=== PATIENT | male | born 1945 | race Caucasian/White ===

== ENCOUNTER → 2019-11-24 | Outpatient (CLI) | payer MEDICARE | END | disposition home or self-care (01) | LOC: EDSEX → LABWHC1 10:46 | PROVIDERS: ATTEND Family Medicine | DX: J44.9 Chronic obstructive pulmonary disease, unspecified (principal) | CPT/HCPCS: 36415; 86769 ==

== ENCOUNTER → 2019-12-22 | Outpatient (CLI) | payer MEDICARE ==
--- NOTE | 2020-01-07 14:03 | MM ---
Reason for exam: screening (asymptomatic). Last mammogram was performed 2 years and 2 months ago. History: Patient is postmenopausal. Family history of breast cancer in mother at age 70. Physical Findings: A clinical breast exam by your physician is recommended on an annual basis and results should be correlated with mammographic findings. MG 3D Screening Mammo W/Cad Bilateral CC and MLO view(s) were taken. Prior study comparison: October 08, 2017, mammogram, performed at [place]. March 04, 2016, mammogram, performed at [place]. The breast tissue is heterogeneously dense. This may lower the sensitivity of mammography. Focal asymmetry upper outer quadant right breast. This finding is changed when compared with previous exams. ASSESSMENT: Incomplete: need additional imaging evaluation, BI-RAD 0 RECOMMENDATION: Special view mammogram of the right breast. If lesion persists on supplemental views, image directed ultrasound is recommended. [facility] will attempt to contact patient to return for supplemental views and ultrasound if indicated.
== END | disposition home or self-care (01) ==
LOC: RADMAMWWP 09:44 → EDSEX 10:00
PROVIDERS: ATTEND Family Medicine
DX: Z12.31 Encounter for screening mammogram for malignant neoplasm of breast (principal)
CPT/HCPCS: 77063; 77067

== ENCOUNTER → 2020-01-17 | Outpatient (CLI) | payer MEDICARE ==
--- NOTE | 2020-01-18 14:29 | MM ---
Reason for exam: additional evaluation requested from abnormal screening. Last mammogram was performed 1 month ago. History: Patient is postmenopausal. Family history of breast cancer in mother at age 70. Physical Findings: Nurse did not find any significant physical abnormalities on exam. MG 3D Work Up W/Cad RT Spot compression CC, spot compression MLO, and LM view(s) were taken of the right breast. Prior study comparison: December 22, 2019, bilateral MG 3d screening mammo w/cad. October 08, 2017, mammogram, performed at [place]. The breast tissue is heterogeneously dense. This may lower the sensitivity of mammography. Finding #1: There is a 7 mm circumscribed round mass located 4-5 cm from the nipple in the middle, central position of the right breast, persists on additional views. Finding #2: There are typically benign vascular, round calcifications in the right breast. New finding since October 08, 2017. These results were verbally communicated with the patient and result sheet given to the patient on 01/17/20. ASSESSMENT: Incomplete: need additional imaging evaluation, BI-RAD 0 RECOMMENDATION: Ultrasound of the right breast.
--- NOTE | 2020-01-18 14:33 | USB ---
Reason for exam: additional evaluation requested from abnormal screening. History: Patient is postmenopausal. Family history of breast cancer in mother at age 70. US Breast Workup RT Right complete breast ultrasound includes all four quadrants, the retroareolar region and axilla. Finding demonstrates a 7 x 5 x 7mm oval, hypoechoic lesion at 7 o'clock, deep tissue, increased through transmission, probably benign and a 11 x 6 x 11mm oval lesion at 6 o'clock, probable sebaceous cyst. These results were verbally communicated with the patient and result sheet given to the patient on 01/17/20. ASSESSMENT: Suspicious, BI-RAD 4 RECOMMENDATION: Surgical consultation of the right breast. Dermatology surgical consult, assess for surgical excision. Called office with mammographic findings and has scheduled an appointment for the patient for 01/21/20 at 1:[address] Kimble. PRELIMINARY REPORT CALLED AND FAXED TO DR. KIMBLE ON 01/17/20. Follow-up diagnostic mammogram and ultrasound of the right breast in 6 months.
== END | disposition home or self-care (01) ==
LOC: RADMAMWWP 09:18
PROVIDERS: ATTEND Family Medicine
DX: R92.8 Other abnormal and inconclusive findings on diagnostic imaging of breast (principal)
CPT/HCPCS: 77065; 76641; G0279; 77061

== ENCOUNTER → 2020-04-19 | Outpatient (CLI) | payer MEDICARE ==
[2020-04-19 18:41] LABS: Albumin 4.3 g/dL (3.80-4.90); Albumin/Globulin Ratio 2.05 (1.60-3.17); Anion Gap 5.2 mmol/L (4.00-12.00); Carbon Dioxide 28.8 mmol/L (21.6-31.8); Chol/HDL Ratio 2.81; Globulin 2.1 g/dL (1.6-3.3); LDL Cholesterol,Calculated 77.4 mg/dL (0.0-131.0); Non-African American GFR(CKD) 63.9 (60.0-200.0); Potassium 5.4 mmol/L (3.5-5.5); Total Bilirubin 0.4 mg/dL (0.2-1.2); Total Protein 6.4 g/dL (6.2-8.2); VLDL Calculation 16.6 mg/dL (5.00-40.00)
== END | disposition home or self-care (01) ==
LOC: LABWHC1 10:24
PROVIDERS: ATTEND Nurse Practitioner Adult Health
DX: E78.5 Hyperlipidemia, unspecified (principal); I10 Essential (primary) hypertension; I48.0 Paroxysmal atrial fibrillation
CPT/HCPCS: 36415; 80053; 80061; 83735; 84443; 84481

== ENCOUNTER → 2020-12-22 | Outpatient (CLI) | payer MEDICARE ==
--- NOTE | 2020-12-22 16:18 | USB ---
EXAMINATION TYPE: US breast limited RT DATE OF EXAM: 12/22/2020 COMPARISON: Mammogram same date CLINICAL HISTORY: N63 RT BREAST LUMP/MASS. Findings: The right breast was scanned with ultrasound from 4:00 to 7:00 and in the retroareolar region and axi lla. Again seen is a 1.1 x 0.6 x 1.1 cm ovoid heterogeneous lesion within the skin at 4:00 which is consis tent with patient's known sebaceous cyst, benign. There is an unchanged hypoechoic lesion in the right breast at 7:00 measuring 0.7 x 0.7 x 0.4 cm whic h likely represents a complicated cyst and follow-up ultrasound is recommended in 12 months. A simple cyst is noted in the retroareolar right breast. IMPRESSION: Follow-up ultrasound is recommended of the right breast lesion at 7:00 measuring up to 0.7 cm in 12 m onths when the patient is due for her bilateral mammogram. BI-RADS 3, probably benign.
--- NOTE | 2020-12-25 08:46 | MM ---
Reason for exam: additional evaluation requested from prior study. Last mammogram was performed 11 months ago. History: Patient is postmenopausal. Family history of breast cancer in mother at age 70. Physical Findings: Nurse did not find any significant physical abnormalities on exam. MG 3D Diag Mammo W/Cad JESSICA Bilateral CC and MLO view(s) were taken. Prior study comparison: January 17, 2020, right breast MG 3d work up w/cad RT. December 22, 2019, bilateral MG 3d screening mammo w/cad. October 08, 2017, mammogram, performed at [place]. There is scattered fibroglandular tissue bilaterally. These results were verbally communicated with the patient and result sheet given to the patient on 12/22/20. ASSESSMENT: Incomplete: need additional imaging evaluation, BI-RAD 0 RECOMMENDATION: Ultrasound of the right breast. (as per prior report) DUANE
== END | disposition home or self-care (01) ==
LOC: RADMAMWWP 14:20
PROVIDERS: ATTEND Family Medicine
DX: N64.89 Other specified disorders of breast (principal); R92.8 Other abnormal and inconclusive findings on diagnostic imaging of breast; Z78.0 Asymptomatic menopausal state; Z80.3 Family history of malignant neoplasm of breast
CPT/HCPCS: 77066; 76642; G0279; 77062

== ENCOUNTER → 2021-02-14 | Outpatient (CLI) | payer MEDICARE ==
--- NOTE | 2021-02-19 12:55 | BD ---
EXAMINATION TYPE: Axial Bone Density DATE OF EXAM: 02/14/2021 COMPARISON: NONE CLINICAL HISTORY: Height: 65.5 IN Weight: 177 LBS FRAX RISK QUESTIONS: Secondary Osteoporosis: Menopause before 45: TOTAL HYST AGE 31 Current Tobacco Use: YES RISK FACTORS HISTORY OF: Family History of Osteoporosis: YES, MOTHER Active: YES Postmenopausal woman: TOTAL HYST AGE 31 Take estrogen and/or progesterone medications: NOT NOW How long: TOOK FOR 20 YEARS MEDICATIONS: Additional Medications: VIT D, LIVER SUPPLEMENT, WARFIN, A FIB MEDS Additional History: EXAM MEASUREMENTS: Bone mineral densitometry was performed using the [employer] System. Bone mineral density as measured about the Lumbar spine is: ----- L1-L4(G/cm2): 1.022 T Score Values are as follows: ----- L2: -1.2 ----- L3: -1.5 ----- L4: -1.5 ----- L1-L4: -1.3 Bone mineral density has: BASELINE Bone mineral density about the R hip (g/cm2): 0.815 Bone mineral density about the L hip (g/cm2): 0.816 T Score values are as follows: -----R Neck: -1.6 -----L Neck: -1.6 -----R Total: -1.3 -----L Total: -1.3 Bone mineral density has: BASELINE IMPRESSION: Osteopenia NOTE: T-SCORE=SD OF THE YOUNG ADULT MEAN.
== END | disposition home or self-care (01) ==
LOC: RADBDWWP 10:33
PROVIDERS: ATTEND Family Medicine
DX: M85.89 Other specified disorders of bone density and structure, multiple sites (principal)
CPT/HCPCS: 77080

== ENCOUNTER 2021-08-07 19:10 | Emergency (ER) | payer MEDICARE ==
[2021-08-07 19:19] VITALS: RESP 18; TEMP 97.6
[2021-08-07] MEDS ORDERED: KETOROLAC 15 MG/ML 1 ML VIAL IM STA (20:05)
[2021-08-07] MEDS ORDERED: MORPHINE SULFATE 4 MG/ML SYRINGE IM STA (20:05)
[2021-08-07] MEDS ORDERED: CYCLOBENZAPRINE 5 MG TAB PO STA (20:06)
--- NOTE | 2021-08-07 20:14 | ED ---
Back Pain HPI - General Chief Complaint: Back Pain/Injury Stated Complaint: Back Pain Time Seen by Provider: 08/07/21 19:52 Source: patient, RN notes reviewed - History of Present Illness Initial Comments: This is a pleasant 76-year-old female with a history of atrial fibrillation and hypertension presents to emergency department with upper back pain. Patient states she coughed yesterday and got a pain shooting across her upper back. Patient states the pain absolutely started with a cough. She states that movement of her torso and her arms exacerbates the pain. Also has pain with any movement involving the forward flexion of the neck. Patient denies any shortness of breath at rest. No chest pain. No other injuries. There was no direct trauma. Straight cancer. No headache, no fever or chills, no changes in vision or hearing, no sore throat or difficulty with speech, no neck pain, no chest pain or shortness of breath, no abdominal pain, no nausea or vomiting, no changes in urination or bowel movements, no numbness or tingling, no extremity pain, no skin rashes or lesions. MD Complaint: back pain - Related Data Previous Rx's Medication Instructions Recorded Docusate [Colace] 100 mg PO DAILY #20 capsule 08/07/21 HYDROcodone/APAP 5-325MG [Will[place]ie 1 tab PO Q6HR PRN 3 Days #12 tab 08/07/21 5-325] Allergies Allergy/AdvReac Type Severity Reaction Status Date / Time No Known Allergies Allergy Verified 01/17/20 10:04 Review of Systems ROS Statement: Those systems with pertinent positive or pertinent negative responses have been documented in the HPI. ROS Other: All systems not noted in ROS Statement are negative. General Exam - General Exam Comments Initial Comments: Patient presents in respiratory moderate distress secondary to injury to her upper back. Vital signs reviewed. Patient found be hypertensive. General appearance: alert, in distress Head exam: Present: atraumatic, normocephalic, normal inspection Eye exam: Present: normal appearance, PERRL, EOMI. Absent: scleral icterus, conjunctival injection, periorbital swelling ENT exam: Present: normal exam, mucous membranes moist Neck exam: Present: normal inspection. Absent: tenderness, meningismus, lymphadenopathy Respiratory exam: Present: normal lung sounds bilaterally, chest wall tenderness, other (Tender to the thoracic paraspinals. No definite midline tenderness. No break in skin integrity.). Absent: respiratory distress, wheezes, rales, rhonchi, stridor, accessory muscle use Cardiovascular Exam: Present: regular rate, normal rhythm, normal heart sounds. Absent: systolic murmur, diastolic murmur, rubs, gallop, clicks GI/Abdominal exam: Present: soft, normal bowel sounds. Absent: distended, tenderness, guarding, rebound, rigid, diminished bowel sounds, hyperactive bowel sounds, hypoactive bowel sounds Extremities exam: Present: normal inspection, full ROM, normal capillary refill. Absent: tenderness, pedal edema, joint swelling, calf tenderness Back exam: Present: normal inspection Neurological exam: Present: alert, oriented X3, CN II-XII intact Psychiatric exam: Present: normal affect, normal mood Skin exam: Present: warm, dry, intact, normal color. Absent: rash Course Vital Signs 08/07/21 19:15 Temperature 97.6 F Pulse Rate 76 Respiratory 18 Rate Blood Pressure 180/85 O2 Sat by Pulse 94 L Oximetry Medical Decision Making - Medical Decision Making Heartedly female with what she is describing a severe pain in the thoracic region after coughing yesterday. Found be hypertensive here. Patient has a history of atrial fibrillation and is on warfarin. Patient states she's been taking Advil at home. I'm going to order a CT of the thoracic spine/chest even the severity of the patient's pain and age. - Radiology Data Radiology results: report reviewed, image reviewed There is a T8 compression fracture, some evidence of atelectasis in the lung thakkar. Disposition Clinical Impression: Compression fracture of T8 vertebra Disposition: HOME SELF-CARE Condition: Good Instructions (If sedation given, give patient instructions): Procedures for Compression Fractures of the Spine (DC) Additional Instructions: Call tomorrow for follow-up appointment with the back specialist as discussed. You can go to a medical supply store and see if they can fit you for a brace. Follow-up with your regular physician as directed. Return to the ER immediately if any symptoms worsen, new symptoms arise, or any other problems develop. Take the pain medication as directed. No driving vehicles or operating machinery while taking this. This can also cause constipation. He states the stool softener with the pain medication if needed. If the pain is not bad you c an replace the pain medication with regular Tylenol. Do not take the acetaminophen/hydrocodone with regular Tylenol as these both contain Tylenol. Prescriptions: Docusate [Colace] 100 mg PO DAILY #20 capsule HYDROcodone/APAP 5-325MG [Willernie 5-325] 1 tab PO Q6HR PRN 3 Days #12 tab PRN Reason: Pain Is patient prescribed a controlled substance at d/c from ED?: No Referrals: Benito Gibbons DO [Doctor of Osteopathic Medicine] - 1-2 days Time of Disposition: 21:31
--- NOTE | 2021-08-07 21:15 | CT ---
EXAMINATION TYPE: CT thoracic spine wo con DATE OF EXAM: 08/07/2021 COMPARISON: None HISTORY: chest/back pain, no injury CT DLP: combined DLP 330.8 mGycm Automated exposure control for dose reduction was used. Images obtained from the level of T1-T12 with no contrast. Thoracic vertebra have normal alignment. There is osteopenia. There is some minimal anterior wedging of several thoracic vertebra up to 15 %. There is no thoracic paraspinal mass. Posterior elements are intact. There is more noticeable loss of height of T8 vertebra. IMPRESSION: There is mild T8 compression fracture of uncertain age. Fracture could be acute. Osteopenia.
--- NOTE | 2021-08-07 21:21 | CT ---
EXAMINATION TYPE: CT chest wo con DATE OF EXAM: 08/07/2021 COMPARISON: None HISTORY: chest/back pain, no injury CT DLP: combined DLP 330.8 mGycm Automated exposure control for dose reduction was used. Images obtained from the thoracic inlet to the diaphragm without contrast. There is some mild subsegmental atelectasis at the lung bases. Heart size is normal. There is no wolf cardial effusion. There is coronary artery calcification. There is no mediastinal adenopathy. There a re no hilar masses. There is some mild linear density in the lingula left upper lobe. Bones are osteopenic. There is 15% mild compression deformity of T8 vertebra. Sternum is intact. Ther e is no evidence of a rib fracture. There is a 2 cm cyst in the left lobe of the liver. There is 1 cm cyst anterior right lobe of the selina er. There is 5 cm cyst in the inferior left lobe of the liver. Spleen is intact. Stomach is intact. IMPRESSION: There is some scarring and subsegmental atelectasis at the lung bases and also lingula left upper lob e. Multiple hepatic cysts. Moderate coronary artery calcification. Normal heart size. Mild T8 compression fracture. No suspicious pulmonary mass.
[2021-08-07 22:01] VITALS: BP 171/83; PULSE 71
== END 2021-08-07 22:04 | disposition home or self-care (01) ==
LOC: EC 19:10
DX: S22.069A Unspecified fracture of T7-T8 vertebra, initial encounter for closed fracture (principal); I10 Essential (primary) hypertension; I48.91 Unspecified atrial fibrillation; Z79.899 Other long term (current) drug therapy; Z79.01 Long term (current) use of anticoagulants; X58.XXXA Exposure to other specified factors, initial encounter
CPT/HCPCS: 99284; 96372 ×2; 72128; 71250; J2270; J1885

== ENCOUNTER → 2021-08-22 | Outpatient (CLI) | payer MEDICARE ==
--- NOTE | 2021-08-23 05:30 | MR ---
EXAMINATION TYPE: MR thoracic spine wo/w con DATE OF EXAM: 08/22/2021 COMPARISON: None HISTORY: Mid back pain for 3 weeks, T8 compression fracture CONTRAST: Standard multiplanar, multisequence MRI departmental protocol images were obtained without contrast a nd with 7.5 mL intravenous Gadavist gadolinium contrast. The thoracic vertebra have normal alignment. There is 25% wedging of T8 vertebral body. There is decr eased signal in the vertebra on the T1 and T2 images. There is a small fragment posterior extension i nto the spinal canal 15%. There is developmentally adequate canal and no spinal stenosis. Thoracic sp inal cord has normal signal pattern. No edema. There is enhancement of the vertebra with the contrast . There is no paraspinal mass. The remainder of the thoracic spine appears fairly normal. IMPRESSION: Compression fracture of T8 vertebra. No evidence of any significant mass component or focal bone dest ruction. This is most likely an osteoporotic type compression fracture with healing. There is progres tarun of the fracture compared to the CT scan of 08/07/2021. There is a very minimal posterior fragment extension into the spinal canal but no impingement on the neural elements.
== END | disposition home or self-care (01) ==
LOC: RADMRIMAIN 19:07
PROVIDERS: ATTEND Orthopaedic Surgery
DX: S22.060A Wedge compression fracture of T7-T8 vertebra, initial encounter for closed fracture (principal); X58.XXXA Exposure to other specified factors, initial encounter
CPT/HCPCS: 72157; A9585

== ENCOUNTER 2021-09-13 19:49 | Observation (INO) | payer MEDICARE ==
[2021-09-13] MEDS ORDERED: SODIUM CHLORIDE 0.9% 500 ML 500 ML IV STA (20:05)
[2021-09-13] MEDS ORDERED: ORPHENADRINE 30 MG/ML 2 ML VIAL IVP STA (20:06)
[2021-09-13] MEDS ORDERED: ACETAMINOPHEN IV (For NPO) 1,000 MG in SALINE 100 100ML.BAG IVPB STA (20:10)
--- NOTE | 2021-09-13 20:12 | ED ---
Back Pain HPI - General Chief Complaint: Back Pain/Injury Stated Complaint: back/abd pain Time Seen by Provider: 09/13/21 19:57 Source: patient, RN notes reviewed - History of Present Illness Initial Comments: This is a pleasant 76-year-old female presents to emergency department after having a T8 kyphoplasty yesterday by Dr. Mejia. Patient states that the pain is unbearable from the surgery. Note that the patient was prescribed narcotic pain medication and did not pick them up from the pharmacy because she states that the narcotics make her feel funny. Patient has been using Advil at home. Patient states this is not been providing relief. Patient very frustrated because she does not want to take the narcotic pain medication due to constipation. Patient states that she had a bowel movement prior to the surgery. Patient states she did not have anything to eat leading up to the surgery nor has she really eat anything since yesterday. Patient also complaining of pain across her upper abdomen which has been there since the surgery. She denies any chest pain or shortness of breath. No known fever or chills. No problems with urination. No headache, no fever or chills, no changes in vision or hearing, no sore throat or difficulty with speech, no neck pain, no chest pain or shortness of breath, positive for constipation, no nausea or vomiting, no changes in urination or bowel movements, no numbness or tingling, no extremity pain, no skin rashes or lesions. MD Complaint: back pain - Related Data Home Medications Medication Instructions Recorded Confirmed Atorvastatin [Lipitor] 40 mg PO W/SUPPER 08/07/21 09/13/21 Cholecalciferol [Vitamin D3 (125 125 mcg PO W/SUPPER 08/07/21 09/13/21 Mcg = 5000 Iu)] Furosemide [Lasix] 40 mg PO W/SUPPER 08/07/21 09/13/21 Vitamin A [Vitamin A (8,000 Units 2,400 mcg PO W/SUPPER 08/07/21 09/13/21 = 2,400 MCG)] Warfarin Sodium 5 mg PO W/SUPPER 08/07/21 09/13/21 Diltiazem HCl [Cardizem] 90 mg PO W/SUPPER 09/10/21 09/13/21 lisinopriL [Zestril] 5 mg PO W/SUPPER 09/10/21 09/13/21 Acetaminophen Tab [Tylenol Tab] 500 mg PO Q6HR PRN 09/13/21 09/13/21 Allergies Allergy/AdvReac Type Severity Reaction Status Date / Time No Known Allergies Allergy Verified 09/13/21 21:50 Review of Systems ROS Statement: Those systems with pertinent positive or pertinent negative responses have been documented in the HPI. ROS Other: All systems not noted in ROS Statement are negative. General Exam - General Exam Comments Initial Comments: Does not appear ill or toxic. Patient noted to be hypertensive at 153/110. General appearance: alert, in distress Head exam: Present: atraumatic, normocephalic, normal inspection Eye exam: Present: normal appearance, PERRL, EOMI. Absent: scleral icterus, conjunctival injection, periorbital swelling ENT exam: Present: normal exam, mucous membranes moist Neck exam: Present: normal inspection. Absent: tenderness, meningismus, lymphadenopathy Respiratory exam: Present: normal lung sounds bilaterally. Absent: respiratory distress, wheezes, rales, rhonchi, stridor Cardiovascular Exam: Present: regular rate, normal rhythm, normal heart sounds. Absent: systolic murmur, diastolic murmur, rubs, gallop, clicks GI/Abdominal exam: Present: soft, tenderness (Mild tenderness across the upper abdomen. No rebound or percussion tenderness. No hepatosplenomegaly.), normal bowel sounds. Absent: distended, guarding, rebound, rigid Extremities exam: Present: normal inspection, full ROM, normal capillary refill. Absent: tenderness, pedal edema, joint swelling, calf tenderness Back exam: Absent: normal inspection (Well healing surgical wound noted to the right thoracic paraspinal area. No erythema. No drainage. No dehiscence.), rash noted Neurological exam: Present: alert, oriented X3, CN II-XII intact Psychiatric exam: Present: normal affect, normal mood Skin exam: Present: warm, dry, intact, normal color. Absent: rash Course Vital Signs 09/13/21 09/13/21 19:52 21:12 Temperature 98.3 F Pulse Rate 92 70 Respiratory 20 16 Rate Blood Pressure 153/110 154/92 O2 Sat by Pulse 93 L 95 Oximetry - Reevaluation(s) Reevaluation #1: 09/13/21 22:08 Patient reevaluation Patient does have improved pain status after morphine and muscle relaxer. I did discuss the case with the patient's daughter, Hanane, she does not believe they can handle the patient at home as the patient is not tolerating activities of daily living secondary to the pain. - Consultations Consultation #1: Case discussed with Jenny West who agrees to admit the patient for observation/pain control. Patient's PCP will be consulted for medical management. Medical Decision Making - Lab Data Result diagrams: 09/13/21 20:38 09/13/21 20:38 Lab Results 09/13/21 09/13/21 09/13/21 Range/Units 20:38 20:38 20:38 WBC 6.2 (3.8-10.6) k/uL RBC 4.28 (3.80-5.40) m/uL Hgb 13.7 (11.4-16.0) gm/dL Hct 40.4 (34.0-46.0) % MCV 94.5 (80.0-100.0) fL MCH 32.0 (25.0-35.0) pg MCHC 33.9 (31.0-37.0) g/dL RDW 12.9 (11.5-15.5) % Plt Count 204 (150-450) k/uL MPV 9.2 Neutrophils % 62 % Lymphocytes % 28 % Monocytes % 6 % Eosinophils % 1 % Basophils % 0 % Neutrophils # 3.8 (1.3-7.7) k/uL Lymphocytes # 1.7 (1.0-4.8) k/uL Monocytes # 0.4 (0-1.0) k/uL Eosinophils # 0.1 (0-0.7) k/uL Basophils # 0.0 (0-0.2) k/uL Sodium 139 (137-145) mmol/L Potassium 3.7 (3.5-5.1) mmol/L Chloride 108 H (98-107) mmol/L Carbon Dioxide 29 (22-30) mmol/L Anion Gap 2 mmol/L BUN 13 (7-17) mg/dL Creatinine 0.81 (0.52-1.04) mg/dL Est GFR (CKD-EPI)AfAm 83 (>60 ml/min/1.73 sqM) Est GFR (CKD-EPI)NonAf 72 (>60 ml/min/1.73 sqM) Glucose 104 H (74-99) mg/dL Plasma Lactic Acid Placido (0.7-2.0) mmol/L Calcium 8.7 (8.4-10.2) mg/dL Total Bilirubin 0.5 (0.2-1.3) mg/dL AST 29 (14-36) U/L ALT 27 (4-34) U/L Alkaline Phosphatase 98 (38-126) U/L Troponin I <0.012 (0.000-0.034) ng/mL Total Protein 5.9 L (6.3-8.2) g/dL Albumin 3.4 L (3.5-5.0) g/dL Amylase 52 (30-110) U/L Lipase 74 (23-300) U/L 09/13/21 Range/Units 20:58 WBC (3.8-10.6) k/uL RBC (3.80-5.40) m/uL Hgb (11.4-16.0) gm/dL Hct (34.0-46.0) % MCV (80.0-100.0) fL MCH (25.0-35.0) pg MCHC (31.0-37.0) g/dL RDW (11.5-15.5) % Plt Count (150-450) k/uL MPV Neutrophils % % Lymphocytes % % Monocytes % % Eosinophils % % Basophils % % Neutrophils # (1.3-7.7) k/uL Lymphocytes # (1.0-4.8) k/uL Monocytes # (0-1.0) k/uL Eosinophils # (0-0.7) k/uL Basophils # (0-0.2) k/uL Sodium (137-145) mmol/L Potassium (3.5-5.1) mmol/L Chloride (98-107) mmol/L Carbon Dioxide (22-30) mmol/L Anion Gap mmol/L BUN (7-17) mg/dL Creatinine (0.52-1.04) mg/dL Est GFR (CKD-EPI)AfAm (>60 ml/min/1.73 sqM) Est GFR (CKD-EPI)NonAf (>60 ml/min/1.73 sqM) Glucose (74-99) mg/dL Plasma Lactic Acid Placido 0.7 (0.7-2.0) mmol/L Calcium (8.4-10.2) mg/dL Total Bilirubin (0.2-1.3) mg/dL AST (14-36) U/L ALT (4-34) U/L Alkaline Phosphatase (38-126) U/L Troponin I (0.000-0.034) ng/mL Total Protein (6.3-8.2) g/dL Albumin (3.5-5.0) g/dL Amylase (30-110) U/L Lipase (23-300) U/L - EKG Data EKG Comments: EKG done at 2145 and read by the ED attending physician reveals left axis deviation, normal intervals, no acute ST or T-wave changes, normal QRS morphology. Rate of 70 Disposition Clinical Impression: Postoperative back pain Disposition: ADMITTED IP TO THIS [facility] Condition: Fair Referrals: None,Stated [REFERRING] - 1-2 days Time of Disposition: 22:07 Decision to Admit Reason: Admit from EC Decision Time: 22:07
[2021-09-13 20:44] LABS: Basophils % (A) 0 %; Eosinophils # (A) 0.1 k/uL (0-0.7); Eosinophils % (A) 1 %; HCT 40.4 % (34.0-46.0); HGB 13.7 gm/dL (11.4-16.0); Lymphocytes # (A) 1.7 k/uL (1.0-4.8); Lymphocytes % (A) 28 %; MCHC 33.9 g/dL (31.0-37.0); MCV 94.5 fL (80.0-100.0); Mean Platelet Volume 9.2; Monocytes # (A) 0.4 k/uL (0-1.0); Monocytes % (A) 6 %; Neutrophils # (A) 3.8 k/uL (1.3-7.7); Neutrophils % (A) 62 %; Platelet Count 204 k/uL (150-450); RBC 4.28 m/uL (3.80-5.40); RDW 12.9 % (11.5-15.5); WBC 6.2 k/uL (3.8-10.6)
[2021-09-13 20:56] LABS: Albumin 3.4 g/dL (3.5-5.0); Calcium 8.7 mg/dL (8.4-10.2); Potassium 3.7 mmol/L (3.5-5.1); Total Bilirubin 0.5 mg/dL (0.2-1.3); Total Protein 5.9 g/dL (6.3-8.2)
[2021-09-13] MEDS ORDERED: ONDANSETRON 4 MG/2 ML VIAL IVP PRN (22:12)
[2021-09-13] MEDS ORDERED: ACETAMINOPHEN TAB 325 MG TAB PO PRN (22:12)
[2021-09-13] MEDS ORDERED: NALOXONE 0.4 MG/ML 1 ML VIAL IV PRN (22:12)
[2021-09-13] MEDS ORDERED: SODIUM CHLORIDE 0.9% 1,000 ML IV SCH (22:15)
[2021-09-13] MEDS ORDERED: MAGNESIUM HYDROXIDE 2,400 MG/10 ML CUP PO PRN ×2 (22:15)
--- NOTE | 2021-09-13 22:26 | XR ---
EXAMINATION TYPE: XR abdomen acute w cxr DATE OF EXAM: 09/13/2021 CLINICAL HISTORY: Abd/back pain TECHNIQUE: Single frontal view of chest is obtained. Supine and upright views of the abdomen are acq uired. COMPARISON: None. FINDINGS: Chest: No acute process. Abdomen-pelvis: Gas is noted in nondistended small bowel loops. Gas and fecal material is seen in non distended colon. No pneumoperitoneum, visceromegaly, or suspicious calcification is identified. The osseous structures are intact. IMPRESSION: No acute chest, abdomen, or pelvic radiographic process.
[2021-09-13] MEDS: DOCUSATE 100 MG CAP PO SCH (22:41)
[2021-09-14] MEDS: MORPHINE SULFATE 4 MG/ML SYRINGE IV PRN ×2 (01:14→10:02)
[2021-09-14] MEDS ORDERED: ACETAMINOPHEN TAB 500 MG TAB PO PRN (05:37)
[2021-09-14] MEDS ORDERED: DEXAMETHASONE SOD PHOSPHATE 10 MG/ML 1 ML VIAL IVP SCH (09:00)
[2021-09-14] MEDS: DOCUSATE 100 MG CAP PO SCH ×2 (09:59→10:14)
[2021-09-14 10:51] LABS: INR 0.97 (0.90-1.11)
--- NOTE | 2021-09-14 11:12 | P.CONS ---
History of Present Illness - Reason for Consult Consult date: 09/14/21 - History of Present Illness HISTORY OF PRESENT ILLNESS This is a 76-year-old female patient of Dr. Kimble with past medical history of course hypertension, hyperlipidemia, paroxysmal atrial fibrillation on Coumadin, history of bowel resection secondary to bowel obstruction, active tobacco use and dependence. Patient has history of presenting to the emergency center on 08/07/2021 due to severe upper back pain after coughing. She underwent kyphoplasty of T8 for T8 osteoporotic compression fracture on 09/[address] Mejia. Patient presented yesterday to the emergency center complaining of unbearable back pain and using Advil at home. She is reluctant to take narcotics due to side effects. She also complains of weakness in her legs. Pain is significant enough that she is unable to take care of her ADLs. She also complains of weakness in her legs. Patient is afebrile, heart rate 92, blo od pressure initially 153/110, repeat 154/92. CBC was unremarkable. Chloride 108 otherwise electrolytes and renal function were normal. Blood sugar 104. Liver function tests normal. Troponin negative. Lipase 74. Lactic acid 0.7. EKG sinus rhythm with left axis deviation. Acute abdominal series and chest x-ray showed no abnormality. Patient was placed on the observation unit, patient received 1 dose of IV Tylenol and one dose of IV morphine. REVIEW OF SYSTEMS Constitutional: No fever, no chills, no night sweats. No weight change. No weakness, fatigue or lethargy. No daytime sleepiness. EENT: No headache. No blurred vision or double vision, no loss of vision. No loss of Hearing, no ringing in the ears, no dizziness. No nasal drainage or congestion. No epistaxis. No sore throat. Lungs: No shortness of breath, cough, no sputum production. No wheezing. Cardiovascular: No chest pain, no lower extremity edema. No palpitations. No paroxysmal nocturnal dyspnea. No orthopnea. No lightheadedness or dizziness. No syncopal episodes. Abdominal: No abdominal pain. No nausea, vomiting. No diarrhea. No constipation. No bloody or tarry stools. No loss of appetite. Genitourinary: No dysuria, increased frequency, urgency. No urinary retention. Musculoskeletal: No myalgias. No muscle weakness, no gait dysfunction, no frequent falls. No back pain. No neck pain. Integumentary: No wounds, no lesions. No rash or pruritus. No unusual bruising. No change in hair or nails. Neurologic: No aphasia. No facial droop. No change in mentation. No head injury. No headache. No paralysis. No paresthesia. Psychiatric: No depression. No anxiety. No mood swings. Endocrine: No abnormal blood sugars. No weight change. No excessive sweating or thirst. No cold intolerance. SOCIAL HISTORY Patient is an active smoker since age 20 half a pack per day, no alcohol use, no marijuana or illicit drug use. She does not have oxygen, CPAP at home. She is and lives at home with her . FAMILY HISTORY Mother at age 77 from ischemic bowel. Father at age 80 from massive myocardial infarction. Patient does not have any brothers and sisters. She has one daughter with no major medical problems.. PHYSICAL EXAMINATION Gen: This is a 76-year-old female. She is resting in bed and appears to be uncomfortable secondary to pain. HEENT: Head is atraumatic, normocephalic. Pupils equal, round. Sclerae is anicteric. NECK: Supple. No JVD. No lymphadenopathy. No thyromegaly. LUNGS: Clear to auscultation. No wheezes or rhonchi. No intercostal r etractions. HEART: Regular rate and rhythm. No murmur. ABDOMEN: Soft. Bowel sounds are present. No masses. No tenderness. EXTREMITIES: No pedal edema. No calf tenderness. NEUROLOGICAL: Patient is awake, alert and oriented x3. Cranial nerves 2 through 12 are grossly intact. Strength to both lower extremities equal. ASSESSMENT AND PLAN 1. Intractable pain secondary to osteoporotic compression fracture of T8 status post kyphoplasty of T8 on 09/[address] Mejia. Continue morphine as needed for pain, patient is currently nothing by mouth, stat INR ordered for today. 2. Hypertension. Continue lisinopril 5 mg daily with supper, Cardizem 90 mg with supper. Monitor blood pressure closely. 3. Hyperlipidemia. Continue atorvastatin 40 mg with supper. 4. Paroxysmal atrial fibrillation. Coumadin on hold. Check INR, continue Cardizem. Patient is currently in a sinus rhythm. 5. Tobacco use and dependence. Nicotine patch. 6. Bowel resection secondary to bowel obstruction. No complaints of abdominal pain. 7. GI prophylaxis. Protonix. 8. DVT prophylaxis. Patient will be resumed on Coumadin once cleared by surgery. Patient will be admitted to the hospital for a minimum of 2 night stay. DISCHARGE PLAN To be determined. Impression and plan of care have been directed as dictated by the signing physician. Maryam Douglas nurse practitioner acting as scribe for signing physician. Past Medical History Past Medical History: No Reported History History of Any Multi-Drug Resistant Organisms: None Reported Additional Past Surgical History / Comment(s): Kyphoplasty Smoking Status: Current every day smoker Medications and Allergies Home Medications Medication Instructions Recorded Confirmed Type Atorvastatin [Lipitor] 40 mg PO W/SUPPER 08/07/21 09/13/21 History Cholecalciferol [Vitamin D3 (125 125 mcg PO W/SUPPER 08/07/21 09/13/21 History Mcg = 5000 Iu)] Furosemide [Lasix] 40 mg PO W/SUPPER 08/07/21 09/13/21 History Vitamin A [Vitamin A (8,000 Units 2,400 mcg PO W/SUPPER 08/07/21 09/13/21 History = 2,400 MCG)] Warfarin Sodium 5 mg PO W/SUPPER 08/07/21 09/13/21 History Diltiazem HCl [Cardizem] 90 mg PO W/SUPPER 09/10/21 09/13/21 History lisinopriL [Zestril] 5 mg PO W/SUPPER 09/10/21 09/13/21 History Acetaminophen Tab [Tylenol Tab] 500 mg PO Q6HR PRN 09/13/21 09/13/21 History Allergies Allergy/AdvReac Type Severity Reaction Status Date / Time No Known Allergies Allergy Verified 09/13/21 21:50 Physical Exam Vitals: Vital Signs Temp Pulse Pulse Resp BP BP Pulse Ox 09/14/21 07:00 98.8 F 82 18 133/68 97 09/14/21 01:11 97.3 F L 98 16 108/75 92 L 09/13/21 21:12 70 16 154/92 95 09/13/21 19:52 98.3 F 92 20 153/110 93 L Intake and Output 09/13/21 09/14/21 09/14/21 22:59 06:59 14:59 Other: # Voids 1 Weight 81.647 kg 81.647 kg Results CBC & Chem 7: 09/13/21 20:38 09/13/21 20:38 Labs: Abnormal Lab Results - Last 24 Hours (Table) 09/13/21 Range/Units 20:38 Chloride 108 H (98-107) mmol/L Glucose 104 H (74-99) mg/dL Total Protein 5.9 L (6.3-8.2) g/dL Albumin 3.4 L (3.5-5.0) g/dL
[2021-09-14] MEDS ORDERED: NICOTINE 14MG/24HR PATCH TRANSDERM SCH (11:15)
--- NOTE | 2021-09-14 13:18 | P.HPOR ---
History of Present Illness H&P Date: 09/14/21 Chief Complaint: Thoracic and lumbar muscle spasm Orthopedics H&P and discharge summary: History of present illness: Patient is a very pleasant 76-year-old female who is well known to our service who is seen and examined the bedside for further evaluation of her thoracolumbar spine. She is status post T8 kyphoplasty with biopsy performed on 09/12/2021. She was discharged home that same day. She states she was experiencing s ignificant spasm over her thoracic and lumbar spines yesterday. She states her pain was so severe she presented to the emergency department for further evaluation. She had not been taking muscle relaxing medication in the outpatient setting. She denies any lower extremity weakness or radiculopathy bilaterally. She states the pain she was experiencing at her T8 compression fracture site has significantly improved postoperatively. She states her most significant symptom is spasms she experiences along her entire thoracic and lumbar spine. She states this pain is exacerbated with increased activities and with doing activities with her arms out in front of her and reaching activities. Her pain is controlled while sitting and while laying down. She states she has been using a walker to aid in ambulation during her admission and feels this has been beneficial. A prescription for a 2 wheeled walker has been signed and provided to case management to obtain a 2 wheeled walker at the time of discharge. Patient feels since her admission her symptoms have improved and she would be ready for discharge home today. She was seen and examined by medicine this morning. Patient's other medical diagnoses include paroxysmal atrial fibrillation. We did discuss with medicine patient may resume Coumadin as previously prescribed. Patient's other medical history includes hyperlipidemia, hypertension, and tobacco use with dependence. Patient was also discussed in detail with medicine who states the patient is cleared for discharge from a medical standpoint. Patient states she does have some narcotic pain medications at home including hydrocodone and Tylenol #3 but has not been taking these medicines regularly as they do cause some constipation. She states after 10 days she was able to have a bowel movement. She is not currently experiencing any abdominal pain. Her abdomen is soft. She states she does have multiple medications at home to mold closer helper in facilitating a bowel movement. Past Medical History Past Medical History: No Reported History History of Any Multi-Drug Resistant Organisms: None Reported Additional Past Surgical History / Comment(s): Kyphoplasty Smoking Status: Current every day smoker Medications and Allergies Home Medications Medication Instructions Recorded Confirmed Type Atorvastatin [Lipitor] 40 mg PO W/SUPPER 08/07/21 09/13/21 History Cholecalciferol [Vitamin D3 (125 125 mcg PO W/SUPPER 08/07/21 09/13/21 History Mcg = 5000 Iu)] Furosemide [Lasix] 40 mg PO W/SUPPER 08/07/21 09/13/21 History Vitamin A [Vitamin A (8,000 Units 2,400 mcg PO W/SUPPER 08/07/21 09/13/21 History = 2,400 MCG)] Warfarin Sodium 5 mg PO W/SUPPER 08/07/21 09/13/21 History Diltiazem HCl [Cardizem] 90 mg PO W/SUPPER 09/10/21 09/13/21 History lisinopriL [Zestril] 5 mg PO W/SUPPER 09/10/21 09/13/21 History Acetaminophen Tab [Tylenol Tab] 500 mg PO Q6HR PRN 09/13/21 09/13/21 History Cyclobenzaprine [Flexeril] 10 mg PO TID PRN #90 tab 09/14/21 Rx Allergies Allergy/AdvReac Type Severity Reaction Status Date / Time No Known Allergies Allergy Verified 09/13/21 21:50 Physical Examination Physical exam: Patient is awake, alert, and oriented 3 Vital signs stable Good chest excursion with deep inspiration and expiration Abdomen soft nontender Examination of thoracic and lumbar spine reveals skin is intact with no abrasions, lacerations, or bruises; no erythema, purulence or signs of infection Evidence of a surgical dressing over the right middle lower thoracic spine following kyphoplasty Thoracic dressing remains clean, dry, and intact; no erythema or drainage from the surgical site No pain on palpation over the thoracic surgical site No significant pain with palpation of the entire thoracic or lumbar spine Dorsiflexion, plantarflexion, and extensor hallucis longus positive sustained bilaterally Lower extremity strength 5/5 bilaterally Patient is able to move her legs independently bilaterally without significant difficulty Straight leg test negative bilateral lower extremities Negative Lasegue's test bilaterally No signs or symptoms of DVT; no calf pain No pain with internal and external rotation of the hips bilaterally Neurovascularly intact Results - Labs Labs: Abnormal Lab Results - Last 24 Hours (Table) 09/13/21 Range/Units 20:38 Chloride 108 H (98-107) mmol/L Glucose 104 H (74-99) mg/dL Total Protein 5.9 L (6.3-8.2) g/dL Albumin 3.4 L (3.5-5.0) g/dL H & H 09/13/21 Range/Units 20:38 Hgb 13.7 (11.4-16.0) gm/dL Hct 40.4 (34.0-46.0) % Coagulation 09/14/21 Range/Units 05:55 INR 0.97 (0.90-1.11) Result Diagrams: 09/13/21 20:38 09/13/21 20:38 Assessment and Plan Assessment: Assessment: Intractable thoracic and lumbar pain, improving since admission Thoracic and lumbar muscle spasm Status post T8 kyphoplasty with biopsy performed on 09/14/2021 Paroxysmal atrial fibrillation currently on Coumadin Hyperlipidemia Hypertension Tobacco use with dependence (1) Spasm of thoracolumbar muscle Current Visit: Yes Status: Acute Code(s): M62.830 - MUSCLE SPASM OF BACK SNOMED Code(s): 639244101 (2) Thoracolumbar back pain Current Visit: Yes Status: Acute Code(s): M54.50 - LOW BACK PAIN, UNSPECIFIED; M54.6 - PAIN IN THORACIC SPINE SNOMED Code(s): 460299153 (3) Status post kyphoplasty Current Visit: Yes Status: Acute Code(s): Z98.890 - OTHER SPECIFIED POSTPROCEDURAL STATES SNOMED Code(s): 812770475 (4) Paroxysmal atrial fibrillation Current Visit: Yes Status: Acute Code(s): I48.0 - PAROXYSMAL ATRIAL FIBRILLATION SNOMED Code(s): 197688611 (5) Current use of detention anticoagulation Current Visit: Yes Status: Acute Code(s): Z79.01 - GROUP HOME (CURRENT) USE OF ANTICOAGULANTS SNOMED Code(s): 799235619 (6) Hyperlipidemia Current Visit: Yes Status: Acute Code(s): E78.5 - HYPERLIPIDEMIA, UNSPECIFIED SNOMED Code(s): 79657034 (7) Hypertension Current Visit: Yes Status: Acute Code(s): I10 - ESSENTIAL (PRIMARY) HYPERTENSION SNOMED Code(s): 72545138 (8) Tobacco use Current Visit: Yes Status: Acute Code(s): Z72.0 - TOBACCO USE SNOMED Code(s): 764073748 (9) Tobacco dependence Current Visit: Yes Status: Acute Code(s): F17.200 - NICOTINE DEPENDENCE, UNSPECIFIED, UNCOMPLICATED SNOMED Code(s): 09754973 Plan: Plan: 1. Patient is status post T8 kyphoplasty and biopsy performed on 09/14/2021. She's had significant improvement of her T8 fracture pain following her kyphoplasty. She was discharged from the hospital the same day as her surgical procedure. She began to experience increased thoracic and lumbar muscle spasm yesterday and presented to the hospital for further evaluation after she could not control her symptoms in the outpatient setting. During her admission to the hospital her symptoms have been improving with medication. She was given a muscle relaxer in the emergency department. She has also been using a walker to aid in ambulation during her admission and feels her symptoms have been better controlled since that time. She is not experiencing any lower extremity wea kness or radiculopathy bilaterally. We did discuss we'll plan to prescribe cyclobenzaprine 10 mg 1 tab 3 times a day as needed for muscle spasm, dispensed #90, at the time of discharge. This will be sent to the [facility] pharmacy located within the [facility]. Prescription is also signed and provided to case management to obtain a 2 wheeled walker which the patient may use to aid in ambulation as needed. She should continue to avoid excessive bending, twisting, lifting activities. No lifting greater than 10 pounds. Avoid overhead lifting. Patient is currently scheduled for follow-up evaluation in approximately 2 weeks following her surgical intervention. We will plan to have her keep this appointment as scheduled. We did discuss if she has exacerbation of her symptoms prior to her scheduled follow-up appointment she may call the office for an earlier appointment time. Patient may resume hydrocodone for Tylenol #3 as previously prescribed as needed for pain control. 2. Patient may resume Coumadin as previously prescribed. Patient may continue with other previously prescribed medications as prescribed for her other medical diagnoses. Time with Patient: Greater than 30 (Including obtaining history, physical examination, reviewing of imaging, and dictation.)
[2021-09-14 14:10] VITALS: BP 136/71; TEMP 97.8
[2021-09-14 14:18] VITALS: PULSE 79; RESP 20
[2021-09-14] MEDS ORDERED: WARFARIN 5 MG TAB PO SCH (17:30)
[2021-09-14] MEDS ORDERED: FUROSEMIDE 40 MG TAB PO SCH (17:30)
[2021-09-14] MEDS ORDERED: VITAMIN A 10,000 UNIT (3000 MCG) CAPSULE PO SCH (17:30)
[2021-09-14] MEDS ORDERED: lisinopriL 5 MG TAB PO SCH (17:30)
[2021-09-14] MEDS ORDERED: DILTIAZEM ORAL 30 MG TAB PO SCH (17:30)
[2021-09-14] MEDS ORDERED: ATORVASTATIN 40 MG TAB PO SCH (17:30)
[2021-09-14] MEDS ORDERED: CHOLECALCIFEROL 125 MCG (5000 IU) TABLET PO SCH (17:30)
[2021-09-15] MEDS ORDERED: PANTOPRAZOLE 40 MG TABLET PO SCH (07:30)
== END 2021-09-14 14:42 | disposition home or self-care (01) ==
LOC: EC 19:49 → 6NMEDSUR 22:02
PROVIDERS: ADMIT Orthopaedic Surgery Hand Surgery; ATTEND Orthopaedic Surgery Hand Surgery
DX: M62.830 Muscle spasm of back (principal); M80.08XA Age-related osteoporosis with current pathological fracture, vertebra(e), initial encounter for fracture; M54.50 Low back pain, unspecified; M54.6 Pain in thoracic spine; I10 Essential (primary) hypertension; I48.0 Paroxysmal atrial fibrillation; E78.5 Hyperlipidemia, unspecified; F17.210 Nicotine dependence, cigarettes, uncomplicated; Z79.01 Long term (current) use of anticoagulants; Z90.49 Acquired absence of other specified parts of digestive tract; Z79.899 Other long term (current) drug therapy; Z98.890 Other specified postprocedural states; Z91.14 Patient's other noncompliance with medication regimen; R53.1 Weakness; Z83.79 Family history of other diseases of the digestive system; Z82.49 Family history of ischemic heart disease and other diseases of the circulatory system
CPT/HCPCS: 96376; 96361 ×2; 96375 ×2; 96365; 99285; 36415; 93005; 97162; 80053; 82150; 83605; 83690; 84484; 85025; 85610; 74022; G0378 ×2; J2270; J1100; J2360; J2405; J0131

== ENCOUNTER → 2021-09-28 | Outpatient (CLI) | payer MEDICARE ==
--- NOTE | 2021-09-28 13:09 | CT ---
EXAMINATION TYPE: CT abdomen pelvis w con DATE OF EXAM: 09/28/2021 COMPARISON: HISTORY: Abdominal pain x [address] DLP: 877.2 mGycm Automated exposure control for dose reduction was used. TECHNIQUE: Helical acquisition of images from the lung bases through the pelvis have been completed. CONTRAST: Performed with Oral Contrast and with IV Contrast, patient injected with 100 mL of Isovue M300. FINDINGS: There is a hiatal hernia present. There are coronary artery calcifications LUNG BASES: Some probable basilar scarring, possible interstitial changes noted. AORTA: Atheromatous changes are present.. LIVER/GB: Multiple cystic foci are scattered within the liver, gallbladder is within normal limits. PANCREAS: No significant abnormality is seen. SPLEEN: No significant abnormality is seen. ADRENALS: No significant abnormality is seen. KIDNEYS: Nonobstructive 3 mm calcification present at the lower pole left kidney, cortical cyst is pr esent in exophytic location at the left upper pole measuring only 1 cm posteriorly. Retroaortic left renal vein is present. REPRODUCTIVE ORGANS: Not seen BOWEL: Diverticular changes are present within the sigmoid colon, appendix is not seen. FREE AIR: No Free Air visible. ASCITES: None visible. PELVIC ADENOPATHY: None visualized. RETROPERITONEAL ADENOPATHY: No Retroperitoneal Adenopathy visible. URINARY BLADDER: Not distended OSSEOUS STRUCTURES: Degenerative disc changes are present in the visualized spine, superior endplate of L3 shows some depression, there is a spinal curvature, facet arthropathy also noted. IMPRESSION: DIVERTICULOSIS, POSTOP CHANGES, nonobstructive left nephrolithiasis, probable hepatic cysts and addit ional findings above
== END | disposition home or self-care (01) ==
LOC: RADCTMAIN 10:24
PROVIDERS: ATTEND Family Medicine
DX: N20.0 Calculus of kidney (principal); K57.30 Diverticulosis of large intestine without perforation or abscess without bleeding; K44.9 Diaphragmatic hernia without obstruction or gangrene; I25.10 Atherosclerotic heart disease of native coronary artery without angina pectoris; I70.0 Atherosclerosis of aorta
CPT/HCPCS: 82565; 84520; 74177; 36415; Q9967

== ENCOUNTER 2021-10-03 06:25 | Day surgery (SDC) | payer MEDICARE ==
[~2021-10-03 06:25] MED LIST: LACTATED RINGERS 1,000 ML IV SCH; LIDOCAINE 1% (10MG/ML) FOR IV START INTRADERMA PRN
[2021-10-03 06:48] VITALS: RESP 16; TEMP 97
[2021-10-03] MEDS ORDERED: LIDOCAINE 2% INJ 20 MG/ML (2 ML VIAL) ONE (07:20)
[2021-10-03] MEDS ORDERED: PROPOFOL 10 MG/ML 20 ML VIAL IV ONE (07:20)
--- NOTE | 2021-10-03 08:33 | P.PCN ---
Date of Procedure: 10/03/21 Procedure(s) Performed: Brief history: Patient is a pleasant 76-year-old white female scheduled for an elective upper endoscopy as well as colonoscopy as a part of evaluation of epigastric/left upper quadrant abdominal pain for the last 6 months duration. She has daily symptoms associated with intermittent nausea vomiting. Recently was tested positive for:cologuard hence scheduled for colonoscopy today. Procedure performed: Esophagogastroduodenoscopy with biopsy Colonoscopy with biopsy Preoperative diagnosis: Epigastric/left upper quadrant abdominal pain associated with nausea vomiting of 6 months duration Positive cologuard Anesthesia: MAC Procedure: After informed consent was obtained from the patient was brought into the endoscopy unit and IV sedation was administered by anesthesia under continuous monitoring. Initially upper endoscopy was done. The Olympus GF 160 video endos cope was inserted inserted into the mouth and esophagus intubated without any difficulty and was gradually advanced into the stomach and duodenum and carefully examined. The bulb and second part of the duodenum appeared normal. The scope was then withdrawn into the stomach adequately insufflated with air and upon careful examination the antrum had mild gastritis and biopsies were done from this area. The body, cardia and fundus appeared normal. The scope was then withdrawn into the esophagus. The GE junction was located at 40 cm to the incisors. There was a small hiatal hernia noted. There were linear erosions in the distal esophagus and a short segment of Delaney's esophagus extending 5 mm proximal to the GE junction which was biopsied. . Rest of the esophagus appeared normal. Patient tolerated the procedure well. At this time the patient continued to remain sedation. Initial digital rectal examination was normal. Olympus CF 160 video colonoscope was then inserted into the rectum and gradually into the sigmoid: Further advancement was not possible. Scope was removed and a pediatric colonoscopy was then inserted in the rectum and advanced to the cecum with moderate to severe difficulty. Careful examination was performed as the scope was gradually being withdrawn. The prep was poor and several areas of the colon.. The cecum, ascending colon, transverse colon, descending colon, sigmoid colon and rectum appeared normal. There were moderate sigmoid diverticulosis seen. In the distal rectum there was a 3-4 mm polyp that was removed by cold biopsy. Some of the areas could not be adequately visualized because of the poor prep. Retroflexion was performed in the rectum and no lesions were noted. Patient tolerated the procedure well. Impression: 1. Upper endoscopy revealed small hiatal hernia, LA grade B reflux esophagitis, short segment Delaney's esophagus and mild antral gastritis 2. Colonoscopy revealed scattered sigmoid diverticulosis and a 3 mm rectal polyp status post cold biopsy Recommendations: Findings of this examination were discussed with the patient as well as her family. She was advised to follow with the biopsy results. She'll be started on omeprazole 20 mg twice daily and follow antireflux measures. If the biopsy results adenoma she can have a repeat colonoscopy in 5 years.
[2021-10-03 08:37] VITALS: BP 142/80; PULSE 95
== END 2021-10-03 09:13 | disposition home or self-care (01) ==
LOC: ORWHC2ENDO 06:25
PROVIDERS: ATTEND Internal Medicine Gastroenterology
DX: K22.70 Barrett's esophagus without dysplasia (principal); K21.00 Gastro-esophageal reflux disease with esophagitis, without bleeding; K29.50 Unspecified chronic gastritis without bleeding; K44.9 Diaphragmatic hernia without obstruction or gangrene; K57.30 Diverticulosis of large intestine without perforation or abscess without bleeding; K62.1 Rectal polyp
CPT/HCPCS: 45380; 43239; 88305; J2704; J2001

== ENCOUNTER 2021-10-10 14:50 | Inpatient (IN) | payer MEDICARE ==
[2021-10-10 15:36] LABS: Albumin 3.9 g/dL (3.5-5.0); Magnesium 1.6 mg/dL (1.6-2.3); Potassium 4.7 mmol/L (3.5-5.1); Total Protein 7.1 g/dL (6.3-8.2)
[2021-10-10 15:42] LABS: INR 2.4 (<1.2); Partial Thromboplastin Time 29.2 sec (22.0-30.0); Prothrombin Time 23.9 sec (9.0-12.0)
--- NOTE | 2021-10-10 15:47 | ED ---
General Adult HPI - General Chief complaint: Nausea/Vomiting/Diarrhea Stated complaint: Nausea, Vomiting Time Seen by Provider: 10/10/21 15:13 Source: patient, EMS Mode of arrival: EMS Limitations: no limitations - History of Present Illness Initial comments: Dictation was produced using [employer] dictation software. please excuse any grammatical, word or spelling errors. Chief Complaint: 76-year-old female presents emergency department for multiple complaints. History of Present Illness: Patient 76-year-old female she presents to the emergency department for multiple complaints. Her main complaints are back pain, shortness of breath, abdominal pain, constipation, generalized weakness and nausea and vomiting. She is related to several registered nurses who encouraged her to come to the emergency department to be evaluated. Patient states her primary complaint is feeling weak. She had a colonoscopy recently and since then has been having worsening onset of symptoms. Patient according to electronic medical record had colonoscopy and EGD performed October 03. Procedure note shows that patient has a reflux esophagitis, Delaney's Esophagus, antral gastritis scattered diverticulosis and rectal polyp. Patient complains o f sweats and chills but denies any fever. States that her abdominal pain is towards her left upper quadrant and periumbilical area. Denies any vomiting complains of nausea. She states that she is short of breath because it hurts when she takes a deep breath. She recently had spinal surgery for thoracic vertebral compression fractures. The ROS documented in this emergency department record has been reviewed and confirmed by me. Those systems with pertinent positive or negative responses arango ve been documented in the HPI. All other systems are other negative and/or noncontributory. PHYSICAL EXAM: General Impression: Alert and oriented x3, not in acute distress HEENT: Normocephalic atraumatic, extra-ocular movements intact, pupils equal and reactive to light bilaterally, mucous membranes moist. Cardiovascular: Heart regular rate and rhythm Chest: Able to complete full sentences, no retractions, no tachypnea, lungs clear to auscultation bilaterally Abdomen: abdomen soft, non-tender, non-distended, no organomegaly Musculoskeletal: Pulses present and equal in all extremities, no peripheral edema Motor: no focal deficits noted Neurological: CN II-XII grossly intact, no focal motor or sensory deficits noted Skin: Intact with no visualized rashes Psych: Normal affect and mood ED course: 76-year-old female presents with multiple complaints. Her main complaint today is weakness and abdominal pain. Vital signs upon arrival shows heart rate of 134, rest of vital signs within acceptable limits. Patient has a history of A. fib. She takes medications for A. fib. States that her A. fib has been difficult to manage recently. Laboratory evaluation obtained. CBC unremarkable. Coag panel is therapeutic with INR 2.4. Metabolic panel is within acceptable limits. Patient given fluids with no real improvement of her heart rate. Patient reports she's been compliant with her A. fib medications. Patient continues to be rapid ventricular rate despite IV fluids. Patient placed on Cardizem drip. Patient be admitted to stepdown with consultation to cardiology. EKG interpretation: Ventricular rate 139, A. fib, QRS 76, PT C3 80. no QTC prolongation, no ST or T-wave changes noted. EKG compared to 09/13/2021 showing no changes. Overall, this EKG is unremarkable - Related Data Home Medications Medication Instructions Recorded Confirmed Atorvastatin [Lipitor] 40 mg PO W/SUPPER 08/07/21 10/02/21 Cholecalciferol [Vitamin D3 (125 125 mcg PO W/SUPPER 08/07/21 10/02/21 Mcg = 5000 Iu)] Furosemide [Lasix] 40 mg PO W/SUPPER 08/07/21 10/02/21 Vitamin A [Vitamin A (8,000 Units 2,400 mcg PO W/SUPPER 08/07/21 10/02/21 = 2,400 MCG)] Warfarin Sodium 5 mg PO W/SUPPER 08/07/21 10/02/21 Diltiazem HCl [Cardizem] 90 mg PO W/SUPPER 09/10/21 10/02/21 lisinopriL [Zestril] 5 mg PO W/SUPPER 09/10/21 10/02/21 Acetaminophen Tab [Tylenol Tab] 500 mg PO Q6HR PRN 09/13/21 10/02/21 Previous Rx's Medication Instructions Recorded Cyclobenzaprine [Flexeril] 10 mg PO TID PRN #90 tab 09/14/21 Allergies Allergy/AdvReac Type Severity Reaction Status Date / Time No Known Allergies Allergy Verified 10/03/21 06:44 Review of Systems ROS Statement: Those systems with pertinent positive or pertinent negative responses have been documented in the HPI. ROS Other: All systems not noted in ROS Statement are negative. Past Medical History Past Medical History: No Reported History, Atrial Fibrillation, GERD/Reflux, Hypertension Additional Past Medical History / Comment(s): ulcers, kidney stones, chronic back pain History of Any Multi-Drug Resistant Organisms: None Reported Past Surgical History: Back Surgery Additional Past Surgical History / Comment(s): Kyphoplasty, surgery on cracked cervical vertebrae Past Psychological History: No Psychological Hx Reported Smoking Status: Current every day smoker Past Alcohol Use History: None Reported Past Drug Use History: None Reported General Exam Limitations: no limitations Course Vital Signs 10/10/21 10/10/21 14:53 16:21 Temperature 97.5 F L Pulse Rate 134 H 110 H Respiratory 20 20 Rate Blood Pressure 148/99 110/81 O2 Sat by Pulse 96 97 Oximetry Medical Decision Making - Lab Data Result diagrams: 10/10/21 15:15 10/10/21 15:15 Lab Results 10/10/21 10/10/21 10/10/21 Range/Units 15:15 15:15 15:15 WBC 8.4 (3.8-10.6) k/uL RBC 4.99 (3.80-5.40) m/uL Hgb 15.6 (11.4-16.0) gm/dL Hct 46.9 H (34.0-46.0) % MCV 94.0 (80.0-100.0) fL MCH 31.3 (25.0-35.0) pg MCHC 33.3 (31.0-37.0) g/dL RDW 13.4 (11.5-15.5) % Plt Count 316 (150-450) k/uL MPV 9.7 Neutrophils % 67 % Lymphocytes % 22 % Monocytes % 7 % Eosinophils % 1 % Basophils % 0 % Neutrophils # 5.7 (1.3-7.7) k/uL Lymphocytes # 1.9 (1.0-4.8) k/uL Monocytes # 0.6 (0-1.0) k/uL Eosinophils # 0.1 (0-0.7) k/uL Basophils # 0.0 (0-0.2) k/uL PT 23.9 H (9.0-12.0) sec INR 2.4 H (<1.2) APTT 29.2 (22.0-30.0) sec Sodium 134 L (137-145) mmol/L Potassium 4.7 (3.5-5.1) mmol/L Chloride 102 (98-107) mmol/L Carbon Dioxide 23 (22-30) mmol/L Anion Gap 9 mmol/L BUN 14 (7-17) mg/dL Creatinine 0.91 (0.52-1.04) mg/dL Est GFR (CKD-EPI)AfAm 72 (>60 ml/min/1.73 sqM) Est GFR (CKD-EPI)NonAf 62 (>60 ml/min/1.73 sqM) Glucose 129 H (74-99) mg/dL Calcium 9.0 (8.4-10.2) mg/dL Magnesium 1.6 (1.6-2.3) mg/dL Total Bilirubin 1.0 (0.2-1.3) mg/dL AST 51 H (14-36) U/L ALT 32 (4-34) U/L Alkaline Phosphatase 99 (38-126) U/L Total Protein 7.1 (6.3-8.2) g/dL Albumin 3.9 (3.5-5.0) g/dL Lipase 35 (23-300) U/L Disposition Clinical Impression: Atrial fibrillation with RVR, Weakness Disposition: ADMITTED IP TO THIS HOSP Condition: Fair Referrals: Lashell Kimble MD [Primary Care Provider] - 1-2 days Decision Time: 17:17
[2021-10-10 16:01] LABS: Basophils % (A) 0 %; Eosinophils # (A) 0.1 k/uL (0-0.7); Eosinophils % (A) 1 %; HCT 46.9 % (34.0-46.0); HGB 15.6 gm/dL (11.4-16.0); Lymphocytes # (A) 1.9 k/uL (1.0-4.8); Lymphocytes % (A) 22 %; MCH 31.3 pg (25.0-35.0); MCHC 33.3 g/dL (31.0-37.0); Mean Platelet Volume 9.7; Monocytes # (A) 0.6 k/uL (0-1.0); Monocytes % (A) 7 %; Neutrophils # (A) 5.7 k/uL (1.3-7.7); Neutrophils % (A) 67 %; Platelet Count 316 k/uL (150-450); RBC 4.99 m/uL (3.80-5.40); RDW 13.4 % (11.5-15.5); WBC 8.4 k/uL (3.8-10.6)
--- NOTE | 2021-10-10 16:05 | CT ---
EXAMINATION TYPE: CT abdomen pelvis w con DATE OF EXAM: 10/10/2021 COMPARISON: 09/28/2021 HISTORY: Constipation, nausea and vomiting. Recent back surgery. CT DLP: 1115.7 mGycm CONTRAST: CT scan of the abdomen and pelvis is performed without Oral Contrast and with IV Contrast, patient in jected with 80ml mL of Isovue 300. FINDINGS: LUNG BASES-: No visible nodule. No infiltrate. LIVER/GB: No calcified gallstones. Multiple hepatic cysts are redemonstrated. Biliary tree is of no rmal caliber. PANCREAS: No inflammation. No distinct mass. SPLEEN: No splenic enlargement. No lesion seen. ADRENALS: No nodule. No thickening. KIDNEYS/BLADDER: No hydronephrosis. No nephrolithiasis. No distinct renal mass. Urinary bladder g rossly unremarkable. BOWEL: Normal appendix. Normal bowel caliber. No inflammation. Sigmoid diverticulosis without diver ticulitis. GENITAL ORGANS: No gross abnormality. LYMPH NODES: No greater than 1cm abdominal or pelvic lymph nodes are appreciated. AORTA: No significant abnormality. OSSEOUS STRUCTURES: No significant abnormality is seen. OTHER: No significant additional abnormality is seen. IMPRESSION: 1. No acute intra-abdominal process seen.
[2021-10-10] MEDS ORDERED: SODIUM CHLORIDE 0.9% 500 ML 500 ML IV STA (16:12)
[2021-10-10] MEDS ORDERED: DILTIAZEM DRIP BOLUS FROM BAG 1 MG SOLN IV ONE (17:03)
[2021-10-10] MEDS ORDERED: NALOXONE 0.4 MG/ML 1 ML VIAL IV PRN (17:13)
[2021-10-10] MEDS ORDERED: DILTIAZEM 125 MG in SODIUM CHLORIDE 0.9% 100 ML IV SCH (17:15)
[2021-10-10] MEDS ORDERED: ONDANSETRON 4 MG TAB PO PRN (20:59)
[2021-10-10] MEDS ORDERED: ACETAMINOPHEN TAB 500 MG TAB PO PRN (20:59)
[2021-10-10] MEDS: HYDROcodone/APAP 7.5-325MG 1 EACH TAB PO PRN (21:44)
[2021-10-10] MEDS: METOPROLOL TARTRATE 50 MG TAB PO SCH (21:49)
--- NOTE | 2021-10-10 23:24 | P.HPIM ---
History of Present Illness H&P Date: 10/10/21 HISTORY OF PRESENT ILLNESS 76-year-old male one of Dr. Kimble's patient with multiple medical problemwas known to have history of hypertension, hyperlipidemia, A. fib has been on warfarin, history of bowel resection in the past secondary to bowel obstruction, chronic history of tobacco use, who was in the hospital in September 14 4 T8 kyphoplasty secondary to compression fracture. Patient was seen orthopedic on regular basis and has been continued to be on pain management he'll be going back to have another T10 kyphoplasty and surgery. He presented to the emergency department at [facility] complaining of being sick to stomach since yesterday not been able to eat or drink any food or fluid patient apparently had loss over 20 pound last 6 weeks. Patient was referred to have EGD and colonoscopy with Dr. Boyer recently with no major finding. Continue decline furthermore till today when he was feeling very bad" coming to the emergency department at [facility] where was seen found to be in A. fib with RVR pulse rate running around 140 beats per minutes. Patient was started on Cardizem drip and he is already on anticoagulation will be admitted to the hospital for the above problem. Laboratory value shows normal PT/INR with potassium be normal at this 0.4 0.7 with normal GFR at 62 blood sugar was mildly elevated CBC showed again with seems to be slight iron deficiency. Patient be admitted to the hospital will be seen cardiology anticoagulation continue patient will be on higher dose of metoprolol or Cardizem to keep the pulse rates under control. The meanwhile for his current abdominal pain with symptoms further testing might be done no major finding. REVIEW OF SYSTEMS Constitutional: No fever, no chills, no night sweats. No weight change. No weakness, fatigue or lethargy. No daytime sleepiness. EENT: No headache. No blurred vision or double vision, no loss of vision. No loss of Hearing, no ringing in the ears, no dizziness. No nasal drainage or congestion. No epistaxis. No sore throat. Lungs: No shortness of breath, cough, no sputum production. No wheezing. Cardiovascular: No chest pain, no lower extremity edema. No palpitations. No paroxysmal nocturnal dyspnea. No orthopnea. No lightheadedness or dizziness. No syncopal episodes. Abdominal: No abdominal pain. No nausea, vomiting. No diarrhea. No constipation. No bloody or tarry stools. No loss of appetite. Genitourinary: No dysuria, increased frequency, urgency. No urinary retention. Musculoskeletal: No myalgias. No muscle weakness, no gait dysfunction, no frequent falls. No back pain. No neck pain. Integumentary: No wounds, no lesions. No rash or pruritus. No unusual bruising. No change in hair or nails. Neurologic: No aphasia. No facial droop. No change in mentation. No head injury. No headache. No paralysis. No paresthesia. Psychiatric: No depression. No anxiety. No mood swings. Endocrine: No abnormal blood sugars. No weight change. No excessive sweating or thirst. No cold intolerance. SOCIAL HISTORY Patient is an active smoker since age 20 half a pack per day, no alcohol use, no marijuana or illicit drug use. She does not have oxygen, CPAP at home. She is and lives at home with her . FAMILY HISTORY Mother at age 77 from ischemic bowel. Father at age 80 from massive myocardial infarction. Patient does not have any brothers and sisters. She has one daughter with no major medical problems.. PHYSICAL EXAMINATION Gen: This is a 76-year-old female. She is resting in bed and appears to be uncomfortable secondary to pain. HEENT: Head is atraumatic, normocephalic. Pupils equal, round. Sclerae is anicteric. NECK: Supple. No JVD. No lymphadenopathy. No thyromegaly. LUNGS: decreased breath some relative final calling no crackles plasma expiratory wheezes. HEART: Irregular rate and rhythm. S1, S2, positive S3, positive tachycardia with systolic murmur. ABDOMEN: soft positive bowel sounds slight discomfort in the left lower quadrant. No rebound or rigidity. EXTREMITIES: No pedal edema. No calf tenderness. NEUROLOGICAL: Patient is awake, alert and oriented x3. Cranial nerves 2 through 12 are grossly intact. Strength to both lower extremities equal. ASSESSMENT AND PLAN 1. A. fib with RVR: Patient will be continue on Cardizem drip for now will be seeing cardiology ordered an echocardiogram. 2 significant abdominal discomfort with no finding on a CAT scan, also EGD and colonoscopy came back to be negative, patient was started on pain management after his kyphoplasty which probably patient is doing in bed too much of his medication will consult to start him on MiraLAX regular basis and probably 1 teaspoon of milk of magnesium every day to the problem is resolved. 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 Mejia. Continue morphine as needed for pain, patient is currently nothing by mouth, stat INR ordered for today. 4 hypertension: Continue patient on metoprolol and Zestril. 5 hyperlipidemia: Continue atorvastatin 40 mg daily. 6 chronic pain syndrome: Has been on hydrocodone since his kyphoplasty. 7 intractable abdominal discomfort with no bowel movement with significant constipation most likely from being on pain management at this point will continue laxative along with stool softener to the problem is resolved if repeat another plain x-ray or CAT scan needed will be done in a few days. 8 chronic edema: Has been on furosemide and if needed we will add spironolactone. 9 anticoagulation: Patient remain on warfarin with INR has been therapeutic. 10 GI prophylaxis: Continue pantoprazole. DVT prophylaxis: Patient will be on anticoagulation. CODE STATUS: Full code. Patient will be admitted to the hospital for a minimum of 2 night stay. Past Medical History Past Medical History: No Reported History, Atrial Fibrillation, GERD/Reflux, Hypertension Additional Past Medical History / Comment(s): ulcers, kidney stones, chronic back pain History of Any Multi-Drug Resistant Organisms: None Reported Past Surgical History: Back Surgery Additional Past Surgical History / Comment(s): Kyphoplasty, surgery on cracked cervical vertebrae Past Psychological History: No Psychological Hx Reported Smoking Status: Current every day smoker Past Alcohol Use History: None Reported Past Drug Use History: None Reported Medications and Allergies Home Medications Medication Instructions Recorded Confirmed Type Atorvastatin [Lipitor] 40 mg PO W/SUPPER 08/07/21 10/10/21 History Cholecalciferol [Vitamin D3 (125 125 mcg PO W/SUPPER 08/07/21 10/10/21 History Mcg = 5000 Iu)] Furosemide [Lasix] 40 mg PO W/SUPPER 08/07/21 10/10/21 History Vitamin A [Vitamin A (8,000 Units 2,400 mcg PO W/SUPPER 08/07/21 10/10/21 History = 2,400 MCG)] Warfarin Sodium 5 mg PO W/SUPPER 08/07/21 10/10/21 History lisinopriL [Zestril] 5 mg PO W/SUPPER 09/10/21 10/10/21 History Acetaminophen Tab [Tylenol Tab] 500 mg PO Q6HR PRN 09/13/21 10/10/21 History Docusate [Colace] 100 mg PO DAILY 10/10/21 10/10/21 History HYDROcodone/APAP 7.5-325MG [[place] 1 tab PO Q6H PRN 10/10/21 10/10/21 History 7.5-325] Metoprolol Tartrate [Lopressor] 50 mg PO BID 10/10/21 10/10/21 History Omeprazole 20 mg PO AC-BID 10/10/21 10/10/21 History Ondansetron [Zofran] 4 mg PO QID PRN 10/10/21 10/10/21 History Allergies Allergy/AdvReac Type Severity Reaction Status Date / Time No Known Allergies Allergy Verified 10/10/21 18:08 Physical Exam Vitals: Vital Signs Temp Pulse Resp BP Pulse Ox 10/10/21 21:52 96 16 136/62 98 10/10/21 19:57 98 10/10/21 18:27 105 H 10/10/21 17:23 130 H 16 120/79 97 10/10/21 16:21 110 H 20 110/81 97 10/10/21 14:53 97.5 F L 134 H 20 148/99 96 Intake and Output 10/10/21 10/10/21 10/11/21 14:59 22:59 06:59 Other: Weight 81.647 kg Results CBC & Chem 7: 10/10/21 15:15 10/10/21 15:15 Labs: Abnormal Lab Results - Last 24 Hours (Table) 10/10/21 10/10/21 10/10/21 Range/Units 15:15 15:15 15:15 Hct 46.9 H (34.0-46.0) % PT 23.9 H (9.0-12.0) sec INR 2.4 H (<1.2) Sodium 134 L (137-145) mmol/L Glucose 129 H (74-99) mg/dL AST 51 H (14-36) U/L
[2021-10-11] MEDS: WARFARIN 5 MG TAB PO SCH ×2 (01:13→16:19)
[2021-10-11] MEDS: SODIUM CHLORIDE 0.9% 1,000 ML IV SCH ×2 (01:14→19:08)
[2021-10-11] MEDS: PANTOPRAZOLE 40 MG TABLET PO SCH ×2 (06:35→16:19)
[2021-10-11] MEDS: HYDROcodone/APAP 7.5-325MG 1 EACH TAB PO PRN ×2 (06:37→16:16)
[2021-10-11] MEDS: DOCUSATE 100 MG CAP PO SCH (08:19)
[2021-10-11] MEDS: METOPROLOL TARTRATE 50 MG TAB PO SCH ×2 (08:19→20:23)
[2021-10-11] MEDS ORDERED: MAGNESIUM HYDROXIDE 2,400 MG/10 ML CUP PO PRN (08:47)
[2021-10-11] MEDS ORDERED: polyethylene glycoL 3350 17 GM POWD.PACK PO SCH (09:00)
[2021-10-11 09:36] LABS: HCT 47.4 % (34.0-46.0); HGB 14.8 gm/dL (11.4-16.0); Hypochromasia Slight; MCH 30.9 pg (25.0-35.0); MCHC 31.3 g/dL (31.0-37.0); MCV 98.6 fL (80.0-100.0); Mean Platelet Volume 9.2; Platelet Count 264 k/uL (150-450); RBC 4.81 m/uL (3.80-5.40); RDW 13.2 % (11.5-15.5); WBC 7.3 k/uL (3.8-10.6)
--- NOTE | 2021-10-11 09:44 | P.PN ---
Subjective Progress Note Date: 10/11/21 HISTORY OF PRESENT ILLNESS 76-year-old female one of Dr. Kimble's patient with multiple medical problem was known to have history of hypertension, hyperlipidemia, A. fib has been on warfarin, history of bowel resection in the past secondary to bowel obstruction, chronic history of tobacco use, who was in the hospital in September 14 4 T8 kyphoplasty secondary to compression fracture. Patient was seen orthopedic on regular basis and has been continued to be on pain management he'll be going back to have another T10 kyphoplasty and surgery. He presented to the emergency department at [facility] complaining of being sick to stomach since yesterday not been able to eat or drink any food or fluid patient apparently had loss over 20 pound last 6 weeks. Patient was referred to have EGD and colonoscopy with Dr. Boyer recently with no major finding. Continue decline furthermore till today when he was feeling very bad" coming to the emergency department at [facility] where was seen found to be in A. fib with RVR pulse rate running around 140 beats per minutes. Patient was started on Cardizem drip and he is already on anticoagulation will be admitted to the hospital for the above problem. Laboratory value shows normal PT/INR with potassium be normal at this 0.4 0.7 with normal GFR at 62 blood sugar was mildly elevated CBC showed again with seems to be slight iron deficiency. Patient be admitted to the hospital will be seen cardiology anticoagulation continue patient will be on higher dose of metoprolol or Cardizem to keep the pulse rates under control. The meanwhile for his current abdominal pain with symptoms further testing might be done no major finding. 10/11: Patient's heart rate has been running in the 70s, traffic monitor specialist sinus rhythm with sinus arrhythmia. Blood pressure 121/74, pulse ox 93% on room air, afebrile. Patient continues to have abdominal pain and discuss need for bowel regime. We have added in MiraLAX on top of Dulcolax, added milk of magnesia. Recommended Tylenol 3 versus Haigler but she states that Tylenol 3 does not help her pain. She does have the scheduled procedure with Dr. Mejia on October 24. Repeat CBC is unremarkable. Other blood work report is pending. Patient is currently on Cardizem drip and will be seen today by cardiology. Echocardiogram has been obtained and report is pending. REVIEW OF SYSTEMS Constitutional: No fever, no chills, no night sweats. No weight change. No weakness, fatigue or lethargy. No daytime sleepiness. EENT: No headache. No blurred vision or double vision, no loss of vision. No loss of Hearing, no ringing in the ears, no dizziness. No nasal drainage or congestion. No epistaxis. No sore throat. Lungs: No shortness of breath, cough, no sputum production. No wheezing. Cardiovascular: No chest pain, no lower extremity edema. No palpitations. No paroxysmal nocturnal dyspnea. No orthopnea. No lightheadedness or dizziness. No syncopal episodes. Abdominal: Reports chronic abdominal pain. No nausea, vomiting. No diarrhea. No constipation. No bloody or tarry stools. No loss of appetite. Genitourinary: No dysuria, increased frequency, urgency. No urinary retention. Musculoskeletal: No myalgias. No muscle weakness, no gait dysfunction, no frequent falls. Reports chronic back pain. No neck pain. Integumentary: No wounds, no lesions. No rash or pruritus. No unusual bruising. No change in hair or nails. Neurologic: No aphasia. No facial droop. No change in mentation. No head injury. No headache. No paralysis. No paresthesia. Psychiatric: No depression. No anxiety. No mood swings. Endocrine: No abnormal blood sugars. No weight change. No excessive sweating or thirst. No cold intolerance. PHYSICAL EXAMINATION Gen: This is a 76-year-old female. She is resting in bed and appears to be comfortable. HEENT: Head is atraumatic, normocephalic. Pupils equal, round. Sclerae is anicteric. NECK: Supple. No JVD. No lymphadenopathy. No thyromegaly. LUNGS: decreased breath some relative final calling no crackles plasma expiratory wheezes. HEART: Irregular rate and rhythm. S1, S2, positive S3, positive tachycardia with systolic murmur. ABDOMEN: soft positive bowel sounds slight discomfort in the left lower quadrant. No rebound or rigidity. EXTREMITIES: No pedal edema. No calf tenderness. NEUROLOGICAL: Patient is awake, alert and oriented x3. Cranial nerves 2 through 12 are grossly intact. Strength to both lower extremities equal. ASSESSMENT AND PLAN 1. A. fib with RVR: Patient patient continued on Lopressor 50 mg twice daily. on Cardizem drip for now will be seeing cardiology ordered an echocardiogram. 2 significant abdominal discomfort with no finding on a CAT scan, also EGD and colonoscopy came back to be negative, patient was started on pain management after his kyphoplasty which probably patient is doing in bed too much of his medication. Patient started on MiraLAX daily, milk of magnesia as needed, Colace 100 mg daily scheduled. 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 Mejia. Continue Haigler as needed for pain. Patient is scheduled for a second surgery on October [address] Mejia. 4 hypertension: Continue patient on metoprolol and Zestril. 5 hyperlipidemia: Continue atorvastatin 40 mg daily. 6 chronic pain syndrome: Has been on hydrocodone since his kyphoplasty. 7 intractable abdominal discomfort with no bowel movement with significant constipation most likely from being on pain management at this point will continue laxative along with stool softener to the problem is resolved if repeat another plain x-ray or CAT scan needed will be done in a few days. 8 chronic edema: Has been on furosemide and if needed we will add spir onolactone. 9 anticoagulation: Patient remain on warfarin with INR has been therapeutic. 10 GI prophylaxis: Continue pantoprazole. DVT prophylaxis: Patient will be on anticoagulation. CODE STATUS: Full code. DISCHARGE PLAN Home Impression and plan of care have been directed as dictated by the signing physician. Maryam Douglas nurse practitioner acting as scribe for signing physician. Objective - Vital Signs Vital signs: Vital Signs Temp 97.8 F 10/11/21 04:50 Pulse 73 10/11/21 04:50 Resp 18 10/11/21 04:50 BP 105/68 10/11/21 04:50 Pulse Ox 95 10/11/21 04:50 Intake & Output 10/10/21 10/11/21 10/11/21 18:59 06:59 18:59 Weight 81.647 kg 81.647 kg Other: Voiding Method Toilet # Voids 1 - Labs CBC & Chem 7: 10/11/21 08:23 10/10/21 15:15 Labs: Abnormal Lab Results - Last 24 Hours (Table) 10/10/21 10/10/21 10/10/21 Range/Units 15:15 15:15 15:15 Hct 46.9 H (34.0-46.0) % PT 23.9 H (9.0-12.0) sec INR 2.4 H (<1.2) Sodium 134 L (137-145) mmol/L Glucose 129 H (74-99) mg/dL AST 51 H (14-36) U/L
[2021-10-11 10:10] LABS: INR 2.4 (<1.2); Prothrombin Time 23.7 sec (9.0-12.0)
[2021-10-11 10:20] LABS: ALT 29 U/L (4-34); AST 35 U/L (14-36); African American GFR (CKD) >90 (>60 ml/min/1.73 sqM); Albumin 3.6 g/dL (3.5-5.0); Alkaline Phosphatase 94 U/L (38-126); Anion Gap 6 mmol/L; Blood Urea Nitrogen 10 mg/dL (7-17); Calcium 9.1 mg/dL (8.4-10.2); Carbon Dioxide 27 mmol/L (22-30); Chloride 106 mmol/L (98-107); Glucose 98 mg/dL (74-99); Non-African American GFR(CKD) 89 (>60 ml/min/1.73 sqM); Sodium 139 mmol/L (137-145); Total Bilirubin 0.7 mg/dL (0.2-1.3); Total Protein 6.4 g/dL (6.3-8.2)
--- NOTE | 2021-10-11 10:27 | P.CRDCN ---
History of Present Illness History of present illness: HISTORY OF PRESENTING ILLNESS This is a pleasant 76-year-old female past medical history significant for Paroxysmal atrial fibrillation on Coumadin, hypertension, carotid disease, history of bowel resection in the past secondary to bowel obstruction, chronic history of tobacco use, T8 kyphoplasty 09/14/2021 secondary to compression fracture, Plan for future T10 kyphoplasty and surgery with Orthopedics, 10/03/21 Colonoscopy and EGD revealed small hiatal hernia, esophagitis, short segment Delaney's esophagus and mild antral gastritis, scattered sigmoid diverticulosis, and rectal polyp s/p biopsy. She follows in the office with Dr. Sim. We have been asked to see in consultation for Atrial fibrillation with RVR. Patient presents to the emergency department with complaints of abdominal pain, decreased appetite, decreased by mouth intake, nausea, vomiting, feeling "warm/hot flashes" since Friday. Patient was found to be in atrial fibrillation with rapid ventricular response patient was started on IV Cardizem, now with controlled ventricular rates. She denies any chest pain, palpitations, dizziness, syncope or near syncope. She does endorse some lightheadedness, and shortness of breath. Over the past 23 days patient states she's only been able to intake water. She does endorse she has been taking her medications. DIAGNOSTICS EKG reveals atrial fibrillation with ventricular response, heart rate 139 Telemetry tracings indicate atrial fibrillation with controlled rates HR 60s- 80s CT abdomen and pelvis revealed no acute intra-abdominal process. Laboratory reviewed, WBC 0.4, hemoglobin 13.6, platelets 316, INR 2.4, troponin negative, sodium 134, potassium 4.7, BUN 14, serum creatinine 0.9, magnesium 1.6 Current home cardiac medications include Coumadin, metoprolol tartrate 50 mg twice a day, atorvastatin 40 mg nightly, Lasix 40 mg daily, lisinopril 5 mg daily Echocardiogram in 2019 in the office EF 55%, mild MR, mild TR Lexiscan stress test in 2019 in the office- negative for reversible ischemia REVIEW OF SYSTEMS At the time of my exam: CONSTITUTIONAL: Denies fever or chills. CARDIOVASCULAR: Denies chest pain, shortness of breath, orthopnea, PND or palpitations. RESPIRATORY: Denies cough. GASTROINTESTINAL: +abdominal pain, diarrhea,Denies constipation, +nausea +vomiting. MUSCULOSKELETAL: Denies myalgias. NEUROLOGIC: Denies numbness, tingling, headacbe or weakness. ENDOCRINE: Denies fatigue, weight change, polydipsia or polyurina. GENITOURINARY: Denies burning, hematuria or urgency with micturation. HEMATOLOGIC: Denies history of anemia or bleeding. PHYSICAL EXAMINATION Blood pressure 105/60, heart rate 73, afebrile clock saturations 95% 2 L nasal cannula CONSTITUTIONAL: No apparent distress. HEENT: Head is normocephalic. Pupils are equal, round. Sclerae anicteric. Mucous membranes of the mouth are moist. No JVD. No carotid bruit. CHEST EXAMINATION: Lungs are clear to auscultation. No chest wall tenderness is noted on palpation or with deep breathing. HEART EXAMINATION: Irregular rate and rhythm. S1, S2 heard. No murmurs, gallops or rub. ABDOMEN: Soft, nontender. Positive bowel sounds. EXTREMITIES: 2+ peripheral pulses, no lower extremity edema and no calf tenderness. NEUROLOGIC EXAMINATION: Patient is awake, alert and oriented x3. ASSESSMENT Symptoms of abdominal pain, nausea, vomiting, decreased PO intake Paroxysmal atrial fibrillation with RVR on Coumadin History of hypertension Carotid artery disease PLAN Continue IV Cardizem, if patient converts to sinus mechanism, ok to discontinue Continue home metoprolol tartrate 50mg BID Continue Coumadin for anticoagulation Daily INR Continue lisinopril and statin. Ok to hold Lasix if dehydration/decreased PO intake Obtain 2D echocardiogram and doppler study to assess cardiac structure and function. Monitor on telemetry Rest of management per primary Further recommendations based on clinical course Nurse practitioner note has been reviewed by physician. Signing provider agrees with the documented findings, assessment, and plan of care. Past Medical History Past Medical History: No Reported History, Atrial Fibrillation, GERD/Reflux, Hypertension Additional Past Medical History / Comment(s): ulcers, kidney stones, chronic back pain History of Any Multi-Drug Resistant Organisms: None Reported Past Surgical History: Back Surgery Additional Past Surgical History / Comment(s): Kyphoplasty, surgery on cracked cervical vertebrae Past Psychological History: No Psychological Hx Reported Smoking Status: Current every day smoker Past Alcohol Use History: None Reported Additional Past Alcohol Use History / Comment(s): pt states she smokes 5 cigarettes per day Past Drug Use History: None Reported Medications and Allergies Home Medications Medication Instructions Recorded Confirmed Type Atorvastatin [Lipitor] 40 mg PO W/SUPPER 08/07/21 10/10/21 History Cholecalciferol [Vitamin D3 (125 125 mcg PO W/SUPPER 08/07/21 10/10/21 History Mcg = 5000 Iu)] Furosemide [Lasix] 40 mg PO W/SUPPER 08/07/21 10/10/21 History Vitamin A [Vitamin A (8,000 Units 2,400 mcg PO W/SUPPER 08/07/21 10/10/21 History = 2,400 MCG)] Warfarin Sodium 5 mg PO W/SUPPER 08/07/21 10/10/21 History lisinopriL [Zestril] 5 mg PO W/SUPPER 09/10/21 10/10/21 History Acetaminophen Tab [Tylenol Tab] 500 mg PO Q6HR PRN 09/13/21 10/10/21 History Docusate [Colace] 100 mg PO DAILY 10/10/21 10/10/21 History HYDROcodone/APAP 7.5-325MG [[place] 1 tab PO Q6H PRN 10/10/21 10/10/21 History 7.5-325] Metoprolol Tartrate [Lopressor] 50 mg PO BID 10/10/21 10/10/21 History Omeprazole 20 mg PO AC-BID 10/10/21 10/10/21 History Ondansetron [Zofran] 4 mg PO QID PRN 10/10/21 10/10/21 History Allergies Allergy/AdvReac Type Severity Reaction Status Date / Time No Known Allergies Allergy Verified 10/10/21 18:08 Physical Exam Vitals: Vital Signs Temp Pulse Pulse Resp BP BP Pulse Ox 10/11/21 04:50 97.8 F 73 18 105/68 95 10/11/21 00:50 97.7 F 84 20 103/62 93 L 10/10/21 21:52 96 16 136/62 98 10/10/21 19:57 98 10/10/21 18:27 105 H 10/10/21 17:23 130 H 16 120/79 97 10/10/21 16:21 110 H 20 110/81 97 10/10/21 14:53 97.5 F L 134 H 20 148/99 96 Intake and Output 10/10/21 10/11/21 10/11/21 22:59 06:59 14:59 Other: Voiding Method Toilet # Voids 1 Weight 81.647 kg Results 10/11/21 08:23 10/11/21 08:23 Cardiac Enzymes 10/10/21 10/10/21 Range/Units 15:15 15:15 AST 51 H (14-36) U/L Troponin I 0.013 (0.000-0.034) ng/mL Coagulation 10/10/21 Range/Units 15:15 PT 23.9 H (9.0-12.0) sec APTT 29.2 (22.0-30.0) sec CBC 10/10/21 Range/Units 15:15 WBC 8.4 (3.8-10.6) k/uL RBC 4.99 (3.80-5.40) m/uL Hgb 15.6 (11.4-16.0) gm/dL Hct 46.9 H (34.0-46.0) % Plt Count 316 (150-450) k/uL Comprehensive Metabolic Panel 10/10/21 Range/Units 15:15 Sodium 134 L (137-145) mmol/L Potassium 4.7 (3.5-5.1) mmol/L Chloride 102 (98-107) mmol/L Carbon Dioxide 23 (22-30) mmol/L BUN 14 (7-17) mg/dL Creatinine 0.91 (0.52-1.04) mg/dL Glucose 129 H (74-99) mg/dL Calcium 9.0 (8.4-10.2) mg/dL AST 51 H (14-36) U/L ALT 32 (4-34) U/L Alkaline Phosphatase 99 (38-126) U/L Total Protein 7.1 (6.3-8.2) g/dL Albumin 3.9 (3.5-5.0) g/dL Current Medications Generic Name Dose Route Start Last Admin Trade Name Freq PRN Reason Stop Dose Admin Acetaminophen 500 mg 10/10/21 20:59 Acetaminophen Tab 500 Mg Tab PO Q6HR PRN Pain Hydrocodone Bitart/Acetaminophen 1 each 10/10/21 20:59 10/11/21 06:37 Hydrocodone/Apap 7.5-325mg 1 Each Tab PO 1 each Q6H PRN Administration Pain Atorvastatin Calcium 40 mg 10/11/21 17:30 Atorvastatin 40 Mg Tab PO W/SUPPER MAURICIO Cholecalciferol 125 mcg 10/11/21 17:30 Cholecalciferol 125 Mcg (5000 Iu) Tablet PO W/SUPPER [facility] Docusate Sodium 100 mg 10/11/21 09:00 Docusate 100 Mg Cap PO DAILY MAURICIO Furosemide 40 mg 10/11/21 17:30 Furosemide 40 Mg Tab PO W/SUPPER [facility] Diltiazem HCl 125 mg/ Sodium 125 mls @ 5 mls/hr 10/10/21 17:15 10/10/21 17:22 Chloride IV 5 mg/hr .Q24H MAURICIO 5 mls/hr Administration 5 MG/HR Sodium Chloride 1,000 mls @ 20 mls/hr 10/10/21 17:15 10/11/21 01:14 Saline 0.9% IV Not Given .Q24H [facility]ICIO Lisinopril 5 mg 10/11/21 17:30 Lisinopril 5 Mg Tab PO W/SUPPER [facility] Metoprolol Tartrate 50 mg 10/10/21 21:00 10/10/21 21:49 Metoprolol Tartrate 50 Mg Tab PO 50 mg BID [facility] Administration Miscellaneous Information 0 each 10/10/21 21:19 Warfarin Per Pharmacy MISCELLANE DIRECTED PRN INR Naloxone HCl 0.2 mg 10/10/21 17:13 Naloxone 0.4 Mg/Ml 1 Ml Vial IV Q2M PRN Opioid Reversal Ondansetron HCl 4 mg 10/10/21 20:59 Ondansetron 4 Mg Tab PO QID PRN Nausea Pantoprazole Sodium 40 mg 10/11/21 07:30 10/11/21 06:35 Pantoprazole 40 Mg Tablet PO 40 mg AC-BID [facility] Administration Vitamin A 10,000 unit 10/11/21 17:30 Vitamin A 10,000 Unit (3000 Mcg) Capsule PO W/SUPPER [facility] Warfarin Sodium 5 mg 10/10/21 22:00 10/11/21 01:13 Warfarin 5 Mg Tab PO 5 mg W/SUPPER [facility] Administration Protocol Intake and Output 10/10/21 10/11/21 10/11/21 22:59 06:59 14:59 Other: Voiding Method Toilet # Voids 1 Weight 81.647 kg 10/10/21 15:15 10/10/21 15:15
[2021-10-11 11:15] VITALS: BMI 29.0
--- NOTE | 2021-10-11 14:39 | CA ---
Transthoracic Echo Report Name: Job Pathak Age: 76 Gender: F : 1945 Exam Date: 10/11/2021 08:07 Exam Location: [facility] Ht (in): 66 Wt (lb): 180 Ordering Physician: Umesh Hudson MD Attending/Referring Phys: [employer] Drier Emily Ramos RDCS Procedure CPT: Indications: lvfunction Cardiac Hx: Technical Quality: Good Contrast 1: Total Dose (mL): Contrast 2: Total Dose (mL): MEASUREMENTS (Male / Female) Normal Values 2D ECHO LV Diastolic Diameter PLAX 4.5 cm 4.2 - 5.9 / 3.9 - 5.3 cm LV Systolic Diameter PLAX 2.4 cm IVS Diastolic Thickness 0.8 cm 0.6 - 1.0 / 0.6 - 0.9 cm LVPW Diastolic Thickness 1.0 cm 0.6 - 1.0 / 0.6 - 0.9 cm LV Relative Wall Thickness 0.4 RV Internal Dim ED PLAX 2.7 cm LA Volume 39.5 cm??? 18 - 58 / 22 - 52 cm??? M-MODE Aortic Root Diameter MM 3.3 cm LA Systolic Diameter MM 2.2 cm LA Ao Ratio MM 0.7 MV E Point Septal Separation 1.0 cm AV Cusp Separation MM 1.9 cm DOPPLER AV Peak Velocity 135.3 cm/s AV Peak Gradient 7.3 mmHg MV Area PHT 2.9 cm??? MR Peak Velocity 123.2 cm/s MR Peak Gradient 6.1 mmHg Mitral E Point Velocity 90.2 cm/s Mitral A Point Velocity 72.4 cm/s Mitral E to A Ratio 1.2 MV Deceleration Time 264.9 ms MV E' Velocity 8.2 cm/s Mitral E to MV E' Ratio 11.0 TR Peak Velocity 87.8 cm/s TR Peak Gradient 3.1 mmHg Right Ventricular Systolic Press 8.1 mmHg FINDINGS Left Ventricle Mildly increased posterior wall thickness. Left ventricular ejection fraction is estimated at 55-60 %. Right Ventricle The right ventricle is normal in size and function. Right Atrium The right atrium is normal in size. Left Atrium The left atrium is normal in size. Mitral Valve Structurally normal mitral valve without significant stenosis or prolapse. There is mild mitral regurgitation. Aortic Valve Structurally normal aortic valve without significant sclerosis or stenosis. There is no aortic regurgitation. Tricuspid Valve Structurally normal tricuspid valve without significant stenosis. Pulmonary artery systolic pressure is normal. Mild tricuspid regurgitation. Pulmonic Valve Structurally normal pulmonic valve without significant stenosis. There is no pulmonic regurgitation. Pericardium Normal pericardium without effusion. Aorta Normal aortic root dimension. CONCLUSIONS Preserved LV systolic function Previewed by: Dr. Mor Reynolds MD (Electronically Signed) Final Date: 11 Oct 2021 14:38
[2021-10-11] MEDS ORDERED: CHOLECALCIFEROL 125 MCG (5000 IU) TABLET PO SCH (17:30)
[2021-10-11] MEDS ORDERED: lisinopriL 5 MG TAB PO SCH (17:30)
[2021-10-11] MEDS ORDERED: FUROSEMIDE 40 MG TAB PO SCH (17:30)
[2021-10-11] MEDS ORDERED: VITAMIN A 10,000 UNIT (3000 MCG) CAPSULE PO SCH (17:30)
[2021-10-11] MEDS ORDERED: ATORVASTATIN 40 MG TAB PO SCH (17:30)
[2021-10-12 04:54] VITALS: TEMP 97.6
[2021-10-12] MEDS: PANTOPRAZOLE 40 MG TABLET PO SCH (06:25)
[2021-10-12 08:24] LABS: INR 3.6 (<1.2); Prothrombin Time 36.3 sec (9.0-12.0)
[2021-10-12] MEDS: HYDROcodone/APAP 7.5-325MG 1 EACH TAB PO PRN (08:38)
[2021-10-12] MEDS: DOCUSATE 100 MG CAP PO SCH (08:38)
[2021-10-12] MEDS: METOPROLOL TARTRATE 50 MG TAB PO SCH (08:39)
[2021-10-12 08:41] VITALS: BP 129/71; PULSE 78; RESP 16
--- NOTE | 2021-10-12 09:00 | P.DS ---
Providers Date of admission: 10/10/21 17:13 Expected date of discharge: 10/12/21 Attending physician: Umesh Hudson Consults: 10/10/21 17:15 Consult Physician Routine Consulting Provider: Milton Sim Consult Reason/Comments: afib rvr Do you want consulting provider notified?: Yes Primary care physician: Lashell Kimble [facility] Course: HISTORY OF PRESENT ILLNESS 76-year-old female one of Dr. Kimble's patient with multiple medical problem was known to have history of hypertension, hyperlipidemia, A. fib has been on warfarin, history of bowel resection in the past secondary to bowel obstruction, chronic history of tobacco use, who was in the hospital in September 14 4 T8 kyphoplasty secondary to compression fracture. Patient was seen orthopedic on regular basis and has been continued to be on pain management he'll be going back to have another T10 kyphoplasty and surgery. He presented to the emergency department at [facility] complaining of being sick to stomach since yesterday not been able to eat or drink any food or fluid patient apparently had loss over 20 pound last 6 weeks. Patient was referred to have EGD and colonoscopy with Dr. Boyer recently with no major finding. Continue decline furthermore till today when he was feeling very bad" coming to the emergency department at [facility] where was seen found to be in A. fib with RVR pulse rate running around 140 beats per minutes. Patient was started on Cardizem drip and he is already on anticoagulation will be admitted to the hospital for the above problem. Laboratory value shows normal PT/INR with potassium be normal at this 0.4 0.7 with normal GFR at 62 blood sugar was mildly elevated CBC showed again with seems to be slight iron deficiency. Patient be admitted to the hospital will be seen cardiology anticoagulation continue patient will be on higher dose of metoprolol or Cardizem to keep the pulse rates under control. The meanwhile for his current abdominal pain with symptoms further testing might be done no major finding. 10/11: Patient's heart rate has been running in the 70s, hospital monitor sinus rhythm with sinus arrhythmia. Blood pressure 121/74, pulse ox 93% on room air, afebrile. Patient continues to have abdominal pain and discuss need for bowel regime. We have added in MiraLAX on top of Dulcolax, added milk of magnesia. Recommended Tylenol 3 versus [place] but she states that Tylenol 3 does not help her pain. She does have the scheduled procedure with Dr. Mejia on October 24. Repeat CBC is unremarkable. Other blood work report is pending. Patient is currently on Cardizem drip and will be seen today by cardiology. Echocardiogram has been obtained and report is pending. 10/12: Patient has been seen by cardiology this morning clear for discharge. No medication changes for home. Patient denies having any nausea or vomiting and abdominal pain is resolved. INR is 3.6. Patient will be discharged home today in stable condition. DISCHARGE DIAGNOSES 1. A. 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 Mejia. 4 hypertension 5 hyperlipidemia 6 chronic pain syndrome 7 intractable abdominal discomfort with no bowel movement with significant constipation 8 chronic edema 9 anticoagulation DISCHARGE PLAN Home Greater than 35 minutes was utilized and coordinating patient's discharge. Impression and plan of care have been directed as dictated by the signing physician. Maryam Douglas nurse practitioner acting as scribe for signing physician. Patient Condition at Discharge: Good Plan - Discharge Summary Discharge Rx Participant: No New Discharge Prescriptions: New polyethylene glycoL 3350 [Miralax] 17 gm PO DAILY packet Metoprolol Tartrate [Lopressor] 50 mg PO TID 30 Days #90 tab Continue Vitamin A [Vitamin A (8,000 Units = 2,400 MCG)] 2,400 mcg PO W/SUPPER Warfarin Sodium 5 mg PO W/SUPPER Furosemide [Lasix] 40 mg PO W/SUPPER lisinopriL [Zestril] 5 mg PO W/SUPPER Omeprazole 20 mg PO AC-BID Docusate [Colace] 100 mg PO DAILY Cholecalciferol [Vitamin D3 (125 Mcg = 5000 Iu)] 125 mcg PO W/SUPPER Atorvastatin [Lipitor] 40 mg PO W/SUPPER Acetaminophen Tab [Tylenol] 500 mg PO Q6HR PRN PRN Reason: Pain HYDROcodone/APAP 7.5-325MG [[place] 7.5-325] 1 tab PO Q6H PRN PRN Reason: Pain Ondansetron [Zofran] 4 mg PO QID PRN PRN Reason: Nausea Discontinued Metoprolol Tartrate [Lopressor] 50 mg PO BID Discharge Medication List Atorvastatin [Lipitor] 40 mg PO W/SUPPER 08/07/21 [History] Cholecalciferol [Vitamin D3 (125 Mcg = 5000 Iu)] 125 mcg PO W/SUPPER 08/07/21 [History] Furosemide [Lasix] 40 mg PO W/SUPPER 08/07/21 [History] Vitamin A [Vitamin A (8,000 Units = 2,400 MCG)] 2,400 mcg PO W/SUPPER 08/07/21 [History] Warfarin Sodium 5 mg PO W/SUPPER 08/07/21 [History] lisinopriL [Zestril] 5 mg PO W/SUPPER 09/10/21 [History] Acetaminophen Tab [Tylenol] 500 mg PO Q6HR PRN 09/13/21 [History] Docusate [Colace] 100 mg PO DAILY 10/10/21 [History] HYDROcodone/APAP 7.5-325MG [[place] 7.5-325] 1 tab PO Q6H PRN 10/10/21 [History] Omeprazole 20 mg PO AC-BID 10/10/21 [History] Ondansetron [Zofran] 4 mg PO QID PRN 10/10/21 [History] Metoprolol Tartrate [Lopressor] 50 mg PO TID 30 Days #90 tab 10/12/21 [Rx] polyethylene glycoL 3350 [Miralax] 17 gm PO DAILY packet 10/12/21 [Rx] Follow up Appointment(s)/Referral(s): Lashell Kimble MD [Primary Care Provider] - 1 Week Milton Sim MD [STAFF PHYSICIAN] - 1 Week Discharge Disposition: HOME SELF-CARE
--- NOTE | 2021-10-12 14:11 | P.PN ---
Subjective This is a pleasant 76-year-old female past medical history significant for Paroxysmal atrial fibrillation on Coumadin, hypertension, carotid disease, history of bowel resection in the past secondary to bowel obstruction, chronic history of tobacco use, T8 kyphoplasty 09/14/2021 secondary to compression fracture, Plan for future T10 kyphoplasty and surgery with Orthopedics, 10/03/21 Colonoscopy and EGD revealed small hiatal hernia, esophagitis, short segment Delaney's esophagus and mild antral gastritis, scattered sigmoid diverticulosis, and rectal polyp s/p biopsy. She follows in the office with Dr. Sim. We have been asked to see in consultation for Atrial fibrillation with RVR. Patient presents to the emergency department with complaints of abdominal pain, decreased appetite, decreased by mouth intake, nausea, vomiting, feeling "warm/hot flashes" since Friday. Patient was found to be in atrial fibrillation with rapid ventricular response patient was started on IV Cardizem, now with controlled ventricular rates. She denies any chest pain, palpitations, dizziness, syncope or near syncope. She does endorse some lightheadedness, and shortness of breath. Over the past 23 days patient states she's only been able to intake water. She does endorse she has been taking her medications. DIAGNOSTICS EKG reveals atrial fibrillation with ventricular response, heart rate 139 Telemetry tracings indicate atrial fibrillation with controlled rates HR 60s- 80s CT abdomen and pelvis revealed no acute intra-abdominal process. Laboratory reviewed, WBC 0.4, hemoglobin 13.6, platelets 316, INR 2.4, troponin negative, sodium 134, potassium 4.7, BUN 14, serum creatinine 0.9, magnesium 1.6 Current home cardiac medications include Coumadin, metoprolol tartrate 50 mg twice a day, atorvastatin 40 mg nightly, Lasix 40 mg daily, lisinopril 5 mg daily Echocardiogram in 2019 in the office EF 55%, mild MR, mild TR Lexiscan stress test in 2019 in the office- negative for reversible ischemia 10/12/2021 Patient seen at bedside, no acute distress. Denies any lightheadedness, dizziness, palpitations, chest pain or shortness of breath. She converted to sinus mechanism yesterday, IV Cardizem stopped. She continues to maintain sinus mechanism. Echocardiogram revealed EF 5560%, mild mitral regurgitation, mild tricuspid regurgitation PHYSICAL EXAMINATION Vitals reviewed CONSTITUTIONAL: No apparent distress. HEENT: No JVD. CHEST EXAMINATION: Lungs are clear to auscultation. No chest wall tenderness is noted on palpation or with deep breathing. HEART EXAMINATION:Regular rate and rhythm. S1, S2 heard. No murmurs, gallops or rub. ABDOMEN: Soft, nontender. Positive bowel sounds. EXTREMITIES: 2+ peripheral pulses, no lower extremity edema and no calf tenderness. NEUROLOGIC EXAMINATION: Patient is awake, alert and oriented x3. ASSESSMENT Symptoms of abdominal pain, nausea, vomiting, decreased PO intake Paroxysmal atrial fibrillation with RVR on Coumadin History of hypertension Carotid artery disease PLAN Increase home metoprolol tartrate 50mg TID Continue Coumadin for anticoagulation Continue lisinopril and statin. From cardiology perspective, patient stable to be discharged home. Follow up outpatient with Dr. Sim Nurse practitioner note has been reviewed by physician. Signing provider agrees with the documented findings, assessment, and plan of care. Objective - Vital Signs Vital signs: Vital Signs Temp 97.6 F 10/12/21 04:10 Pulse 78 10/12/21 08:00 Resp 16 10/12/21 08:00 BP 129/71 10/12/21 08:00 Pulse Ox 92 L 10/12/21 08:00 Intake & Output 10/11/21 10/12/21 10/12/21 18:59 06:59 18:59 Intake Total 240 540 Balance 240 540 Weight 81.647 kg Intake: Oral 240 540 Other: Voiding Method Toilet Toilet # Voids 3 1 1 - Labs CBC & Chem 7: 10/11/21 08:23 10/11/21 08:23 Labs: Abnormal Lab Results - Last 24 Hours (Table) 10/12/21 Range/Units 07:45 PT 36.3 H (9.0-12.0) sec INR 3.6 H (<1.2)
[2021-10-12] MEDS ORDERED: METOPROLOL TARTRATE 50 MG TAB PO SCH (16:00)
[2021-10-12] MEDS ORDERED: WARFARIN 0.5 MG TAB PO ONE (18:00)
== END 2021-10-12 11:45 | disposition home or self-care (01) | DRG 309 ==
LOC: EC 14:50 → 3SCARD 17:13
PROVIDERS: ADMIT Internal Medicine Geriatric Medicine; ATTEND Internal Medicine Geriatric Medicine
DX: I48.0 Paroxysmal atrial fibrillation (principal); M80.08XA Age-related osteoporosis with current pathological fracture, vertebra(e), initial encounter for fracture; I10 Essential (primary) hypertension; E78.5 Hyperlipidemia, unspecified; Z79.899 Other long term (current) drug therapy; G89.4 Chronic pain syndrome; K21.00 Gastro-esophageal reflux disease with esophagitis, without bleeding; K59.00 Constipation, unspecified; F17.210 Nicotine dependence, cigarettes, uncomplicated; K29.70 Gastritis, unspecified, without bleeding; I08.1 Rheumatic disorders of both mitral and tricuspid valves; K57.90 Diverticulosis of intestine, part unspecified, without perforation or abscess without bleeding; K22.70 Barrett's esophagus without dysplasia; N95.1 Menopausal and female climacteric states; K62.1 Rectal polyp; Z79.01 Long term (current) use of anticoagulants; Z82.49 Family history of ischemic heart disease and other diseases of the circulatory system; Z87.442 Personal history of urinary calculi; Z90.49 Acquired absence of other specified parts of digestive tract; Z87.11 Personal history of peptic ulcer disease
CPT/HCPCS: 36415; 74177; 80053; 83690; 83735; 84484; 85025; 85027; 85610; 85730; 93005; 93306; 96361; 96365; 96366; 96375; 99285

== ENCOUNTER → 2021-10-23 | Outpatient (CLI) | payer MEDICARE ==
--- NOTE | 2021-10-23 12:14 | XR ---
EXAMINATION TYPE: XR chest 2V DATE OF EXAM: 10/23/2021 COMPARISON: MRI thoracic spine 08/22/2021 INDICATION: Compression fracture presurgical clearance TECHNIQUE: Frontal and lateral views of the chest are obtained. FINDINGS: The heart size is normal. The pulmonary vasculature is normal. The lungs are clear. There appears to be prior vertebroplasty within the mid thoracic level. Just below the vertebroplasty is a compression which appears to be an interval finding from August 2021 IMPRESSION: 1. Interval mid thoracic compression deformity. 2. Appears to be prior vertebroplasty. 3. No acute pulmonary process.
[2021-10-23 13:00] LABS: INR 1.1 (<1.2); Partial Thromboplastin Time 24.2 sec (22.0-30.0); Prothrombin Time 11.8 sec (9.0-12.0)
[2021-10-23 18:36] LABS: African American GFR (CKD) 82.9 (60.0-200.0); Albumin 4.6 g/dL (3.8-4.9); Albumin/Globulin Ratio 1.98 (1.60-3.17); Anion Gap 12.5 mmol/L (10.00-18.00); BUN/Creat Ratio 19.63 Ratio (12.00-20.00); Blood Urea Nitrogen 15.9 mg/dL (9.0-27.0); Calcium 10.5 mg/dL (8.7-10.3); Carbon Dioxide 27.6 mmol/L (20.0-27.5); Globulin 2.3 g/dL (1.6-3.3); Non-African American GFR(CKD) 71.5 (60.0-200.0); Potassium 4.7 mmol/L (3.5-5.5); Total Bilirubin 0.5 mg/dL (0.30-1.20); Total Protein 6.9 g/dL (6.2-8.2)
[2021-10-23 18:48] LABS: HCT 50.5 % (37.2-46.3); HGB 16.4 g/dL (12.0-15.0); MCH 30.6 pg (27.0-32.0); MCHC 32.5 g/dL (32.0-37.0); MCV 94.2 fL (80.0-97.0); NRBC Per 100 WBC 0 /100 WBCS (0.0-0.0); Platelet Count 256 X 10*3/uL (140-440); RBC 5.36 X 10*6/uL (4.10-5.20); RDW 13.2 % (11.5-14.5); WBC 11.72 X 10*3/uL (4.50-10.00)
[2021-10-23 20:15] LABS: Appearance,Urine Cloudy (Clear); Bilirubin,Urine Negative (Negative); Blood,Urine Negative (Negative); Color,Urine Dark Yellow (Yellow); Ketones,Urine Trace mg/dL (Negative); Nitrite,Urine Negative (Negative); PH, Urine 5.5 (5.0-8.0)
[2021-10-23 20:42] LABS: Bacteria,Urine None Seen /HPF (None Seen); Calcium Oxalate Crystals,Urine Present /LPF (None Seen)
== END | disposition home or self-care (01) ==
LOC: RADXRMAIN 11:10
PROVIDERS: ATTEND Orthopaedic Surgery Orthopaedic Surgery of the Spine
DX: Z01.812 Encounter for preprocedural laboratory examination (principal); S22.000A Wedge compression fracture of unspecified thoracic vertebra, initial encounter for closed fracture; Y99.9 Unspecified external cause status
CPT/HCPCS: 71046; 80053; 81001; 85027; 85610; 85730

== ENCOUNTER 2021-10-24 11:12 | Day surgery (SDC) | payer MEDICARE ==
[2021-10-22 13:42] VITALS: BMI 28.2
[~2021-10-24 11:12] MED LIST changes: -LIDOCAINE 1% (10MG/ML) FOR IV START INTRADERMA PRN
[2021-10-24] MEDS ORDERED: LIDOCAINE 1% (10MG/ML) FOR IV START SQ ONE (12:15)
[2021-10-24] MEDS ORDERED: ONDANSETRON 4 MG/2 ML VIAL ONE (12:29)
[2021-10-24] MEDS ORDERED: ONDANSETRON 4 MG/2 ML VIAL IVP ONE ×2 (12:35→16:25)
[2021-10-24] MEDS ORDERED: PROPOFOL 10 MG/ML 20 ML VIAL IV ONE (13:25)
[2021-10-24] MEDS ORDERED: fentaNYL (PF) 50 MCG/ML 2 ML AMP ONE (13:25)
[2021-10-24] MEDS ORDERED: LIDOCAINE 2% INJ 20 MG/ML (2 ML VIAL) ONE (13:25)
[2021-10-24] MEDS ORDERED: SUCCINYLCHOLINE CHLORIDE 100 MG/5 ML SYR IV ONE (13:25)
[2021-10-24] MEDS ORDERED: PHENYLEPHRINE-0.9% NACL SYG 1,000 MCG/10 ML SYRINGE ONE (13:25)
[2021-10-24] MEDS ORDERED: MIDAZOLAM 2 MG/2 ML VIAL ONE (13:25)
[2021-10-24] MEDS ORDERED: IOPAMIDOL M200 10 ML VIAL MISCELLANE ONE (13:57)
[2021-10-24] MEDS ORDERED: LIDOCAINE 1%-EPI 1:100,000 20 ML VIAL SQ ONE (13:59)
[2021-10-24] MEDS ORDERED: HYDROmorphone 0.5 MG/0.5 ML SYRINGE IVP PRN (14:13)
[2021-10-24] MEDS ORDERED: BENZOCAINE/MENTHOL LOZENG 1 EACH LOZENGE MUCOUS MEM PRN (14:13)
[2021-10-24] MEDS ORDERED: HYDROcodone/APAP 5-325MG 1 EACH TAB PO PRN (14:13)
[2021-10-24] MEDS ORDERED: CYCLOBENZAPRINE 5 MG TAB PO PRN (14:13)
[2021-10-24] MEDS ORDERED: ONDANSETRON 4 MG/2 ML VIAL IVP PRN (14:13)
[2021-10-24] MEDS ORDERED: HYDROcodone/APAP 7.5-325MG 1 EACH TAB PO PRN (14:15)
[2021-10-24] MEDS ORDERED: IBUPROFEN 400 MG TAB PO PRN (14:15)
--- NOTE | 2021-10-24 14:21 | P.OP ---
Date of Procedure: 10/24/21 Preoperative Diagnosis: Osteoporotic compression fracture T9, thoracic back pain, failed conservative treatment Postoperative Diagnosis: Same Anesthesia: GETA Pathology: other (T9 vertebral body biopsy sent to pathology) Condition: stable Disposition: PACU Description of Procedure: BRIEF OPERATIVE NOTE Preoperative Diagnosis: Osteoporotic compression fracture T9, thoracic back pain, failed conservative treatment Postoperative Diagnosis: Same Procedure: Kyphoplasty of T9 Vertebral body biopsy of T9 Use of biplanar fluoroscopic guidance Surgeon: Dr. Mejia Surgical Orderly: Sridhar Bailey is present throughout the entire the case persistence during positioning, dissection, exposure, visualization, and all c rucial elements of the case as well as closure. Anesthesia: General anesthesia Estimated blood loss: Less than 10 mL Specimen: Vertebral body biopsy of T9 sent to pathology in formalin Complications: None apparent Components implanted: Bone cement approximately 5 and half cc Disposition: To recovery room in good stable condition. OPERATIVE INDICATIONS The patient has been having issues in their back over the past 4 weeks. She actually underwent a kyphoplasty of T8 which she did very well with for a day but then started having acute new pain. On follow-up in our office the kyphoplasty at T8 was found be stable however she showed evidence of new compression deformity at T9 disc below her prior surgical site. The pain correlated well with the new injury. This was compared directly with the surgical films and the preoperative films from the T8 kyphoplasty and was new compression deformity at T9. She denied any specific traumatic injury but did have some cardiac issues which required treatment.. The patient has been through conservative treatment. They attempted conservative care with bracing however they're not having any benefit despite brace use. They continue to have significant pain and debility due to their fracture. We discussed various treatment options including surgery, and the patient wishes to proceed with surgery We discussed the risk, patient's alternatives and benefits of surgery including but not limited to, risk of bleeding risk of infection, risk of need for further surgery, risk of decreased, loss of motion, loss of function, cement extravasation, nerve damage, paralysis, heart attack, blindness and . OPERATIVE SUMMARY After discussing all the risks, patient alternatives and benefits at length, the patient elected to proceed with surgical intervention, signed informed consent, and presented for their procedure. The patient was seen and examined in the preoperative holding area and the surgical site was marked. The patient was given antibiotics and brought to the operating room on her stretcher. The patient was sedated and intubated by anesthesia in standard fashion while still on her stretcher. We're able to logroll the patient on to the hospital bed with the appropriate padding intact. The patient was positioned on to the operating room table in a prone position on the appropriate well-padded and well molded bilateral chest rolls. We were careful to pad any bony prominences and pressure points. We were careful to maintain the patient's cervical spine and good neutral alignment and position throughout. We used 2 C-arm machines to establish biplanar fluoroscopic guidance in AP and lateral positions with the prior kyphoplasty at T8 noted in the new fracture T9 noted.. We were able to localize the fractures appropriately. The patient was prepped and draped in a normal standard fashion. An appropriate timeout and keystone protocol performed. We were able to proceed with the surgery. The local wound area was infiltrated with local anesthetic. An incision was made over the lateral aspect of the pedicle on the left side over the appropriate levels with a small 2 mm stab incision. Intraoperative fluoroscopy was taken which showed a marker at the appropriate level at T9. The cement at T8 appeared stable With the appropriate level positively confirmed, I was able to position a sharp trocar over the lateral aspect of the pedicle. As able to advance the trocar into the pedicle and into the posterior aspect of vertebral body being careful to avoid penetration cephalad caudad or medially. The trocar was placed appropriately into the posterior aspect of vertebral body at the appropriate levels. This was confirmed with C-arm guidance. With the trocar intact I was then able to take a bone biopsy with a biopsy punch or a bony drill. The biopsy specimen was passed off to be sent to pathology in formalin. I was then able to place the kyphoplasty balloon within the vertebral body. The position was checked on C-arm. I was able to inflate the balloon under low pressure and visualization with C-arm. The balloon was well enclosed within the vertebral body. The cement was prepared. With the cement at appropriate working condition the balloons were deflated and removed. I was able to place bony cement with trocar with the cement delivery device under low pressure. It had good fill within the vertebral body. It had good spread across the midline without any posterior significant spreading. There is no evidence of any extravasation of the cement posteriorly toward the canal. The cement was well contained at the appropriate levels of T9 with approximately 5 and half cc of cement. The cement was allowed to cure appropriately. The trochars removed and final images were taken on C-arm. This showed the cement at the appropriate levels. We were able to proceed with closure. The wound was cleaned and dried and dressed with the appropriate dressing. The drapes were broken down. The patient was gently rolled back onto their hospital bed being careful to maintain their cervical spine and good neutral alignment and position. They were woken up by anesthesia, extubated, and brought to the recovery room in good stable condition. The patient will be admitted to the hospital for observation and for appropriate postoperative care, medical management and monitoring. We will continue to follow them closely about the postoperative course.
[2021-10-24] MEDS: HYDROmorphone 0.5 MG/0.5 ML SYRINGE IVP PRN ×3 (14:37→15:01)
--- NOTE | 2021-10-24 14:41 | XR ---
EXAMINATION TYPE: XR thoracic spine 2V, FL guidance operating room DATE OF EXAM: 10/24/2021 CLINICAL HISTORY: Mid back pain. TECHNIQUE: Fluoroscopy. Intraoperative 2 views thoracic spine. COMPARISON: CT thoracic spine August 07, 2021. FINDINGS: Fluoroscopic guidance was provided during procedure thoracic spine kyphoplasty performed daniel Mejia. A total of 65 seconds of fluoroscopic time was utilized during the procedure and 4 spot images was acquired. Images acquired show prior vertebral plasty mild to moderate compression type fracture mid to lower t horacic vertebra with new vertebroplasty performed at mild compression type fracture just below this from posterior approach. IMPRESSION: As Above.
[2021-10-24] MEDS ORDERED: METOPROLOL TARTRATE 50 MG TAB PO STA (15:53)
[2021-10-24] MEDS ORDERED: VITAMIN A 10,000 UNIT (3000 MCG) CAPSULE PO SCH (17:30)
[2021-10-24] MEDS ORDERED: CYANOCOBALAMIN 500 MCG TAB PO SCH (17:30)
[2021-10-24] MEDS ORDERED: lisinopriL 5 MG TAB PO SCH (17:30)
[2021-10-24] MEDS ORDERED: FUROSEMIDE 40 MG TAB PO SCH (17:30)
[2021-10-24] MEDS ORDERED: ATORVASTATIN 40 MG TAB PO SCH (17:30)
[2021-10-24] MEDS ORDERED: CHOLECALCIFEROL 125 MCG (5000 IU) TABLET PO SCH (17:30)
[2021-10-24] MEDS: SODIUM CHLORIDE 0.9% 1,000 ML IV SCH (17:53)
[2021-10-24] MEDS: ACETAMINOPHEN TAB 325 MG TAB PO SCH ×2 (18:15→23:23)
[2021-10-24] MEDS ORDERED: WARFARIN 0.5 MG TAB PO ONE (18:45)
[2021-10-24] MEDS ORDERED: METOCLOPRAMIDE 5 MG/ML 2 ML VIAL IVP PRN (19:36)
[2021-10-24] MEDS ORDERED: METOPROLOL TARTRATE 50 MG TAB PO SCH (21:00)
--- NOTE | 2021-10-25 00:42 | P.CONS ---
History of Present Illness - Reason for Consult Consult date: 10/24/21 medical management Requesting physician: Eleonora Mejia - Chief Complaint compression fracture of the T9 post kyphoplasty and biopsy from T9. - History of Present Illness HISTORY OF PRESENT ILLNESS 76-year-old male one of Dr. Kimble's patient with past medical history of hypertension, hyperlipidemia, A. fib on warfarin, history of bowel obstruction in the past post bowel resection, history of chronic tobacco use, patient had previous history of T8 kyphoplasty secondary to compression fracture and has been seen by orthopedic regular basis. He was found to have another compression in the T9 area planning to have kyphoplasty earlier he was hospitalized over 2 weeks ago at [facility] through the emergency department because of feeling sick to stomach not been able to eat or drink any food or fluid he lost over 20 pounds in 6 weeks patient apparently had some workup as an outpatient did an EGD and colonoscopy with gastroenterology finding was negative for any malignancy. Patient was hospitalized 2 weeks ago in with A. fib with RVR pulse rate running 140 bpm was on Cardizem drip his organ anticoagulation ended up seen cardiology had an echocardiogram showed an fraction of 55-60%, patient did not require to go for any further cardiac testing cardiology were satisfied with his result he was converted from Cardizem to metoprolol tartrate 50 mg twice a day and to continue anticoagulation patient seemed to tolerate medication very well. He she was already clear for this expected kyphoplasty of the T9 from his lost hospitalization and from outpatient as well. Patient ended up coming to the hospital for elective kyphoplasty of the T9 which was done today with Dr. Rojas patient was admitted to the hospital afterward he is hemodynamically stable not having any A. fib no chest pain, his medication or start back anticoagulation will be held until tomorrow. apparently since his last admission his abdominal pain and change in bowel habit has improved slightly. His weight stabilizes as well. REVIEW OF SYSTEMS Constitutional: No fever, no chills, no night sweats. No weight change. No weakness, fatigue or lethargy. No daytime sleepiness. EENT: No headache. No blurred vision or double vision, no loss of vision. No loss of Hearing, no ringing in the ears, no dizziness. No nasal drainage or congestion. No epistaxis. No sore throat. Lungs: No shortness of breath, cough, no sputum production. No wheezing. Cardiovascular: No chest pain, no lower extremity edema. No palpitations. No paroxysmal nocturnal dyspnea. No orthopnea. No lightheadedness or dizziness. No syncopal episodes. Abdominal: No abdominal pain. No nausea, vomiting. No diarrhea. No constipation. No bloody or tarry stools. No loss of appetite. Genitourinary: No dysuria, increased frequency, urgency. No urinary retention. Musculoskeletal: No myalgias. No muscle weakness, no gait dysfunction, no frequent falls. significant back pain post kyphoplasty with no neck pain at this point.. Integumentary: No wounds, no lesions. No rash or pruritus. No unusual bruising. No change in hair or nails. Neurologic: No aphasia. No facial droop. No change in mentation. No head injury. No headache. No paralysis. No paresthesia. Psychiatric: No depression. No anxiety. No mood swings. Endocrine: No abnormal blood sugars. No weight change. No excessive sweating or thirst. No cold intolerance. SOCIAL HISTORY Patient is an active smoker since age 20 half a pack per day, no alcohol use, no marijuana or illicit drug use. She does not have oxygen, CPAP at home. She is and lives at home with her . FAMILY HISTORY Mother at age 77 from ischemic bowel. Father at age 80 from massive myocardial infarction. Patient does not have any brothers and sisters. She has one daughter with no major medical problems.. PHYSICAL EXAMINATION Gen: This is a 76-year-old female. She is resting in bed and appears to be uncomfortable secondary to pain. HEENT: Head is atraumatic, normocephalic. Pupils equal, round. Sclerae is anicteric. NECK: Supple. No JVD. No lymphadenopathy. No thyromegaly. LUNGS: decreased breath some relative final calling no crackles plasma expiratory wheezes. HEART: Irregular rate and rhythm. S1, S2, positive S3, positive tachycardia with systolic murmur. ABDOMEN: soft positive bowel sounds no rebound or rigidity his abdominal looks very benign at this point. EXTREMITIES: No pedal edema. No calf tenderness. NEUROLOGICAL: Patient is awake, alert and oriented x3. Cranial nerves 2 through 12 are grossly intact. Strength to both lower extremities equal. back: Incision looks fine no sign of induration bleeding or infection. ASSESSMENT AND PLAN 1 post kyphoplasty of the T9: Also had a biopsy done as well, patient is doing well after surgery continue to watch patient hemodynamic status will hold off on his warfarin until cleared by Dr. Mejia in the next 24 hours.otherwise watch for any recurrent A. fib. 2. A. fib With a recent hospitalization with A. fib with RVR, patient has been doing much better on metoprolol tartrate his pulse rates running in the 60s and 70s was on anticoagulation was held for his surgery. 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 Mejia. Continue morphine as needed for pain, patient is currently nothing by mouth, stat INR ordered for today. 4 hypertension: Continue patient on metoprolol and Zestril. 5 hyperlipidemia: Continue atorvastatin 40 mg daily. 6 significant abdominal discomfort with no finding on a CAT scan, also EGD and colonoscopy came back to be negative, His symptoms were probably combination of his lumbar spinal compression osteoporosis with reaction to medication and fluid causing constipation and IBS C, symptom are slightly better this point. 7 BPH: Watch for any urinary retention at this point. 8 chronic edema: Has been on furosemide and if needed we will add spironolactone. 9 anticoagulation: Patient remain on warfarin physical hold at this point for surgery. 10 GI prophylaxis: Continue pantoprazole. DVT prophylaxis: Patient will be on anticoagulation, Will be starting 24 hours. CODE STATUS: Full code. Dr. Mejia thank you much for the consult if I can be any further help to please let me know. Past Medical History Past Medical History: No Reported History, Atrial Fibrillation, GERD/Reflux, Hypertension Additional Past Medical History / Comment(s): ulcers, kidney stones, chronic back pain History of Any Multi-Drug Resistant Organisms: None Reported Past Surgical History: Appendectomy, Back Surgery, Hysterectomy Additional Past Surgical History / Comment(s): Kyphoplasty, surgery on cracked cervical vertebrae Past Anesthesia/Blood Transfusion Reactions: No Reported Reaction, Motion Sickness Past Psychological History: No Psychological Hx Reported Smoking Status: Current every day smoker Past Alcohol Use History: None Reported Additional Past Alcohol Use History / Comment(s): pt states she smokes 5 cigarettes per day Past Drug Use History: None Reported - Past Family History Father Family Medical History: Pulmonary Embolus Medications and Allergies Home Medications Medication Instructions Recorded Confirmed Type Atorvastatin [Lipitor] 40 mg PO W/SUPPER 08/07/21 10/24/21 History Cholecalciferol [Vitamin D3 (125 125 mcg PO W/SUPPER 08/07/21 10/22/21 History Mcg = 5000 Iu)] Furosemide [Lasix] 40 mg PO W/SUPPER 08/07/21 10/24/21 History Vitamin A [Vitamin A (8,000 Units 3,000 mcg PO W/SUPPER 08/07/21 10/22/21 History = 2,400 MCG)] Warfarin Sodium 5 mg PO W/SUPPER 08/07/21 10/24/21 History lisinopriL [Zestril] 5 mg PO W/SUPPER 09/10/21 10/24/21 History HYDROcodone/APAP 7.5-325MG [[place] 1 tab PO Q6H PRN 10/10/21 10/24/21 History 7.5-325] Omeprazole 20 mg PO AC-BID 10/10/21 10/24/21 History Cyanocobalamin (Vitamin B-12) 1,000 mcg PO W/SUPPER 10/22/21 10/22/21 History [Vitamin B-12] Ibuprofen [Advil] 400 mg PO DIRECTED PRN 10/22/21 10/22/21 History Magnesium 250 mg PO DIRECTED 10/22/21 10/24/21 History Metoprolol Tartrate [Lopressor] 50 mg PO BID 10/22/21 10/24/21 History HYDROcodone/APAP 7.5-325MG [[place] 1 tab PO Q6HR PRN #28 tab 10/24/21 Rx 7.5-325] Allergies Allergy/AdvReac Type Severity Reaction Status Date / Time No Known Allergies Allergy Verified 10/24/21 11:49 Physical Exam Vitals: Vital Signs Temp Pulse Resp BP Pulse Ox 10/24/21 19:23 97.4 F L 82 17 131/83 91 L 10/24/21 16:45 98.0 F 94 17 115/57 90 L 10/24/21 16:30 107 H 16 118/74 97 10/24/21 16:15 103 H 16 111/70 97 10/24/21 16:00 106 H 16 135/71 97 10/24/21 15:45 105 H 16 126/67 96 10/24/21 15:30 112 H 16 139/70 96 10/24/21 15:15 101 H 16 124/59 97 10/24/21 15:00 94 16 133/63 94 L 10/24/21 14:45 73 16 130/62 100 10/24/21 14:30 77 16 136/63 98 10/24/21 14:17 96.9 F L 80 18 137/62 97 10/24/21 12:03 98.0 F 87 16 127/73 96 Intake and Output 10/24/21 10/24/21 10/24/21 06:59 14:59 22:59 Intake Total 200 Balance 200 Intake: IV 200 Other: Voiding Method Toilet # Voids 1 Weight 75.8 kg 75.8 kg
[2021-10-25] MEDS ORDERED: METOPROLOL TARTRATE 25 MG TAB PO STA (02:40)
[2021-10-25] MEDS: SODIUM CHLORIDE 0.9% 1,000 ML IV SCH (04:04)
[2021-10-25 05:07] LABS: INR 1.1 (<1.2); Prothrombin Time 11.3 sec (9.0-12.0)
[2021-10-25] MEDS: ACETAMINOPHEN TAB 325 MG TAB PO SCH (05:39)
[2021-10-25] MEDS ORDERED: PANTOPRAZOLE 40 MG TABLET PO SCH (07:30)
[2021-10-25 08:10] VITALS: BP 129/75; PULSE 71; RESP 18; TEMP 97.9
[2021-10-25] MEDS ORDERED: MAGNESIUM OXIDE 400 MG TAB PO SCH (09:00)
[2021-10-25] MEDS ORDERED: METOPROLOL SUCCINATE (ER) 50 MG TAB.ER.24H PO SCH (09:00)
[2021-10-25] MEDS ORDERED: METOPROLOL TARTRATE 25 MG TAB PO SCH (09:00)
--- NOTE | 2021-10-25 09:23 | P.DS ---
Providers Date of admission: 10/25/21 Attending physician: Eleonora Mejia Consults: 10/24/21 14:13 Consult Physician Routine Consulting Provider: Lashell Kimble Consult Reason/Comments: Medical management Do you want consulting provider notified?: Yes 10/24/21 15:33 Consult Physician Urgent Consulting Provider: Abdon Capone Consult Reason/Comments: CONTINUED A FIB TRANSIENT ELEVATED RATE Do you want consulting provider notified?: Already Contacted Primary care physician: Lashell Kimble Hospital Course: The patient presented on the day of admission as per their operative note. She underwent biopsy and kyphoplasty at T9 as per her operative note. Today she feels great. She says that she is doing very well. She is not having any cardiac issues or palpitations as she did on her prior surgery. She says she has been up and around. She denies any chest pain shortness of breath. Physical Exam The incision site is clean dry and intact. There is no erythema no drainage. There is no purulence no evidence of infection. Abdomen soft and nontender. Chest has good excursion with deep inspiration and expiration. The patient has active and passive range of motion intact at the upper and lower extremities. There is no acute change in neurologic status. Hospital Course Postoperative day #1 status post T9 tubal body biopsy and kyphoplasty. Biopsy still pending. Patient is doing very well with her pain and is stable for discharge home today. The patient has been making good progress postoperatively. They have completed the prophylactic antibiotics without any signs or symptoms of infection. The patient has been able to advance their diet, and is tolerating diet adequately. The pain was initially controlled with IV medications and is now controlled appropriately with oral medications. The patient has been able to increase their mobilization. At her last surgical expanse patient developed some cardiac issues and was found have new atrophic ablation. She is on Coumadin and will be restarting the Coumadin today. She has been stable through the night without any evidence of cardiac issues and I think she is okay for discharge home today. Medicine has seen her well. The patient has progressed appropriately. I think they are in good stable condition for discharge today. They will be sent home with appropriate prescriptions. I answered their questions to the best of my ability in a language that they can understand and they are agreeable with the plan. They will follow up as directed. Patient Condition at Discharge: Good Plan - Discharge Summary Discharge Rx Participant: No New Discharge Prescriptions: New HYDROcodone/APAP 7.5-325MG [[place] 7.5-325] 1 tab PO Q6HR PRN #28 tab PRN Reason: Pain Metoprolol Succinate (ER) [Toprol Xl] 50 mg PO DAILY #30 tab Continue Vitamin A [Vitamin A (8,000 Units = 2,400 MCG)] 3,000 mcg PO W/SUPPER Warfarin Sodium 5 mg PO W/SUPPER Furosemide [Lasix] 40 mg PO W/SUPPER lisinopriL [Zestril] 5 mg PO W/SUPPER Omeprazole 20 mg PO AC-BID Ibuprofen [Advil] 400 mg PO DIRECTED PRN PRN Reason: Pain Magnesium 250 mg PO DIRECTED Cholecalciferol [Vitamin D3 (125 Mcg = 5000 Iu)] 125 mcg PO W/SUPPER Atorvastatin [Lipitor] 40 mg PO W/SUPPER HYDROcodone/APAP 7.5-325MG [[place] 7.5-325] 1 tab PO Q6H PRN PRN Reason: Pain Metoprolol Tartrate [Lopressor] 50 mg PO BID Cyanocobalamin (Vitamin B-12) [Vitamin B-12] 1,000 mcg PO W/SUPPER Discharge Medication List Atorvastatin [Lipitor] 40 mg PO W/SUPPER 08/07/21 [History] Cholecalciferol [Vitamin D3 (125 Mcg = 5000 Iu)] 125 mcg PO W/SUPPER 08/07/21 [History] Furosemide [Lasix] 40 mg PO W/SUPPER 08/07/21 [History] Vitamin A [Vitamin A (8,000 Units = 2,400 MCG)] 3,000 mcg PO W/SUPPER 08/07/21 [History] Warfarin Sodium 5 mg PO W/SUPPER 08/07/21 [History] lisinopriL [Zestril] 5 mg PO W/SUPPER 09/10/21 [History] HYDROcodone/APAP 7.5-325MG [[place] 7.5-325] 1 tab PO Q6H PRN 10/10/21 [History] Omeprazole 20 mg PO AC-BID 10/10/21 [History] Cyanocobalamin (Vitamin B-12) [Vitamin B-12] 1,000 mcg PO W/SUPPER 10/22/21 [History] Ibuprofen [Advil] 400 mg PO DIRECTED PRN 10/22/21 [History] Magnesium 250 mg PO DIRECTED 10/22/21 [History] Metoprolol Tartrate [Lopressor] 50 mg PO BID 10/22/21 [History] HYDROcodone/APAP 7.5-325MG [[place] 7.5-325] 1 tab PO Q6HR PRN #28 tab 10/24/21 [Rx] Metoprolol Succinate (ER) [Toprol Xl] 50 mg PO DAILY #30 tab 10/25/21 [Rx] Follow up Appointment(s)/Referral(s): Lashell Kimble MD [Primary Care Provider] - 1 Week Eleonora Mejia DO [Doctor of Osteopathic Medicine] - 2 Weeks Milton Sim MD [STAFF PHYSICIAN] - 2 Weeks Activity/Diet/Wound Care/Special Instructions: Keep site clean. May shower with waterproof Tegaderm intact. Do not soak in a tub. After 72 hours postoperatively, patient May remove dressing and then may shower with area uncovered. Leave glue intact and allow it to fray off on its own. May ambulate as tolerated. Avoid heavy or rigorous activity. No repetitive bending twisting or lifting. No overhead work. Discharge Disposition: HOME SELF-CARE
--- NOTE | 2021-10-25 09:39 | P.CRDCN ---
History of Present Illness History of present illness: This is a pleasant 76-year-old female past medical history significant for Paroxysmal atrial fibrillation on Coumadin, hypertension, carotid disease, history of bowel resection in the past secondary to bowel obstruction, chronic history of tobacco use, T8 kyphoplasty 09/14/2021 secondary to compression fracture, He was found to have another compression in the T9 area planning to have kyphoplasty, 10/03/21 Colonoscopy and EGD revealed small hiatal hernia, esophagitis, short segment Delaney's esophagus and mild antral gastritis, scattered sigmoid diverticulosis, and rectal polyp s/p biopsy. She follows in the office with Dr. Sim. We have been asked to see in consultation for Atrial fibrillation. Patient presents to the hospital for planned kyphoplasty of T9 with Dr. Rojas on 10/24/2021. This morning around 2 AM patient went into atrial fibrillation with RVR. EKG obtained which revealed atrial fibrillation with rapid ventricular response, heart rate 115. Patient was given one time dose of metoprolol tartrate 25 mg and converted to sinus mechanism. Telemetry reviewed this morning patient maintaining sinus mechanism with heart rate 70s.Patient endorses increased palpitations outpatient intermittently. She denies chest pain, shortness of breath, lightheadedness, dizziness, syncope or near syncope. She denies any symptoms of orthopnea or PND. DIAGNOSTICS Laboratory reviewed, INR 1.1 Current home cardiac medications include Coumadin, metoprolol tartrate 50 mg twice a day, atorvastatin 40 mg nightly, Lasix 40 mg daily, lisinopril 5 mg daily Echocardiogram 10/11/2021 revealed EF 5560%, normal mitral valve without significant stenosis or prolapse, mild mitral regurgitation, mild tricuspid regurgitation Lexiscan stress test in 2019 in the office- negative for reversible ischemia REVIEW OF SYSTEMS At the time of my exam: CONSTITUTIONAL: Denies fever or chills. CARDIOVASCULAR: Denies chest pain, shortness of breath, orthopnea, PND or palpitations. RESPIRATORY: Denies cough. GASTROINTESTINAL: Denies abdominal pain, diarrhea, constipation, nausea orvomiting. MUSCULOSKELETAL: Denies myalgias. NEUROLOGIC: Denies numbness, tingling, headache or weakness. ENDOCRINE: Denies fatigue, weight change, polydipsia or polyurina. GENITOURINARY: Denies burning, hematuria or urgency with micturation. HEMATOLOGIC: Denies history of anemia or bleeding. PHYSICAL EXAMINATION Blood pressure 129/75, heart rate 71, afebrile, saturations 94% on 2 L nasal cannula CONSTITUTIONAL: No apparent distress. HEENT: Head is normocephalic. Pupils are equal, round. Sclerae anicteric. Mucous membranes of the mouth are moist. No JVD. No carotid bruit. CHEST EXAMINATION: Lungs are clear to auscultation. No chest wall tenderness is noted on palpation or with deep breathing. HEART EXAMINATION: Regular rate and rhythm. S1, S2 heard. No murmurs, gallops or rub. ABDOMEN: Soft, nontender. Positive bowel sounds. EXTREMITIES: 2+ peripheral pulses, no lower extremity edema and no calf tenderness. NEUROLOGIC EXAMINATION: Patient is awake, alert and oriented x3. ASSESSMENT Kyphoplasty of T9 with Dr. Rojas on 10/24/2021 Paroxysmal atrial fibrillation with RVR on Coumadin, maintaining sinus mechanism History of hypertension Carotid artery disease T8 status post kyphoplasty of T8 on 09/[address] Mejia Hypertension Dyslipidemia PLAN We will discontinue metoprolol tartrate Start metoprolol succinate 25mg daily From a cardiology perspective, patient is stable. Please reach out with further questions Recommend follow up with Dr. Sim outpatient Nurse practitioner note has been reviewed by physician. Signing provider agrees with the documented findings, assessment, and plan of care. Past Medical History Past Medical History: No Reported History, Atrial Fibrillation, GERD/Reflux, Hypertension Additional Past Medical History / Comment(s): ulcers, kidney stones, chronic back pain History of Any Multi-Drug Resistant Organisms: None Reported Past Surgical History: Appendectomy, Back Surgery, Hysterectomy Additional Past Surgical History / Comment(s): Kyphoplasty, surgery on cracked cervical vertebrae Past Anesthesia/Blood Transfusion Reactions: No Reported Reaction, Motion Sickness Past Psychological History: No Psychological Hx Reported Smoking Status: Current every day smoker Past Alcohol Use History: None Reported Additional Past Alcohol Use History / Comment(s): pt states she smokes 5 cigarettes per day Past Drug Use History: None Reported - Past Family History Father Family Medical History: Pulmonary Embolus Medications and Allergies Home Medications Medication Instructions Recorded Confirmed Type Atorvastatin [Lipitor] 40 mg PO W/SUPPER 08/07/21 10/24/21 History Cholecalciferol [Vitamin D3 (125 125 mcg PO W/SUPPER 08/07/21 10/22/21 History Mcg = 5000 Iu)] Furosemide [Lasix] 40 mg PO W/SUPPER 08/07/21 10/24/21 History Vitamin A [Vitamin A (8,000 Units 3,000 mcg PO W/SUPPER 08/07/21 10/22/21 History = 2,400 MCG)] Warfarin Sodium 5 mg PO W/SUPPER 08/07/21 10/24/21 History lisinopriL [Zestril] 5 mg PO W/SUPPER 09/10/21 10/24/21 History HYDROcodone/APAP 7.5-325MG [Waldo 1 tab PO Q6H PRN 10/10/21 10/24/21 History 7.5-325] Omeprazole 20 mg PO AC-BID 10/10/21 10/24/21 History Cyanocobalamin (Vitamin B-12) 1,000 mcg PO W/SUPPER 10/22/21 10/22/21 History [Vitamin B-12] Ibuprofen [Advil] 400 mg PO DIRECTED PRN 10/22/21 10/22/21 History Magnesium 250 mg PO DIRECTED 10/22/21 10/24/21 History HYDROcodone/APAP 7.5-325MG [Waldo 1 tab PO Q6HR PRN #28 tab 10/24/21 Rx 7.5-325] Metoprolol Succinate (ER) [Toprol 50 mg PO DAILY #30 tab 10/25/21 Rx Xl] Allergies Allergy/AdvReac Type Severity Reaction Status Date / Time No Known Allergies Allergy Verified 10/24/21 11:49 Physical Exam Vitals: Vital Signs Temp Pulse Resp BP Pulse Ox 10/25/21 05:43 67 94 L 10/25/21 02:02 121 H 10/25/21 02:01 94 10/25/21 02:00 98.1 F 109 H 17 115/69 93 L 10/24/21 19:23 97.4 F L 82 17 131/83 91 L 10/24/21 16:45 98.0 F 94 17 115/57 90 L 10/24/21 16:30 107 H 16 118/74 97 10/24/21 16:15 103 H 16 111/70 97 10/24/21 16:00 106 H 16 135/71 97 10/24/21 15:45 105 H 16 126/67 96 10/24/21 15:30 112 H 16 139/70 96 10/24/21 15:15 101 H 16 124/59 97 10/24/21 15:00 94 16 133/63 94 L 10/24/21 14:45 73 16 130/62 100 10/24/21 14:30 77 16 136/63 98 10/24/21 14:17 96.9 F L 80 18 137/62 97 10/24/21 12:03 98.0 F 87 16 127/73 96 Intake and Output 10/24/21 10/25/21 10/25/21 22:59 06:59 14:59 Other: Voiding Method Toilet # Voids 1 1 Weight 75.8 kg Results Coagulation 10/25/21 Range/Units 04:30 PT 11.3 (9.0-12.0) sec Current Medications Generic Name Dose Route Start Last Admin Trade Name Freq PRN Reason Stop Dose Admin Acetaminophen 650 mg 10/24/21 18:00 10/25/21 05:39 Acetaminophen Tab 325 Mg Tab PO 11/23/21 18:01 650 mg Q6HR MAURICIO Administration Hydrocodone Bitart/Acetaminophen 1 each 10/24/21 14:13 Hydrocodone/Apap 5-325mg 1 Each Tab PO 11/23/21 14:14 Q6HR PRN Pain Hydrocodone Bitart/Acetaminophen 1 each 10/24/21 14:15 Hydrocodone/Apap 7.5-325mg 1 Each Tab PO 11/23/21 14:16 Q6H PRN Pain Atorvastatin Calcium 40 mg 10/24/21 17:30 10/24/21 18:14 Atorvastatin 40 Mg Tab PO 11/23/21 17:31 Not Given W/SUPPER MAURICIO Benzocaine/Menthol 1 each 10/24/21 14:13 Benzocaine/Menthol Lozeng 1 Each Lozenge MUCOUS MEM 11/23/21 14:14 Q4HR PRN Sore Throat Cholecalciferol 125 mcg 10/24/21 17:30 10/24/21 17:18 Cholecalciferol 125 Mcg (5000 Iu) Tablet PO 11/23/21 17:31 Not Given W/SUPPER MAURICIO Cyanocobalamin 1,000 mcg 10/24/21 17:30 10/24/21 17:19 Cyanocobalamin 500 Mcg Tab PO 11/23/21 17:31 Not Given W/SUPPER MAURICIO Cyclobenzaprine HCl 5 mg 10/24/21 14:13 Cyclobenzaprine 5 Mg Tab PO 11/23/21 14:14 TID PRN Muscle Spasm Furosemide 40 mg 10/24/21 17:30 10/24/21 18:15 Furosemide 40 Mg Tab PO 11/23/21 17:31 Not Given W/SUPPER MAURICIO Hydromorphone HCl 0.5 mg 10/24/21 07:19 10/24/21 15:01 Hydromorphone 0.5 Mg/0.5 Ml Syringe IVP 10/25/21 07:20 0.5 mg Q5M PRN Administration Phase 1 or 2 - Pain Control Hydromorphone HCl 0.5 mg 10/24/21 14:13 Hydromorphone 0.5 Mg/0.5 Ml Syringe IVP 11/23/21 14:14 Q4HR PRN Pain Lactated Ringer's 1,000 mls @ 20 mls/hr 10/24/21 07:19 10/24/21 12:25 Lactated Ringers IV 11/23/21 07:20 200 mls .Q24H MAURICIO Administration Sodium Chloride 1,000 mls @ 75 mls/hr 10/24/21 14:15 10/25/21 04:04 Saline 0.9% IV 11/23/21 14:16 Not Given .[id number] MAURICIO Ibuprofen 400 mg 10/24/21 14:15 10/24/21 22:03 Ibuprofen 400 Mg Tab PO 400 mg Q6H PRN Administration Mild Pain Lisinopril 5 mg 10/24/21 17:30 10/24/21 18:15 Lisinopril 5 Mg Tab PO 11/23/21 17:31 Not Given W/SUPPER MAURICIO Magnesium Oxide 400 mg 10/25/21 09:00 Magnesium Oxide 400 Mg Tab PO DAILY MAURICIO Metoclopramide HCl 10 mg 10/24/21 19:36 10/24/21 19:43 Metoclopramide 5 Mg/Ml 2 Ml Vial IVP 10 mg Q6HR PRN Administration Vomiting Metoprolol Tartrate 50 mg 10/24/21 21:00 10/24/21 16:03 Metoprolol Tartrate 50 Mg Tab PO 11/23/21 21:01 50 mg BID MAURICIO Administration Miscellaneous Information 0 each 10/24/21 17:16 Warfarin Per Pharmacy MISCELLANE DIRECTED PRN PER PROTOCOL Ondansetron HCl 4 mg 10/24/21 14:13 Ondansetron 4 Mg/2 Ml Vial IVP 11/23/21 14:14 Q8HR PRN Nausea And Vomiting Pantoprazole Sodium 40 mg 10/25/21 07:30 Pantoprazole 40 Mg Tablet PO AC-BRKFST [facility] Vitamin A 10,000 unit 10/24/21 17:30 10/24/21 17:19 Vitamin A 10,000 Unit (3000 Mcg) Capsule PO 11/23/21 17:31 Not Given W/SUPPER [facility] Warfarin Sodium 5 mg 10/25/21 17:30 Warfarin 5 Mg Tab PO 11/24/21 17:31 W/SUPPER [facility] Protocol Intake and Output 10/24/21 10/25/21 10/25/21 22:59 06:59 14:59 Other: Voiding Method Toilet # Voids 1 1 Weight 75.8 kg
--- NOTE | 2021-10-25 11:38 | P.PN ---
Subjective Progress Note Date: 10/25/21 HISTORY OF PRESENT ILLNESS 76-year-old male one of Dr. Kimble's patient with past medical history of hypertension, hyperlipidemia, A. fib on warfarin, history of bowel obstruction in the past post bowel resection, history of chronic tobacco use, patient had previous history of T8 kyphoplasty secondary to compression fracture and has been seen by orthopedic regular basis. He was found to have another compression in the T9 area planning to have kyphoplasty earlier he was hospitalized over 2 weeks ago at [facility] through the emergency department because of feeling sick to stomach not been able to eat or drink any food or fluid he lost over 20 pounds in 6 weeks patient apparently had some workup as an outpatient did an EGD and colonoscopy with gastroenterology finding was negative for any malignancy. Patient was hospitalized 2 weeks ago in with A. fib with RVR pulse rate running 140 bpm was on Cardizem drip his organ anticoagulation ended up seen cardiology had an echocardiogram showed an fraction of 55-60%, patient did not require to go for any further cardiac testing cardiology were satisfied with his result he was converted from Cardizem to metoprolol tartrate 50 mg twice a day and to continue anticoagulation patient seemed to tolerate medication very well. He she was already clear for this expected kyphoplasty of the T9 from his lost hospitalization and from outpatient as well. Patient ended up coming to the hospital for elective kyphoplasty of the T9 which was done today with Dr. Rojas patient was admitted to the hospital afterward he is hemodynamically stable not having any A. fib no chest pain, his medication or start back anticoagulation will be held until tomorrow. apparently since his last admission his abdominal pain and change in bowel habit has improved slightly. His weight stabilizes as well. 10/25: Patient is sitting up in bed today. She is denying any new concerns. Her pain is fairly well controlled. She has been cleared to resume Coumadin by Dr. Mejia. INR today is 1.1. Patient has been afebrile, heart rate 71 but up to 121 during the night, blood pressure 129/75, pulse ox 91% on room air. Cardiology has changed her Lopressor to metoprolol and we will take care of sending prescription through for the patient. Medication reconciliation has been reviewed. REVIEW OF SYSTEMS Constitutional: No fever, no chills, no night sweats. No weight change. No weakness, fatigue or lethargy. No daytime sleepiness. EENT: No headache. No blurred vision or double vision, no loss of vision. No loss of Hearing, no ringing in the ears, no dizziness. No nasal drainage or congestion. No epistaxis. No sore throat. Lungs: No shortness of breath, cough, no sputum production. No wheezing. Cardiovascular: No chest pain, no lower extremity edema. No palpitations. No paroxysmal nocturnal dyspnea. No orthopnea. No lightheadedness or dizziness. No syncopal episodes. Abdominal: No abdominal pain. No nausea, vomiting. No diarrhea. No constipation. No bloody or tarry stools. No loss of appetite. Genitourinary: No dysuria, increased frequency, urgency. No urinary retention. Musculoskeletal: No myalgias. No muscle weakness, no gait dysfunction, no frequent falls. significant back pain post kyphoplasty with no neck pain at this point.. Integumentary: No wounds, no lesions. No rash or pruritus. No unusual bruising. No change in hair or nails. Neurologic: No aphasia. No facial droop. No change in mentation. No head injury. No headache. No paralysis. No paresthesia. Psychiatric: No depression. No anxiety. No mood swings. Endocrine: No abnormal blood sugars. No weight change. No excessive sweating or thirst. No cold intolerance. PHYSICAL EXAMINATION Gen: This is a 76-year-old female. She is resting in bed and appears to be uncomfortable secondary to pain. HEENT: Head is atraumatic, normocephalic. Pupils equal, round. Sclerae is anicteric. NECK: Supple. No JVD. No lymphadenopathy. No thyromegaly. LUNGS: decreased breath some relative final calling no crackles plasma expiratory wheezes. HEART: Irregular rate and rhythm. S1, S2, positive S3, positive tachycardia with systolic murmur. ABDOMEN: soft positive bowel sounds no rebound or rigidity his abdominal looks very benign at this point. EXTREMITIES: No pedal edema. No calf tenderness. NEUROLOGICAL: Patient is awake, alert and oriented x3. Cranial nerves 2 through 12 are grossly intact. Strength to both lower extremities equal. back: Incision looks fine no sign of induration bleeding or infection. ASSESSMENT AND PLAN 1 post kyphoplasty of the T9: Also had a biopsy done as well, patient is doing well after surgery continue to watch patient hemodynamic stable, resume warfarin cleared by Dr. Mejia. 2. Paroxysmal A. fib With a recent hospitalization with A. fib with RVR, patient has been doing much better on metoprolol tartrate his pulse rates running in the 60s and 70s was on anticoagulation will be resumed. 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 Mejia. Continue morphine as needed for pain. 4 hypertension: Continue patient on metoprolol and Zestril. 5 hyperlipidemia: Continue atorvastatin 40 mg daily. 6 significant abdominal discomfort with no finding on a CAT scan, also EGD and colonoscopy came back to be negative, His symptoms were probably combination of his lumbar spinal compression osteoporosis with reaction to medication and fluid causing constipation and IBS C, symptom are slightly better this point. 7 BPH: Watch for any urinary retention at this point. 8 chronic edema: Has been on furosemide and if needed we will add spironolactone. 9 anticoagulation: Patient remain on warfarin physical hold at this point for surgery. 10 GI prophylaxis: Continue pantoprazole. DVT prophylaxis: Patient will be on anticoagulation. CODE STATUS: Full code. Dr. Mejia thank you much for the consult if I can be any further help to please let me know. Impression and plan of care have been directed as dictated by the signing physician. Maryam Douglas nurse practitioner acting as scribe for signing physician. Objective - Vital Signs Vital signs: Vital Signs Temp 98.1 F 10/25/21 02:00 Pulse 67 10/25/21 05:43 Resp 17 10/25/21 02:00 BP 115/69 10/25/21 02:00 Pulse Ox 94 L 10/25/21 05:43 Intake & Output 10/24/21 10/25/21 10/25/21 18:59 06:59 18:59 Intake Total 200 Balance 200 Weight 75.8 kg Intake: IV 200 Other: Voiding Method Toilet # Voids 1 1
[2021-10-25] MEDS ORDERED: WARFARIN 5 MG TAB PO SCH (17:30)
== END 2021-10-25 11:08 | disposition home or self-care (01) ==
LOC: OR 11:12 → 4SSUR 14:17 → OR 10-25 11:08
PROVIDERS: ATTEND Orthopaedic Surgery Orthopaedic Surgery of the Spine
DX: M80.88XA Other osteoporosis with current pathological fracture, vertebra(e), initial encounter for fracture (principal); M47.814 Spondylosis without myelopathy or radiculopathy, thoracic region; I48.0 Paroxysmal atrial fibrillation; J98.4 Other disorders of lung; R63.5 Abnormal weight gain; K44.9 Diaphragmatic hernia without obstruction or gangrene; Z86.010 Personal history of colon polyps; I51.9 Heart disease, unspecified; H91.90 Unspecified hearing loss, unspecified ear; I10 Essential (primary) hypertension; E78.5 Hyperlipidemia, unspecified; J44.9 Chronic obstructive pulmonary disease, unspecified; M19.90 Unspecified osteoarthritis, unspecified site; F17.210 Nicotine dependence, cigarettes, uncomplicated; Z97.3 Presence of spectacles and contact lenses; Z98.49 Cataract extraction status, unspecified eye; Z90.710 Acquired absence of both cervix and uterus; Z98.890 Other specified postprocedural states; Z79.01 Long term (current) use of anticoagulants; Z79.1 Long term (current) use of non-steroidal anti-inflammatories (NSAID); Z79.891 Long term (current) use of opiate analgesic; Z79.899 Other long term (current) drug therapy
CPT/HCPCS: 93005; 97161; 85610; 88307; 88311; 72070; 22513; C1713; J2250; J2765; J0690; J2405; J3010; J2370; J0330; J2704; J1170; Q9966; J2001

== ENCOUNTER 2021-10-29 14:52 | Emergency (ER) | payer MEDICARE ==
[2021-10-29 14:58] VITALS: TEMP 98.2
[2021-10-29] MEDS ORDERED: HYDROmorphone 0.5 MG/0.5 ML SYRINGE IVP STA (15:36)
[2021-10-29] MEDS ORDERED: SODIUM CHLORIDE 0.9% 1,000 ML IV STA (15:36)
--- NOTE | 2021-10-29 15:57 | XR ---
EXAMINATION TYPE: XR KUB DATE OF EXAM: 10/29/2021 3:48 PM CLINICAL HISTORY: Pain and constipation. TECHNIQUE: Two Upright KUB images of the abdomen are obtained. COMPARISON: CT abdomen and pelvis October 10, 2021. FINDINGS: Gas is seen in nondistended stomach. Scattered gas is seen in non-distended small bowel loo ps. Gas and fecal material is seen in non-distended colon. Vertebroplasty in the mid to lower thoraci c vertebra redemonstrated. Underlying levoconvex scoliosis in the lumbar spine. No free air. Lung bas es show lateral left basilar linear scarring and/or atelectasis. IMPRESSION: Overall nonobstructive bowel gas pattern.
[2021-10-29 16:15] LABS: Basophils # (A) 0.1 k/uL (0-0.2); Basophils % (A) 1 %; Eosinophils # (A) 0.2 k/uL (0-0.7); Eosinophils % (A) 2 %; HCT 45.2 % (34.0-46.0); HGB 14.6 gm/dL (11.4-16.0); Lymphocytes # (A) 1.7 k/uL (1.0-4.8); Lymphocytes % (A) 11 %; MCH 30.4 pg (25.0-35.0); MCHC 32.3 g/dL (31.0-37.0); MCV 94.1 fL (80.0-100.0); Mean Platelet Volume 9.7; Monocytes # (A) 0.7 k/uL (0-1.0); Monocytes % (A) 5 %; Neutrophils # (A) 11.8 k/uL (1.3-7.7); Neutrophils % (A) 81 %; Platelet Count 222 k/uL (150-450); RBC 4.81 m/uL (3.80-5.40); RDW 12.9 % (11.5-15.5); WBC 14.6 k/uL (3.8-10.6)
[2021-10-29 16:25] LABS: Calcium 9.2 mg/dL (8.4-10.2); Potassium 3.8 mmol/L (3.5-5.1); Total Bilirubin 0.4 mg/dL (0.2-1.3); Total Protein 6.5 g/dL (6.3-8.2)
[2021-10-29 17:01] LABS: Appearance,Urine Clear (Clear); Bilirubin,Urine Negative (Negative); Blood,Urine Negative (Negative); Color,Urine Light Yellow; Glucose,Urine (UA) Negative (Negative); Ketones,Urine Negative (Negative); Leukocyte Esterase,Urine Negative (Negative); Nitrite,Urine Negative (Negative); PH, Urine 5.5 (5.0-8.0); Protein,Urine Negative (Negative); Specific Gravity,Urine 1.009 (1.001-1.035); Urobilinogen,Urine <2.0 mg/dL (<2.0)
[2021-10-29 17:50] VITALS: BP 133/81; PULSE 81; RESP 16
--- NOTE | 2021-10-29 18:37 | CT ---
EXAMINATION TYPE: CT abdomen pelvis w con DATE OF EXAM: 10/29/2021 COMPARISON: 10/10/2021 HISTORY: right side abd pain, recent back sx CT DLP: 1026.8 mGycm Automated exposure control for dose reduction was used. CONTRAST: Performed with IV Contrast, patient injected with 100 mL of Isovue 300. Images obtained from the diaphragm to the floor the pelvis with IV contrast. Lung bases show mild subsegmental atelectasis. Heart size is fairly normal. No pericardial effusion. No pleural effusion. There are multiple cysts in the liver that measure up to 3.5 cm. The bile ducts are not dilated. Gall bladder appears normal. Spleen appears normal. The stomach is intact. There is no pancreatic mass. There is no adrenal mass. Kidneys show satisfactory contrast opacification. There is no hydronephrosi s. Delayed images show normal renal excretion. There is no retroperitoneal adenopathy. Bladder distends smoothly. There is no inguinal hernia. There is no free fluid in the pelvis. No pelv ic mass. Appendix not clearly seen. No sign of thickened appendix. Abdominal aorta is atherosclerotic and tortuous. There is atherosclerotic vascular disease in the abd omen and pelvis. There are numerous diverticula in the sigmoid colon. There is minimal fat stranding around the mid si gmoid colon. The lumbar vertebrae have fairly normal alignment. There is narrowing at L4-5 disc space. No compress ion fracture. The bony pelvis is intact. The hip joints are intact. No hip fracture. IMPRESSION: There is colonic diverticulosis with evidence of some mild diverticulitis in the mid sigmoid colon wh ich appears new compared to the old exam. Appendix not seen. Mild subsegmental atelectasis at the lung bases. Numerous hepatic cysts.
[2021-10-29] MEDS ORDERED: AMOXIC-POT CLAV 875-125MG 1 EACH TAB PO STA (19:06)
[2021-10-29] MEDS ORDERED: KETOROLAC 15 MG/ML 1 ML VIAL IVP STA (19:07)
--- NOTE | 2021-10-29 19:11 | ED ---
Abdominal Pain HPI - General Chief Complaint: Abdominal Pain Stated Complaint: Abd pain Time Seen by Provider: 10/29/21 15:15 Source: patient, EMS Mode of arrival: EMS Limitations: no limitations - History of Present Illness Initial Comments: Patient is 76-year-old female presents to the emergency department with a chief complaint of upper abdominal pain and constipation. Patient had T9 kyphoplasty on 10/24. Patient was put on Hudson for pain. Patient states she had a bowel movement the day after surgery on 10/25 however has not had one since. She a ttempted [id number] stool softener and MiraLAX with no relief. On 10/26 she started to experience upper abdominal pain. Pain is localized in the upper right quadrant and upper right flank. Patient denies fever, chills, new back pain, nausea, and vomiting. Denies burning with urination and blood in the urine. Denies history of kidney infection and stone. - Related Data Home Medications Medication Instructions Recorded Confirmed Atorvastatin [Lipitor] 40 mg PO W/SUPPER 08/07/21 10/29/21 Cholecalciferol [Vitamin D3 (125 125 mcg PO W/SUPPER 08/07/21 10/29/21 Mcg = 5000 Iu)] Furosemide [Lasix] 40 mg PO W/SUPPER 08/07/21 10/29/21 Vitamin A [Vitamin A (8,000 Units 2,400 mcg PO W/SUPPER 08/07/21 10/29/21 = 2,400 MCG)] Warfarin Sodium 5 mg PO W/SUPPER 08/07/21 10/29/21 lisinopriL [Zestril] 5 mg PO W/SUPPER 09/10/21 10/29/21 HYDROcodone/APAP 7.5-325MG [[place] 1 tab PO Q6H PRN 10/10/21 10/29/21 7.5-325] Omeprazole 20 mg PO AC-BID 10/10/21 10/29/21 Cyanocobalamin (Vitamin B-12) 1,000 mcg PO W/SUPPER 10/22/21 10/29/21 [Vitamin B-12] Ibuprofen [Advil] 400 mg PO Q8H PRN 10/22/21 10/29/21 Magnesium 250 mg PO W/SUPPER 10/22/21 10/29/21 Docusate [Colace] 100 mg PO W/SUPPER 10/29/21 10/29/21 Metoprolol Succinate (ER) [Toprol 50 mg PO W/SUPPER 10/29/21 10/29/21 Xl] Previous Rx's Medication Instructions Recorded Amoxic-Pot Clav 875-125Mg 1 tab PO Q8HR 5 Days #15 tab 10/29/21 [Augmentin 875-125] Docusate [Colace] 100 mg PO DAILY 7 Days #7 capsule 10/29/21 Allergies Allergy/AdvReac Type Severity Reaction Status Date / Time No Known Allergies Allergy Verified 10/29/21 16:32 Review of Systems ROS Statement: Those systems with pertinent positive or pertinent negative responses have been documented in the HPI. ROS Other: All systems not noted in ROS Statement are negative. Past Medical History Past Medical History: No Reported History, Atrial Fibrillation, GERD/Reflux, Hypertension Additional Past Medical History / Comment(s): ulcers, kidney stones, chronic back pain History of Any Multi-Drug Resistant Organisms: None Reported Past Surgical History: Appendectomy, Back Surgery, Hysterectomy Additional Past Surgical History / Comment(s): Kyphoplasty, surgery on cracked cervical vertebrae Past Psychological History: No Psychological Hx Reported Smoking Status: Current every day smoker Past Alcohol Use History: None Reported Past Drug Use History: None Reported General Exam Limitations: no limitations General appearance: alert, in no apparent distress Head exam: Present: atraumatic, normocephalic, normal inspection Eye exam: Present: normal appearance, PERRL, EOMI. Absent: scleral icterus, con junctival injection, periorbital swelling Respiratory exam: Present: normal lung sounds bilaterally. Absent: respiratory distress, wheezes, rales, rhonchi, stridor Cardiovascular Exam: Present: regular rate, normal rhythm, normal heart sounds. Absent: systolic murmur, diastolic murmur, rubs, gallop, clicks GI/Abdominal exam: Present: soft, tenderness (Right upper quadrant and right upper flank), normal bowel sounds. Absent: distended, guarding, rebound, rigid Back exam: Present: CVA tenderness (R) Neurological exam: Present: alert, oriented X3, CN II-XII intact Psychiatric exam: Present: normal affect, normal mood Skin exam: Present: warm, dry, intact, normal color. Absent: rash Course Vital Signs 10/29/21 10/29/21 14:55 17:58 Temperature 98.2 F Pulse Rate 88 81 Respiratory 20 16 Rate Blood Pressure 137/85 133/81 O2 Sat by Pulse 96 95 Oximetry Medical Decision Making - Medical Decision Making This is a 76-year-old female who presents with upper abdominal pain and constipation. Thorough history and examination were performed. Patient is afebrile. She is well-appearing in no apparent distress. There is mild tenderness of the right upper quadrant and significant tenderness of the right upper flank. Laboratory studies and KUB x-ray were obtained. Patient has elevated white count of 14.6. LFT and bilirubin are within normal limits. Urinalysis is not indicative of blood or infection. KUB x-ray does show some constipation. Results discussed with patient. There is concern for infectious etiology. I recommended that we attempt a soapsuds enema and if patient has significant relief she can go home with strict return parameters. After the enema patient did have a very large bowel movement and had relief however was still very tender with palpation of the right upper flank. With patient's elevated white count and continued pain further imaging is necessary. CT of the abdomen and pelvis with contrast was obtained which showed a normal gallbladder and mild diverticulitis in the mid sigmoid colon. On reevaluation patient's pain is controlled. Patient will be treated with Augmentin for diverticulitis. First dose was given in the emergency department. She is okay to manage this at home and follow-up with her primary care provider. I will send her home with Colace to prevent further constipation while she takes Hudson for her back pain. She is encouraged to increase fluids. Return parameters discussed. Patient verbalizes understanding and is agreeable to this plan. Dr. Roque is my attending. - Lab Data Result diagrams: 10/29/21 16:02 10/29/21 16:02 Lab Results 10/29/21 10/29/21 10/29/21 Range/Units 16:02 16:02 16:02 WBC 14.6 H (3.8-10.6) k/uL RBC 4.81 (3.80-5.40) m/uL Hgb 14.6 (11.4-16.0) gm/dL Hct 45.2 (34.0-46.0) % MCV 94.1 (80.0-100.0) fL MCH 30.4 (25.0-35.0) pg MCHC 32.3 (31.0-37.0) g/dL RDW 12.9 (11.5-15.5) % Plt Count 222 (150-450) k/uL MPV 9.7 Neutrophils % 81 % Lymphocytes % 11 % Monocytes % 5 % Eosinophils % 2 % Basophils % 1 % Neutrophils # 11.8 H (1.3-7.7) k/uL Lymphocytes # 1.7 (1.0-4.8) k/uL Monocytes # 0.7 (0-1.0) k/uL Eosinophils # 0.2 (0-0.7) k/uL Basophils # 0.1 (0-0.2) k/uL Sodium 134 L (137-145) mmol/L Potassium 3.8 (3.5-5.1) mmol/L Chloride 100 (98-107) mmol/L Carbon Dioxide 25 (22-30) mmol/L Anion Gap 9 mmol/L BUN 18 H (7-17) mg/dL Creatinine 0.78 (0.52-1.04) mg/dL Est GFR (CKD-EPI)AfAm 87 (>60 ml/min/1.73 sqM) Est GFR (CKD-EPI)NonAf 75 (>60 ml/min/1.73 sqM) Glucose 106 H (74-99) mg/dL Calcium 9.2 (8.4-10.2) mg/dL Total Bilirubin 0.4 (0.2-1.3) mg/dL AST 25 (14-36) U/L ALT 19 (4-34) U/L Alkaline Phosphatase 111 (38-126) U/L Total Protein 6.5 (6.3-8.2) g/dL Albumin 4.0 (3.5-5.0) g/dL Lipase 42 (23-300) U/L Urine Color Light Yellow Urine Appearance Clear (Clear) Urine pH 5.5 (5.0-8.0) Ur Specific [place] 1.009 (1.001-1.035) Urine Protein Negative (Negative) Urine Glucose (UA) Negative (Negative) Urine Ketones Negative (Negative) Urine Blood Negative (Negative) Urine Nitrite Negative (Negative) Urine Bilirubin Negative (Negative) Urine Urobilinogen <2.0 (<2.0) mg/dL Ur Leukocyte Esterase Negative (Negative) Disposition Clinical Impression: Diverticulitis, Constipation, Abdominal pain Disposition: HOME SELF-CARE Condition: Good Instructions (If sedation given, give patient instructions): Constipation in Children (ED), Diverticulitis (ED) Additional Instructions: Please take medication as directed. Increase fluids as much as possible to prevent constipation. Follow-up with primary care provider in one to 2 days. Return to the emergency department if you experience new, concerning, or worsening symptoms. Prescriptions: Amoxic-Pot Clav 875-125Mg [Augmentin 875-125] 1 tab PO Q8HR 5 Days #15 tab Docusate [Colace] 100 mg PO DAILY 7 Days #7 capsule Is patient prescribed a controlled substance at d/c from ED?: No Referrals: Lashell Kimble MD [Primary Care Provider] - 1-2 days Time of Disposition: 19:11
== END 2021-10-29 19:32 | disposition home or self-care (01) ==
LOC: EC 14:52
DX: K57.32 Diverticulitis of large intestine without perforation or abscess without bleeding (principal); K59.00 Constipation, unspecified; I10 Essential (primary) hypertension; I48.91 Unspecified atrial fibrillation; K21.9 Gastro-esophageal reflux disease without esophagitis; F17.200 Nicotine dependence, unspecified, uncomplicated; Z79.01 Long term (current) use of anticoagulants; Z79.899 Other long term (current) drug therapy
CPT/HCPCS: 36415; 93005; 80053; 83690; 85025; 81003; 74018; 74177; 99285; 96374; 96375; 96361; J1885; J1170; Q9967

== ENCOUNTER 2021-12-17 07:31 | Inpatient (IN) | payer MEDICARE ==
[2021-12-17] MEDS ORDERED: DILTIAZEM DRIP BOLUS FROM BAG 1 MG SOLN IV ONE (07:54)
--- NOTE | 2021-12-17 07:57 | ED ---
General Adult HPI - General Chief complaint: Chest Pain Stated complaint: [place] Time Seen by Provider: 12/17/21 07:34 Source: patient, EMS, RN notes reviewed, old records reviewed Mode of arrival: EMS Limitations: no limitations - History of Present Illness Initial comments: 76-year-old female history of atrial fibrillation presents for evaluation of a central chest pain. This is associated with dyspnea. She describes it as a discomfort or pressure in the middle of her chest. She states that her breathing is worsened over the past 24 hours but the pain is been present for the past 5 days. She has history of atrial fibrillation and is found to be in A. fib with RVR upon arrival. She denies cough or fever. She denies lower extremity pain or swelling. Denies abdominal pain. She is currently on Coumadin. - Related Data Home Medications Medication Instructions Recorded Confirmed Atorvastatin [Lipitor] 40 mg PO W/SUPPER 08/07/21 10/29/21 Cholecalciferol [Vitamin D3 (125 125 mcg PO W/SUPPER 08/07/21 10/29/21 Mcg = 5000 Iu)] Furosemide [Lasix] 40 mg PO W/SUPPER 08/07/21 10/29/21 Vitamin A [Vitamin A (8,000 Units 2,400 mcg PO W/SUPPER 08/07/21 10/29/21 = 2,400 MCG)] Warfarin Sodium 5 mg PO W/SUPPER 08/07/21 10/29/21 lisinopriL [Zestril] 5 mg PO W/SUPPER 09/10/21 10/29/21 HYDROcodone/APAP 7.5-325MG [[place] 1 tab PO Q6H PRN 10/10/21 10/29/21 7.5-325] Omeprazole 20 mg PO AC-BID 10/10/21 10/29/21 Cyanocobalamin (Vitamin B-12) 1,000 mcg PO W/SUPPER 10/22/21 10/29/21 [Vitamin B-12] Ibuprofen [Advil] 400 mg PO Q8H PRN 10/22/21 10/29/21 Magnesium 250 mg PO W/SUPPER 10/22/21 10/29/21 Docusate [Colace] 100 mg PO W/SUPPER 10/29/21 10/29/21 Metoprolol Succinate (ER) [Toprol 50 mg PO W/SUPPER 10/29/21 10/29/21 Xl] Previous Rx's Medication Instructions Recorded Amoxic-Pot Clav 875-125Mg 1 tab PO Q8HR 5 Days #15 tab 10/29/21 [Augmentin 875-125] Docusate [Colace] 100 mg PO DAILY 7 Days #7 capsule 10/29/21 Allergies Allergy/AdvReac Type Severity Reaction Status Date / Time No Known Allergies Allergy Verified 12/17/21 07:42 Review of Systems ROS Statement: Those systems with pertinent positive or pertinent negative responses have been documented in the HPI. ROS Other: All systems not noted in ROS Statement are negative. Past Medical History Past Medical History: No Reported History, Atrial Fibrillation, GERD/Reflux, Hypertension Additional Past Medical History / Comment(s): ulcers, kidney stones, chronic back pain History of Any Multi-Drug Resistant Organisms: None Reported Past Surgical History: Appendectomy, Back Surgery, Hysterectomy Additional Past Surgical History / Comment(s): Kyphoplasty, surgery on cracked cervical vertebrae Past Psychological History: No Psychological Hx Reported Smoking Status: Current every day smoker Past Alcohol Use History: None Reported Past Drug Use History: None Reported General Exam Limitations: no limitations General appearance: alert, anxious Head exam: Present: atraumatic, normocephalic Eye exam: Present: normal appearance, PERRL ENT exam: Present: normal exam Neck exam: Present: normal inspection. Absent: tenderness, meningismus Respiratory exam: Present: normal lung sounds bilaterally. Absent: respiratory distress, wheezes, rales Cardiovascular Exam: Present: tachycardia, irregular rhythm GI/Abdominal exam: Present: soft. Absent: distended, tenderness, guarding Extremities exam: Present: normal inspection, normal capillary refill. Absent: pedal edema, calf tenderness Neurological exam: Present: alert, oriented X3, CN II-XII intact. Absent: motor sensory deficit Psychiatric exam: Present: anxious Skin exam: Present: warm, dry, intact. Absent: cyanosis, diaphoretic Course Vital Signs 12/17/21 12/17/21 07:36 08:42 Temperature 98.7 F Pulse Rate 121 H 113 H Respiratory 20 18 Rate Blood Pressure 119/86 116/57 O2 Sat by Pulse 99 98 Oximetry EKG Findings - EKG Comments: EKG Findings:: EKG: Atrial fibrillation versus initial flutter with rapid ventricular spots, no ST segment elevation, rate of 147, RI interval 145 QRS duration 159, QTC 376. Medical Decision Making - Medical Decision Making 76-year-old female presenting with central chest discomfort and difficulty nathen athing. Patient is found to be in atrial fibrillation with RVR, rate around 150, she started on a Cardizem drip in the emergency department. She has a mild leukocytosis, she has hypokalemia which is replaced. She has a negative troponin, elevated BNP at 5000. Chest x-ray negative for acute findings. Patient will be admitted for rate control, serial cardiac enzymes, cardiology consultation. Admitting physician has been contacted. - Lab Data Result diagrams: 12/17/21 07:54 12/17/21 07:54 Lab Results 12/17/21 12/17/21 12/17/21 Range/Units 07:54 07:54 07:54 WBC 13.3 H (3.8-10.6) k/uL RBC 4.27 (3.80-5.40) m/uL Hgb 13.3 (11.4-16.0) gm/dL Hct 39.4 (34.0-46.0) % MCV 92.2 (80.0-100.0) fL MCH 31.2 (25.0-35.0) pg MCHC 33.8 (31.0-37.0) g/dL RDW 12.7 (11.5-15.5) % Plt Count 280 (150-450) k/uL MPV 9.3 Neutrophils % 83 % Lymphocytes % 8 % Monocytes % 7 % Eosinophils % 1 % Basophils % 1 % Neutrophils # 11.0 H (1.3-7.7) k/uL Lymphocytes # 1.1 (1.0-4.8) k/uL Monocytes # 0.9 (0-1.0) k/uL Eosinophils # 0.1 (0-0.7) k/uL Basophils # 0.1 (0-0.2) k/uL PT 19.3 H (9.0-12.0) sec INR 1.9 H (<1.2) APTT 33.5 H (22.0-30.0) sec Sodium 135 L (137-145) mmol/L Potassium 3.3 L (3.5-5.1) mmol/L Chloride 96 L (98-107) mmol/L Carbon Dioxide 29 (22-30) mmol/L Anion Gap 10 mmol/L BUN 19 H (7-17) mg/dL Creatinine 0.86 (0.52-1.04) mg/dL Est GFR (CKD-EPI)AfAm 78 (>60 ml/min/1.73 sqM) Est GFR (CKD-EPI)NonAf 67 (>60 ml/min/1.73 sqM) Glucose 104 H (74-99) mg/dL Calcium 8.5 (8.4-10.2) mg/dL Magnesium 2.1 (1.6-2.3) mg/dL Total Bilirubin 0.6 (0.2-1.3) mg/dL AST 18 (14-36) U/L ALT 12 (4-34) U/L Alkaline Phosphatase 108 (38-126) U/L Troponin I (0.000-0.034) ng/mL NT-Pro-B Natriuret Pep pg/mL Total Protein 6.1 L (6.3-8.2) g/dL Albumin 3.5 (3.5-5.0) g/dL 12/17/21 12/17/21 Range/Units 07:54 07:54 WBC (3.8-10.6) k/uL RBC (3.80-5.40) m/uL Hgb (11.4-16.0) gm/dL Hct (34.0-46.0) % MCV (80.0-100.0) fL MCH (25.0-35.0) pg MCHC (31.0-37.0) g/dL RDW (11.5-15.5) % Plt Count (150-450) k/uL MPV Neutrophils % % Lymphocytes % % Monocytes % % Eosinophils % % Basophils % % Neutrophils # (1.3-7.7) k/uL Lymphocytes # (1.0-4.8) k/uL Monocytes # (0-1.0) k/uL Eosinophils # (0-0.7) k/uL Basophils # (0-0.2) k/uL PT (9.0-12.0) sec INR (<1.2) APTT (22.0-30.0) sec Sodium (137-145) mmol/L Potassium (3.5-5.1) mmol/L Chloride (98-107) mmol/L Carbon Dioxide (22-30) mmol/L Anion Gap mmol/L BUN (7-17) mg/dL Creatinine (0.52-1.04) mg/dL Est GFR (CKD-EPI)AfAm (>60 ml/min/1.73 sqM) Est GFR (CKD-EPI)NonAf (>60 ml/min/1.73 sqM) Glucose (74-99) mg/dL Calcium (8.4-10.2) mg/dL Magnesium (1.6-2.3) mg/dL Total Bilirubin (0.2-1.3) mg/dL AST (14-36) U/L ALT (4-34) U/L Alkaline Phosphatase (38-126) U/L Troponin I <0.012 (0.000-0.034) ng/mL NT-Pro-B Natriuret Pep 5270 pg/mL Total Protein (6.3-8.2) g/dL Albumin (3.5-5.0) g/dL Critical Care Time Critical Care Time: Yes Total Critical Care Time: 35 Disposition Clinical Impression: Atrial fibrillation with RVR, Chest pain Disposition: ADMITTED IP TO THIS [facility] Condition: Stable Is patient prescribed a controlled substance at d/c from ED?: No Referrals: Lashell Kimble MD [Primary Care Provider] - 1-2 days Time of Disposition: 09:46
[2021-12-17 08:12] LABS: Basophils # (A) 0.1 k/uL (0-0.2); Basophils % (A) 1 %; Eosinophils # (A) 0.1 k/uL (0-0.7); Eosinophils % (A) 1 %; HCT 39.4 % (34.0-46.0); HGB 13.3 gm/dL (11.4-16.0); Lymphocytes # (A) 1.1 k/uL (1.0-4.8); Lymphocytes % (A) 8 %; MCH 31.2 pg (25.0-35.0); MCHC 33.8 g/dL (31.0-37.0); MCV 92.2 fL (80.0-100.0); Mean Platelet Volume 9.3; Monocytes # (A) 0.9 k/uL (0-1.0); Monocytes % (A) 7 %; Neutrophils % (A) 83 %; Platelet Count 280 k/uL (150-450); RBC 4.27 m/uL (3.80-5.40); RDW 12.7 % (11.5-15.5); WBC 13.3 k/uL (3.8-10.6)
[2021-12-17] MEDS ORDERED: DILTIAZEM 125 MG in SODIUM CHLORIDE 0.9% 100 ML IV SCH (08:15)
[2021-12-17 08:25] LABS: Albumin 3.5 g/dL (3.5-5.0); Calcium 8.5 mg/dL (8.4-10.2); Magnesium 2.1 mg/dL (1.6-2.3); Potassium 3.3 mmol/L (3.5-5.1); Total Bilirubin 0.6 mg/dL (0.2-1.3); Total Protein 6.1 g/dL (6.3-8.2)
[2021-12-17 08:26] LABS: INR 1.9 (<1.2); Partial Thromboplastin Time 33.5 sec (22.0-30.0); Prothrombin Time 19.3 sec (9.0-12.0)
--- NOTE | 2021-12-17 08:41 | XR ---
EXAMINATION TYPE: XR chest 2V DATE OF EXAM: 12/17/2021 COMPARISON: Chest x-ray October 23, 2021 HISTORY: Chest pain and shortness of breath TECHNIQUE: Frontal and lateral views of the chest are obtained. FINDINGS: There is some chronic right pleural changes bilaterally without suspicious new focal air s pace opacity, pleural effusion, or pneumothorax seen. The cardiac silhouette size is stable and mild ly enlarged with atherosclerotic changes aortic knob. Vertebroplasty at 2 adjacent levels mid to lowe r thoracic spine now present.. IMPRESSION: Mild cardiomegaly and chronic changes without acute pulmonary process.
[2021-12-17] MEDS ORDERED: FUROSEMIDE 10 MG/ML 4 ML VIAL IV STA (09:04)
[2021-12-17] MEDS ORDERED: ACETAMINOPHEN TAB 325 MG TAB PO PRN (09:43)
[2021-12-17] MEDS ORDERED: NALOXONE 0.4 MG/ML 1 ML VIAL IV PRN (09:43)
[2021-12-17] MEDS ORDERED: ASPIRIN 325 MG TAB PO STA (09:44)
[2021-12-17] MEDS: POTASSIUM CHLORIDE 10 MEQ in WATER FOR INJECTION 1 100ML.BAG IVPB SCH ×4 (09:57→15:24)
[2021-12-17] MEDS ORDERED: ONDANSETRON 4 MG/2 ML VIAL IVP STA (09:57)
[2021-12-17] MEDS: HYDROcodone/APAP 5-325MG 1 EACH TAB PO SCH ×3 (11:47→22:19)
[2021-12-17] MEDS ORDERED: POTASSIUM CHLORIDE ER 20 MEQ TAB.ER PO STA (15:51)
[2021-12-17] MEDS: PANTOPRAZOLE 40 MG TABLET PO SCH (17:11)
[2021-12-17] MEDS ORDERED: FUROSEMIDE 40 MG TAB PO SCH (17:30)
[2021-12-17] MEDS ORDERED: ATORVASTATIN 40 MG TAB PO SCH (17:30)
[2021-12-17] MEDS ORDERED: lisinopriL 5 MG TAB PO SCH (17:30)
[2021-12-17] MEDS ORDERED: METOPROLOL SUCCINATE (ER) 25 MG TAB.ER.24H PO SCH (17:30)
[2021-12-17] MEDS ORDERED: WARFARIN 5 MG TAB PO SCH (17:30)
[2021-12-17] MEDS ORDERED: ONDANSETRON 4 MG TAB PO PRN (17:54)
[2021-12-17] MEDS: NICOTINE 14MG/24HR PATCH TRANSDERM SCH (18:29)
--- NOTE | 2021-12-17 23:39 | P.HPIM ---
History of Present Illness H&P Date: 12/17/21 HISTORY OF PRESENT ILLNESS 76-year-old male one of Dr. Kimble's patient with multiple medical problem who's known to have history of hypertension, hyperlipidemia, A. marcia has been on warfarin, history of bowel resection in the past secondary to bowel obstruction, chronic history of tobacco use,she was hospitalized recently in October for 2021 with A. fib and RVR, was treated medication were adjusted patient has done very well. Has been doing very well until the last 2 weeks when she developed to have recurrent A. fib with RVR feeling slight bit dyspneic and shortness of breath with worsening symptoms and her A. fib is active. Apparently had seen a agriscience instructor and was given the option for admission possible require cardioversion which patient was against of the time. Also patient had eye different medication in the past including higher dose of beta jp which had a created more side effect and complication she has been in continue to be on warfarin with INR has been therapeutic. With much worsening symptoms she presented to demurs department for evaluation of chest discomfort and tightness along with dyspnea and worsening A. fib with RVR patient was running pulse rate of 160 beats per minutes denies any fever chills nor lower extremity pain or abdominal pain. Her white blood cell was mildly elevated INR was 1.9 chemistry showed low-grade hypokalemia at 3.3 with a normal GFR troponin was negative at less than 0.012. Patient was started on Cardizem drip which brought her pulse rate down significantly and admitted to the hospital with above problem. REVIEW OF SYSTEMS Constitutional: No fever, no chills, no night sweats. No weight change. No weakness, fatigue or lethargy. No daytime sleepiness. EENT: No headache. No blurred vision or double vision, no loss of vision. No loss of Hearing, no ringing in the ears, no dizziness. No nasal drainage or congestion. No epistaxis. No sore throat. Lungs: No shortness of breath, cough, no sputum production. No wheezing. Cardiovascular: No chest pain, no lower extremity edema. No palpitations. No paroxysmal nocturnal dyspnea. No orthopnea. No lightheadedness or dizziness. No syncopal episodes. Abdominal: No abdominal pain. No nausea, vomiting. No diarrhea. No constipation. No bloody or tarry stools. No loss of appetite. Genitourinary: No dysuria, increased frequency, urgency. No urinary retention. Musculoskeletal: No myalgias. No muscle weakness, no gait dysfunction, no frequent falls. No back pain. No neck pain. Integumentary: No wounds, no lesions. No rash or pruritus. No unusual bruising. No change in hair or nails. Neurologic: No aphasia. No facial droop. No change in mentation. No head injury. No headache. No paralysis. No paresthesia. Psychiatric: No depression. No anxiety. No mood swings. Endocrine: No abnormal blood sugars. No weight change. No excessive sweating or thirst. No cold intolerance. SOCIAL HISTORY Patient is an active smoker since age 20 half a pack per day, no alcohol use, no marijuana or illicit drug use. She does not have oxygen, CPAP at home. She is and lives at home with her . FAMILY HISTORY Mother at age 77 from ischemic bowel. Father at age 80 from massive myocardial infarction. Patient does not have any brothers and sisters. She has one daughter with no major medical problems.. PHYSICAL EXAMINATION Gen: This is a 76-year-old female. She is resting in bed and appears to be uncomfortable secondary to pain. HEENT: Head is atraumatic, normocephalic. Pupils equal, round. Sclerae is anicteric. NECK: Supple. No JVD. No lymphadenopathy. No thyromegaly. LUNGS: decreased breath some relative final calling no crackles plasma expiratory wheezes. HEART: Irregular rate and rhythm. S1, S2, positive S3, positive tachycardia with systolic murmur. ABDOMEN: soft positive bowel sounds slight discomfort in the left lower quadrant . No rebound or rigidity. EXTREMITIES: No pedal edema. No calf tenderness. NEUROLOGICAL: Patient is awake, alert and oriented x3. Cranial nerves 2 through 12 are grossly intact. Strength to both lower extremities equal. ASSESSMENT AND PLAN - A. fib with RVR: Patient will be continue on Cardizem drip for now will be seeing cardiology continue metoprolol and warfarin if failure to treatment patient might be going for transesophageal echocardiogram and cardioversion. In the meanwhile if recurrent episode patient might benefit from antiarrhythmic including smaller dose of amiodarone. - Atypical chest pain and pressure: Aggravated with the A. fib with RVR, CK wit h troponin 2 be done, cardiology consultation and review testing to trend one was last stress test and angiogram done based on it with decide on further management. - hypertension: Continue patient on metoprolol and Zestril. - hyperlipidemia: Continue atorvastatin 40 mg daily. - Intractable pain secondary to osteoporotic compression fracture of T8 status post kyphoplasty of T8 on 09/[address] Mejia. continue hydrocodone along with muscle relaxer. - recurrent episode of abdominal pain nausea and vomiting along with diarrhea, symptoms are much better so far since back surgery is done patient has improved significantly. - chronic pain syndrome: Has been on hydrocodone since his kyphoplasty. - chronic edema: Has been on furosemide and if needed we will add spironolactone. - anticoagulation: Patient remain on warfarin with INR has been therapeutic. - GI prophylaxis: Continue pantoprazole. - DVT prophylaxis: Patient will be on anticoagulation. - CODE STATUS: Full code. Patient will be admitted to the hospital for a minimum of 2 night stay. Past Medical History Past Medical History: Atrial Fibrillation, COPD, GERD/Reflux, Hyperlipidemia, Hypertension, Pneumonia Additional Past Medical History / Comment(s): Chronic back pain/vertebral fractures, osteoporosis, bronchitis, gastric ulcers, lower leg edema, constipation. History of Any Multi-Drug Resistant Organisms: None Reported Past Surgical History: Appendectomy, Back Surgery, Hysterectomy Additional Past Surgical History / Comment(s): Kyphoplasties. Past Anesthesia/Blood Transfusion Reactions: No Reported Reaction Smoking Status: Light tobacco smoker - Past Family History Mother Additional Family Medical History / Comment(s): osteoporosis Father Family Medical History: COPD, Myocardial Infarction (ID) Additional Family Medical History / Comment(s): Father of a massive ID at the age of 77yrs. Medications and Allergies Home Medications Medication Instructions Recorded Confirmed Type Atorvastatin [Lipitor] 40 mg PO W/SUPPER 08/07/21 12/17/21 History Cholecalciferol [Vitamin D3 (125 125 mcg PO W/SUPPER 08/07/21 12/17/21 History Mcg = 5000 Iu)] Furosemide [Lasix] 40 mg PO W/SUPPER 08/07/21 12/17/21 History Vitamin A [Vitamin A (8,000 Units 2,400 mcg PO W/SUPPER 08/07/21 12/17/21 History = 2,400 MCG)] Warfarin Sodium 5 mg PO W/SUPPER 08/07/21 12/17/21 History lisinopriL [Zestril] 5 mg PO W/SUPPER 09/10/21 12/17/21 History Omeprazole 20 mg PO AC-BID 10/10/21 12/17/21 History Cyanocobalamin (Vitamin B-12) 1,000 mcg PO W/SUPPER 10/22/21 12/17/21 History [Vitamin B-12] Ibuprofen [Advil] 400 mg PO Q8H PRN 10/22/21 12/17/21 History Magnesium 250 mg PO W/SUPPER 10/22/21 12/17/21 History Docusate [Colace] 100 mg PO W/SUPPER 10/29/21 12/17/21 History Calcitonin Nasal [Fortical 1 spr NASAL DAILY 12/17/21 12/17/21 History (Miacalcin)] HYDROcodone/APAP 5-325MG [[place] 1 tab PO TID 12/17/21 12/17/21 History 5-325] Metoprolol Succinate (ER) [Toprol 25 mg PO W/SUPPER 12/17/21 12/17/21 History Xl] Ondansetron [Zofran] 4 mg PO TID PRN 12/17/21 12/17/21 History Allergies Allergy/AdvReac Type Severity Reaction Status Date / Time No Known Allergies Allergy Verified 12/17/21 10:09 Physical Exam Vitals: Vital Signs Temp Pulse Pulse Resp BP BP Pulse Ox 12/17/21 15:06 98.3 F 80 18 119/55 93 L 12/17/21 14:45 98.7 F 80 16 105/76 96 12/17/21 13:47 78 18 105/56 96 12/17/21 11:49 93 18 120/78 98 12/17/21 10:18 89 16 110/58 98 12/17/21 08:42 113 H 18 116/57 98 12/17/21 07:36 98.7 F 121 H 20 119/86 99 Intake and Output 12/17/21 12/17/21 12/17/21 06:59 14:59 22:59 Other: # Voids 1 Weight 72.575 kg Results CBC & Chem 7: 12/17/21 07:54 12/17/21 07:54 Labs: Abnormal Lab Results - Last 24 Hours (Table) 0712/17/21 12/17/21 Range/Units 07:54 07:54 07:54 WBC 13.3 H (3.8-10.6) k/uL Neutrophils # 11.0 H (1.3-7.7) k/uL PT 19.3 H (9.0-12.0) sec INR 1.9 H (<1.2) APTT 33.5 H (22.0-30.0) sec Sodium 135 L (137-145) mmol/L Potassium 3.3 L (3.5-5.1) mmol/L Chloride 96 L (98-107) mmol/L BUN 19 H (7-17) mg/dL Glucose 104 H (74-99) mg/dL Total Protein 6.1 L (6.3-8.2) g/dL Thrombosis Risk Factor Assmnt - Choose All That Apply Any of the Below Risk Factors Present?: Yes Each Factor Represents 1 point: Abnormal pulmonary function (COPD) Other Risk Factors: Yes Each Risk Factor Represents 2 Points: Age 61-74 years Other congenital or acquired thrombophilia - If yes, enter type in comment: No Thrombosis Risk Factor Assessment Total Risk Factor Score: 3 Thrombosis Risk Factor Assessment Level: Moderate Risk
[2021-12-18 00:32] VITALS: TEMP 98
[2021-12-18] MEDS: HYDROcodone/APAP 5-325MG 1 EACH TAB PO PRN ×2 (05:19→10:19)
[2021-12-18] MEDS: PANTOPRAZOLE 40 MG TABLET PO SCH (07:03)
[2021-12-18 08:03] LABS: HCT 38.1 % (34.0-46.0); HGB 12.8 gm/dL (11.4-16.0); MCH 31.2 pg (25.0-35.0); MCHC 33.6 g/dL (31.0-37.0); MCV 92.9 fL (80.0-100.0); Platelet Count 301 k/uL (150-450); RDW 12.8 % (11.5-15.5); WBC 12.9 k/uL (3.8-10.6)
[2021-12-18 08:16] LABS: INR 2.1 (<1.2); Prothrombin Time 20.9 sec (9.0-12.0)
[2021-12-18 08:18] LABS: ALT 16 U/L (4-34); AST 21 U/L (14-36); African American GFR (CKD) >90 (>60 ml/min/1.73 sqM); Albumin 3.4 g/dL (3.5-5.0); Alkaline Phosphatase 112 U/L (38-126); Anion Gap 9 mmol/L; Blood Urea Nitrogen 12 mg/dL (7-17); Calcium 8.6 mg/dL (8.4-10.2); Carbon Dioxide 30 mmol/L (22-30); Chloride 94 mmol/L (98-107); Glucose 113 mg/dL (74-99); Non-African American GFR(CKD) 89 (>60 ml/min/1.73 sqM); Potassium 3.7 mmol/L (3.5-5.1); Sodium 133 mmol/L (137-145); Total Bilirubin 0.5 mg/dL (0.2-1.3)
[2021-12-18 08:29] VITALS: BP 124/80; PULSE 83; RESP 18
[2021-12-18] MEDS: NICOTINE 14MG/24HR PATCH TRANSDERM SCH (08:30)
[2021-12-18] MEDS: HYDROcodone/APAP 5-325MG 1 EACH TAB PO SCH (08:36)
[2021-12-18] MEDS ORDERED: CALCITONIN 200 USP/1 NASAL SPRAY 3.7ML BTL NASAL SCH (09:00)
[2021-12-18] MEDS ORDERED: FLECAINIDE 50 MG TAB PO SCH (10:15)
--- NOTE | 2021-12-18 10:55 | P.DS ---
Providers Date of admission: 12/17/21 09:43 Expected date of discharge: 12/18/21 Attending physician: Umesh Hudson Consults: 12/17/21 09:43 Consult Physician Routine Consulting Provider: Alexander Witt Consult Reason/Comments: A. fib with RVR, chest pain Do you want consulting provider notified?: Yes Primary care physician: Lashell Kimble [facility] Course: HISTORY OF PRESENT ILLNESS 76-year-old male one of Dr. Kimble's patient with multiple medical problem who's known to have history of hypertension, hyperlipidemia, A. fib has been on warfarin, history of bowel resection in the past secondary to bowel obstruction, chronic history of tobacco use,she was hospitalized recently in October for 2021 with A. fib and RVR, was treated medication were adjusted patient has done very well. Has been doing very well until the last 2 weeks when she developed to have recurrent A. fib with RVR feeling slight bit dyspneic and shortness of br eath with worsening symptoms and her A. fib is active. Apparently had seen a consular officer and was given the option for admission possible require cardioversion which patient was against of the time. Also patient had eye different medication in the past including higher dose of beta jp which had a created more side effect and complication she has been in continue to be on warfarin with INR has been therapeutic. With much worsening symptoms she presented to demurs department for evaluation of chest discomfort and tightness along with dyspnea and worsening A. fib with RVR patient was running pulse rate of 160 beats per minutes denies any fever chills nor lower extremity pain or abdominal pain. Her white blood cell was mildly elevated INR was 1.9 chemistry showed low-grade hypokalemia at 3.3 with a normal GFR troponin was negative at less than 0.012. Patient was started on Cardizem drip which brought her pulse rate down significantly and admitted to the hospital with above problem. 12/18: Patient is seen today on the cardiac stepdown unit. She has been in a sinus rhythm during the night and now A. fib controlled rate. She is off Cardizem drip. She is upset stating that no consular officer no physician has seen her since she came to the hospital which is not true. Patient was seen by ER practitioner and Dr. Hudson last evening. Case discussed with Dr. CAMILO Chahal. He has advised to start the patient on flecainide and cleared for discharge. Patient normally follows with Dr. Sim in the office. Patient is complaining of burning and slimy urine. Urinalysis was obtained which revealed moderate blood, large leukoesterase, 11 RBC, greater than 182 WBC. INR 2.1 Patient will be discharged home today in stable condition. DISCHARGE DIAGNOSES - A. fib with RVR, paroxysmal atrial fibrillation - Atypical chest pain and pressure - hypertension - hyperlipidemia - Intractable pain secondary to osteoporotic compression fracture of T8 status post kyphoplasty of T8 on 09/[address] Mejia. - recurrent episode of abdominal pain nausea and vomiting along with diarrhea - chronic pain syndrome - chronic edema - anticoagulation - UTI DISCHARGE PLAN Home Greater than 35 minutes was utilized and coordinating patient's discharge. Impression and plan of care have been directed as dictated by the signing physician. Maryam Douglas nurse practitioner acting as scribe for signing physician. Patient Condition at Discharge: Stable Plan - Discharge Summary Discharge Rx Participant: No New Discharge Prescriptions: New Nicotine 14Mg/24Hr Patch [Habitrol] 1 patch TRANSDERM DAILY #30 patch Flecainide [Tambocor] 50 mg PO Q12HR #60 tab cefUROXime axetiL [Ceftin] 500 mg PO BID 7 Days #14 tab Continue Vitamin A [Vitamin A (8,000 Units = 2,400 MCG)] 2,400 mcg PO W/SUPPER Warfarin Sodium 5 mg PO W/SUPPER Furosemide [Lasix] 40 mg PO W/SUPPER lisinopriL [Zestril] 5 mg PO W/SUPPER Omeprazole 20 mg PO AC-BID Ibuprofen [Advil] 400 mg PO Q8H PRN PRN Reason: Pain Magnesium 250 mg PO W/SUPPER Ondansetron [Zofran] 4 mg PO TID PRN PRN Reason: Nausea Calcitonin Nasal [Fortical (Miacalcin)] 1 spr NASAL DAILY Metoprolol Succinate (ER) [Toprol XL] 25 mg PO W/SUPPER Cholecalciferol [Vitamin D3 (125 Mcg = 5000 Iu)] 125 mcg PO W/SUPPER Atorvastatin [Lipitor] 40 mg PO W/SUPPER Cyanocobalamin (Vitamin B-12) [Vitamin B-12] 1,000 mcg PO W/SUPPER Docusate [Colace] 100 mg PO W/SUPPER HYDROcodone/APAP 5-325MG [[place] 5-325] 1 tab PO TID Discharge Medication List Atorvastatin [Lipitor] 40 mg PO W/SUPPER 08/07/21 [History] Cholecalciferol [Vitamin D3 (125 Mcg = 5000 Iu)] 125 mcg PO W/SUPPER 08/07/21 [History] Furosemide [Lasix] 40 mg PO W/SUPPER 08/07/21 [History] Vitamin A [Vitamin A (8,000 Units = 2,400 MCG)] 2,400 mcg PO W/SUPPER 08/07/21 [History] Warfarin Sodium 5 mg PO W/SUPPER 08/07/21 [History] lisinopriL [Zestril] 5 mg PO W/SUPPER 09/10/21 [History] Omeprazole 20 mg PO AC-BID 10/10/21 [History] Cyanocobalamin (Vitamin B-12) [Vitamin B-12] 1,000 mcg PO W/SUPPER 10/22/21 [History] Ibuprofen [Advil] 400 mg PO Q8H PRN 10/22/21 [History] Magnesium 250 mg PO W/SUPPER 10/22/21 [History] Docusate [Colace] 100 mg PO W/SUPPER 10/29/21 [History] Calcitonin Nasal [Fortical (Miacalcin)] 1 spr NASAL DAILY 12/17/21 [History] HYDROcodone/APAP 5-325MG [[place] 5-325] 1 tab PO TID 12/17/21 [History] Metoprolol Succinate (ER) [Toprol XL] 25 mg PO W/SUPPER 12/17/21 [History] Ondansetron [Zofran] 4 mg PO TID PRN 12/17/21 [History] Flecainide [Tambocor] 50 mg PO Q12HR #60 tab 12/18/21 [Rx] Nicotine 14Mg/24Hr Patch [Habitrol] 1 patch TRANSDERM DAILY #30 patch 12/18/21 [Rx] cefUROXime axetiL [Ceftin] 500 mg PO BID 7 Days #14 tab 12/18/21 [Rx] Follow up Appointment(s)/Referral(s): Lashell Kimble MD [Primary Care Provider] - 12/25/21 10:30 am (Follow up with Khushboo) Milton Sim MD [STAFF PHYSICIAN] - 12/21/21 10:15 am Patient Instructions/Handouts: A-fib (Atrial Fibrillation) (IP) Discharge Disposition: HOME SELF-CARE
[2021-12-18 11:08] LABS: Appearance,Urine Cloudy (Clear); Bacteria,Urine Rare /hpf; Bilirubin,Urine Negative (Negative); Blood,Urine Moderate (Negative); Color,Urine Yellow; Glucose,Urine (UA) Negative (Negative); Ketones,Urine Negative (Negative); Leukocyte Esterase,Urine Large (Negative); Mucus,Urine Rare /hpf; Nitrite,Urine Negative (Negative); Protein,Urine Trace (Negative); RBC,Urine 11 /hpf (0-5); Specific Gravity,Urine 1.015 (1.001-1.035); Squamous Epithelial Cell,Urine <1 /hpf (0-4); WBC,Urine >182 /hpf (0-5)
[2021-12-18 13:19] VITALS: BMI 25.8
--- NOTE | 2021-12-18 13:26 | CONS ---
CONSULTATION Job Pathak is a 76-year-old lady who sees Dr. Sim in the outpatient setting. She is known to have paroxysmal atrial fibrillation, carotid disease with previous carotid intervention and also hypertension. She came into the hospital with palpitations and shortness of breath, was found to be in atrial fibrillation with a fairly rapid ventricular rate and she has then converted to sinus rhythm and she is maintaining sinus rhythm. She is resting comfortably without symptoms. She also complained of mild nondescript chest tightness when she had atrial fib, but she is comfortable resting without symptoms. In 2019, she had a stress test which did not reveal any ischemia. She is asymptomatic resting comfortably. Unfortunately she continues to smoke. PAST MEDICAL HISTORY: 1. Smoking and COPD. 2. Recent diagnosis of paroxysmal atrial fibrillation, anticoagulated. 3. Hypertension. 4. Hypercholesterolemia. 5. She is status post back surgery and hysterectomy and kyphoplasty. MEDICATIONS: Medications at home include: Metoprolol succinate 50 mg daily, Colace, magnesium supplements and also takes Lipitor 40 mg daily, omeprazole, Coumadin 5 mg daily and INR is therapeutic. PHYSICAL EXAMINATION: On examination, blood pressure is 128/70, pulse rate 72 per minute. HEENT unremarkable. Fundus was not examined by me. Neck is supple. No JVD. I do not hear a carotid bruit. Heart exam reveals S1, S2 heard normally. There is a short systolic murmur left sternal border. Lungs revealed decent air entry. ABDOMEN is soft, nontender. Lower extremities reveal palpable pulses. No edema. Central nervous system is normal. EKG on arrival revealed atrial fibrillation with moderate ventricular rate, nonspecific ST changes. EKG now revealed a sinus mechanism without acute changes. IMPRESSION: 1. Paroxysmal atrial fibrillation. 2. Negative stress test in 2019. 3. Hypertension. 4. History of carotid disease in the past. RECOMMENDATIONS: I am recommending that we add flecainide 50 mg b.i.d., continue beta jp. Can be discharged and see Dr. Sim in 1 week. She will continue anticoagulation with Coumadin. INR is 2.1. Thank you very much for the consult. MMODL / IJN: [id number] /
[2021-12-18] MEDS ORDERED: MAGNESIUM OXIDE 400 MG TAB PO SCH (17:30)
[2021-12-18] MEDS ORDERED: CHOLECALCIFEROL 125 MCG (5000 IU) TABLET PO SCH (17:30)
[2021-12-18] MEDS ORDERED: VITAMIN A 10,000 UNIT (3000 MCG) CAPSULE PO SCH (17:30)
[2021-12-18] MEDS ORDERED: DOCUSATE 100 MG CAP PO SCH (17:30)
[2021-12-18] MEDS ORDERED: CYANOCOBALAMIN 500 MCG TAB PO SCH (17:30)
== END 2021-12-18 13:13 | disposition home or self-care (01) | DRG 309 ==
LOC: EC 07:31 → 3SCARD 09:43
PROVIDERS: ADMIT Internal Medicine Geriatric Medicine; ATTEND Internal Medicine Geriatric Medicine
DX: I48.0 Paroxysmal atrial fibrillation (principal); M80.08XA Age-related osteoporosis with current pathological fracture, vertebra(e), initial encounter for fracture; N39.0 Urinary tract infection, site not specified; E78.00 Pure hypercholesterolemia, unspecified; E87.6 Hypokalemia; F17.210 Nicotine dependence, cigarettes, uncomplicated; G89.4 Chronic pain syndrome; I10 Essential (primary) hypertension; J40 Bronchitis, not specified as acute or chronic; K21.9 Gastro-esophageal reflux disease without esophagitis; J44.9 Chronic obstructive pulmonary disease, unspecified; Z79.01 Long term (current) use of anticoagulants; Z79.899 Other long term (current) drug therapy; Z82.49 Family history of ischemic heart disease and other diseases of the circulatory system; Z82.5 Family history of asthma and other chronic lower respiratory diseases; Z82.62 Family history of osteoporosis; Z87.11 Personal history of peptic ulcer disease; Z87.01 Personal history of pneumonia (recurrent); Z87.442 Personal history of urinary calculi; Z90.49 Acquired absence of other specified parts of digestive tract; Z90.710 Acquired absence of both cervix and uterus; Z87.19 Personal history of other diseases of the digestive system; R07.89 Other chest pain
CPT/HCPCS: 36415; 71046; 80053; 81001; 83735; 83880; 84484; 85025; 85027; 85610; 85730; 87077; 87086; 87186; 93005; 96365; 96366; 96367; 96375; 99291

== ENCOUNTER 2022-01-09 10:58 | Inpatient (IN) | payer MEDICARE ==
[2022-01-09 13:50] LABS: Appearance,Urine Clear (Clear); Bilirubin,Urine Negative (Negative); Blood,Urine Negative (Negative); Color,Urine Yellow; Glucose,Urine (UA) Negative (Negative); Ketones,Urine Negative (Negative); Leukocyte Esterase,Urine Large (Negative); Mucus,Urine Rare /hpf; Nitrite,Urine Negative (Negative); PH, Urine 5.5 (5.0-8.0); Protein,Urine Trace (Negative); Specific Gravity,Urine 1.025 (1.001-1.035); Squamous Epithelial Cell,Urine 1 /hpf (0-4); Urobilinogen,Urine <2.0 mg/dL (<2.0); WBC,Urine 13 /hpf (0-5)
[2022-01-09] MEDS ORDERED: SODIUM CHLORIDE 0.9% 500 ML 500 ML IV STA (14:40)
--- NOTE | 2022-01-09 14:50 | ED ---
General Adult HPI - General Chief complaint: Abdominal Pain Stated complaint: Kidney Infection,PCP sent Time Seen by Provider: 01/09/22 14:10 Source: patient, RN notes reviewed, old records reviewed Mode of arrival: ambulatory Limitations: no limitations - History of Present Illness Initial comments: This is a 76-year-old female who presents to the emergency department stating that for a month she has been fighting a urinary tract infection and she states continuing to feel bad feels weak and every day she wakes up nauseated has taken nausea medicines and she also is complaining of a headache as of late. Patient states her latest antibiotic that he she is taking his Cipro. Patient also complains of the little suprapubic abdominal discomfort as well as some right CVA tenderness. Patient denies actually any vomiting or diarrhea. Patient marlon es any chest pain difficulty breathing shortness of breath per patient denies any fever chills or cough - Related Data Home Medications Medication Instructions Recorded Confirmed Atorvastatin [Lipitor] 40 mg PO W/SUPPER 08/07/21 01/08/22 Cholecalciferol [Vitamin D3 (125 125 mcg PO W/SUPPER 08/07/21 01/08/22 Mcg = 5000 Iu)] Furosemide [Lasix] 40 mg PO W/SUPPER 08/07/21 01/08/22 Vitamin A [Vitamin A (8,000 Units 2,400 mcg PO W/SUPPER 08/07/21 01/08/22 = 2,400 MCG)] Warfarin Sodium 5 mg PO W/SUPPER 08/07/21 01/08/22 Omeprazole 20 mg PO AC-BID 10/10/21 01/08/22 Cyanocobalamin (Vitamin B-12) 1,000 mcg PO W/SUPPER 10/22/21 01/08/22 [Vitamin B-12] Ibuprofen [Advil] 400 mg PO Q8H PRN 10/22/21 01/08/22 Magnesium 250 mg PO W/SUPPER 10/22/21 01/08/22 Docusate [Colace] 100 mg PO W/SUPPER 10/29/21 01/08/22 HYDROcodone/APAP 5-325MG [[place] 1 tab PO TID 12/17/21 01/08/22 5-325] Metoprolol Succinate (ER) [Toprol 25 mg PO W/SUPPER 12/17/21 01/08/22 XL] Ondansetron [Zofran] 4 mg PO QID PRN 12/17/21 01/08/22 Ciprofloxacin HCl [Cipro] 500 mg PO Q12HR 01/08/22 HYDROcodone/APAP 7.5-325MG [[place] 1 tab PO Q6HR PRN 01/08/22 7.5-325] Previous Rx's Medication Instructions Recorded Flecainide [Tambocor] 50 mg PO Q12HR #60 tab 12/18/21 Allergies Allergy/AdvReac Type Severity Reaction Status Date / Time calcitonin [From Miacalcin] AdvReac Nausea & Verified 01/09/22 12:54 Vomiting Review of Systems ROS Statement: Those systems with pertinent positive or pertinent negative responses have been documented in the HPI. ROS Other: All systems not noted in ROS Statement are negative. Past Medical History Past Medical History: Atrial Fibrillation, COPD, GERD/Reflux, Hyperlipidemia, Hypertension, Pneumonia Additional Past Medical History / Comment(s): Chronic back pain/vertebral fractures, osteoporosis, bronchitis, gastric ulcers, lower leg edema, constipation. History of Any Multi-Drug Resistant Organisms: None Reported Past Surgical History: Appendectomy, Back Surgery, Hysterectomy Additional Past Surgical History / Comment(s): Kyphoplasties. Past Anesthesia/Blood Transfusion Reactions: No Reported Reaction Past Psychological History: No Psychological Hx Reported Smoking Status: Current every day smoker Past Alcohol Use History: None Reported Past Drug Use History: None Reported - Past Family History Mother Additional Family Medical History / Comment(s): osteoporosis Father Family Medical History: COPD, Myocardial Infarction ([place]) Additional Family Medical History / Comment(s): Father of a massive [place] at the age of 77yrs. General Exam - General Exam Comments Initial Comments: GENERAL: Patient is well-developed and well-nourished. Patient is nontoxic and well- hydrated and is in mild distress. ENT: Neck is soft and supple. No significant lymphadenopathy is noted. Oropharynx is clear. Moist mucous membranes. Neck has full range of motion without eliciting any pain. EYES: The sclera were anicteric and conjunctiva were pink and moist. Extraocular movements were intact and pupils were equal round and reactive to light. Eyelids were unremarkable. PULMONARY: Unlabored respirations. Good breath sounds bilaterally. No audible rales rhonchi or wheezing was noted. CARDIOVASCULAR: There is a regular rate and rhythm without any murmurs gallops or rubs. ABDOMEN: Mild suprapubic tenderness SKIN: Skin is clear with no lesions or rashes and otherwise unremarkable. NEUROLOGIC: Patient is alert and oriented x3. Cranial nerves II through XII are grossly intact. Motor and sensory are also intact. Normal speech, volume and content. Symmetrical smile. MUSCULOSKELETAL: Normal extremities with adequate strength and full range of motion. LYMPHATICS: No significant lymphadenopathy is noted PSYCHIATRIC: Normal psychiatric evaluation. Limitations: no limitations Course Vital Signs 01/09/22 12:50 Temperature 98.2 F Pulse Rate 104 H Respiratory 18 Rate Blood Pressure 105/66 O2 Sat by Pulse 93 L Oximetry Medical Decision Making - Lab Data Result diagrams: 01/09/22 14:47 01/09/22 14:47 Lab Results 01/09/22 01/09/22 01/09/22 Range/Units 12:57 14:47 14:47 WBC 8.1 (3.8-10.6) k/uL RBC 4.46 (3.80-5.40) m/uL Hgb 13.9 (11.4-16.0) gm/dL Hct 41.4 (34.0-46.0) % MCV 92.9 (80.0-100.0) fL MCH 31.2 (25.0-35.0) pg MCHC 33.6 (31.0-37.0) g/dL RDW 13.8 (11.5-15.5) % Plt Count 325 (150-450) k/uL MPV 8.8 Neutrophils % 66 % Lymphocytes % 24 % Monocytes % 5 % Eosinophils % 3 % Basophils % 0 % Neutrophils # 5.4 (1.3-7.7) k/uL Lymphocytes # 1.9 (1.0-4.8) k/uL Monocytes # 0.4 (0-1.0) k/uL Eosinophils # 0.2 (0-0.7) k/uL Basophils # 0.0 (0-0.2) k/uL Sodium 136 L (137-145) mmol/L Potassium 3.7 (3.5-5.1) mmol/L Chloride 100 (98-107) mmol/L Carbon Dioxide 30 (22-30) mmol/L Anion Gap 6 mmol/L BUN 17 (7-17) mg/dL Creatinine 0.83 (0.52-1.04) mg/dL Est GFR (CKD-EPI)AfAm 81 (>60 ml/min/1.73 sqM) Est GFR (CKD-EPI)NonAf 70 (>60 ml/min/1.73 sqM) Glucose 110 H (74-99) mg/dL Plasma Lactic Acid Placido (0.7-2.0) mmol/L Calcium 9.4 (8.4-10.2) mg/dL Total Bilirubin 0.4 (0.2-1.3) mg/dL AST 21 (14-36) U/L ALT 15 (4-34) U/L Alkaline Phosphatase 116 (38-126) U/L Troponin I (0.000-0.034) ng/mL Total Protein 6.7 (6.3-8.2) g/dL Albumin 3.8 (3.5-5.0) g/dL Amylase 45 (30-110) U/L Lipase 30 (23-300) U/L Urine Color Yellow Urine Appearance Clear (Clear) Urine pH 5.5 (5.0-8.0) Ur Specific Emma 1.025 (1.001-1.035) Urine Protein Trace H (Negative) Urine Glucose (UA) Negative (Negative) Urine Ketones Negative (Negative) Urine Blood Negative (Negative) Urine Nitrite Negative (Negative) Urine Bilirubin Negative (Negative) Urine Urobilinogen <2.0 (<2.0) mg/dL Ur Leukocyte Esterase Large H (Negative) Urine WBC 13 H (0-5) /hpf Ur Squamous Epith Cells 1 (0-4) /hpf Urine Mucus Rare H (None) /hpf 01/09/22 01/09/22 Range/Units 14:47 14:47 WBC (3.8-10.6) k/uL RBC (3.80-5.40) m/uL Hgb (11.4-16.0) gm/dL Hct (34.0-46.0) % MCV (80.0-100.0) fL MCH (25.0-35.0) pg MCHC (31.0-37.0) g/dL RDW (11.5-15.5) % Plt Count (150-450) k/uL MPV Neutrophils % % Lymphocytes % % Monocytes % % Eosinophils % % Basophils % % Neutrophils # (1.3-7.7) k/uL Lymphocytes # (1.0-4.8) k/uL Monocytes # (0-1.0) k/uL Eosinophils # (0-0.7) k/uL Basophils # (0-0.2) k/uL Sodium (137-145) mmol/L Potassium (3.5-5.1) mmol/L Chloride (98-107) mmol/L Carbon Dioxide (22-30) mmol/L Anion Gap mmol/L BUN (7-17) mg/dL Creatinine (0.52-1.04) mg/dL Est GFR (CKD-EPI)AfAm (>60 ml/min/1.73 sqM) Est GFR (CKD-EPI)NonAf (>60 ml/min/1.73 sqM) Glucose (74-99) mg/dL Plasma Lactic Acid Placido 1.1 (0.7-2.0) mmol/L Calcium (8.4-10.2) mg/dL Total Bilirubin (0.2-1.3) mg/dL AST (14-36) U/L ALT (4-34) U/L Alkaline Phosphatase (38-126) U/L Troponin I <0.012 (0.000-0.034) ng/mL Total Protein (6.3-8.2) g/dL Albumin (3.5-5.0) g/dL Amylase (30-110) U/L Lipase (23-300) U/L Urine Color Urine Appearance (Clear) Urine pH (5.0-8.0) Ur Specific Emma (1.001-1.035) Urine Protein (Negative) Urine Glucose (UA) (Negative) Urine Ketones (Negative) Urine Blood (Negative) Urine Nitrite (Negative) Urine Bilirubin (Negative) Urine Urobilinogen (<2.0) mg/dL Ur Leukocyte Esterase (Negative) Urine WBC (0-5) /hpf Ur Squamous Epith Cells (0-4) /hpf Urine Mucus (None) /hpf Disposition Clinical Impression: Diverticulitis, Colitis Disposition: ADMITTED IP TO THIS HOSP Referrals: Lashell Kimble MD [Primary Care Provider] - 1-2 days Time of Disposition: 16:52
[2022-01-09 14:58] LABS: Basophils % (A) 0 %; Eosinophils # (A) 0.2 k/uL (0-0.7); Eosinophils % (A) 3 %; HCT 41.4 % (34.0-46.0); HGB 13.9 gm/dL (11.4-16.0); Lymphocytes # (A) 1.9 k/uL (1.0-4.8); Lymphocytes % (A) 24 %; MCH 31.2 pg (25.0-35.0); MCHC 33.6 g/dL (31.0-37.0); MCV 92.9 fL (80.0-100.0); Mean Platelet Volume 8.8; Monocytes # (A) 0.4 k/uL (0-1.0); Monocytes % (A) 5 %; Neutrophils # (A) 5.4 k/uL (1.3-7.7); Neutrophils % (A) 66 %; Platelet Count 325 k/uL (150-450); RBC 4.46 m/uL (3.80-5.40); RDW 13.8 % (11.5-15.5); WBC 8.1 k/uL (3.8-10.6)
[2022-01-09] MEDS ORDERED: HYDROmorphone 0.5 MG/0.5 ML SYRINGE IVP STA (15:07)
[2022-01-09 15:15] LABS: Albumin 3.8 g/dL (3.5-5.0); Calcium 9.4 mg/dL (8.4-10.2); Potassium 3.7 mmol/L (3.5-5.1); Total Bilirubin 0.4 mg/dL (0.2-1.3); Total Protein 6.7 g/dL (6.3-8.2)
--- NOTE | 2022-01-09 16:50 | CT ---
EXAMINATION TYPE: CT abdomen pelvis w con DATE OF EXAM: 01/09/2022 COMPARISON: 10/29/2021 INDICATION: Flank pain DLP: 943.1 mGycm, Automated exposure control for dose reduction was used. CONTRAST: 100 mL of Isovue 300. Study performed without Oral Contrast TECHNIQUE: Axial images were obtained from above the diaphragm to the pubic rami in the axial plane a t 5 mm thick sections. Reconstructed images are reviewed on the computer in the coronal plane. FINDINGS: Limited CT sections are obtained the lung bases. Some scattered dependent infiltrates are present. C orrelate for atelectasis.. CT ABDOMEN: Liver: Mild fatty infiltration of liver. Scattered hepatic cysts are present. Spleen: Normal Pancreas: Normal Adrenal glands: The adrenal glands are normal. Gallbladder: Normal Kidneys: No masses are evident. No hydronephrosis is present. No cysts are present. Delayed images were obtained through the kidneys, which remain unremarkable. Punctate calcification without obstruc tion at the inferior pole left kidney is not excluded. Aorta: Vascular calcification is within the aorta. Inferior vena cava: Normal. CT PELVIS: Within the mid colon there is some diffuse thickening. Some minimal inflammatory change may be presen t. Correlate for neoplasm. Multiple diverticuli are evident. Diverticulitis is within the differentia l. No obstruction is identified. Small bowel loops are decompressed. Fecal debris is scattered throug h the colon. Studies without oral contrast limiting evaluation. Appendix: Normal as visualized. Limited portions appear to be visualized on this exam. Urinary bladder: Normal. Genitourinary structures: Uterus and ovaries are not identified. Osseous structures: No suspicious lytic or sclerotic lesions. IMPRESSIONS: 1. Appears to be some thickening of a focal mid sigmoid colon region with adjacent inflammatory centeno ges. Correlate for underlying neoplasm. 2. There are multiple diverticuli through the sigmoid colon. Differential diagnosis should consider a cute diverticulitis.
[2022-01-09] MEDS ORDERED: AMPICILLIN-SULBACTAM 3 GM in SODIUM CHLORIDE 0.9% 100 ML IVPB STA (16:53)
[2022-01-09] MEDS ORDERED: SODIUM CHLORIDE 0.9% 1,000 ML IV ONE (17:19)
[2022-01-09] MEDS ORDERED: HYDROmorphone 0.5 MG/0.5 ML SYRINGE IVP PRN (17:21)
[2022-01-09] MEDS: FLECAINIDE 50 MG TAB PO SCH (20:51)
[2022-01-09] MEDS: NICOTINE 14MG/24HR PATCH TRANSDERM SCH (20:51)
[2022-01-09] MEDS: HYDROcodone/APAP 7.5-325MG 1 EACH TAB PO PRN (20:51)
[2022-01-09] MEDS: PANTOPRAZOLE 40 MG TABLET PO SCH (20:52)
[2022-01-09 21:17] LABS: INR 4.2 (<1.2); Prothrombin Time 42.4 sec (9.0-12.0)
[2022-01-09] MEDS ORDERED: HYDROcodone/APAP 5-325MG 1 EACH TAB PO SCH (22:00)
[2022-01-09] MEDS: AMPICILLIN-SULBACTAM 3 GM in SODIUM CHLORIDE 0.9% 100 ML IVPB SCH (23:30)
[2022-01-10 01:58] VITALS: RESP 18
[2022-01-10] MEDS: HYDROcodone/APAP 7.5-325MG 1 EACH TAB PO PRN ×2 (02:51→08:29)
[2022-01-10] MEDS: AMPICILLIN-SULBACTAM 3 GM in SODIUM CHLORIDE 0.9% 100 ML IVPB SCH ×2 (05:32→12:36)
[2022-01-10] MEDS: FLECAINIDE 50 MG TAB PO SCH (08:23)
[2022-01-10] MEDS: PANTOPRAZOLE 40 MG TABLET PO SCH (08:23)
[2022-01-10] MEDS: NICOTINE 14MG/24HR PATCH TRANSDERM SCH (08:24)
[2022-01-10] MEDS ORDERED: CHOLECALCIFEROL 125 MCG (5000 IU) TABLET PO SCH (09:00)
[2022-01-10] MEDS ORDERED: ATORVASTATIN 40 MG TAB PO SCH (09:00)
[2022-01-10] MEDS ORDERED: METOPROLOL SUCCINATE (ER) 25 MG TAB.ER.24H PO SCH (09:00)
[2022-01-10] MEDS ORDERED: polyethylene glycoL 3350 17 GM POWD.PACK PO SCH (09:00)
[2022-01-10 09:39] LABS: INR 3.7 (<1.2); Prothrombin Time 36.8 sec (9.0-12.0)
--- NOTE | 2022-01-10 10:51 | P.CONS ---
History of Present Illness - Reason for Consult Consult date: 01/10/22 Latus, diverticulitis Requesting physician: Jaime Delgado - Chief Complaint Abdominal pain, UTI - History of Present Illness This is a pleasant 76-year-old female with a past medical history of recent UTIs, diverticulosis, atrial fibrillation on Coumadin, COPD, GERD, hy perlipidemia, hypertension and vertebral fractures who was sent in by her PCP with complaints of abdominal pain, suprapubic discomfort. Patient states she's been fighting a UTI over the last 4 weeks duration. She's been on outpatient antibiotics. She continues to have lower abdominal discomfort, right flank pain. She denies any fevers or chills. No nausea or vomiting. She has had a decreased appetite but she states that she has decreased appetite and just eat small portions ever since her fractures to her spine. She states that she is in significant amount of pain in her back, due to the hospital bed. She is on Bel[place] at home for chronic back pain. She denies any diarrhea, blood in her stool, and states that she is is frequently constipated due to her pain medications. She states that she uses a Fleet enema usually twice a week and uses Dulcolax. Patient had a CT of the abdomen and pelvis with findings of some thickening of a focal mid sigmoid colon region with adjacent inflammatory changes. Correlate for underlying neoplasm. There are multiple diverticuli through the sigmoid colon. Differential diagnosis should consider acute diverticulitis. Gastroenterology was consulted for the above. Patient with recent EGD colonoscopy 10/03/2021. EGD showing small hiatal hernia, LA grade B esophagitis, and short segment of Delaney's esophagus. Colonoscopy showed scattered sigmoid diverticulosis and polyp. Patient is currently denying any nausea or vomiting. Continues with no diarrhea. States she had a solid bowel movement this morning. She continues to be afebrile. Denies fevers or chills. States most of her pain is in her right flank region. WBC 8.1 hemoglobin 13.9 hematocrit 41 platelet count 325,000 and INR 3.7 sodium 136 potassium 3.7 BUN 17 creatinine 0.83 glucose 110 total bilirubin 0.4 AST 21 ALT 15 alkaline phosphatase 116 amylase 45 lipase 30 Review of Systems REVIEW OF SYSTEMS: CARDIOPULMONARY: No chest pain or shortness of breath. Gastrointestinal: Lower abdominal pain, right flank pain. No nausea or vomiting. No hematemesis, coffee-ground emesis. No rectal bleeding, or melena. Complains of constipation, chronic. GENITOURINARY: No dysuria or hematuria. MUSCULOSKELETAL: Reports normal range of motion. Back pain, stress fractures. SKIN: No rashes. No jaundice. ENDOCRINE: No chills, fevers. No excessive weight gain or loss. No polydipsia or polyuria. PSYCHIATRIC: Unremarkable. NEUROLOGY: No change in mental status. Denies dizziness, headache. ENT: Vision unremarkable. CONSTITUTIONAL: No recent weight loss. No fever, chills, night sweats. Past Medical History Past Medical History: Atrial Fibrillation, COPD, GERD/Reflux, Hyperlipidemia, Hypertension, Pneumonia Additional Past Medical History / Comment(s): Chronic back pain/vertebral fractures, osteoporosis, bronchitis, gastric ulcers, lower leg edema, constipation. History of Any Multi-Drug Resistant Organisms: None Reported Past Surgical History: Appendectomy, Back Surgery, Hysterectomy Additional Past Surgical History / Comment(s): Kyphoplasties. Past Anesthesia/Blood Transfusion Reactions: No Reported Reaction Past Psychological History: No Psychological Hx Reported Additional Psychological History / Comment(s): Pt resides with her spouse. She no longer drives d/t back problems. She uses a walker to ambulate. Smoking Status: Current every day smoker Past Alcohol Use History: None Reported Additional Past Alcohol Use History / Comment(s): Pt started smoking in 1967 and was a ppd smoker but is down to 5 cigarettes a day Past Drug Use History: None Reported - Past Family History Mother Additional Family Medical History / Comment(s): osteoporosis Father Family Medical History: COPD, Myocardial Infarction ([place]) Additional Family Medical History / Comment(s): Father of a massive [place] at the age of 77yrs. Medications and Allergies Home Medications Medication Instructions Recorded Confirmed Type Atorvastatin [Lipitor] 40 mg PO DAILY 08/07/21 01/09/22 History Cholecalciferol [Vitamin D3 (125 125 mcg PO DAILY 08/07/21 01/09/22 History Mcg = 5000 Iu)] Furosemide [Lasix] 40 mg PO DAILY 08/07/21 01/09/22 History Vitamin A [Vitamin A (8,000 Units 2,400 mcg PO DAILY 08/07/21 01/09/22 History = 2,400 MCG)] Warfarin Sodium 5 mg PO DAILY 08/07/21 01/09/22 History Omeprazole 20 mg PO BID 10/10/21 01/09/22 History Cyanocobalamin (Vitamin B-12) 1,000 mcg PO DAILY 10/22/21 01/09/22 History [Vitamin B-12] Magnesium 250 mg PO DAILY 10/22/21 01/09/22 History Docusate [Colace] 100 mg PO DAILY 10/29/21 01/09/22 History HYDROcodone/APAP 5-325MG [[place] 1 tab PO TID 12/17/21 01/09/22 History 5-325] Metoprolol Succinate (ER) [Toprol 25 mg PO DAILY 12/17/21 01/09/22 History XL] Ondansetron [Zofran] 4 mg PO QID PRN 12/17/21 01/09/22 History Flecainide [Tambocor] 50 mg PO BID@0700,1900 01/09/22 01/09/22 History cefUROXime axetiL [Ceftin] 500 mg PO BID 10 Days #20 tab 01/10/22 Rx metroNIDAZOLE [Flagyl] 500 mg PO TID 10 Days #30 tab 01/10/22 Rx Allergies Allergy/AdvReac Type Severity Reaction Status Date / Time calcitonin [From Miacalcin] AdvReac Nausea & Verified 01/09/22 18:28 Vomiting Physical Exam Vitals: Vital Signs Temp Pulse Pulse Resp BP BP Pulse Ox 01/10/22 07:43 97.8 F 80 18 160/77 92 L 01/10/22 01:38 98.3 F 77 18 145/73 99 01/09/22 20:00 79 01/09/22 19:42 97.6 F 81 16 119/71 92 L 01/09/22 19:00 67 18 118/84 96 01/09/22 12:50 98.2 F 104 H 18 105/66 93 L Intake and Output 01/09/22 01/10/22 01/10/22 22:59 06:59 14:59 Intake Total 100 Balance 100 Intake: Intake, IV Titration 100 Amount Ampicillin-Sulbactam 3 gm 100 In Sodium Chloride 0.9% 100 ml @ 200 mls/hr IVPB Q6HR [facility] Rx#:[id number] Other: Voiding Method Toilet Weight 72.575 kg General appearance: The patient is alert, oriented, appears in no acute distr ess. HET: Head is normocephalic and atraumatic. Conjunctiva pink. Sclera anicteric. Neck: Supple without lymphadenopathy. Trachea midline. Heart: S1 S2. Regular rate and rhythm. Lungs: Clear to auscultation. Abdomen: Soft, tenderness in the suprapubic region, right mid abdomen, nontender in the left lower quadrant. Nondistended with bowel sounds. No guarding or rigidity. Skin: No rashes. No jaundice. Extremities: Normal skin color and turgor. No pedal edema. Neurological: No focal deficits. Alert and oriented x3. Results CBC & Chem 7: 01/09/22 14:47 01/09/22 14:47 Labs: Abnormal Lab Results - Last 24 Hours (Table) 01/09/22 01/09/22 01/09/22 Range/Units 12:57 14:47 20:54 PT 42.4 H (9.0-12.0) sec INR 4.2 H (<1.2) Sodium 136 L (137-145) mmol/L Glucose 110 H (74-99) mg/dL Urine Protein Trace H (Negative) Ur Leukocyte Esterase Large H (Negative) Urine WBC 13 H (0-5) /hpf Urine Mucus Rare H (None) /hpf Microbiology - Last 24 Hours (Table) 01/09/22 12:57 Urine Culture - Preliminary Urine,Voided CT scan - abdomen: report reviewed (As stated in HPI) Assessment and Plan (1) Abdominal pain Narrative/Plan: 76-year-old female with multiple comorbidities including chronic back pain related to stress fractures was sent in from her PCP for further evaluation. She's had chronic UTI for last 4 weeks duration with outpatient antibiotics. She was concerned for possible kidney infection or kidney stones. She had a CT of abdomen and pelvis for which there was thickening of focal mid sigmoid colon with inflammatory changes, correlate for neoplasm multiple diverticula and possible diverticulitis. Patient has regular constipation related to chronic pain medication use. She uses fleets enema. She had a recent EGD and colono scopy done 10/03/2021. EGD showed a small hiatal hernia, LA grade B esophagitis and short segment of Delaney's esophagitis. Colonoscopy showed scattered sigmoid diverticulosis, colon polyp status post polypectomy. And possibly dealing with a mild case of diverticulitis. Continue with Unasyn. No plans for endoscopic evaluation as patient had recent colonoscopy less than 6 months ago with no concern for neoplasm. Current Visit: Yes Status: Acute Code(s): R10.9 - UNSPECIFIED ABDOMINAL PAIN SNOMED Code(s): 99033947 Plan: 1. Continue symptomatic and supportive care 2. Continue antibiotics 3. Patient may have clear liquid diet advance as tolerated 4. No plans on endoscopic evaluation. Patient had recent EGD colonoscopy 10/03/2021 with no evidence of neoplasm 5. Patient may be discharged with outpatient antibiotics. Recommend Cipro and Flagyl for 7 days. Thank you for this consultation. Dr. Kayla Camara I agree with the dictator's note, documented as a scribe by Selam Fajardo.
[2022-01-10] MEDS ORDERED: HYDROcodone/APAP 7.5-325MG 1 EACH TAB PO PRN (12:39)
[2022-01-10] MEDS ORDERED: ALPRAZolam 0.25 MG TAB PO STA (12:41)
--- NOTE | 2022-01-10 13:57 | P.HPIM ---
History of Present Illness H&P Date: 01/10/22 This is a 76 year old female medical history of atrial fibrillation, COPD, hypertension, anemia, daily smoker. She reports to the emergency room with complaints of urinary tract infection with failed outpatient therapy reports that this is an ongoing for the last month. Patient reports generalized weakness as well as nausea and headache. She also has right CVA tenderness and suprapubic abdominal discomfort. She has been on Cipro. Urinalysis showing trace protein, large leukocyte esterase, white count is rare. No blood cell count is 8.1. Sodium 136, glucose 110, troponin negative, amylase lipase are within normal limits and she has normal liver enzymes. Patient is not febrile, blood pressure 160/77, 92% on 2L nasal cannula, heart rate 80s. She had abdominal pelvis CT completed showing thickening of focal mid sigmoid colon region with adjacent infiltrate changes correlate for ongoing neoplasm. There are also multiple diverticula throughout the sigmoid colon the frontal diagnosis should consider acute diverticulitis. GI services has been consulted for evaluation. Patient received fluid bolus in the EC and has been started on empiric antibiotic coverage. REVIEW OF SYSTEMS: CONSTITUTIONAL: No fever, no malaise, no fatigue. HEENT: No recent visual problems or hearing problems. Denied any sore throat. CARDIOVASCULAR: No chest pain, orthopnea, PND, no palpitations, no syncope. PULMONARY: No shortness of breath, no cough, no hemoptysis. GASTROINTESTINAL: No diarrhea, no nausea, no vomiting. Reports suprapubic abdominal pain. NEUROLOGICAL: No headaches, no weakness, no numbness. HEMATOLOGICAL: Denies any bleeding or petechiae. GENITOURINARY: Denies any burning micturition, frequency, or urgency. MUSCULOSKELETAL/RHEUMATOLOGICAL: Reports lumbar back pain, chronic ENDOCRINE: Denies any polyuria or polydipsia. The rest of the 14-point review of systems is negative. PHYSICAL EXAMINATION: GENERAL: The patient is alert and oriented x3, not in any acute distress. Well developed, well nourished. HEENT: Pupils are round and equally reacting to light. EOMI. No scleral icterus. No conjunctival pallor. Normocephalic, atraumatic. No pharyngeal erythema. No th yromegaly. CARDIOVASCULAR: S1 and S2 present. No murmurs, rubs, or gallops. PULMONARY: Chest is clear to auscultation, no wheezing or crackles. ABDOMEN: Soft, mild suprpubic discomfort, nondistended, normoactive bowel sounds. No palpable organomegaly. MUSCULOSKELETAL: No joint swelling or deformity. EXTREMITIES: No cyanosis, clubbing, or pedal edema. NEUROLOGICAL: Gross neurological examination did not reveal any focal deficits. SKIN: No rashes. Assessment and plan Assessment Generalized abdominal discomfort with nausea Diverticulitis patient is started on empiric antibiotic coverage Recently treated outpatient for UTI History atrial fibrillation, rate controlled maintained on warfarin Coagulopathy Mildy hyponatremia, hypovolemic secondary to decreased oral intake History COPD Hypertension Currently daily smoker GI Prophylaxis DVT Prophylaxis Plan Pending GI consultation Continue clear liquid diet Continue empiric antibiotic coverage Antiemetics as needed INR monitoring The impression and plan of care has been dictated by Alexandra Cotton Nurse Practitioner as directed. Dr. Melissa MD I have performed a history and physical examination and medical decision making of this patient, discussed the same with the dictator, and agree with the dictators assessment and plan as written, documented as a scribe. Based on total visit time, I have performed more than 50% of this visit. Past Medical History Past Medical History: Atrial Fibrillation, COPD, GERD/Reflux, Hyperlipidemia, Hypertension, Pneumonia Additional Past Medical History / Comment(s): Chronic back pain/vertebral fractures, osteoporosis, bronchitis, gastric ulcers, lower leg edema, constipation. History of Any Multi-Drug Resistant Organisms: None Reported Past Surgical History: Appendectomy, Back Surgery, Hysterectomy Additional Past Surgical History / Comment(s): Kyphoplasties. Past Anesthesia/Blood Transfusion Reactions: No Reported Reaction Past Psychological History: No Psychological Hx Reported Additional Psychological History / Comment(s): Pt resides with her spouse. She no longer drives d/t back problems. She uses a walker to ambulate. Smoking Status: Current every day smoker Past Alcohol Use History: None Reported Additional Past Alcohol Use History / Comment(s): Pt started smoking in 1967 and was a ppd smoker but is down to 5 cigarettes a day Past Drug Use History: None Reported - Past Family History Mother Additional Family Medical History / Comment(s): osteoporosis Father Family Medical History: COPD, Myocardial Infarction (UT) Additional Family Medical History / Comment(s): Father of a massive UT at the age of 77yrs. Medications and Allergies Home Medications Medication Instructions Recorded Confirmed Type Atorvastatin [Lipitor] 40 mg PO DAILY 08/07/21 01/09/22 History Cholecalciferol [Vitamin D3 (125 125 mcg PO DAILY 08/07/21 01/09/22 History Mcg = 5000 Iu)] Furosemide [Lasix] 40 mg PO DAILY 08/07/21 01/09/22 History Vitamin A [Vitamin A (8,000 Units 2,400 mcg PO DAILY 08/07/21 01/09/22 History = 2,400 MCG)] Warfarin Sodium 5 mg PO DAILY 08/07/21 01/09/22 History Omeprazole 20 mg PO BID 10/10/21 01/09/22 History Cyanocobalamin (Vitamin B-12) 1,000 mcg PO DAILY 10/22/21 01/09/22 History [Vitamin B-12] Magnesium 250 mg PO DAILY 10/22/21 01/09/22 History Docusate [Colace] 100 mg PO DAILY 10/29/21 01/09/22 History HYDROcodone/APAP 5-325MG [[place] 1 tab PO TID 12/17/21 01/09/22 History 5-325] Metoprolol Succinate (ER) [Toprol 25 mg PO DAILY 12/17/21 01/09/22 History XL] Ondansetron [Zofran] 4 mg PO QID PRN 12/17/21 01/09/22 History Flecainide [Tambocor] 50 mg PO BID@0700,1900 01/09/22 01/09/22 History Amoxic-Pot Clav 875-125Mg 1 tab PO Q12HR 7 Days #14 tab 01/10/22 Rx [Augmentin 875-125] Allergies Allergy/AdvReac Type Severity Reaction Status Date / Time calcitonin [From Miacalcin] AdvReac Nausea & Verified 01/09/22 18:28 Vomiting Physical Exam Vitals: Vital Signs Temp Pulse Pulse Resp BP BP Pulse Ox 01/10/22 08:23 18 01/10/22 07:43 97.8 F 80 18 160/77 92 L 01/10/22 01:38 98.3 F 77 18 145/73 99 01/09/22 20:00 79 01/09/22 19:42 97.6 F 81 16 119/71 92 L 01/09/22 19:00 67 18 118/84 96 01/09/22 12:50 98.2 F 104 H 18 105/66 93 L Intake and Output 01/09/22 01/10/22 01/10/22 22:59 06:59 14:59 Intake Total 100 Balance 100 Intake: Intake, IV Titration 100 Amount Ampicillin-Sulbactam 3 gm 100 In Sodium Chloride 0.9% 100 ml @ 200 mls/hr IVPB Q6HR [facility] Rx#:[id number] Other: Voiding Method Toilet Toilet Weight 72.575 kg Results CBC & Chem 7: 01/09/22 14:47 01/09/22 14:47 Labs: Abnormal Lab Results - Last 24 Hours (Table) 01/09/22 01/09/22 01/09/22 Range/Units 12:57 14:47 20:54 PT 42.4 H (9.0-12.0) sec INR 4.2 H (<1.2) Sodium 136 L (137-145) mmol/L Glucose 110 H (74-99) mg/dL Urine Protein Trace H (Negative) Ur Leukocyte Esterase Large H (Negative) Urine WBC 13 H (0-5) /hpf Urine Mucus Rare H (None) /hpf Microbiology - Last 24 Hours (Table) 01/09/22 12:57 Urine Culture - Preliminary Urine,Voided Thrombosis Risk Factor Assmnt - Choose All That Apply Any of the Below Risk Factors Present?: No Other Risk Factors: Yes Each Risk Factor Represents 2 Points: Age 61-74 years Thrombosis Risk Factor Assessment Total Risk Factor Score: 2 Thrombosis Risk Factor Assessment Level: Low Risk Assessment and Plan Time with Patient: Less than 30
[2022-01-10 14:16] VITALS: BP 154/74; PULSE 78; TEMP 97.8
--- NOTE | 2022-01-10 23:35 | P.DS ---
Providers Date of admission: 01/09/22 17:24 Attending physician: Luis Farrar Consults: 01/09/22 17:19 Consult Physician Urgent Consulting Provider: Ananya Camara Consult Reason/Comments: Colitis, diverticulitis, possible neoplasm Do you want consulting provider notified?: Yes Primary care physician: Lashell Kimble Hospital Course: Diagnosis Generalized abdominal discomfort with nausea Diverticulitis patient is started on empiric antibiotic coverage Recently treated outpatient for UTI History atrial fibrillation, rate controlled maintained on warfarin Coagulopathy Mildy hyponatremia, hypovolemic secondary to decreased oral intake History COPD Hypertension Currently daily smoker Discharge Disposition Patient is stable for discharge on oral antibiotics. She was evaluated by GI and cleared for discharge. Recommend to follow up with primary care in 1 to 2 days. Hospital Course This is a pleasant 76 year old female who was recommend to come to the by primary care for ongoing abdominal discomfort with nausea and headache. Patient states she has been having ongoing issues with UTI outpatient and is currently on cipro. She did have repeat UA which has leukocyte esterase, culture is negat ursula. Abdomninal pelvis CT is suspicious for diverticulitis for which she was placed on clear liquid diet, and started on empiric antibiotic therapy with IV Unasyn. Symptoms improved overnight. She was evaluated by GI services and recently had endoscopy performed in September of this year. Recommending to continue with antibiotic treatment for 10 days post discharge. She will discharge on oral ceftin and oral metronidazole. She does take flecainaide and is on warfarin therapy for history of atrial fibrillation. INR today is 3.7. She is given script for repeat INR in 2 days. Patient will be discharge home. Please see medical H & P for additional information. Thank you for allowing us to participate in the care of this patient. Please see medication reconciliation for a list of current medication. The impression and plan of care has been dictated by Alexandra Cotton Nurse Practitioner as directed. Dr. Melissa MD I have performed a history and physical examination and medical decision making of this patient, discussed the same with the dictator, and agree with the dictators assessment and plan as written, documented as a scribe. Based on total visit time, I have performed more than 50% of this visit. Patient Condition at Discharge: Stable Plan - Discharge Summary New Discharge Prescriptions: New metroNIDAZOLE [Flagyl] 500 mg PO TID 10 Days #30 tab cefUROXime axetiL [Ceftin] 500 mg PO BID 10 Days #20 tab Continue Vitamin A [Vitamin A (8,000 Units = 2,400 MCG)] 2,400 mcg PO DAILY Warfarin Sodium 5 mg PO DAILY Furosemide [Lasix] 40 mg PO DAILY Omeprazole 20 mg PO BID Magnesium 250 mg PO DAILY Ondansetron [Zofran] 4 mg PO QID PRN PRN Reason: Nausea Metoprolol Succinate (ER) [Toprol XL] 25 mg PO DAILY Flecainide [Tambocor] 50 mg PO BID@0700,1900 Cholecalciferol [Vitamin D3 (125 Mcg = 5000 Iu)] 125 mcg PO DAILY Atorvastatin [Lipitor] 40 mg PO DAILY Cyanocobalamin (Vitamin B-12) [Vitamin B-12] 1,000 mcg PO DAILY Docusate [Colace] 100 mg PO DAILY HYDROcodone/APAP 5-325MG [[place] 5-325] 1 tab PO TID Discontinued Ciprofloxacin HCl [Cipro] 500 mg PO BID Discharge Medication List Atorvastatin [Lipitor] 40 mg PO DAILY 08/07/21 [History] Cholecalciferol [Vitamin D3 (125 Mcg = 5000 Iu)] 125 mcg PO DAILY 08/07/21 [History] Furosemide [Lasix] 40 mg PO DAILY 08/07/21 [History] Vitamin A [Vitamin A (8,000 Units = 2,400 MCG)] 2,400 mcg PO DAILY 08/07/21 [History] Warfarin Sodium 5 mg PO DAILY 08/07/21 [History] Omeprazole 20 mg PO BID 10/10/21 [History] Cyanocobalamin (Vitamin B-12) [Vitamin B-12] 1,000 mcg PO DAILY 10/22/21 [History] Magnesium 250 mg PO DAILY 10/22/21 [History] Docusate [Colace] 100 mg PO DAILY 10/29/21 [History] HYDROcodone/APAP 5-325MG [[place] 5-325] 1 tab PO TID 12/17/21 [History] Metoprolol Succinate (ER) [Toprol XL] 25 mg PO DAILY 12/17/21 [History] Ondansetron [Zofran] 4 mg PO QID PRN 12/17/21 [History] Flecainide [Tambocor] 50 mg PO BID@0700,1900 01/09/22 [History] cefUROXime axetiL [Ceftin] 500 mg PO BID 10 Days #20 tab 01/10/22 [Rx] metroNIDAZOLE [Flagyl] 500 mg PO TID 10 Days #30 tab 01/10/22 [Rx] Follow up Appointment(s)/Referral(s): Lashell Kimble MD [Primary Care Provider] - 1-2 days Ananya Camara MD [STAFF PHYSICIAN] - 2 Weeks Ambulatory/Diagnostic Orders: Prothrombin Time INR [LAB.AMB] Time Frame: 2 Days, Location: None Selected Patient Instructions/Handouts: Diverticulitis (DC) Activity/Diet/Wound Care/Special Instructions: Stop Cipro Ceftin twice a day for 10 days Start flagyl tree times a day for 10 days Check INR in 2 days Follow up with Dr Kimble in 1-2 days Follow up with Dr Camara Continue clear liquid diet advance as tolerated Discharge Disposition: HOME SELF-CARE
== END 2022-01-10 15:06 | disposition home or self-care (01) | DRG 392 ==
LOC: EC 10:58 → 5NMEDONC 17:24 → 6NMEDSUR 18:30
PROVIDERS: ADMIT Hospitalist; ATTEND Hospitalist
DX: K57.32 Diverticulitis of large intestine without perforation or abscess without bleeding (principal); E87.1 Hypo-osmolality and hyponatremia; N39.0 Urinary tract infection, site not specified; D68.9 Coagulation defect, unspecified; K57.30 Diverticulosis of large intestine without perforation or abscess without bleeding; I48.91 Unspecified atrial fibrillation; K59.03 Drug induced constipation; T39.1X5A Adverse effect of 4-Aminophenol derivatives, initial encounter; E86.1 Hypovolemia; D37.4 Neoplasm of uncertain behavior of colon; K44.9 Diaphragmatic hernia without obstruction or gangrene; K22.70 Barrett's esophagus without dysplasia; K21.00 Gastro-esophageal reflux disease with esophagitis, without bleeding; J44.9 Chronic obstructive pulmonary disease, unspecified; G89.29 Other chronic pain; I10 Essential (primary) hypertension; F17.210 Nicotine dependence, cigarettes, uncomplicated; M81.0 Age-related osteoporosis without current pathological fracture; E78.5 Hyperlipidemia, unspecified; M54.9 Dorsalgia, unspecified; Z87.81 Personal history of (healed) traumatic fracture; Z87.01 Personal history of pneumonia (recurrent); Z98.1 Arthrodesis status; Z88.8 Allergy status to other drugs, medicaments and biological substances; Z87.440 Personal history of urinary (tract) infections; Z87.11 Personal history of peptic ulcer disease; Z79.899 Other long term (current) drug therapy; Z79.01 Long term (current) use of anticoagulants; Z79.891 Long term (current) use of opiate analgesic; Z86.010 Personal history of colon polyps; Z82.49 Family history of ischemic heart disease and other diseases of the circulatory system; Z82.41 Family history of sudden cardiac death
CPT/HCPCS: 36415; 74177; 80053; 81001; 82150; 83605; 83690; 84484; 85025; 85610; 87040; 87086; 96361; 96365; 96375; 99285

== ENCOUNTER 2022-02-03 19:56 | Inpatient (IN) | payer MEDICARE ==
[2022-02-03] MEDS ORDERED: HYDROmorphone 1 MG/ML 1 ML SYRINGE IVP STA (20:17)
[2022-02-03] MEDS ORDERED: ONDANSETRON 4 MG/2 ML VIAL IVP STA (20:17)
--- NOTE | 2022-02-03 20:25 | ED ---
General Adult HPI - General Chief complaint: Shortness of Breath Stated complaint: Shortness of Breath Time Seen by Provider: 02/03/22 20:06 Source: EMS, RN notes reviewed Mode of arrival: EMS Limitations: no limitations - History of Present Illness Initial comments: This is an anxious 76-year-old female who presents to the emergency department via EMS from home with complaints of shortness of breath that has been progressively worsening throughout the day. The patient she feels as if there is a tight band squeezing around her entire chest and she cannot take a full breath. No aggravating or alleviating factors. No history of COPD or lung problems. Was given Solu-Medrol and two neb treatments with no improvement. Denies fever, chills, dizziness, nasal drainage, cough, or congestion. She is tearfully explaining that she has four vertebral fractures that are causing her significant discomfort as well. States she is due for pain medication but did not take it prior to arrival. Denies any recent trauma, injury, or fall. - Related Data Home Medications Medication Instructions Recorded Confirmed Atorvastatin [Lipitor] 40 mg PO DAILY@69908/07/21 02/03/22 Cholecalciferol [Vitamin D3 (125 125 mcg PO DAILY@69908/07/21 02/03/22 Mcg = 5000 Iu)] Furosemide [Lasix] 40 mg PO DAILY@69908/07/21 02/03/22 Vitamin A [Vitamin A (8,000 Units 2,400 mcg PO DAILY@69908/07/21 02/03/22 = 2,400 MCG)] Warfarin Sodium 5 mg PO DAILY@0708/07/21 02/03/22 Omeprazole 20 mg PO BID@0700,1900 10/10/21 02/03/22 Cyanocobalamin (Vitamin B-12) 1,000 mcg PO DAILY@69910/22/21 02/03/22 [Vitamin B-12] Magnesium 250 mg PO DAILY@69910/22/21 02/03/22 Docusate [Colace] 100 mg PO DAILY@69910/29/21 02/03/22 HYDROcodone/APAP 5-325MG [[place] 1 tab PO TID 12/17/21 02/03/22 5-325] Ondansetron [Zofran] 4 mg PO QID PRN 12/17/21 02/03/22 Flecainide [Tambocor] 50 mg PO BID@0700,1900 01/09/22 02/03/22 Lactobacillus Rhamnosus GG 1 cap PO BID@0700,1900 02/03/22 02/03/22 [Culturelle] Metoprolol Succinate [Toprol XL] 50 mg PO BID@0700,1900 02/03/22 02/03/22 Sennosides [Senokot] 8.6 mg PO HS@1900 02/03/22 02/03/22 Allergies Allergy/AdvReac Type Severity Reaction Status Date / Time calcitonin [From Miacalcin] AdvReac Nausea & Verified 02/03/22 20:03 Vomiting Review of Systems ROS Statement: Those systems with pertinent positive or pertinent negative responses have been documented in the HPI. ROS Other: All systems not noted in ROS Statement are negative. Past Medical History Past Medical History: Atrial Fibrillation, COPD, GERD/Reflux, Hyperlipidemia, Hypertension, Pneumonia Additional Past Medical History / Comment(s): Chronic back pain/vertebral fractures, osteoporosis, bronchitis, gastric ulcers, lower leg edema, constipation. History of Any Multi-Drug Resistant Organisms: None Reported Past Surgical History: Appendectomy, Back Surgery, Hysterectomy Additional Past Surgical History / Comment(s): Kyphoplasties. Past Anesthesia/Blood Transfusion Reactions: No Reported Reaction Past Psychological History: No Psychological Hx Reported Smoking Status: Current every day smoker Past Alcohol Use History: None Reported Past Drug Use History: None Reported - Past Family History Mother Additional Family Medical History / Comment(s): osteoporosis Father Family Medical History: COPD, Myocardial Infarction ([place]) Additional Family Medical History / Comment(s): Father of a massive [place] at the age of 77yrs. General Exam Limitations: no limitations General appearance: alert, anxious, in distress (This is an anxious, ill- appearing female. Initial temperature is 97.8, pulse 76, respirations 19, blood pressure 125/73, pulse ox 100% on nasal cannula) Eye exam: Present: normal appearance, PERRL, EOMI. Absent: scleral icterus, conjunctival injection, periorbital swelling ENT exam: Present: mucous membranes dry Respiratory exam: Present: other (tachypneic, hypoxic). Absent: normal lung sounds bilaterally (Diminished lung sounds throughout), respiratory distress, wheezes, rales, rhonchi, stridor, chest wall tenderness Cardiovascular Exam: Present: regular rate, normal rhythm (h/o A.Fib but regular rate and rhythm at this time.), normal heart sounds GI/Abdominal exam: Present: soft, normal bowel sounds, other (Left lower quadrant abdominal pain has been ongoing for weeks and is attributed to constipation secondary to pain medication.). Absent: distended, tenderness, guarding, rebound, rigid Back exam: Present: vertebral tenderness (Lower thoracic and upper lumbar vertebral tenderness upon palpation. Patient is unable to find position of comfort. Attempted to reposition several times during assessment.) Neurological exam: Present: alert, oriented X3 Psychiatric exam: Present: anxious Skin exam: Present: warm, dry, intact Course Vital Signs 02/03/22 02/03/22 02/03/22 19:56 20:04 23:13 Temperature 97.8 F Pulse Rate 76 147 H Respiratory 19 22 Rate Blood Pressure 125/73 O2 Sat by Pulse 100 86 L Oximetry 02/03/22 02/03/22 02/03/22 23:18 23:29 23:47 Temperature Pulse Rate 75 118 H Respiratory 18 18 Rate Blood Pressure 97/60 107/64 O2 Sat by Pulse 94 L 96 Oximetry 02/04/22 02/04/22 00:50 02:28 Temperature 98 F Pulse Rate 107 H 98 Respiratory 18 18 Rate Blood Pressure 100/54 111/64 O2 Sat by Pulse 95 Oximetry - Reevaluation(s) Reevaluation #1: 02/03/22 23:10 Notified by nurse that patient's heart rate is elevated and fluctuating between 105-130. Rhythm appears irregular and patient has a history of atrial fibrillation. EKG will be obtained and will continue to monitor. Took evening dose of Metoprolol prior to arrival. CTA pending. Patient has been taking Coumadin as prescribed. Denies chest pain. 02/04/22 00:00 CT negative for PE. Heart rate fluctuations significantly affected by pain. Current heart rate 89-120, though primarily in the 90s. Patient will be admitted for further evaluation and treatment. Medical Decision Making - Medical Decision Making This is a 76-year-old female with a past medical history of atrial fibrillation, hypertension, and multiple vertebral compression fractures who presents to the emergency Department with complaints of shortness of breath. Upon exam, patient is ill-appearing. She is tachypneic and anxious reporting orthopnea and chest tightness, in addition to back pain attributed to known fractures. 2-4 L of oxygen via nasal cannula is required to maintain oxygen saturation greater than 90%. Chest x-ray shows new onset CHF with pulmonary edema. She is given Lasix via IV with good urine output. Laboratory studies were obtained. INR is therapeutic. D-dimer 1.26. BNP is 2750. CT chest negative for PE. Initial EKG shows normal sinus rhythm with a rate in the 70s, however patient did flip into A. fib variable rate as high as 140 however remained 90-105. Dilaudid was given for pain control. Patient is taking home medications as prescribed. Admitted to the hospital for further evaluation and treatment. Cardiology is consulted for new onset CHF. This patient's care was discussed at length with my attending, Dr. Mistry. - Lab Data Result diagrams: 02/03/22 20:32 02/03/22 20:32 Lab Results 02/03/22 02/03/22 02/03/22 Range/Units 20:32 20:32 20:32 WBC 8.5 (3.8-10.6) k/uL RBC 4.14 (3.80-5.40) m/uL Hgb 12.9 (11.4-16.0) gm/dL Hct 39.3 (34.0-46.0) % MCV 94.8 (80.0-100.0) fL MCH 31.1 (25.0-35.0) pg MCHC 32.8 (31.0-37.0) g/dL RDW 14.4 (11.5-15.5) % Plt Count 274 (150-450) k/uL MPV 9.0 Neutrophils % 78 % Lymphocytes % 14 % Monocytes % 4 % Eosinophils % 2 % Basophils % 1 % Neutrophils # 6.6 (1.3-7.7) k/uL Lymphocytes # 1.2 (1.0-4.8) k/uL Monocytes # 0.4 (0-1.0) k/uL Eosinophils # 0.2 (0-0.7) k/uL Basophils # 0.1 (0-0.2) k/uL Hypochromasia Slight PT 27.1 H (9.0-12.0) sec INR 2.7 H (<1.2) APTT 33.1 H (22.0-30.0) sec D-Dimer 1.26 H (<0.60) mg/L FEU Sodium 137 (137-145) mmol/L Potassium 3.7 (3.5-5.1) mmol/L Chloride 101 (98-107) mmol/L Carbon Dioxide 23 (22-30) mmol/L Anion Gap 13 mmol/L BUN 14 (7-17) mg/dL Creatinine 0.73 (0.52-1.04) mg/dL Est GFR (CKD-EPI)AfAm >90 (>60 ml/min/1.73 sqM) Est GFR (CKD-EPI)NonAf 82 (>60 ml/min/1.73 sqM) Glucose 135 H (74-99) mg/dL Plasma Lactic Acid Placido (0.7-2.0) mmol/L Calcium 9.5 (8.4-10.2) mg/dL Magnesium 1.8 (1.6-2.3) mg/dL Total Bilirubin 0.3 (0.2-1.3) mg/dL AST 24 (14-36) U/L ALT 19 (4-34) U/L Alkaline Phosphatase 115 (38-126) U/L Troponin I (0.000-0.034) ng/mL NT-Pro-B Natriuret Pep pg/mL Total Protein 6.4 (6.3-8.2) g/dL Albumin 3.8 (3.5-5.0) g/dL Coronavirus (PCR) (Not Detectd) 02/03/22 02/03/22 02/03/22 Range/Units 20:32 20:32 20:32 WBC (3.8-10.6) k/uL RBC (3.80-5.40) m/uL Hgb (11.4-16.0) gm/dL Hct (34.0-46.0) % MCV (80.0-100.0) fL MCH (25.0-35.0) pg MCHC (31.0-37.0) g/dL RDW (11.5-15.5) % Plt Count (150-450) k/uL MPV Neutrophils % % Lymphocytes % % Monocytes % % Eosinophils % % Basophils % % Neutrophils # (1.3-7.7) k/uL Lymphocytes # (1.0-4.8) k/uL Monocytes # (0-1.0) k/uL Eosinophils # (0-0.7) k/uL Basophils # (0-0.2) k/uL Hypochromasia PT (9.0-12.0) sec INR (<1.2) APTT (22.0-30.0) sec D-Dimer (<0.60) mg/L FEU Sodium (137-145) mmol/L Potassium (3.5-5.1) mmol/L Chloride (98-107) mmol/L Carbon Dioxide (22-30) mmol/L Anion Gap mmol/L BUN (7-17) mg/dL Creatinine (0.52-1.04) mg/dL Est GFR (CKD-EPI)AfAm (>60 ml/min/1.73 sqM) Est GFR (CKD-EPI)NonAf (>60 ml/min/1.73 sqM) Glucose (74-99) mg/dL Plasma Lactic Acid Placido 1.1 (0.7-2.0) mmol/L Calcium (8.4-10.2) mg/dL Magnesium (1.6-2.3) mg/dL Total Bilirubin (0.2-1.3) mg/dL AST (14-36) U/L ALT (4-34) U/L Alkaline Phosphatase (38-126) U/L Troponin I 0.015 (0.000-0.034) ng/mL NT-Pro-B Natriuret Pep 2750 pg/mL Total Protein (6.3-8.2) g/dL Albumin (3.5-5.0) g/dL Coronavirus (PCR) (Not Detectd) 02/03/22 Range/Units 20:32 WBC (3.8-10.6) k/uL RBC (3.80-5.40) m/uL Hgb (11.4-16.0) gm/dL Hct (34.0-46.0) % MCV (80.0-100.0) fL MCH (25.0-35.0) pg MCHC (31.0-37.0) g/dL RDW (11.5-15.5) % Plt Count (150-450) k/uL MPV Neutrophils % % Lymphocytes % % Monocytes % % Eosinophils % % Basophils % % Neutrophils # (1.3-7.7) k/uL Lymphocytes # (1.0-4.8) k/uL Monocytes # (0-1.0) k/uL Eosinophils # (0-0.7) k/uL Basophils # (0-0.2) k/uL Hypochromasia PT (9.0-12.0) sec INR (<1.2) APTT (22.0-30.0) sec D-Dimer (<0.60) mg/L FEU Sodium (137-145) mmol/L Potassium (3.5-5.1) mmol/L Chloride (98-107) mmol/L Carbon Dioxide (22-30) mmol/L Anion Gap mmol/L BUN (7-17) mg/dL Creatinine (0.52-1.04) mg/dL Est GFR (CKD-EPI)AfAm (>60 ml/min/1.73 sqM) Est GFR (CKD-EPI)NonAf (>60 ml/min/1.73 sqM) Glucose (74-99) mg/dL Plasma Lactic Acid Placido (0.7-2.0) mmol/L Calcium (8.4-10.2) mg/dL Magnesium (1.6-2.3) mg/dL Total Bilirubin (0.2-1.3) mg/dL AST (14-36) U/L ALT (4-34) U/L Alkaline Phosphatase (38-126) U/L Troponin I (0.000-0.034) ng/mL NT-Pro-B Natriuret Pep pg/mL Total Protein (6.3-8.2) g/dL Albumin (3.5-5.0) g/dL Coronavirus (PCR) Not Detected (Not Detectd) - EKG Data EKG shows normal: sinus rhythm Rate: normal EKG Comments: Initial EKG obtained at 2033 shows his rhythm with left axis deviation and anteroseptal myocardial infarction of indeterminate age. Ventricular rate 70, MT interval 177, QRS duration 97, QT/QTc 404/425. Interpretation abnormal ECG. Repeat EKG obtained at 2317 shows atrial fibrillation with rapid ventricular response, left axis deviation, and anteroseptal myocardial infarction, probably old. Ventricular rate 140, MT interval indeterminate, QRS duration 80, QT/QTC 202/283. Interpretation abnormal ECG. - Radiology Data Radiology results: report reviewed, image reviewed CT angiogram of the chest was obtained. Report was reviewed in its entirety. Impression per Dr. Hurt is no evidence of pulmonary embolism. Emphysema and pulmonary fibrotic changes. No suspicious pulmonary mass. Mild bronchial adenopathy is likely inflammatory. Two-view chest x-ray was obtained. Report was reviewed in its entirety. Impression per Dr. Hurt is congestive heart failure with pulmonary edema that is new compared to old exam. Disposition Clinical Impression: Congestive heart failure, Hypoxia, Dyspnea, Atrial fibrillation Disposition: ADMITTED IP TO THIS HOSP Condition: Serious Referrals: Lashell Kimble MD [Primary Care Provider] - 1-2 days Decision Date: 02/04/22 Decision Time: 00:59
[2022-02-03 20:59] LABS: Basophils # (A) 0.1 k/uL (0-0.2); Basophils % (A) 1 %; Eosinophils # (A) 0.2 k/uL (0-0.7); Eosinophils % (A) 2 %; HCT 39.3 % (34.0-46.0); HGB 12.9 gm/dL (11.4-16.0); Hypochromasia Slight; Lymphocytes # (A) 1.2 k/uL (1.0-4.8); Lymphocytes % (A) 14 %; MCH 31.1 pg (25.0-35.0); MCHC 32.8 g/dL (31.0-37.0); MCV 94.8 fL (80.0-100.0); Monocytes # (A) 0.4 k/uL (0-1.0); Monocytes % (A) 4 %; Neutrophils # (A) 6.6 k/uL (1.3-7.7); Neutrophils % (A) 78 %; Platelet Count 274 k/uL (150-450); RBC 4.14 m/uL (3.80-5.40); RDW 14.4 % (11.5-15.5); WBC 8.5 k/uL (3.8-10.6)
--- NOTE | 2022-02-03 21:03 | XR ---
EXAMINATION TYPE: XR chest 2V DATE OF EXAM: 02/03/2022 COMPARISON: 12/17/2021 HISTORY: Difficulty breathing TECHNIQUE: FINDINGS: There is pulmonary interstitial and airspace edema. There is mild cardiomegaly. There is mi ld blunting of the costophrenic angles. There is vertebroplasty in the lower thoracic spine. IMPRESSION: Congestive heart failure with pulmonary edema that is new compared to old exam. IMPRESSION:
[2022-02-03 21:06] LABS: ALT 19 U/L (4-34); AST 24 U/L (14-36); African American GFR (CKD) >90 (>60 ml/min/1.73 sqM); Albumin 3.8 g/dL (3.5-5.0); Alkaline Phosphatase 115 U/L (38-126); Anion Gap 13 mmol/L; Blood Urea Nitrogen 14 mg/dL (7-17); Calcium 9.5 mg/dL (8.4-10.2); Carbon Dioxide 23 mmol/L (22-30); Chloride 101 mmol/L (98-107); Glucose 135 mg/dL (74-99); Magnesium 1.8 mg/dL (1.6-2.3); Non-African American GFR(CKD) 82 (>60 ml/min/1.73 sqM); Potassium 3.7 mmol/L (3.5-5.1); Sodium 137 mmol/L (137-145); Total Bilirubin 0.3 mg/dL (0.2-1.3); Total Protein 6.4 g/dL (6.3-8.2)
[2022-02-03 21:15] LABS: INR 2.7 (<1.2); Partial Thromboplastin Time 33.1 sec (22.0-30.0); Prothrombin Time 27.1 sec (9.0-12.0)
[2022-02-03] MEDS ORDERED: FUROSEMIDE 10 MG/ML 4 ML VIAL IV STA (22:15)
--- NOTE | 2022-02-03 23:16 | CT ---
EXAMINATION TYPE: CT chest angio for PE DATE OF EXAM: 02/03/2022 COMPARISON: None HISTORY: sob CT DLP: 299.4 mGycm Automated exposure control for dose reduction was used. CONTRAST: Performed with IV Contrast, patient injected with 70 mL of Isovue 370. Images obtained from the thoracic inlet to the diaphragm with the IV contrast. There are Three-D post processed images. There is some pulmonary emphysema. There are some coarse interstitial density in the lungs consistent with scarring and subsegmental atelectasis. No pleural effusion. No pericardial effusion. Heart is b orderline enlarged. There are no hilar masses. There are some bronchial lymph nodes up to 1 cm. No mediastinal adenopathy . Thoracic aorta is atheromatous. No evidence of filling defect in the pulmonary arteries. The sternum is intact. There is vertebroplasty at T8 and T9 vertebra with 25-30% compression fractur es. There is T10 compression 20%. There is L1 compression fracture 50%. IMPRESSION: No evidence of pulmonary embolism. Emphysema and pulmonary fibrotic changes. No suspicious pulmonary mass. Mild bronchial adenopathy is likely inflammatory.
[2022-02-03] MEDS ORDERED: HYDROmorphone 0.5 MG/0.5 ML SYRINGE IVP STA (23:41)
[2022-02-04] MEDS ORDERED: HYDROmorphone 1 MG/ML 1 ML SYRINGE IVP PRN (00:51)
[2022-02-04] MEDS ORDERED: ONDANSETRON 4 MG/2 ML VIAL IVP PRN (00:51)
[2022-02-04] MEDS ORDERED: ACETAMINOPHEN TAB 325 MG TAB PO PRN (00:51)
[2022-02-04] MEDS ORDERED: ALPRAZolam 0.25 MG TAB PO PRN (00:51)
[2022-02-04] MEDS ORDERED: NALOXONE 0.4 MG/ML 1 ML VIAL IV PRN (00:51)
[2022-02-04] MEDS: FUROSEMIDE 10 MG/ML 4 ML VIAL IV SCH ×2 (01:54→14:23)
[2022-02-04 05:51] LABS: INR 2.8 (<1.2); Prothrombin Time 27.6 sec (9.0-12.0)
[2022-02-04] MEDS: PANTOPRAZOLE 40 MG TABLET PO SCH (06:56)
[2022-02-04] MEDS ORDERED: WARFARIN 5 MG TAB PO SCH (07:00)
[2022-02-04] MEDS ORDERED: HYDROcodone/APAP 5-325MG 1 EACH TAB PO SCH (09:00)
[2022-02-04] MEDS ORDERED: FLECAINIDE 50 MG TAB PO SCH (09:00)
[2022-02-04] MEDS ORDERED: METOPROLOL SUCCINATE (ER) 50 MG TAB.ER.24H PO SCH (09:00)
[2022-02-04] MEDS ORDERED: HYDROmorphone 0.5 MG/0.5 ML SYRINGE IVP PRN (09:14)
[2022-02-04] MEDS ORDERED: METOPROLOL TARTRATE 50 MG TAB PO SCH (09:30)
[2022-02-04 10:27] LABS: African American GFR (CKD) >90 (>60 ml/min/1.73 sqM); Anion Gap 8 mmol/L; Blood Urea Nitrogen 12 mg/dL (7-17); Calcium 9.2 mg/dL (8.4-10.2); Carbon Dioxide 30 mmol/L (22-30); Chloride 99 mmol/L (98-107); Glucose 149 mg/dL (74-99); Non-African American GFR(CKD) >90 (>60 ml/min/1.73 sqM); Potassium 3.7 mmol/L (3.5-5.1); Sodium 137 mmol/L (137-145)
[2022-02-04] MEDS: METOPROLOL SUCCINATE (ER) 100 MG TAB.ER.24H PO SCH (10:46)
[2022-02-04] MEDS: ATORVASTATIN 40 MG TAB PO SCH (10:46)
[2022-02-04] MEDS: DOCUSATE 100 MG CAP PO SCH (10:47)
[2022-02-04] MEDS: HYDROcodone/APAP 5-325MG 1 EACH TAB PO PRN ×2 (10:47→18:35)
--- NOTE | 2022-02-04 11:14 | P.CRDCN ---
History of Present Illness History of present illness: This is a pleasant 76-year-old female past medical history significant for Paroxysmal atrial fibrillation on Coumadin, hypertension, carotid disease, history of bowel resection in the past secondary to bowel obstruction, chronic history of tobacco use, T8 kyphoplasty 09/14/2021 secondary to compression fracture, Plan for future T10 kyphoplasty and surgery with Orthopedics, 10/03/21 Colonoscopy and EGD revealed small hiatal hernia, esophagitis, short segment Delaney's esophagus and mild antral gastritis, scattered sigmoid diverticulosis, and rectal polyp s/p biopsy. She follows in the office with Dr. Sim. We have been asked to see in consultation for congestive heart failure and history of A fib. Patient presents to the emergency department with complaints of shortness of breath, chest tightness and some nausea. She states her symptoms began Friday. Prior to this she was feeling well, felt her A fib under control. Friday, she began to be more short of breath and decided to come to the ER for further evaluation. Patient was initially in sinus rhythm. She was then tachycardic, found to be in atrial fibrillation with rapid ventricular response HR 140s. In the ER she was given IV Dilaudid and IV Lasix. Started back on Flecainide and metoprolol succinate home medications. Her chest pain has resolved, sometimes feels intermittent "rubber band" around her chest. She states this is similar symptoms to when she goes into A fib. She denies any palpitations, dizziness, syncope or near syncope. She does endorse she has been taking her medications. DIAGNOSTICS * EKG reveals atrial fibrillation with ventricular response, heart rate 140 * Telemetry tracings indicate atrial fibrillation with controlled rates HR 90s- 120s * Laboratory reviewed, CBC unremarkable, initial troponin negative, repeat 0.11, INR 2.8, sodium 137, potassium 3.7, BUN 14, serum creatinine 0.7, magnesium 1.8 * CT chest revealed no evidence of pulmonary embolism, emphysema and pulmonary prior chronic changes. Heart is borderline enlarged * Current home cardiac medications include Coumadin 5 mg daily, metoprolol succinate 50 mg twice a day, atorvastatin 40 mg nightly, Lasix 40 mg daily, flecainide 50 mg twice a day * Echocardiogram 10/2021 revealed EF 5560 %, mild mitral regurgitation * Lexiscan stress test in 2019 in the office- negative for reversible ischemia REVIEW OF SYSTEMS At the time of my exam: CONSTITUTIONAL: Denies fever or chills. CARDIOVASCULAR: + chest pain,+shortness of breath, Denies orthopnea, PND or palpitations. RESPIRATORY: Denies cough. GASTROINTESTINAL: Denies abdominal pain, diarrhea, constipation, nausea or vomiting. MUSCULOSKELETAL: Denies myalgias. NEUROLOGIC: Denies numbness, tingling, headacbe or weakness. ENDOCRINE: Denies fatigue, weight change, polydipsia or polyurina. GENITOURINARY: Denies burning, hematuria or urgency with micturation. HEMATOLOGIC: Denies history of anemia or bleeding. PHYSICAL EXAMINATION Blood pressure 107/64, heart rate 100, afebrile, oxygen saturation is 95% on 4 L nasal cannula CONSTITUTIONAL: No apparent distress. HEENT: Head is normocephalic. Pupils are equal, round. Sclerae anicteric. Mucous membranes of the mouth are moist. No JVD CHEST EXAMINATION: Lungs are clear to auscultation. No chest wall tenderness is noted on palpation or with deep breathing. HEART EXAMINATION: Irregular rate and rhythm. S1, S2 heard. No murmurs, gallops or rub. ABDOMEN: Soft, nontender. Positive bowel sounds. EXTREMITIES: 2+ peripheral pulses, no lower extremity edema and no calf tenderness. NEUROLOGIC EXAMINATION: Patient is awake, alert and oriented x3. ASSESSMENT Paroxysmal atrial fibrillation with RVR on Coumadin Chest discomfort, possible related to A fib with RVR, rule out ischemia, no evidence of acute ischemic changes on EKG Elevated troponin History of hypertension Carotid artery disease History of bowel resection in the past secondary to bowel obstruction Chronic history of tobacco use History of compression fracture PLAN Obtain 3rd troponin Discontinue flecainide Increase metoprolol succinate to 100mg morning, 50mg at night Continue Coumadin for anticoagulation Daily INR Continue statin. Continue IV Lasix for 24 hours Monitor I/Os, daily weights, renal function Obtain 2D echocardiogram and doppler study to assess cardiac structure and function. Monitor on telemetry Further recommendations based on clinical course Nurse practitioner note has been reviewed by physician. Signing provider agrees with the documented findings, assessment, and plan of care. Past Medical History Past Medical History: Atrial Fibrillation, COPD, GERD/Reflux, Hyperlipidemia, Hypertension, Pneumonia Additional Past Medical History / Comment(s): Chronic back pain/vertebral fractures, osteoporosis, bronchitis, gastric ulcers, lower leg edema, co nstipation. History of Any Multi-Drug Resistant Organisms: None Reported Past Surgical History: Appendectomy, Back Surgery, Hysterectomy Additional Past Surgical History / Comment(s): Kyphoplasties. Past Anesthesia/Blood Transfusion Reactions: No Reported Reaction Past Psychological History: No Psychological Hx Reported Smoking Status: Current every day smoker Past Alcohol Use History: None Reported Past Drug Use History: None Reported - Past Family History Mother Additional Family Medical History / Comment(s): osteoporosis Father Family Medical History: COPD, Myocardial Infarction ([place]) Additional Family Medical History / Comment(s): Father of a massive [place] at the age of 77yrs. Medications and Allergies Home Medications Medication Instructions Recorded Confirmed Type Atorvastatin [Lipitor] 40 mg PO DAILY@69908/07/21 02/03/22 History Cholecalciferol [Vitamin D3 (125 125 mcg PO DAILY@69908/07/21 02/03/22 History Mcg = 5000 Iu)] Furosemide [Lasix] 40 mg PO DAILY@69908/07/21 02/03/22 History Vitamin A [Vitamin A (8,000 Units 2,400 mcg PO DAILY@69908/07/21 02/03/22 History = 2,400 MCG)] Warfarin Sodium 5 mg PO DAILY@69908/07/21 02/03/22 History Omeprazole 20 mg PO BID@07,189910/10/21 02/03/22 History Cyanocobalamin (Vitamin B-12) 1,000 mcg PO DAILY@69910/22/21 02/03/22 History [Vitamin B-12] Magnesium 250 mg PO DAILY@69910/22/21 02/03/22 History Docusate [Colace] 100 mg PO DAILY@69910/29/21 02/03/22 History HYDROcodone/APAP 5-325MG [[place] 1 tab PO TID 12/17/21 02/03/22 History 5-325] Ondansetron [Zofran] 4 mg PO QID PRN 12/17/21 02/03/22 History Flecainide [Tambocor] 50 mg PO BID@0700,189901/09/22 02/03/22 History Lactobacillus Rhamnosus GG 1 cap PO BID@07,189902/03/22 02/03/22 History [Culturelle] Metoprolol Succinate [Toprol XL] 50 mg PO BID@0700,1900 02/03/22 02/03/22 History Sennosides [Senokot] 8.6 mg PO HS@1900 02/03/22 02/03/22 History Allergies Allergy/AdvReac Type Severity Reaction Status Date / Time calcitonin [From Miacalcin] AdvReac Nausea & Verified 02/03/22 20:03 Vomiting Physical Exam Vitals: Vital Signs Temp Pulse Pulse Resp BP BP Pulse Ox 02/04/22 03:20 97.8 F 100 18 107/64 95 02/04/22 02:28 98 F 98 18 111/64 95 02/04/22 00:50 107 H 18 100/54 02/03/22 23:47 118 H 18 107/64 02/03/22 23:29 75 18 97/60 96 02/03/22 23:18 94 L 02/03/22 23:13 147 H 86 L 02/03/22 20:04 22 02/03/22 19:56 97.8 F 76 19 125/73 100 Intake and Output 02/03/22 02/04/22 02/04/22 22:59 06:59 14:59 Other: Weight 71.214 kg 71.214 kg Results 02/03/22 20:32 02/04/22 09:48 Cardiac Enzymes 02/03/22 02/03/22 02/04/22 Range/Units 20:32 20:32 05:09 AST 24 (14-36) U/L Troponin I 0.015 0.113 H* (0.000-0.034) ng/mL Coagulation 02/03/22 02/04/22 Range/Units 20:32 05:09 PT 27.1 H 27.6 H (9.0-12.0) sec APTT 33.1 H (22.0-30.0) sec CBC 02/03/22 Range/Units 20:32 WBC 8.5 (3.8-10.6) k/uL RBC 4.14 (3.80-5.40) m/uL Hgb 12.9 (11.4-16.0) gm/dL Hct 39.3 (34.0-46.0) % Plt Count 274 (150-450) k/uL Comprehensive Metabolic Panel 02/03/22 Range/Units 20:32 Sodium 137 (137-145) mmol/L Potassium 3.7 (3.5-5.1) mmol/L Chloride 101 (98-107) mmol/L Carbon Dioxide 23 (22-30) mmol/L BUN 14 (7-17) mg/dL Creatinine 0.73 (0.52-1.04) mg/dL Glucose 135 H (74-99) mg/dL Calcium 9.5 (8.4-10.2) mg/dL AST 24 (14-36) U/L ALT 19 (4-34) U/L Alkaline Phosphatase 115 (38-126) U/L Total Protein 6.4 (6.3-8.2) g/dL Albumin 3.8 (3.5-5.0) g/dL Current Medications Generic Name Dose Route Start Last Admin Trade Name Freq PRN Reason Stop Dose Admin Acetaminophen 650 mg 02/04/22 00:51 Acetaminophen Tab 325 Mg Tab PO Q6HR PRN Mild Pain or Fever > 100.5 Alprazolam 0.25 mg 02/04/22 00:51 Alprazolam 0.25 Mg Tab PO Q6HR PRN Anxiety Atorvastatin Calcium 40 mg 02/04/22 09:00 Atorvastatin 40 Mg Tab PO DAILY [facility] Docusate Sodium 100 mg 02/04/22 09:00 Docusate 100 Mg Cap PO DAILY [facility] Flecainide Acetate 50 mg 02/04/22 09:00 Flecainide 50 Mg Tab PO BID [facility] Furosemide 40 mg 02/04/22 01:00 02/04/22 01:54 Furosemide 10 Mg/Ml 4 Ml Vial IV 40 mg Q12H MAURICIO Administration Hydromorphone HCl 1 mg 02/04/22 00:51 02/04/22 06:56 Hydromorphone 1 Mg/Ml 1 Ml Syringe IVP 1 mg Q3HR PRN Administration Severe Pain Metoprolol Succinate 50 mg 02/04/22 09:00 Metoprolol Succinate (Er) 50 Mg Tab.Er.24h PO BID [facility] Miscellaneous Information 0 each 02/04/22 01:15 Warfarin Per Pharmacy MISCELLANE DIRECTED PRN PER PROTOCOL Naloxone HCl 0.2 mg 02/04/22 00:51 Naloxone 0.4 Mg/Ml 1 Ml Vial IV Q2M PRN Opioid Reversal Ondansetron HCl 4 mg 02/04/22 00:51 Ondansetron 4 Mg/2 Ml Vial IVP Q8HR PRN Nausea And Vomiting Pantoprazole Sodium 40 mg 02/04/22 07:30 02/04/22 06:56 Pantoprazole 40 Mg Tablet PO 40 mg [id number] [facility] Administration Intake and Output 02/03/22 02/04/22 02/04/22 22:59 06:59 14:59 Other: Weight 71.214 kg 71.214 kg 02/03/22 20:32 02/03/22 20:32
[2022-02-04 11:28] LABS: T4, Free (Free Thyroxine) 1.73 ng/dL (0.78-2.19)
--- NOTE | 2022-02-04 13:26 | CA ---
Transthoracic Echo Report Name: Job Pathak Age: 76 Gender: F : 1945 Exam Date: 02/04/2022 09:33 Exam Location: [facility] Ht (in): 66 Wt (lb): 157 Ordering Physician: Deedee Britton Attending/Referring Phys: Industrial Roofer Helper Emily Ramos RDCS Procedure CPT: Indications: New onset CHF Cardiac Hx: Technical Quality: Good Contrast 1: Total Dose (mL): Contrast 2: Total Dose (mL): MEASUREMENTS (Male / Female) Normal Values 2D ECHO LV Diastolic Diameter PLAX 3.7 cm 4.2 - 5.9 / 3.9 - 5.3 cm LV Systolic Diameter PLAX 3.2 cm IVS Diastolic Thickness 1.2 cm 0.6 - 1.0 / 0.6 - 0.9 cm LVPW Diastolic Thickness 1.1 cm 0.6 - 1.0 / 0.6 - 0.9 cm LV Relative Wall Thickness 0.6 DOPPLER TR Peak Velocity 268.7 cm/s TR Peak Gradient 28.9 mmHg Right Ventricular Systolic Press 33.9 mmHg FINDINGS Left Ventricle Mildly increased septal wall thickness. Mildly increased posterior wall thickness. Left ventricular ejection fraction is estimated at 35-40 %. Apical hypokinesis Right Ventricle Right Atrium Left Atrium Mitral Valve Aortic Valve Tricuspid Valve Pulmonic Valve Pericardium No pericardial effusion. Aorta CONCLUSIONS Left ventricular ejection fraction 35-40% with apical and septal hypokinesis. Mild LVH Mild mitral regurgitation No pericardial effusion Previewed by: Dr. Abdon Capone DO (Electronically Signed) Final Date: 04 February 2022 13:25
[2022-02-04] MEDS: NICOTINE 14MG/24HR PATCH TRANSDERM SCH (14:22)
--- NOTE | 2022-02-04 14:41 | P.HPIM ---
History of Present Illness H&P Date: 02/04/22 This is a 76-year-old female patient of Dr. Kimble past medical history significant for Atrial fibrillation, COPD, GERD, hypertension, hyperlipidemia, history of peripheral edema, chronic back pain. Patient is a daily smoker. Patient presents to the emergency room with complaints of shortness of breath progressively worse over the day. She states by the evening she could barely catch her breath. Denies fever or chills. She does report cough that started on Friday as well with mucoid sputum. No dizziness or lightheadedness, no chest pain. Patient does like there is a tight band squeezing her entire chest cannot take a full breath. Minimal improvement with IV Solumedrol and duo nebs given in the EC. She was also found to be hypoxic. Patient does have vertebral fractures and reports significant back pain as well, she has had 2 prior surgeries with cementing. She sees Dr Mejia and also has an appointment with neurologist at Dr Fajardo office for further management regarding back pain. In itial chest xray showing congestive heart failure with pulmonary edema that appears new. Reports abdominal fullness after small meals. D-Dimer was elevated at 1.26, INR 2.8 patient is anticoagulated with coumadin. Glucose 135. Troponin elevation at 0.015, 0.113. proBNP found to be 2750. Covid negative. Patient had CT angiography chest negative for pulmonary embolism. Showing emphysema and pulmonary fibrotic changes. There is mild bronchial adenopathy is likely inflammatory with no suspicious pulmonary mass. Echocardiogram has been ordered and patient is admitted to the hospital with consults placed to cardiology. Patient received a dose of IV Lasix in the EC to start IV Lasix 40 mg every 12. On admission patient is afebrile, heart with mild tachycardia 118, blood pressure 111/64, 95% on 3L nasal cannula. Patient was hypoxic on room air, 84- 86%. REVIEW OF SYSTEMS: CONSTITUTIONAL: No fever, no malaise, no fatigue. HEENT: No recent visual problems or hearing problems. Denied any sore throat. CARDIOVASCULAR: No chest pain, orthopnea, PND, no palpitations, no syncope. PULMONARY: Reports shortness of breath at rest, reports productive cough GASTROINTESTINAL: No diarrhea, no nausea, no vomiting, no abdominal pain. NEUROLOGICAL: No headaches, no weakness, no numbness. HEMATOLOGICAL: Denies any bleeding or petechiae. GENITOURINARY: Denies any burning micturition, frequency, or urgency. MUSCULOSKELETAL/RHEUMATOLOGICAL: Reported peripheral edema at home ENDOCRINE: Denies any polyuria or polydipsia. The rest of the 14-point review of systems is negative. PHYSICAL EXAMINATION: GENERAL: The patient is alert and oriented x3, not in any acute distress. Well developed, well nourished. HEENT: Pupils are round and equally reacting to light. EOMI. No scleral icterus. No conjunctival pallor. Normocephalic, atraumatic. No pharyngeal erythema. No thyromegaly. CARDIOVASCULAR: S1 and S2 present. No murmurs, rubs, or gallops. PULMONARY: Chest is clear to auscultation, no wheezing or crackles. Bases are diminished. ABDOMEN: Soft, nontender, nondistended, normoactive bowel sounds. No palpable organomegaly. MUSCULOSKELETAL: No joint swelling or deformity. EXTREMITIES: No cyanosis, clubbing, or pedal edema. NEUROLOGICAL: Gross neurological examination did not reveal any focal deficits. SKIN: No rashes. Assessment and plan Assessment Acute hypoxic respiratory failure requiring 3L nasal cannula multifocal component of pulmonary fibrotic changes with mild fluid overload Dyspnea History atrial fibrillation anticoagulated with coumadin History emphysema Hypertension Hyperlidipemia Chronic back pain with known vertebral fractures Gastroesophageal reflux disease Coumadin Monitoring Hyperglycemia Nicotine Dependence GI Prophylaxis DVT Prophylaxis Full Code Plan Cardiology consultation Echocardiogram pending Continue IV lasix 40 mg Q12 strict intake and output Patient will be started on pulmicort PT/INR monitoring Pain management The impression and plan of care has been dictated by Alexandra Cotton Nurse Practitioner as directed. Dr. Melissa MD I have performed a history and physical examination and medical decision making of this patient, discussed the same with the dictator, and agree with the di ctators assessment and plan as written, documented as a scribe. Based on total visit time, I have performed more than 50% of this visit. Past Medical History Past Medical History: Atrial Fibrillation, COPD, GERD/Reflux, Hyperlipidemia, Hypertension, Pneumonia Additional Past Medical History / Comment(s): Chronic back pain/vertebral fractures, osteoporosis, bronchitis, gastric ulcers, lower leg edema, constipation. History of Any Multi-Drug Resistant Organisms: None Reported Past Surgical History: Appendectomy, Back Surgery, Hysterectomy Additional Past Surgical History / Comment(s): Kyphoplasties. Past Anesthesia/Blood Transfusion Reactions: No Reported Reaction Past Psychological History: No Psychological Hx Reported Smoking Status: Current every day smoker Past Alcohol Use History: None Reported Past Drug Use History: None Reported - Past Family History Mother Additional Family Medical History / Comment(s): osteoporosis Father Family Medical History: COPD, Myocardial Infarction ([place]) Additional Family Medical History / Comment(s): Father of a massive [place] at the age of 77yrs. Medications and Allergies Home Medications Medication Instructions Recorded Confirmed Type Atorvastatin [Lipitor] 40 mg PO DAILY@69908/07/21 02/03/22 History Cholecalciferol [Vitamin D3 (125 125 mcg PO DAILY@69908/07/21 02/03/22 History Mcg = 5000 Iu)] Furosemide [Lasix] 40 mg PO DAILY@69908/07/21 02/03/22 History Vitamin A [Vitamin A (8,000 Units 2,400 mcg PO DAILY@69908/07/21 02/03/22 History = 2,400 MCG)] Warfarin Sodium 5 mg PO DAILY@69908/07/21 02/03/22 History Omeprazole 20 mg PO BID@0700,189910/10/21 02/03/22 History Cyanocobalamin (Vitamin B-12) 1,000 mcg PO DAILY@69910/22/21 02/03/22 History [Vitamin B-12] Magnesium 250 mg PO DAILY@69910/22/21 02/03/22 History Docusate [Colace] 100 mg PO DAILY@69910/29/21 02/03/22 History HYDROcodone/APAP 5-325MG [Cyrus 1 tab PO TID 12/17/21 02/03/22 History 5-325] Ondansetron [Zofran] 4 mg PO QID PRN 12/17/21 02/03/22 History Flecainide [Tambocor] 50 mg PO BID@0700,189901/09/22 02/03/22 History Lactobacillus Rhamnosus GG 1 cap PO BID@0700,189902/03/22 02/03/22 History [Culturelle] Metoprolol Succinate [Toprol XL] 50 mg PO BID@0700,189902/03/22 02/03/22 History Sennosides [Senokot] 8.6 mg PO HS@1900 02/03/22 02/03/22 History Allergies Allergy/AdvReac Type Severity Reaction Status Date / Time calcitonin [From Miacalcin] AdvReac Nausea & Verified 02/03/22 20:03 Vomiting Physical Exam Vitals: Vital Signs Temp Pulse Pulse Resp BP BP Pulse Ox 02/04/22 08:02 95 02/04/22 03:20 97.8 F 100 18 107/64 95 02/04/22 02:28 98 F 98 18 111/64 95 02/04/22 00:50 107 H 18 100/54 02/03/22 23:47 118 H 18 107/64 02/03/22 23:29 75 18 97/60 96 02/03/22 23:18 94 L 02/03/22 23:13 147 H 86 L 02/03/22 20:04 22 02/03/22 19:56 97.8 F 76 19 125/73 100 Intake and Output 02/03/22 02/04/22 02/04/22 22:59 06:59 14:59 Intake Total 118 Output Total 800 Balance -800 118 Intake: Oral 118 Output: Urine 800 Other: Weight 71.214 kg 71.214 kg Results CBC & Chem 7: 02/03/22 20:32 02/04/22 09:48 Labs: Abnormal Lab Results - Last 24 Hours (Table) 02/03/22 02/03/22 02/04/22 Range/Units 20:32 20:32 05:09 PT 27.1 H 27.6 H (9.0-12.0) sec INR 2.7 H 2.8 H (<1.2) APTT 33.1 H (22.0-30.0) sec D-Dimer 1.26 H (<0.60) mg/L FEU Glucose 135 H (74-99) mg/dL Troponin I (0.000-0.034) ng/mL 02/04/22 Range/Units 05:09 PT (9.0-12.0) sec INR (<1.2) APTT (22.0-30.0) sec D-Dimer (<0.60) mg/L FEU Glucose (74-99) mg/dL Troponin I 0.113 H* (0.000-0.034) ng/mL Thrombosis Risk Factor Assmnt - Choose All That Apply Each Factor Represents 1 point: Abnormal pulmonary function (COPD), Heart failure (<1month) Other Risk Factors: Yes Each Risk Factor Represents 2 Points: Age 61-74 years Other congenital or acquired thrombophilia - If yes, enter type in comment: No Thrombosis Risk Factor Assessment Total Risk Factor Score: 4 Thrombosis Risk Factor Assessment Level: Moderate Risk Assessment and Plan Time with Patient: Less than 30
[2022-02-04] MEDS ORDERED: WARFARIN 5 MG TAB PO ONE (18:00)
[2022-02-04] MEDS: SENNOSIDES 8.6 MG TAB PO SCH (18:30)
[2022-02-04] MEDS: LACTOBACILLUS ACIDOPH & BULGAR 1 EACH PACKET PO SCH (18:31)
[2022-02-04] MEDS: BUDESONIDE 0.5 MG/2 ML NEBU INHALATION SCH (19:33)
[2022-02-04] MEDS: METOPROLOL SUCCINATE (ER) 50 MG TAB.ER.24H PO SCH (21:19)
[2022-02-05] MEDS: HYDROcodone/APAP 5-325MG 1 EACH TAB PO PRN ×3 (00:10→15:41)
[2022-02-05] MEDS: FUROSEMIDE 10 MG/ML 4 ML VIAL IV SCH (00:11)
[2022-02-05] MEDS: PANTOPRAZOLE 40 MG TABLET PO SCH (06:08)
[2022-02-05] MEDS: MAGNESIUM OXIDE 400 MG TAB PO SCH (06:09)
[2022-02-05] MEDS: CYANOCOBALAMIN 500 MCG TAB PO SCH (06:09)
[2022-02-05] MEDS: CHOLECALCIFEROL 125 MCG (5000 IU) TABLET PO SCH (06:09)
[2022-02-05] MEDS: LACTOBACILLUS ACIDOPH & BULGAR 1 EACH PACKET PO SCH ×2 (06:09→18:32)
[2022-02-05] MEDS: BUDESONIDE 0.5 MG/2 ML NEBU INHALATION SCH ×2 (07:30→19:52)
[2022-02-05 07:52] LABS: Basophils # (A) 0.1 k/uL (0-0.2); Basophils % (A) 1 %; Eosinophils # (A) 0.1 k/uL (0-0.7); Eosinophils % (A) 0 %; HGB 13.2 gm/dL (11.4-16.0); Lymphocytes # (A) 1.5 k/uL (1.0-4.8); Lymphocytes % (A) 13 %; MCH 29.9 pg (25.0-35.0); MCHC 32.3 g/dL (31.0-37.0); MCV 92.8 fL (80.0-100.0); Mean Platelet Volume 8.6; Monocytes # (A) 0.7 k/uL (0-1.0); Monocytes % (A) 5 %; Neutrophils # (A) 9.7 k/uL (1.3-7.7); Neutrophils % (A) 80 %; Platelet Count 306 k/uL (150-450); RBC 4.42 m/uL (3.80-5.40); RDW 14.2 % (11.5-15.5); WBC 12.1 k/uL (3.8-10.6)
[2022-02-05 08:02] LABS: INR 2.9 (<1.2); Prothrombin Time 29.2 sec (9.0-12.0)
[2022-02-05 08:10] LABS: African American GFR (CKD) >90 (>60 ml/min/1.73 sqM); Anion Gap 10 mmol/L; Blood Urea Nitrogen 13 mg/dL (7-17); Calcium 9.2 mg/dL (8.4-10.2); Carbon Dioxide 33 mmol/L (22-30); Chloride 97 mmol/L (98-107); Glucose 99 mg/dL (74-99); Non-African American GFR(CKD) >90 (>60 ml/min/1.73 sqM); Potassium 3.2 mmol/L (3.5-5.1); Sodium 140 mmol/L (137-145)
[2022-02-05] MEDS ORDERED: POTASSIUM CHLORIDE ER 20 MEQ TAB.ER PO STA (08:55)
[2022-02-05] MEDS ORDERED: POTASSIUM CHLORIDE ER 20 MEQ TAB.ER PO SCH (09:00)
[2022-02-05] MEDS: ATORVASTATIN 40 MG TAB PO SCH (09:41)
[2022-02-05] MEDS: METOPROLOL SUCCINATE (ER) 100 MG TAB.ER.24H PO SCH (09:41)
[2022-02-05] MEDS: VITAMIN A 10,000 UNIT (3000 MCG) CAPSULE PO SCH (09:41)
[2022-02-05] MEDS: DOCUSATE 100 MG CAP PO SCH (09:42)
[2022-02-05] MEDS: SPIRONOLACTONE 25 MG TAB PO SCH (09:46)
[2022-02-05] MEDS: NICOTINE 14MG/24HR PATCH TRANSDERM SCH ×2 (11:09→18:37)
--- NOTE | 2022-02-05 11:27 | P.PN ---
Subjective This is a pleasant 76-year-old female past medical history significant for Paroxysmal atrial fibrillation on Coumadin, hypertension, carotid disease, history of bowel resection in the past secondary to bowel obstruction, chronic history of tobacco use, T8 kyphoplasty 09/14/2021 secondary to compression fracture, Plan for future T10 kyphoplasty and surgery with Orthopedics, 10/03/21 Colonoscopy and EGD revealed small hiatal hernia, esophagitis, short segment Delaney's esophagus and mild antral gastritis, scattered sigmoid diverticulosis, and rectal polyp s/p biopsy. She follows in the office with Dr. Sim. We have been asked to see in consultation for congestive heart failure and history of A fib. Patient presents to the emergency department with complaints of shortness of breath, chest tightness and some nausea. She states her symptoms began Friday. Prior to this she was feeling well, felt her A fib under control. Friday, she began to be more short of breath and decided to come to the ER for further evaluation. Patient was initially in sinus rhythm. She was then tachycardic, found to be in atrial fibrillation with rapid ventricular response HR 140s. In the ER she was given IV Dilaudid and IV Lasix. Started back on Flecainide and metoprolol succinate home medications. Her chest pain has resolved, sometimes feels intermittent "rubber band" around her chest. She states this is similar symptoms to when she goes into A fib. She denies any palpitations, dizziness, syncope or near syncope. She does endorse she has been taking her medications. 02/05/22 Patient seen and examined at bedside, shortness of breath has improved. She denies any chest pain or palpitations. She is currently maintaining in atrial fibrillation with better controlled rates HR 90s-low 100s. Her BP are stable. Labs- 3rd troponin 0.07. Sodium 140, potassium 3.2, BUN 13, sonogram 0.6, INR 2.9 Echocardiogram revealed EF 3540%, apical and septal hypokinesis, mild mitral regurgitation, no pericardial effusion PHYSICAL EXAMINATION Vitals reviewed CONSTITUTIONAL: No apparent distress. HEENT: Head is normocephalic. No JVD CHEST EXAMINATION: Lungs are clear to auscultation. No chest wall tenderness is noted on palpation or with deep breathing. HEART EXAMINATION: Irregular rate and rhythm. S1, S2 heard. No murmurs, gallops or rub. ABDOMEN: Soft, nontender. Positive bowel sounds. EXTREMITIES: 2+ peripheral pulses, no lower extremity edema and no calf tenderness. NEUROLOGIC EXAMINATION: Patient is awake, alert and oriented x3. 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 Transition to PO Lasix 40mg BID Add spironolactone 25 mg daily Discontinue flecainide Continue metoprolol succinate to 100mg morning, 50mg at night Continue Coumadin for anticoagulation Daily INR Continue statin. Recommend follow up with Dr. Sim in 1-2 weeks. Recommend maximize heart failure regimen. Patient likely will need repeat cardiac catheterization, this can be completed as an outpatient Can be considered for possible discharge home later today. Nurse practitioner note has been reviewed by physician. Signing provider agrees with the documented findings, assessment, and plan of care. Objective - Vital Signs Vital signs: Vital Signs Temp 98.1 F 02/04/22 09:55 Pulse 69 02/04/22 09:55 Resp 20 02/04/22 09:55 BP 125/73 02/04/22 09:55 Pulse Ox 95 02/04/22 09:55 FiO2 Intake & Output 02/03/22 02/04/22 02/04/22 18:59 06:59 18:59 Intake Total 118 Output Total 800 Balance -800 118 Weight 71.214 kg Intake: Oral 118 Output: Urine 800 Other: Voiding Method External Catheter - Labs CBC & Chem 7: 02/05/22 07:23 02/05/22 07:23 Labs: Abnormal Lab Results - Last 24 Hours (Table) 02/03/22 02/03/22 02/04/22 Range/Units 20:32 20:32 05:09 PT 27.1 H 27.6 H (9.0-12.0) sec INR 2.7 H 2.8 H (<1.2) APTT 33.1 H (22.0-30.0) sec D-Dimer 1.26 H (<0.60) mg/L FEU Glucose 135 H (74-99) mg/dL Troponin I (0.000-0.034) ng/mL TSH (0.465-4.680) mIU/L 02/04/22 02/04/22 02/04/22 Range/Units 05:09 09:48 09:48 PT (9.0-12.0) sec INR (<1.2) APTT (22.0-30.0) sec D-Dimer (<0.60) mg/L FEU Glucose 149 H (74-99) mg/dL Troponin I 0.113 H* 0.073 H* (0.000-0.034) ng/mL TSH 0.096 L (0.465-4.680) mIU/L
--- NOTE | 2022-02-05 12:54 | P.PN ---
Subjective Progress Note Date: 02/05/22 This is a 76-year-old female patient of Dr. Kimble past medical history significant for Atrial fibrillation, COPD, GERD, hypertension, hyperlipidemia, history of peripheral edema, chronic back pain. Patient is a daily smoker. Patient presents to the emergency room with complaints of shortness of breath pr ogressively worse over the day. She states by the evening she could barely catch her breath. Denies fever or chills. She does report cough that started on Friday as well with mucoid sputum. No dizziness or lightheadedness, no chest pain. Patient does like there is a tight band squeezing her entire chest cannot take a full breath. Minimal improvement with IV Solumedrol and duo nebs given in the EC. She was also found to be hypoxic. Patient does have vertebral fractures and reports significant back pain as well, she has had 2 prior surgeries with cementing. She sees Dr Mejia and also has an appointment with neurologist at Dr Fajardo office for further management regarding back pain. Initial chest xray showing congestive heart failure with pulmonary edema that appears new. Reports abdominal fullness after small meals. D-Dimer was elevated at 1.26, INR 2.8 patient is anticoagulated with coumadin. Glucose 135. Troponin elevation at 0.015, 0.113. proBNP found to be 2750. Covid negative. Patient had CT angiography chest negative for pulmonary embolism. Showing emphysema and pulmonary fibrotic changes. There is mild bronchial adenopathy is likely inflammatory with no suspicious pulmonary mass. Echocardiogram has been ordered and patient is admitted to the hospital with consults placed to cardiology. Patient received a dose of IV Lasix in the EC to start IV Lasix 40 mg every 12. On admission patient is afebrile, heart with mild tachycardia 118, blood pressure 111/64, 95% on 3L nasal cannula. Patient was hypoxic on room air, 84- 86%. 02/05/2022 Pain management has been consulted. Patient also endorses increasing depression due to chronic pain and feels hopeless for this reason psychiatry was also consulted for evaluation. Patient continues on IV lasix and potassium today 3.2 which will be supplemented. Negative 2.3 Liters off overnight. Patient was started on pulmicort, weaned down to 2L nasal cannula will most likely need oxygen on discharge. Previous echocardiogram shows normal LV function. Limited echocardiogram completed this admission shows an EF of 35-40% with apical and septal hypokinesis with mild mitral regurgitation. TSH 0.096, Free T4 normal at 1.73. Patients main complaint is chest pain reports as feeling tight with difficulty taking a deep breath, she does state it is left midsternal and constant. Has also reported intermittent epigastric pain. Will discuss with cardiology. Review of Systems Constitutional: Denied any fatigue denied any fever. Cardio vascular: Reports chest pain tightness, no palpitations Gastrointestinal: denied any nausea, vomiting, diarrhea Pulmonary: Reports shortness of breath difficulty taking a deep breath, cough improved. Neurologic denied any new focal deficits All inpatient medications were reviewed and appropriate changes in these medications as dictated in the interval history and assessment and plan. PHYSICAL EXAMINATION: GENERAL: The patient is alert and oriented x3, appears fatigued. Well developed, well nourished. HEENT: Pupils are round and equally reacting to light. EOMI. No scleral icterus. No conjunctival pallor. Normocephalic, atraumatic. No pharyngeal erythema. No thyromegaly. CARDIOVASCULAR: S1 and S2 present. No murmurs, rubs, or gallops. PULMONARY: Diminished bases, no wheezing ABDOMEN: Soft, nontender, nondistended, normoactive bowel sounds. No palpable organomegaly. MUSCULOSKELETAL: No joint swelling or deformity. EXTREMITIES: No cyanosis, clubbing, or pedal edema. NEUROLOGICAL: Gross neurological examination did not reveal any focal deficits. SKIN: No rashes. Assessment and plan Assessment Acute hypoxic respiratory failure requiring 2-3L nasal cannula multifocal co mponent of pulmonary fibrotic changes with mild fluid overload Acute CHF systolic dysfunction Elevated troponin Dyspnea Paroxysmal atrial fibrillation anticoagulated with coumadin History emphysema Hypertension Hyperlidipemia Chronic back pain with known vertebral fractures Gastroesophageal reflux disease Coumadin Monitoring Hyperglycemia History bowel resection secondary to bowel obstruction Nicotine Dependence GI Prophylaxis DVT Prophylaxis Full Code Plan Cardiology consultation Medication changes per cardiology Continue on pulmicort, oxygen support Pain management consultation Psychiatric consultation PT/INR monitoring Patient will possibly need home oxygen on discharge The impression and plan of care has been dictated by Alexandra Cotton, Nurse Practitioner as directed. Dr. Melissa MD I have performed a history and physical examination and medical decision making of this patient, discussed the same with the dictator, and agree with the dictators assessment and plan as written, documented as a scribe. Based on total visit time, I have performed more than 50% of this visit. Objective - Vital Signs Vital signs: Vital Signs Temp 97.9 F 02/05/22 04:00 Pulse 80 02/05/22 07:39 Resp 16 02/05/22 04:00 BP 117/71 02/05/22 04:00 Pulse Ox 91 L 02/05/22 04:00 FiO2 Intake & Output 02/04/22 02/05/22 02/05/22 18:59 06:59 18:59 Intake Total 356 120 Output Total 550 1000 Balance -194 -1000 120 Weight 69.1 kg Intake: Oral 356 120 Output: Urine 550 1000 Other: Voiding Method External Catheter External Catheter - Labs CBC & Chem 7: 02/05/22 07:23 02/05/22 07:23 Labs: Abnormal Lab Results - Last 24 Hours (Table) 02/04/22 02/04/22 02/05/22 Range/Units 09:48 09:48 07:23 WBC 12.1 H (3.8-10.6) k/uL Neutrophils # 9.7 H (1.3-7.7) k/uL PT (9.0-12.0) sec INR (<1.2) Potassium (3.5-5.1) mmol/L Chloride (98-107) mmol/L Carbon Dioxide (22-30) mmol/L Glucose 149 H (74-99) mg/dL Troponin I 0.073 H* (0.000-0.034) ng/mL TSH 0.096 L (0.465-4.680) mIU/L 02/05/22 02/05/22 Range/Units 07:23 07:23 WBC (3.8-10.6) k/uL Neutrophils # (1.3-7.7) k/uL PT 29.2 H (9.0-12.0) sec INR 2.9 H (<1.2) Potassium 3.2 L (3.5-5.1) mmol/L Chloride 97 L (98-107) mmol/L Carbon Dioxide 33 H (22-30) mmol/L Glucose (74-99) mg/dL Troponin I (0.000-0.034) ng/mL TSH (0.465-4.680) mIU/L Assessment and Plan Time with Patient: Less than 30
--- NOTE | 2022-02-05 14:23 | P.CN ---
Psychiatric Consult - . Consult date: 02/05/22 Consult:: 02/05/22 14:22 IDENTIFYING DATA: This patient is a , retired, 76-year-old female with significant history of atrial fibrillation, chronic back pain, and nicotine dependence who presented to the hospital for shortness of breath HISTORY OF PRESENT ILLNESS: The patient presented to the hospital on 02/04/2022, brought into the hospital for shortness of breath. He has been determined that the patient has been expressing acute hypoxic respiratory failure and acute CHF systolic dysfunction. Psychiatry has been consulted for evaluation and management of depression. Upon evaluation on the medical floor, the patient does admit that she's been feeling increasingly depressed since she broke her back this past August. She reports that she has been in constant pain every day for the past 6 months [facility]. She states that she has been feeling increasingly depressed with significant symptoms of low energy, anhedonia, frequent crying episodes, increased feelings of guilt, and poor sleep. However, the patient vehemently denies any suicidal or homicidal ideation, intention, and/or plan. Furthermore, the patient denies any previous attempts at suicide. She denies any significant history of bipolar disorder. She reports no history of psychosis. PAST PSYCHIATRIC HISTORY: Patient has no significant psychiatric history. Patient denies being on any psychiatric medications. Patient denies any previous psychiatric hospitalizations. Patient denies any psychiatric outpatient follow- up. Patient denies any history of suicide attempts in the past. PAST MEDICAL HISTORY: Past Medical History: Atrial Fibrillation, COPD, GERD/Reflux, Hyperlipidemia, Hypertension, Pneumonia Additional Past Medical History / Comment(s): Chronic back pain/vertebral fractures, osteoporosis, bronchitis, gastric ulcers, lower leg edema, constipation. History of Any Multi-Drug Resistant Organisms: None Reported Past Surgical History: Appendectomy, Back Surgery, Hysterectomy Additional Past Surgical History / Comment(s): Kyphoplasties. Past Anesthesia/Blood Transfusion Reactions: No Reported Reaction Past Psychological History: No Psychological Hx Reported Smoking Status: Current every day smoker Past Alcohol Use History: None Reported Past Drug Use History: None Reported ALLERGIES: Calcitonin CHEMICAL DEPENDENCY HISTORY: The patient reports smoking a half pack per day of tobacco for the last 50 years. She denies any alcohol, marijuana, or illicit drug use. FAMILY PSYCHIATRIC/SUBSTANCE USE HISTORY: No reported family psychiatric history. SOCIAL HISTORY: Patient was born in [place] and moved down to [place] for 36 years prior to relocating back to [place]. She has 1 daughter. She has been to her for 49 years. 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 She currently lives with her and 2 dogs. She reports a Islam delmer. MENTAL STATUS EXAM: General Appearance: Patient appears to be stated age is alert, pleasant, and cooperative. Patient appears to have fair hygiene and grooming wearing hospital gown with fair eye contact. Behavior: Patient is calmly lying in bed without any agitated behavior. Patient is quite tearful throughout interview. Speech: Patient's speech is fluent and nonpressured. Mood/Affect: Patient reports their mood is "frustrated", affect is tearful and withdrawn. Suicidality/Homicidality: Patient denies having any suicidal or homicidal ideation intent or plan. Perceptions: Patient denies any visual hallucinations and denies any auditory hallucinations Though content/process: There is no evidence of any delusional thought content and thought process is linear and goal-directed. Memory and concentration: AOX3, grossly intact for the purposes of this session. Can spell "WORLD" backwards Judgment and insight: Fair IMPRESSIONS: Depressive disorder secondary to general medical condition Tobacco use disorder Acute hypoxic respiratory failure requiring 2-3L nasal cannula multifocal component of pulmonary fibrotic changes with mild fluid overload Acute CHF systolic dysfunction Elevated troponin Dyspnea Paroxysmal atrial fibrillation anticoagulated with coumadin History emphysema Hypertension Hyperlidipemia Chronic back pain with known vertebral fractures Gastroesophageal reflux disease Coumadin Monitoring Hyperglycemia History bowel resection secondary to bowel obstruction PLAN: -At this time patient DOES NOT meet criteria for inpatient psychiatric admission. The patient is not presenting with imminent risk of harm to self or others at this time. -Delirium precautions recommended with patient including - avoiding use of narcotics and HEAD HOUSEKEEPER sedatives, limit anticholinergic medications when possible, frequent re-orientation, minimize use of restraints, open window shades during the day and close them at night -Would recommend the following medication changes/additions: We will start Remeron 7.5 mg daily at bedtime to help address depression, insomnia, nausea. -Patient DOES NOT require a sitter. -This provider spent approximately 20 minutes providing the patient with supportive psychotherapy and reflective listening. -Will continue to follow along loosely while the patient is currently admitted medically. However, the patient is cleared psychiatrically for discharge. 02/05/22 14:23
[2022-02-05] MEDS: FUROSEMIDE 40 MG TAB PO SCH (15:41)
--- NOTE | 2022-02-05 17:55 | P.PAINCN ---
History of Present Illness - Reason for Consult Consult date: 02/05/22 - History of Present Illness This Is 76 years old female, with a history of chronic pain syndrome secondary to thoracic and lumbar degenerative disc disease and compression fracture of the thoracic spine, patient was admitted to [facility], with the progressive shortness of breath,, and acute respiratory failure, she had a history of atrial fibrillation and COPD, and hypertension hyperlipidemia, patient is a daily smoker, patient currently on Coumadin, patient being on Zalma 5/325 every 6 hours when necessary, to manage her chronic pain syndrome secondary to compression fracture in the thoracic spine, currently patient complaining of back pain and abdominal pain, patient reported that most of her pain currently in the abdominal area in the epigastric area, and she reported that the pain in the mid back is not radiated to the abdominal area, and the epigastric pain, is constant, and is not relieved with the current medication PHYSICAL EXAMINATION: GENERAL: The patient is alert and oriented x3, not in any acute distress. Well developed, well nourished. HEENT: Pupils are round and equally reacting to light. EOMI. No scleral icterus. No conjunctival pallor. Normocephalic, atraumatic. No pharyngeal erythema. No thyromegaly. CARDIOVASCULAR: S1 and S2 present. No murmurs, rubs, or gallops. PULMONARY: Chest is clear to auscultation, no wheezing or crackles. Bases are diminished. ABDOMEN: Soft, nontender, nondistended, normoactive bowel sounds. No palpable organomegaly. MUSCULOSKELETAL: No joint swelling or deformity. EXTREMITIES: No cyanosis, clubbing, or pedal edema. NEUROLOGICAL: Gross neurological examination did not reveal any focal deficits. SKIN: No rashes. Assessment and plan Assessment Acute hypoxic respiratory failure requiring 3L nasal cannula multifocal compone nt of pulmonary fibrotic changes with mild fluid overload Dyspnea History atrial fibrillation anticoagulated with coumadin History emphysema Hypertension Hyperlidipemia Chronic back pain with known vertebral fractures Gastroesophageal reflux disease Coumadin Monitoring Hyperglycemia Nicotine Dependence GI Prophylaxis DVT Prophylaxis Full Code Plan Cardiology consultation Echocardiogram pending Continue IV lasix 40 mg Q12 strict intake and output Patient will be started on pulmicort PT/INR monitoring Pain management Vitals: Past Medical History Past Medical History: Atrial Fibrillation, COPD, GERD/Reflux, Hyperlipidemia, Hypertension, Pneumonia Additional Past Medical History / Comment(s): Chronic back pain/vertebral fractures, osteoporosis, bronchitis, gastric ulcers, lower leg edema, constipation. History of Any Multi-Drug Resistant Organisms: None Reported Past Surgical History: Appendectomy, Back Surgery, Hysterectomy Additional Past Surgical History / Comment(s): Kyphoplasties. Past Anesthesia/Blood Transfusion Reactions: No Reported Reaction Past Psychological History: No Psychological Hx Reported Smoking Status: Current every day smoker Past Alcohol Use History: None Reported Past Drug Use History: None Reported - Past Family History Mother Additional Family Medical History / Comment(s): osteoporosis Father Family Medical History: COPD, Myocardial Infarction (CO) Additional Family Medical History / Comment(s): Father of a massive CO at the age of 77yrs. Medications and Allergies Home Medications Medication Instructions Recorded Confirmed Type Atorvastatin [Lipitor] 40 mg PO DAILY@69908/07/21 02/03/22 History Cholecalciferol [Vitamin D3 (125 125 mcg PO DAILY@69908/07/21 02/03/22 History Mcg = 5000 Iu)] Furosemide [Lasix] 40 mg PO DAILY@69908/07/21 02/03/22 History Vitamin A [Vitamin A (8,000 Units 2,400 mcg PO DAILY@69908/07/21 02/03/22 History = 2,400 MCG)] Warfarin Sodium 5 mg PO DAILY@69908/07/21 02/03/22 History Omeprazole 20 mg PO BID@07,189910/10/21 02/03/22 History Cyanocobalamin (Vitamin B-12) 1,000 mcg PO DAILY@69910/22/21 02/03/22 History [Vitamin B-12] Magnesium 250 mg PO DAILY@69910/22/21 02/03/22 History Docusate [Colace] 100 mg PO DAILY@69910/29/21 02/03/22 History HYDROcodone/APAP 5-325MG [Zalma 1 tab PO TID 12/17/21 02/03/22 History 5-325] Ondansetron [Zofran] 4 mg PO QID PRN 12/17/21 02/03/22 History Lactobacillus Rhamnosus GG 1 cap PO BID@0700,1900 02/03/22 02/03/22 History [Culturelle] Sennosides [Senokot] 8.6 mg PO HS@1900 02/03/22 02/03/22 History Allergies Allergy/AdvReac Type Severity Reaction Status Date / Time calcitonin [From Miacalcin] AdvReac Nausea & Verified 02/03/22 20:03 Vomiting Physical Exam Vitals: Vital Signs Temp Pulse Pulse Resp BP Pulse Ox 02/05/22 11:00 95 16 132/74 95 02/05/22 08:15 97.9 F 100 18 108/63 91 L 02/05/22 07:39 80 02/05/22 07:31 80 02/05/22 04:00 97.9 F 96 16 117/71 91 L 02/05/22 02:00 98 18 02/05/22 00:00 97.7 F 98 18 111/71 94 L 02/04/22 20:05 98 16 02/04/22 20:00 97.8 F 98 16 100/62 97 02/04/22 16:35 97.8 F 114 H 16 124/71 92 L Intake and Output 02/04/22 02/05/22 02/05/22 22:59 06:59 14:59 Intake Total 120 120 Output Total 550 1000 300 Balance -430 -1000 -180 Intake: Oral 120 120 Output: Urine 550 1000 300 Other: Voiding Method External Catheter External Catheter External Catheter Weight 69.1 kg Physical Examinations : -Constitutiona : Cooperative , not in acute distress . -HEENT : nech : supple , no Lymphadenopathy , normal thyroid size . : eyes : no ptosis , no icterus, no photophobia . - neurologic : Cranial nerve II to XII intact , no focal neurological deffecit . -psychatric : alert , oriented X 3 , appropriate affect , intact judgment and insight . -Lymphatic : no Lymphadenopathy . -Abdomen : Tenderness in the epigastric area - musculoskeltal : Thoracic Spine : Tenderness over the thoracic paraspinal muscles around T8 to T10 levels Lumber spine moter stegnth lower extremities ,thigh and legs 4/5 Right side , 4/5 Left side Results CBC & Chem 7: 02/05/22 07:23 02/05/22 07:23 Labs: Abnormal Lab Results - Last 24 Hours (Table) 02/05/22 02/05/22 02/05/22 Range/Units 07:23 07:23 07:23 WBC 12.1 H (3.8-10.6) k/uL Neutrophils # 9.7 H (1.3-7.7) k/uL PT 29.2 H (9.0-12.0) sec INR 2.9 H (<1.2) Potassium 3.2 L (3.5-5.1) mmol/L Chloride 97 L (98-107) mmol/L Carbon Dioxide 33 H (22-30) mmol/L Assessment and Plan Plan: Assessment and plan=1-chronic back pain secondary to compression fracture in the thoracic spine(currently controlled with the Zalma 5/325 ) 2-abdominal pain,( epigastric ) patient had a history of gastritis, and she was evaluated previously by Dr. Boyer gastroenterology services I recommend, evaluation by gastroenterology regarding her abdominal pain, Time with Patient: Less than 30 PQRS Measure Charge Sheet - Pain Location None Pharmacological Interventions: Discuss Pain Med Options PQRS Narrative: Do You Want the Pneumonia Vaccine Up to Date Vaccine AT THIS TIME? Blood Pressure [Right Arm] 132/74 Blood Pressure 111/64 Pain Intensity [None] 0 Pain Intensity 6 Pain Scale Used Numeric (1 - 10) Scale Used Numeric (1 - 10) Home Medications: Ambulatory Orders Atorvastatin [Lipitor] 40 mg PO DAILY@69908/07/21 Cholecalciferol [Vitamin D3 (125 Mcg = 5000 Iu)] 125 mcg PO DAILY@69908/07/21 Furosemide [Lasix] 40 mg PO DAILY@69908/07/21 Vitamin A [Vitamin A (8,000 Units = 2,400 MCG)] 2,400 mcg PO DAILY@69908/07/21 Warfarin Sodium 5 mg PO DAILY@69908/07/21 Omeprazole 20 mg PO BID@07,189910/10/21 Cyanocobalamin (Vitamin B-12) [Vitamin B-12] 1,000 mcg PO DAILY@69910/22/21 Magnesium 250 mg PO DAILY@69910/22/21 Docusate [Colace] 100 mg PO DAILY@69910/29/21 HYDROcodone/APAP 5-325MG [Zalma 5-325] 1 tab PO TID 12/17/21 Ondansetron [Zofran] 4 mg PO QID PRN 12/17/21 Lactobacillus Rhamnosus GG [Culturelle] 1 cap PO BID@07,189902/03/22 Sennosides [Senokot] 8.6 mg PO HS@189902/03/22
[2022-02-05] MEDS ORDERED: WARFARIN 5 MG TAB PO ONE (18:00)
[2022-02-05] MEDS: SENNOSIDES 8.6 MG TAB PO SCH (18:32)
[2022-02-05] MEDS: METOPROLOL SUCCINATE (ER) 50 MG TAB.ER.24H PO SCH (20:22)
[2022-02-05] MEDS ORDERED: MIRTAZAPINE 15 MG TAB PO SCH (21:00)
[2022-02-06] MEDS: HYDROcodone/APAP 5-325MG 1 EACH TAB PO PRN ×2 (02:28→09:03)
[2022-02-06 04:18] VITALS: RESP 18
[2022-02-06] MEDS: MAGNESIUM OXIDE 400 MG TAB PO SCH (06:15)
[2022-02-06] MEDS: VITAMIN A 10,000 UNIT (3000 MCG) CAPSULE PO SCH (06:15)
[2022-02-06] MEDS: CYANOCOBALAMIN 500 MCG TAB PO SCH (06:16)
[2022-02-06] MEDS: PANTOPRAZOLE 40 MG TABLET PO SCH (06:16)
[2022-02-06] MEDS: CHOLECALCIFEROL 125 MCG (5000 IU) TABLET PO SCH (06:16)
[2022-02-06] MEDS: LACTOBACILLUS ACIDOPH & BULGAR 1 EACH PACKET PO SCH (06:16)
[2022-02-06] MEDS: BUDESONIDE 0.5 MG/2 ML NEBU INHALATION SCH (07:10)
[2022-02-06 07:58] LABS: INR 2.6 (<1.2); Prothrombin Time 25.7 sec (9.0-12.0)
[2022-02-06 08:06] LABS: Calcium 9.6 mg/dL (8.4-10.2); Potassium 4.2 mmol/L (3.5-5.1)
[2022-02-06] MEDS: METOPROLOL SUCCINATE (ER) 100 MG TAB.ER.24H PO SCH (10:10)
[2022-02-06] MEDS: NICOTINE 14MG/24HR PATCH TRANSDERM SCH (10:11)
[2022-02-06] MEDS: ATORVASTATIN 40 MG TAB PO SCH (10:11)
[2022-02-06] MEDS: SPIRONOLACTONE 25 MG TAB PO SCH (10:11)
[2022-02-06] MEDS: DOCUSATE 100 MG CAP PO SCH (10:11)
[2022-02-06] MEDS: FUROSEMIDE 40 MG TAB PO SCH (10:11)
[2022-02-06 11:04] VITALS: PULSE 114
[2022-02-06 11:05] VITALS: BP 137/92; TEMP 98.1
--- NOTE | 2022-02-06 11:59 | P.PN ---
Subjective This is a pleasant 76-year-old female past medical history significant for Paroxysmal atrial fibrillation on Coumadin, hypertension, carotid disease, history of bowel resection in the past secondary to bowel obstruction, chronic history of tobacco use, T8 kyphoplasty 09/14/2021 secondary to compression fracture, Plan for future T10 kyphoplasty and surgery with Orthopedics, 10/03/21 Colonoscopy and EGD revealed small hiatal hernia, esophagitis, short segment Delaney's esophagus and mild antral gastritis, scattered sigmoid diverticulosis, and rectal polyp s/p biopsy. She follows in the office with Dr. Sim. We have been asked to see in consultation for congestive heart failure and history of A fib. Patient presents to the emergency department with complaints of shortness of breath, chest tightness and some nausea. She states her symptoms began Friday. Prior to this she was feeling well, felt her A fib under control. Friday, she began to be more short of breath and decided to come to the ER for further evaluation. Patient was initially in sinus rhythm. She was then tachycardic, found to be in atrial fibrillation with rapid ventricular response HR 140s. In the ER she was given IV Dilaudid and IV Lasix. Started back on Flecainide and metoprolol succinate home medications. Her chest pain has resolved, sometimes feels intermittent "rubber band" around her chest. She states this is similar symptoms to when she goes into A fib. She denies any palpitations, dizziness, syncope or near syncope. She does endorse she has been taking her medications. 02/05/22 Patient seen and examined at bedside, she denies any chest pain, ,shortness of breath or palpitations. She did have some chest tightness yesterday that improved on its own. Non-radiating. She is currently maintaining in atrial fibrillation with better controlled rates HR 90s-115. Her BP are stable. Overall she is feeling well. Labs- sodium 138, potassium 4.2, BUN 15, serum creatinine 0.7 Echocardiogram revealed EF 3540%, apical and septal hypokinesis, mild mitral regurgitation, no pericardial effusion PHYSICAL EXAMINATION Vitals reviewed CONSTITUTIONAL: No apparent distress. HEENT: Head is normocephalic. No JVD CHEST EXAMINATION: Lungs are clear to auscultation. No chest wall tenderness is noted on palpation or with deep breathing. HEART EXAMINATION: Irregular rate and rhythm. S1, S2 heard. No murmurs, gallops or rub. ABDOMEN: Soft, nontender. Positive bowel sounds. EXTREMITIES: 2+ peripheral pulses, no lower extremity edema and no calf tenderness. NEUROLOGIC EXAMINATION: Patient is awake, alert and oriented x3. 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 Continue PO Lasix 40mg BID Continue spironolactone 25 mg daily Discontinue flecainide Continue metoprolol succinate to 100mg morning, 50mg at night Continue Coumadin for anticoagulation Daily INR Continue statin. Discussed with Dr. Reynolds, patient is able to be discharged today. Recommend follow up with Dr. Sim in 1-2 weeks. Recommend maximize heart failure regimen. Patient likely will need repeat cardiac catheterization, this can be completed as an outpatient Nurse practitioner note has been reviewed by physician. Signing provider agrees with the documented findings, assessment, and plan of care. Objective - Vital Signs Vital signs: Vital Signs Temp 98.1 F 02/06/22 08:00 Pulse 114 H 02/06/22 08:00 Resp 18 02/06/22 08:00 BP 137/92 02/06/22 08:00 Pulse Ox 95 02/06/22 08:00 FiO2 Intake & Output 02/05/22 02/06/22 02/06/22 18:59 06:59 18:59 Intake Total 120 20 10 Output Total 600 200 200 Balance -480 -180 -190 Intake: IV 20 10 Invasive Line 1 20 10 Oral 120 Output: Urine 600 200 200 Other: Voiding Method External Catheter External Catheter External Catheter - Labs CBC & Chem 7: 02/05/22 07:23 02/06/22 06:52 Labs: Abnormal Lab Results - Last 24 Hours (Table) 02/06/22 02/06/22 Range/Units 06:52 06:52 PT 25.7 H (9.0-12.0) sec INR 2.6 H (<1.2) Carbon Dioxide 31 H (22-30) mmol/L Glucose 104 H (74-99) mg/dL
[2022-02-06] MEDS ORDERED: WARFARIN 5 MG TAB PO ONE (18:00)
--- NOTE | 2022-02-07 00:41 | P.DS ---
Providers Date of admission: 02/04/22 01:09 Attending physician: Luis Farrar Consults: 02/04/22 00:51 Consult Physician Routine Consulting Provider: [facility] Consult Reason/Comments: New onset CHF. H/O A. Fib Do you want consulting provider notified?: Yes, Notify in am 02/04/22 15:02 Consult Physician Routine Consulting Provider: Thanh Prado Reason/Comments: depression Do you want consulting provider notified?: Already Contacted Primary care physician: Lashell Kimble Hospital Course: Diagnoses: Paroxysmal atrial fibrillation anticoagulated with coumadin Cardiomyopathy, known ischemic and nonischemic, with systolic dysfunction Elevated troponin , acute coronary syndrome as above. By grip History emphysema Hypertension Hyperlidipemia Chronic back pain with known vertebral fractures Gastroesophageal reflux disease Coumadin Monitoring Hyperglycemia History bowel resection secondary to bowel obstruction Nicotine Dependence Hospital course: This is a 76-year-old female patient of Dr. Kimble past medical history significant for Atrial fibrillation, COPD, GERD, hypertension, hyperlipidemia, history of peripheral edema, chronic back pain. Patient is a daily smoker. Patient presents to the emergency room with complaints of shortness of breath progressively worse over the day. Patient was found to have A. fib and RVR and she's been evaluated by grip with some evidence of cardiomyopathy, unknown if it is ischemic therefore grip today cleared the patient for discharge but also recommended that he follows up with Dr. Sim as an outpatient as he might need a cardiac cath then. Patient informed with this recommendation and she agrees. Currently her heart rate is controlled. She was kept on warfarin and her INR is 2.6 today. Psychiatric and intramural for some evidence of depression Patient today is back to baseline, he denies any other symptoms. Patient was cleared for discharge by grip and psychiatrist Problems and management plan were discussed with the patient and he verbalized understanding and acceptance Patient was found stable and can be discharged home however he needs follow-up as an outpatient. Patient was instructed to follow up with PCP Dr. Murry within one week and patient agrees Patient also instructed to follow up with grip Dr. Sim in one to 2 weeks and he agrees Patient says he has home prescriptions like warfarin and he does not need any new Ones Physical exam Gen: patient is a AAOx3, no distress CVS: S1-S2, RRR, no murmur Lungs: B/L CTA, no wheezing Abdomen: soft, no distention, no tenderness, positive bowel sounds Extremity: no leg edema or induration Time spent more than 35 minutes Patient Condition at Discharge: Serious Plan - Discharge Summary Discharge Rx Participant: Yes New Discharge Prescriptions: New rOPINIRole HCL [Requip] 1 mg PO HS 15 Days #15 tab Metoprolol Succinate (ER) [Toprol XL] 50 mg PO HS #30 tab Spironolactone [Aldactone] 25 mg PO DAILY #30 tab Furosemide [Lasix] 40 mg PO BID@0900,1600 #60 tab Mirtazapine [Remeron] 7.5 mg PO HS #15 tab Metoprolol Succinate (ER) [Toprol XL] 100 mg PO DAILY #30 tab lisinopriL [Zestril] 2.5 mg PO DAILY #30 tab Continue Warfarin Sodium 5 mg PO DAILY@0700 Omeprazole 20 mg PO BID@0700,1900 Magnesium 250 mg PO DAILY@0700 Ondansetron [Zofran] 4 mg PO QID PRN PRN Reason: Nausea Cholecalciferol [Vitamin D3 (125 Mcg = 5000 Iu)] 125 mcg PO DAILY@0700 Atorvastatin [Lipitor] 40 mg PO DAILY@0700 Cyanocobalamin (Vitamin B-12) [Vitamin B-12] 1,000 mcg PO DAILY@0700 Docusate [Colace] 100 mg PO DAILY@0700 HYDROcodone/APAP 5-325MG [[place] 5-325] 1 tab PO TID Sennosides [Senokot] 8.6 mg PO HS@1900 Lactobacillus Rhamnosus GG [Culturelle] 1 cap PO BID@0700,1900 Discontinued Furosemide [Lasix] 40 mg PO DAILY@0700 Flecainide [Tambocor] 50 mg PO BID@0700,1900 Metoprolol Succinate [Toprol XL] 50 mg PO BID@0700,1900 No Action Vitamin A [Vitamin A (8,000 Units = 2,400 MCG)] 2,400 mcg PO DAILY@0700 Discharge Medication List Atorvastatin [Lipitor] 40 mg PO DAILY@0700 08/07/21 [History] Cholecalciferol [Vitamin D3 (125 Mcg = 5000 Iu)] 125 mcg PO DAILY@0700 08/07/21 [History] Vitamin A [Vitamin A (8,000 Units = 2,400 MCG)] 2,400 mcg PO DAILY@0700 08/07/21 [History] Warfarin Sodium 5 mg PO DAILY@0708/07/21 [History] Omeprazole 20 mg PO BID@0700,1900 10/10/21 [History] Cyanocobalamin (Vitamin B-12) [Vitamin B-12] 1,000 mcg PO DAILY@69910/22/21 [History] Magnesium 250 mg PO DAILY@69910/22/21 [History] Docusate [Colace] 100 mg PO DAILY@69910/29/21 [History] HYDROcodone/APAP 5-325MG [[place] 5-325] 1 tab PO TID 12/17/21 [History] Ondansetron [Zofran] 4 mg PO QID PRN 12/17/21 [History] Lactobacillus Rhamnosus GG [Culturelle] 1 cap PO BID@0700,189902/03/22 [History] Sennosides [Senokot] 8.6 mg PO HS@189902/03/22 [History] Furosemide [Lasix] 40 mg PO BID@0900,1600 #60 tab 02/06/22 [Rx] Metoprolol Succinate (ER) [Toprol XL] 50 mg PO HS #30 tab 02/06/22 [Rx] Metoprolol Succinate (ER) [Toprol XL] 100 mg PO DAILY #30 tab 02/06/22 [Rx] Mirtazapine [Remeron] 7.5 mg PO HS #15 tab 02/06/22 [Rx] Spironolactone [Aldactone] 25 mg PO DAILY #30 tab 02/06/22 [Rx] lisinopriL [Zestril] 2.5 mg PO DAILY #30 tab 02/06/22 [Rx] rOPINIRole HCL [Requip] 1 mg PO HS 15 Days #15 tab 02/06/22 [Rx] Follow up Appointment(s)/Referral(s): Lashell Kimble MD [Primary Care Provider] - 02/13/22 11:00 am Milton Sim MD [STAFF PHYSICIAN] - 02/22/22 1:45 pm Patient Instructions/Handouts: Heart Failure (DC), Heart Failure (GEN), Heart Catheterization (GEN) Activity/Diet/Wound Care/Special Instructions: Heart healthy diet Activity is restricted till you see your doctors We recommend to check your INR in 2-3 days with your doctor. Discharge Disposition: HOME SELF-CARE
== END 2022-02-06 12:25 | disposition home or self-care (01) | DRG 291 ==
LOC: EC 19:56 → 3SCARD 02-04 01:09
PROVIDERS: ADMIT Hospitalist; ATTEND Hospitalist
DX: I11.0 Hypertensive heart disease with heart failure (principal); I50.23 Acute on chronic systolic (congestive) heart failure; J96.01 Acute respiratory failure with hypoxia; M80.88XA Other osteoporosis with current pathological fracture, vertebra(e), initial encounter for fracture; I42.8 Other cardiomyopathies; I48.0 Paroxysmal atrial fibrillation; I25.5 Ischemic cardiomyopathy; F17.210 Nicotine dependence, cigarettes, uncomplicated; E78.5 Hyperlipidemia, unspecified; F32.A Depression, unspecified; J43.9 Emphysema, unspecified; K44.9 Diaphragmatic hernia without obstruction or gangrene; K57.30 Diverticulosis of large intestine without perforation or abscess without bleeding; R73.9 Hyperglycemia, unspecified; G89.4 Chronic pain syndrome; M51.34 Other intervertebral disc degeneration, thoracic region; M51.36 Other intervertebral disc degeneration, lumbar region; K22.70 Barrett's esophagus without dysplasia; K21.9 Gastro-esophageal reflux disease without esophagitis; F41.9 Anxiety disorder, unspecified; K59.00 Constipation, unspecified; Z20.822 Contact with and (suspected) exposure to COVID-19; Z79.01 Long term (current) use of anticoagulants; I25.2 Old myocardial infarction; Z79.899 Other long term (current) drug therapy; Z90.49 Acquired absence of other specified parts of digestive tract; Z88.8 Allergy status to other drugs, medicaments and biological substances; Z87.19 Personal history of other diseases of the digestive system; Z87.11 Personal history of peptic ulcer disease; Z87.01 Personal history of pneumonia (recurrent); Z82.49 Family history of ischemic heart disease and other diseases of the circulatory system; Z82.5 Family history of asthma and other chronic lower respiratory diseases; Z82.62 Family history of osteoporosis; Z82.41 Family history of sudden cardiac death
CPT/HCPCS: 36415; 71046; 71275; 80048; 80053; 83605; 83735; 83880; 84439; 84443; 84484; 85025; 85379; 85610; 85730; 87635; 93005; 93308; 94640; 94760; 96374; 96375; 96376; 99285

== ENCOUNTER 2022-02-18 10:52 | Inpatient (IN) | payer MEDICARE ==
[2022-02-18] MEDS ORDERED: SODIUM CHLORIDE 0.9% 1,000 ML IV ONE ×2 (11:17→15:18)
[2022-02-18] MEDS ORDERED: SODIUM CHLORIDE 0.9% 500 ML 500 ML IV ONE (11:17)
--- NOTE | 2022-02-18 11:23 | ED ---
General Adult HPI - General Chief complaint: Shortness of Breath Stated complaint: SOB Time Seen by Provider: 02/18/22 11:00 Source: patient, RN notes reviewed, old records reviewed Mode of arrival: EMS Limitations: no limitations - History of Present Illness Initial comments: This is a 76-year-old female presents emergency Department with a past medical history significant for atrial fibrillation smoking and high blood pressure. Patient comes in today because she was at her doctor's on for her chronic back pain and she started feeling lightheaded and was having some blurred vision out of her left eye and also some shortness of breath. Patient states blurred vision has currently resolved. Patient still feels short of breath patient states she did take her blood pressure medications and her diuretics this morning. Patient denies any chest pain or palpitations. Patient still feels a little lightheaded as well. Patient denies any recent fever chills or cough per patient denies any abdominal pain patient's nausea vomiting diarrhea. Patient denies any leg swelling or calf tenderness. - Related Data Home Medications Medication Instructions Recorded Confirmed Atorvastatin [Lipitor] 40 mg PO DAILY@0708/07/21 02/18/22 Cholecalciferol [Vitamin D3 (125 125 mcg PO DAILY@69908/07/21 02/18/22 Mcg = 5000 Iu)] Vitamin A [Vitamin A (8,000 Units 2,400 mcg PO DAILY@69908/07/21 02/18/22 = 2,400 MCG)] Warfarin Sodium 5 mg PO DAILY@0708/07/21 02/18/22 Omeprazole 20 mg PO BID@0700,19010/10/21 02/18/22 Cyanocobalamin (Vitamin B-12) 1,000 mcg PO DAILY@69910/22/21 02/18/22 [Vitamin B-12] Magnesium 250 mg PO DAILY@69910/22/21 02/18/22 Docusate [Colace] 100 mg PO DAILY@69910/29/21 02/18/22 HYDROcodone/APAP 5-325MG [[place] 1 tab PO TID 12/17/21 02/18/22 5-325] Ondansetron [Zofran] 4 mg PO QID PRN 12/17/21 02/18/22 Lactobacillus Rhamnosus GG 1 cap PO BID@0700,1900 02/03/22 02/18/22 [Culturelle] Sennosides [Senokot] 8.6 mg PO HS@1900 02/03/22 02/18/22 Lactulose 10 gm PO TID PRN 02/18/22 02/18/22 Naloxone HCl [Narcan] 4 mg NASAL DAILY PRN 02/18/22 02/18/22 Nystatin 100,000 Unit/ml Susp 500,000 unit PO QID 02/18/22 02/18/22 [Mycostatin Oral Susp] Previous Rx's Medication Instructions Recorded Furosemide [Lasix] 40 mg PO BID@0900,1600 #60 tab 02/06/22 Metoprolol Succinate (ER) [Toprol 50 mg PO HS #30 tab 02/06/22 XL] Metoprolol Succinate (ER) [Toprol 100 mg PO DAILY #30 tab 02/06/22 XL] Mirtazapine [Remeron] 7.5 mg PO HS #15 tab 02/06/22 Spironolactone [Aldactone] 25 mg PO DAILY #30 tab 02/06/22 lisinopriL [Zestril] 2.5 mg PO DAILY #30 tab 02/06/22 rOPINIRole HCL [Requip] 1 mg PO HS 15 Days #15 tab 02/06/22 Allergies Allergy/AdvReac Type Severity Reaction Status Date / Time calcitonin [From Miacalcin] AdvReac Nausea & Verified 02/18/22 12:13 Vomiting Review of Systems ROS Statement: Those systems with pertinent positive or pertinent negative responses have been documented in the HPI. ROS Other: All systems not noted in ROS Statement are negative. Past Medical History Past Medical History: Atrial Fibrillation, COPD, GERD/Reflux, Hyperlipidemia, Hypertension, Pneumonia Additional Past Medical History / Comment(s): Chronic back pain/vertebral fractures, osteoporosis, bronchitis, gastric ulcers, lower leg edema, constipation. History of Any Multi-Drug Resistant Organisms: None Reported Past Surgical History: Appendectomy, Back Surgery, Hysterectomy Additional Past Surgical History / Comment(s): Kyphoplasties. Past Anesthesia/Blood Transfusion Reactions: No Reported Reaction Past Psychological History: No Psychological Hx Reported Smoking Status: Current every day smoker Past Alcohol Use History: None Reported Past Drug Use History: None Reported - Past Family History Mother Additional Family Medical History / Comment(s): osteoporosis Father Family Medical History: COPD, Myocardial Infarction ([place]) Additional Family Medical History / Comment(s): Father of a massive [place] at the age of 77yrs. General Exam - General Exam Comments Initial Comments: GENERAL: Patient is well-developed and well-nourished. Patient is nontoxic and well- hydrated and is in mild distress. ENT: Neck is soft and supple. No significant lymphadenopathy is noted. Oropharynx is clear. Moist mucous membranes. Neck has full range of motion without eliciting any pain. EYES: The sclera were anicteric and conjunctiva were pink and moist. Extraocular movements were intact and pupils were equal round and reactive to light. Eyelids were unremarkable. PULMONARY: Unlabored respirations. Good breath sounds bilaterally. No audible rales rhonchi or wheezing was noted. CARDIOVASCULAR: Patient has no regularly irregular heart rate at 130 beats a minute ABDOMEN: Soft and nontender with normal bowel sounds. SKIN: Skin is clear with no lesions or rashes and otherwise unremarkable. NEUROLOGIC: Patient is alert and oriented x3. Cranial nerves II through XII are grossly intact. Motor and sensory are also intact. Normal speech, volume and content. Symmetrical smile. MUSCULOSKELETAL: Normal extremities with adequate strength and full range of motion. LYMPHATICS: No significant lymphadenopathy is noted PSYCHIATRIC: Normal psychiatric evaluation. Limitations: no limitations Course Vital Signs 02/18/22 02/18/22 10:54 11:00 Temperature 97.6 F Pulse Rate 122 H 137 H Respiratory 24 22 Rate Blood Pressure 81/57 76/50 O2 Sat by Pulse 85 L 97 Oximetry Medical Decision Making - Medical Decision Making EKG shows atrial fibrillation with rapid ventricular response at 122 bpm QRS is 92 QT interval is 290 QTC is 363. Patient's EKG shows inverted T waves in precordial leads V3 through V6. Patient told me after she had been are quite a while but lately she has not been able to eat much and she had quite a bit of weight loss. A CAT scan the patient's abdomen and pelvis did show a non-complicated diverticulitis at that point in time which was 3:15 PM I started the patient on antibiotics. I spoke with [facility] [place] Divisionist agreed to admit the patient admitted the patient wrote admitting orders - Lab Data Result diagrams: 02/18/22 11:22 02/18/22 11:22 Lab Results 02/18/22 02/18/22 02/18/22 Range/Units 11:22 11:22 11:22 WBC 23.0 H (3.8-10.6) k/uL RBC 4.27 (3.80-5.40) m/uL Hgb 13.4 (11.4-16.0) gm/dL Hct 40.0 (34.0-46.0) % MCV 93.7 (80.0-100.0) fL MCH 31.5 (25.0-35.0) pg MCHC 33.6 (31.0-37.0) g/dL RDW 14.5 (11.5-15.5) % Plt Count 250 (150-450) k/uL MPV 10.4 Neutrophils % 89 % Lymphocytes % 6 % Monocytes % 3 % Eosinophils % 1 % Basophils % 0 % Neutrophils # 20.4 H (1.3-7.7) k/uL Lymphocytes # 1.4 (1.0-4.8) k/uL Monocytes # 0.7 (0-1.0) k/uL Eosinophils # 0.3 (0-0.7) k/uL Basophils # 0.1 (0-0.2) k/uL PT 60.5 H (9.0-12.0) sec INR 6.0 H* (<1.2) APTT 32.0 H (22.0-30.0) sec Sodium 134 L (137-145) mmol/L Potassium 4.5 (3.5-5.1) mmol/L Chloride 94 L (98-107) mmol/L Carbon Dioxide 22 (22-30) mmol/L Anion Gap 18 mmol/L BUN 40 H (7-17) mg/dL Creatinine 2.09 H (0.52-1.04) mg/dL Est GFR (CKD-EPI)AfAm 26 (>60 ml/min/1.73 sqM) Est GFR (CKD-EPI)NonAf 23 (>60 ml/min/1.73 sqM) Glucose 114 H (74-99) mg/dL Lactic Ac Sepsis Rflx Plasma Lactic Acid Placido (0.7-2.0) mmol/L Calcium 9.8 (8.4-10.2) mg/dL Magnesium 1.9 (1.6-2.3) mg/dL Total Bilirubin 1.0 (0.2-1.3) mg/dL AST 28 (14-36) U/L ALT 15 (4-34) U/L Alkaline Phosphatase 153 H (38-126) U/L Troponin I (0.000-0.034) ng/mL NT-Pro-B Natriuret Pep pg/mL Total Protein 7.4 (6.3-8.2) g/dL Albumin 4.5 (3.5-5.0) g/dL Urine Color Urine Appearance (Clear) Urine pH (5.0-8.0) Ur Specific [place] (1.001-1.035) Urine Protein (Negative) Urine Glucose (UA) (Negative) Urine Ketones (Negative) Urine Blood (Negative) Urine Nitrite (Negative) Urine Bilirubin (Negative) Urine Urobilinogen (<2.0) mg/dL Ur Leukocyte Esterase (Negative) Urine RBC (0-5) /hpf Urine WBC (0-5) /hpf Urine Bacteria (None) /hpf Urine Mucus (None) /hpf 02/18/22 02/18/22 02/18/22 Range/Units 11:22 11:22 11:22 WBC (3.8-10.6) k/uL RBC (3.80-5.40) m/uL Hgb (11.4-16.0) gm/dL Hct (34.0-46.0) % MCV (80.0-100.0) fL MCH (25.0-35.0) pg MCHC (31.0-37.0) g/dL RDW (11.5-15.5) % Plt Count (150-450) k/uL MPV Neutrophils % % Lymphocytes % % Monocytes % % Eosinophils % % Basophils % % Neutrophils # (1.3-7.7) k/uL Lymphocytes # (1.0-4.8) k/uL Monocytes # (0-1.0) k/uL Eosinophils # (0-0.7) k/uL Basophils # (0-0.2) k/uL PT (9.0-12.0) sec INR (<1.2) APTT (22.0-30.0) sec Sodium (137-145) mmol/L Potassium (3.5-5.1) mmol/L Chloride (98-107) mmol/L Carbon Dioxide (22-30) mmol/L Anion Gap mmol/L BUN (7-17) mg/dL Creatinine (0.52-1.04) mg/dL Est GFR (CKD-EPI)AfAm (>60 ml/min/1.73 sqM) Est GFR (CKD-EPI)NonAf (>60 ml/min/1.73 sqM) Glucose (74-99) mg/dL Lactic Ac Sepsis Rflx Plasma Lactic Acid Placido 2.3 H* (0.7-2.0) mmol/L Calcium (8.4-10.2) mg/dL Magnesium (1.6-2.3) mg/dL Total Bilirubin (0.2-1.3) mg/dL AST (14-36) U/L ALT (4-34) U/L Alkaline Phosphatase (38-126) U/L Troponin I 0.035 H* (0.000-0.034) ng/mL NT-Pro-B Natriuret Pep 9000 pg/mL Total Protein (6.3-8.2) g/dL Albumin (3.5-5.0) g/dL Urine Color Urine Appearance (Clear) Urine pH (5.0-8.0) Ur Specific [place] (1.001-1.035) Urine Protein (Negative) Urine Glucose (UA) (Negative) Urine Ketones (Negative) Urine Blood (Negative) Urine Nitrite (Negative) Urine Bilirubin (Negative) Urine Urobilinogen (<2.0) mg/dL Ur Leukocyte Esterase (Negative) Urine RBC (0-5) /hpf Urine WBC (0-5) /hpf Urine Bacteria (None) /hpf Urine Mucus (None) /hpf 02/18/22 02/18/22 Range/Units 12:16 13:19 WBC (3.8-10.6) k/uL RBC (3.80-5.40) m/uL Hgb (11.4-16.0) gm/dL Hct (34.0-46.0) % MCV (80.0-100.0) fL MCH (25.0-35.0) pg MCHC (31.0-37.0) g/dL RDW (11.5-15.5) % Plt Count (150-450) k/uL MPV Neutrophils % % Lymphocytes % % Monocytes % % Eosinophils % % Basophils % % Neutrophils # (1.3-7.7) k/uL Lymphocytes # (1.0-4.8) k/uL Monocytes # (0-1.0) k/uL Eosinophils # (0-0.7) k/uL Basophils # (0-0.2) k/uL PT (9.0-12.0) sec INR (<1.2) APTT (22.0-30.0) sec Sodium (137-145) mmol/L Potassium (3.5-5.1) mmol/L Chloride (98-107) mmol/L Carbon Dioxide (22-30) mmol/L Anion Gap mmol/L BUN (7-17) mg/dL Creatinine (0.52-1.04) mg/dL Est GFR (CKD-EPI)AfAm (>60 ml/min/1.73 sqM) Est GFR (CKD-EPI)NonAf (>60 ml/min/1.73 sqM) Glucose (74-99) mg/dL Lactic Ac Sepsis Rflx Y Plasma Lactic Acid Placido (0.7-2.0) mmol/L Calcium (8.4-10.2) mg/dL Magnesium (1.6-2.3) mg/dL Total Bilirubin (0.2-1.3) mg/dL AST (14-36) U/L ALT (4-34) U/L Alkaline Phosphatase (38-126) U/L Troponin I (0.000-0.034) ng/mL NT-Pro-B Natriuret Pep pg/mL Total Protein (6.3-8.2) g/dL Albumin (3.5-5.0) g/dL Urine Color Colorless Urine Appearance Clear (Clear) Urine pH 5.5 (5.0-8.0) Ur Specific [place] 1.005 (1.001-1.035) Urine Protein Negative (Negative) Urine Glucose (UA) Negative (Negative) Urine Ketones Negative (Negative) Urine Blood Negative (Negative) Urine Nitrite Negative (Negative) Urine Bilirubin Negative (Negative) Urine Urobilinogen <2.0 (<2.0) mg/dL Ur Leukocyte Esterase Trace H (Negative) Urine RBC <1 (0-5) /hpf Urine WBC 2 (0-5) /hpf Urine Bacteria Rare H (None) /hpf Urine Mucus Rare H (None) /hpf Disposition Clinical Impression: Diverticulitis, Renal insufficiency, Coagulopathy Disposition: ADMITTED IP TO THIS HOSP Referrals: Lashell Kimble MD [Primary Care Provider] - 1-2 days Time of Disposition: 15:18
--- NOTE | 2022-02-18 11:49 | XR ---
EXAMINATION TYPE: XR chest 2V DATE OF EXAM: 02/18/2022 11:42 AM COMPARISON: Chest radiographs from 02/03/2022 and CTA chest 01/26/2022 TECHNIQUE: XR chest 2V Frontal and lateral views of the chest. CLINICAL INDICATION:Female, 76 years old with history of difficulty breathing; FINDINGS: Lungs/Pleura: There is no evidence of pleural effusion or pneumothorax. Bibasilar subsegmental atelec tasis. Pulmonary vascularity: Unremarkable. Heart/mediastinum: Cardiomediastinal silhouette is enlarged and stable. Atherosclerotic calcificatio ns are seen in the aorta. Musculoskeletal: Vertebroplasty changes of the lower thoracic spine redemonstrated. IMPRESSION: Bibasilar subsegmental atelectasis without evidence of acute cardiopulmonary disease/process.
[2022-02-18 11:55] LABS: Basophils # (A) 0.1 k/uL (0-0.2); Basophils % (A) 0 %; Eosinophils # (A) 0.3 k/uL (0-0.7); Eosinophils % (A) 1 %; HGB 13.4 gm/dL (11.4-16.0); Lymphocytes # (A) 1.4 k/uL (1.0-4.8); Lymphocytes % (A) 6 %; MCH 31.5 pg (25.0-35.0); MCHC 33.6 g/dL (31.0-37.0); MCV 93.7 fL (80.0-100.0); Mean Platelet Volume 10.4; Monocytes # (A) 0.7 k/uL (0-1.0); Monocytes % (A) 3 %; Neutrophils # (A) 20.4 k/uL (1.3-7.7); Neutrophils % (A) 89 %; Platelet Count 250 k/uL (150-450); RBC 4.27 m/uL (3.80-5.40); RDW 14.5 % (11.5-15.5)
[2022-02-18 12:11] LABS: Albumin 4.5 g/dL (3.5-5.0); Calcium 9.8 mg/dL (8.4-10.2); Total Protein 7.4 g/dL (6.3-8.2)
[2022-02-18 12:15] LABS: Magnesium 1.9 mg/dL (1.6-2.3); Potassium 4.5 mmol/L (3.5-5.1)
[2022-02-18 12:53] LABS: Prothrombin Time 60.5 sec (9.0-12.0)
[2022-02-18 13:44] LABS: Appearance,Urine Clear (Clear); Bacteria,Urine Rare /hpf; Bilirubin,Urine Negative (Negative); Blood,Urine Negative (Negative); Color,Urine Colorless; Glucose,Urine (UA) Negative (Negative); Ketones,Urine Negative (Negative); Leukocyte Esterase,Urine Trace (Negative); Mucus,Urine Rare /hpf; Nitrite,Urine Negative (Negative); PH, Urine 5.5 (5.0-8.0); Protein,Urine Negative (Negative); RBC,Urine <1 /hpf (0-5); Specific Gravity,Urine 1.005 (1.001-1.035); Urobilinogen,Urine <2.0 mg/dL (<2.0); WBC,Urine 2 /hpf (0-5)
[2022-02-18] MEDS ORDERED: HYDROmorphone 0.5 MG/0.5 ML SYRINGE IVP STA ×2 (14:53→19:51)
--- NOTE | 2022-02-18 15:13 | CT ---
EXAMINATION TYPE: CT abdomen pelvis wo con CT DLP: 484.2 mGycm, Automated exposure control for dose reduction was used. DATE OF EXAM: 02/18/2022 2:58 PM COMPARISON: CT abdomen pelvis most recent from 01/09/2022. CLINICAL INDICATION:Female, 76 years old with history of Abdominal pain; back pain TECHNIQUE: Standard CT of the abdomen and pelvis without IV or oral contrast. Lack of IV or oral co ntrast limits evaluation of solid and hollow organ viscera. Coronal and sagittal reformats were perfo rmed. FINDINGS: LOWER CHEST: Posterior dependent subsegmental atelectasis is noted. Mild cardiomegaly. Coronary arter ial calcifications. ABDOMEN LIVER: Scattered hepatic cysts are redemonstrated with largest in the inferior left hepatic lobe harjeet uring up to 5 cm. Scattered punctate calcifications. GALLBLADDER AND BILE DUCTS: Under distended gallbladder without evidence of wall thickening or perica rdial fluid. No ductal dilatation. PANCREAS: Unremarkable noncontrast appearance. SPLEEN: Unremarkable noncontrast appearance. ADRENAL GLANDS: Unremarkable noncontrast appearance. KIDNEYS AND URETERS: No hydronephrosis. Nonobstructive left renal calculi identified with largest in the inferior pole measuring up to 4 mm. PELVIS BLADDER: Under distended, limiting evaluation. REPRODUCTIVE: The uterus is surgically absent. ABDOMEN & PELVIS STOMACH AND BOWEL: Small hiatal hernia. Stable fat attenuating lesions within the first and second po rtion the duodenum measuring up to 1 cm consistent with lipomas. Wall thickening with fat stranding i nvolving the sigmoid colon with multiple diverticula. Additional fat stranding involving the adjacent small bowel. No definitive organized fluid collection. No evidence of bowel obstruction. PERITONEUM: No evidence of pneumoperitoneum or free fluid. VASCULATURE: No evidence of aortic aneurysm. Atherosclerotic calcification of the aorta and its branc hes. MUSCULOSKELETAL: Worsening anterior wedge compression deformity of the L1 vertebral body with sclerot ic appearance. This measures 50% height loss with 4 mm retropulsion which causes at least mild spinal canal stenosis. Similar central compression deformity versus Schmorl's node involving the superior e ndplate of the L3 vertebral body. LYMPH NODES: No gross evidence for lymphadenopathy. SOFT TISSUE/ABDOMINAL WALL: Unremarkable IMPRESSION: 1. Acute uncomplicated sigmoid diverticulitis. 2. Worsening L1 anterior wedge compression deformity with approximately 50% height loss and 4 mm retr opulsion compared to CT on 01/09/2022. 3. Nonobstructive left renal calculi.
[2022-02-18] MEDS ORDERED: AMPICILLIN-SULBACTAM 3 GM in SODIUM CHLORIDE 0.9% 100 ML IVPB STA (15:15)
[2022-02-18] MEDS ORDERED: METOPROLOL SUCCINATE (ER) 50 MG TAB.ER.24H PO SCH (21:00)
[2022-02-18] MEDS ORDERED: WARFARIN 0.5 MG TAB PO ONE (21:00)
[2022-02-18] MEDS ORDERED: oxyCODONE-APAP 7.5-325MG 1 EACH TAB PO STA (21:46)
[2022-02-18] MEDS: MIRTAZAPINE 15 MG TAB PO SCH (21:58)
[2022-02-19] MEDS ORDERED: AMPICILLIN-SULBACTAM 3 GM in SODIUM CHLORIDE 0.9% 100 ML IVPB SCH ×2
--- NOTE | 2022-02-19 01:53 | P.HPIM ---
History of Present Illness H&P Date: 02/18/22 Chief Complaint: Dizziness Patient is a 76-year-old female with a known history of atrial fibrillation on anticoagulation with Coumadin, COPD, GERD, hypertension, hyperlipidemia, chronic back pain/vertebral fractures and history of gastric ulcers and currently everyday smoker was sent from her doctor's office due to complaints of feeling dizziness and lightheadedness and blurred vision and shortness of breath. Patient was at doctor's office due to her chronic back pain and started feeling lightheaded. Denies any complaints of chest pain. No palpitations. No leg swe lling. No fever no chills. No complaints of abdominal pain. No leg swelling or calf tenderness. She stated that has not been eating well and does have weight loss Patient is a very poor historian otherwise. Patient was holding her abdomen and appears to be in pain in the ER. CT of the abdomen pelvis was done showed acute uncomplicated sigmoid diverticulitis. Worsening L1 anterior wedge compression deformity with the approximately 50% height loss and 4 mm retropulsion compared to CT on 01/09/2022. Nonobstructive left renal calculi. Chest x-ray showed bibasilar atelectasis without evidence of acute cardiopulmonary disease. EKG showed atrial fibrillation with rapid ventricular rate. Admission patient was hypotensive with blood pressure 81/57 pulse 122 respiration 24 and pulse ox 88% on room air. Afebrile. Laboratory data showed WBC 23.0 hemoglobin 13.4 and platelets 250 Sodium 134 potassium 4.5 chloride 94 bicarb is 22 BUN 14 creatinine 2.09 and lactic acid 2.3 AST 28 ALT 15 alk phos 153 and troponin 0.035 and proBNP 9000. Urinalysis is negative for infection. Review of Systems Complete review of systems could not be obtained from the patient except as per HPI. Past Medical History Past Medical History: Atrial Fibrillation, COPD, GERD/Reflux, Hyperlipidemia, Hypertension, Pneumonia Additional Past Medical History / Comment(s): Chronic back pain/vertebral fractures, osteoporosis, bronchitis, gastric ulcers, lower leg edema, constipation. History of Any Multi-Drug Resistant Organisms: None Reported Past Surgical History: Appendectomy, Back Surgery, Hysterectomy Additional Past Surgical History / Comment(s): Kyphoplasties. Past Anesthesia/Blood Transfusion Reactions: No Reported Reaction Past Psychological History: No Psychological Hx Reported Smoking Status: Current every day smoker Past Alcohol Use History: None Reported Past Drug Use History: None Reported - Past Family History Mother Additional Family Medical History / Comment(s): osteoporosis Father Family Medical History: COPD, Myocardial Infarction ([place]) Additional Family Medical History / Comment(s): Father of a massive [place] at the age of 77yrs. Medications and Allergies Home Medications Medication Instructions Recorded Confirmed Type Atorvastatin [Lipitor] 40 mg PO DAILY@0700 08/07/21 02/18/22 History Cholecalciferol [Vitamin D3 (125 125 mcg PO DAILY@69908/07/21 02/18/22 History Mcg = 5000 Iu)] Vitamin A [Vitamin A (8,000 Units 2,400 mcg PO DAILY@69908/07/21 02/18/22 History = 2,400 MCG)] Warfarin Sodium 5 mg PO DAILY@69908/07/21 02/18/22 History Omeprazole 20 mg PO BID@0700,1900 10/10/21 02/18/22 History Cyanocobalamin (Vitamin B-12) 1,000 mcg PO DAILY@69910/22/21 02/18/22 History [Vitamin B-12] Magnesium 250 mg PO DAILY@69910/22/21 02/18/22 History Docusate [Colace] 100 mg PO DAILY@69910/29/21 02/18/22 History HYDROcodone/APAP 5-325MG [[place] 1 tab PO TID 12/17/21 02/18/22 History 5-325] Ondansetron [Zofran] 4 mg PO QID PRN 12/17/21 02/18/22 History Lactobacillus Rhamnosus GG 1 cap PO BID@0700,1900 02/03/22 02/18/22 History [Culturelle] Sennosides [Senokot] 8.6 mg PO HS@1900 02/03/22 02/18/22 History Furosemide [Lasix] 40 mg PO BID@0900,1600 #60 tab 02/06/22 02/18/22 Rx Metoprolol Succinate (ER) [Toprol 50 mg PO HS #30 tab 02/06/22 02/18/22 Rx XL] Metoprolol Succinate (ER) [Toprol 100 mg PO DAILY #30 tab 02/06/22 02/18/22 Rx XL] Mirtazapine [Remeron] 7.5 mg PO HS #15 tab 02/06/22 02/18/22 Rx Spironolactone [Aldactone] 25 mg PO DAILY #30 tab 02/06/22 02/18/22 Rx lisinopriL [Zestril] 2.5 mg PO DAILY #30 tab 02/06/22 02/18/22 Rx rOPINIRole HCL [Requip] 1 mg PO HS 15 Days #15 tab 02/06/22 02/18/22 Rx Lactulose 10 gm PO TID PRN 02/18/22 02/18/22 History Naloxone HCl [Narcan] 4 mg NASAL DAILY PRN 02/18/22 02/18/22 History Nystatin 100,000 Unit/ml Susp 500,000 unit PO QID 02/18/22 02/18/22 History [Mycostatin Oral Susp] Allergies Allergy/AdvReac Type Severity Reaction Status Date / Time calcitonin [From Miacalcin] AdvReac Nausea & Verified 02/18/22 12:13 Vomiting Physical Exam Vitals: Vital Signs Temp Pulse Resp BP Pulse Ox 02/18/22 19:58 97.6 F 112 H 18 108/62 96 02/18/22 19:15 96 18 94/54 93 L 02/18/22 19:00 112 H 20 88/58 93 L 02/18/22 18:45 117 H 18 93/54 93 L 02/18/22 18:30 124 H 18 81/48 93 L 02/18/22 18:15 107 H 18 82/41 93 L 02/18/22 18:00 102 H 18 80/39 93 L 02/18/22 17:45 107 H 20 80/48 93 L 02/18/22 17:30 98 20 115/86 93 L 02/18/22 17:15 107 H 24 106/64 93 L 02/18/22 17:00 111 H 20 92/55 95 02/18/22 16:00 104 H 24 80/51 95 02/18/22 15:00 102 H 20 93/59 95 02/18/22 14:00 113 H 18 80/41 95 02/18/22 13:00 123 H 20 99/39 95 02/18/22 12:30 111 H 20 89/49 95 02/18/22 12:01 101 H 20 89/45 95 02/18/22 11:30 131 H 18 77/62 94 L 02/18/22 11:00 137 H 18 81/57 95 02/18/22 10:54 97.6 F 122 H 24 81/57 85 L Intake and Output 02/18/22 02/18/22 02/18/22 06:59 14:59 22:59 Other: Weight 65.317 kg PHYSICAL EXAMINATION: Patient is lying in the bed comfortably, appears to be in mild distress, awake alert and oriented.. Confused and anxious. HEENT: Normocephalic. Neck is supple. Pupils reactive. Nostrils clear. Oral cavity is moist. Neck reveals no JVD, carotid bruits, or thyromegaly. CHEST EXAMINATION: Trachea is central. Symmetrical expansion. Lung thakkar clear to auscultation and percussion. CARDIAC: Normal S1, S2 with no gallops. No murmurs ABDOMEN: Soft. Bowel sounds present. Nontender. No organomegaly. No abdominal bruits. Extremities: reveal no edema. No clubbing or cyanosis Neurologically awake, alert, oriented x3 with well-coordinated movements. No gross focal deficits noted Skin: No rash or skin lesions. Psychiatric: Anxious. Could not be assessed completely. Musculoskeletal: No joint swelling or deformity. Normal range of motion. Results CBC & Chem 7: 02/18/22 11:22 02/18/22 11:22 Labs: Abnormal Lab Results - Last 24 Hours (Table) 02/18/22 02/18/22 02/18/22 Range/Units 11:22 11:22 11:22 WBC 23.0 H (3.8-10.6) k/uL Neutrophils # 20.4 H (1.3-7.7) k/uL PT 60.5 H (9.0-12.0) sec INR 6.0 H* (<1.2) APTT 32.0 H (22.0-30.0) sec Sodium 134 L (137-145) mmol/L Chloride 94 L (98-107) mmol/L BUN 40 H (7-17) mg/dL Creatinine 2.09 H (0.52-1.04) mg/dL Glucose 114 H (74-99) mg/dL Plasma Lactic Acid Placido (0.7-2.0) mmol/L Alkaline Phosphatase 153 H (38-126) U/L Troponin I (0.000-0.034) ng/mL Ur Leukocyte Esterase (Negative) Urine Bacteria (None) /hpf Urine Mucus (None) /hpf 02/18/22 02/18/22 02/18/22 Range/Units 11:22 11:22 13:19 WBC (3.8-10.6) k/uL Neutrophils # (1.3-7.7) k/uL PT (9.0-12.0) sec INR (<1.2) APTT (22.0-30.0) sec Sodium (137-145) mmol/L Chloride (98-107) mmol/L BUN (7-17) mg/dL Creatinine (0.52-1.04) mg/dL Glucose (74-99) mg/dL Plasma Lactic Acid Placido 2.3 H* (0.7-2.0) mmol/L Alkaline Phosphatase (38-126) U/L Troponin I 0.035 H* (0.000-0.034) ng/mL Ur Leukocyte Esterase Trace H (Negative) Urine Bacteria Rare H (None) /hpf Urine Mucus Rare H (None) /hpf Thrombosis Risk Factor Assmnt - DVT/VTE Prophylaxis DVT/VTE Prophylaxis: Pharmacologic Prophylaxis ordered Assessment and Plan Assessment: Acute sigmoid diverticulitis SIRS/Sepsis secondary above Dizziness and lightheadedness due to hypotension, RVR on admission Hypovolemic hyponatremia Acute kidney injury likely prerenal. Baseline creatinine level 0.76 Lactic acidosis Chronic atrial fibrillation with rapid ventricular rate on admission. Anticoagulation with Coumadin Supratherapeutic INR level Evaded troponin level possible demand ischemia Elevated BNP level Chronic back pain with worsening L1 anterior wedge compression deformity as per CT DVT prophylaxis patient is on Coumadin already Plan: Continue with gentle IV hydration and antibiotics in the form of ceftriaxone 2 g daily along with Flagyl. Follow-up CBC and BMP. Monitor volume status closely Continue with metoprolol and hold other blood pressure medications. Cardiology was consulted due to elevated troponin level. Continue to follow closely. Prognosis is guarded at this time. Time with Patient: Greater than 30
[2022-02-19] MEDS: metroNIDAZOLE-NS PMX 500 MG in SALINE 1 100ML.BAG IVPB SCH ×3 (03:03→18:43)
[2022-02-19] MEDS ORDERED: oxyCODONE-APAP 5-325MG 1 EACH TAB PO STA (06:08)
[2022-02-19] MEDS: ATORVASTATIN 40 MG TAB PO SCH ×2 (06:08→06:15)
[2022-02-19] MEDS: PANTOPRAZOLE 40 MG TABLET PO SCH ×3 (06:08→20:08)
[2022-02-19 08:54] LABS: Basophils % (A) 0 %; Eosinophils # (A) 0.1 k/uL (0-0.7); Eosinophils % (A) 1 %; HCT 37.8 % (34.0-46.0); Lymphocytes # (A) 1.1 k/uL (1.0-4.8); Lymphocytes % (A) 11 %; MCHC 31.7 g/dL (31.0-37.0); MCV 94.8 fL (80.0-100.0); Mean Platelet Volume 10.5; Monocytes # (A) 0.6 k/uL (0-1.0); Monocytes % (A) 5 %; Neutrophils # (A) 8.4 k/uL (1.3-7.7); Neutrophils % (A) 82 %; Platelet Count 222 k/uL (150-450); RBC 3.99 m/uL (3.80-5.40); RDW 14.3 % (11.5-15.5); WBC 10.3 k/uL (3.8-10.6)
[2022-02-19] MEDS ORDERED: METOPROLOL SUCCINATE (ER) 100 MG TAB.ER.24H PO SCH (09:00)
[2022-02-19] MEDS ORDERED: AMIODARONE 360 MG in DEXTROSE 5% IN WATER 200 ML IV ONE ×2 (09:06)
[2022-02-19] MEDS ORDERED: DEXTROSE 5% IN WATER 100 ML with AMIODARONE 150 MG IV ONE (09:06)
[2022-02-19 09:08] LABS: African American GFR (CKD) >90 (>60 ml/min/1.73 sqM); Anion Gap 8 mmol/L; Blood Urea Nitrogen 21 mg/dL (7-17); Calcium 8.3 mg/dL (8.4-10.2); Carbon Dioxide 27 mmol/L (22-30); Chloride 105 mmol/L (98-107); Glucose 81 mg/dL (74-99); Non-African American GFR(CKD) 79 (>60 ml/min/1.73 sqM); Sodium 140 mmol/L (137-145)
[2022-02-19 09:10] LABS: Prothrombin Time 56.5 sec (9.0-12.0)
[2022-02-19] MEDS: SODIUM CHLORIDE 0.9% 1,000 ML IV SCH (09:13)
[2022-02-19 09:27] LABS: INR 5.6 (<1.2)
--- NOTE | 2022-02-19 10:06 | P.CRDCN ---
History of Present Illness History of present illness: This is a pleasant 76-year-old female past medical history significant for Paroxysmal atrial fibrillation on Coumadin, hypertension, carotid disease, history of bowel resection in the past secondary to bowel obstruction, chronic history of tobacco use, T8 kyphoplasty 09/14/2021 secondary to compression fracture, Plan for future T10 kyphoplasty and surgery with Orthopedics, 10/03/21 Colonoscopy and EGD revealed small hiatal hernia, esophagitis, short segment Delaney's esophagus and mild antral gastritis, scattered sigmoid diverticulosis, and rectal polyp s/p biopsy. She follows in the office with Dr. Sim. We have been asked to see in consultation for elevated troponin. Patient presents to the emergency department after being at her doctors appointment yesterday with symptoms of loss/decreased vision in her left eye, feelings of fatigue, lightheaded and hypotensive. She states she went to the Pain clinic for her scheduled appointment, she was walking back to the exam table, and felt somewhat "funny", she noticed blurry vision, some decreased vision in her left eye seeing spots/shapes. She was not feeling well. She was hypotensive with BP 80s/40s. EMS was called and patient was brought to the ER. She endorses generalized fatigue, weight loss, decreased appetite. SHe denies any syncope, loss of consciousness, palpitations, chest pain, shortness of breath. She denies any fever, cough, chills, headache, focal weakness, incontinence of urine or bowel. On admission, patient was found to have elevated WBC, lactic acidosis, INR supratherapeutic 6.0, acute kidney injury. Patient recent admitted to the hospital in 01/2022 with A fib with RVR and congestive heart failure. Echocardiogram revealed EF 3540%, apical and septal hypokinesis, mild mitral regurgitation, no pericardial effusion. She was treated medically and stabilized and plan for outpatient follow up with likely cardiac catheterization as an outpatient. DIAGNOSTICS * EKG reveals atrial fibrillation with ventricular response, heart rate 122, ST- T wave abnormalities in anteriorlateral leads, similar to prior patient more tachycardic * Telemetry tracings indicate atrial fibrillation with controlled rates HR 90s- 110 * Laboratory reviewed, WBC 23, INR 5.6, sodium 134, potassium 4.5, BUN 40, serum creatinine 2.0, lactate 2.3, magnesium 1.9, troponin 0.03, proBNP 9000 * CT abdomen and pelvis, acute uncomplicated sigmoid diverticulitis. * Current home cardiac medications include Coumadin 5 mg daily, metoprolol succinate 50 mg night 100mg in the morning, atorvastatin 40 mg nightly, Lasix 40 mg daily * Echocardiogram 10/2021 revealed EF 5560 %, mild mitral regurgitation * Lexiscan stress test in 2019 in the office- negative for reversible ischemia REVIEW OF SYSTEMS At the time of my exam: CONSTITUTIONAL: Denies fever or chills.+generalized weakness +fatigue CARDIOVASCULAR: Denies chest pain,Denies shortness of breath, Denies orthopnea, PND or palpitations. RESPIRATORY: Denies cough. GASTROINTESTINAL: Denies abdominal pain, diarrhea, constipation, nausea or vomiting. MUSCULOSKELETAL: Denies myalgias. NEUROLOGIC: Denies numbness, tingling, headacbe or weakness. ENDOCRINE: + fatigue, Denies weight change, polydipsia or polyurina. GENITOURINARY: Denies burning, hematuria or urgency with micturation. HEMATOLOGIC: Denies history of anemia or bleeding. PHYSICAL EXAMINATION Vitals reviewed CONSTITUTIONAL: No apparent distress, frail HEENT: Head is normocephalic. Pupils are equal, round. Sclerae anicteric. Mucous membranes of the mouth are dry. CHEST EXAMINATION: Lungs are clear to auscultation. No chest wall tenderness is noted on palpation or with deep breathing. HEART EXAMINATION: Irregular, tachycardic rate and rhythm. S1, S2 heard. No murmurs, gallops or rub. ABDOMEN: Soft, nontender. Positive bowel sounds. EXTREMITIES: 2+ peripheral pulses, no lower extremity edema and no calf tenderness. NEUROLOGIC EXAMINATION: Patient is awake, alert and oriented x3. ASSESSMENT Paroxysmal atrial fibrillation with RVR on Coumadin Acute sigmoid diverticulitis Sepsis Hypotension Generalized fatigue and lightheadedness Hypovolemic hyponatremia Acute kidney injury Lactic acidosis Elevated troponin, likely secondary to sepsis and acute kidney, however will trend troponin Recent echo 02/04/2022 nrevealed new cardiomyopathy with EF 3540%, apical and septal hypokinesis. Cardiomyopathy, ischemic vs non-ischemic, currently hypovolemic on exam History of hypertension Carotid artery disease History of bowel resection in the past secondary to bowel obstruction Chronic history of tobacco use History of compression fracture PLAN Trend troponin Stop metoprolol succinate and hold home antihypertensives and nephrotoxic agents Start IV amiodarone bolus and drip Start IV fluids Coumadin on hold secondary to supratherapeutic INR Daily INR Monitor I/Os, daily weights, renal function Monitor on telemetry Further recommendations based on clinical course Nurse practitioner note has been reviewed by physician. Signing provider agrees with the documented findings, assessment, and plan of care. Past Medical History Past Medical History: Atrial Fibrillation, COPD, GERD/Reflux, Hyperlipidemia, Hypertension, Pneumonia Additional Past Medical History / Comment(s): Chronic back pain/vertebral fractures, osteoporosis, bronchitis, gastric ulcers, lower leg edema, constipation. History of Any Multi-Drug Resistant Organisms: None Reported Past Surgical History: Appendectomy, Back Surgery, Hysterectomy Additional Past Surgical History / Comment(s): Kyphoplasties. Past Anesthesia/Blood Transfusion Reactions: No Reported Reaction Past Psychological History: No Psychological Hx Reported Smoking Status: Current every day smoker Past Alcohol Use History: None Reported Past Drug Use History: None Reported - Past Family History Mother Additional Family Medical History / Comment(s): osteoporosis Father Family Medical History: COPD, Myocardial Infarction ([place]) Additional Family Medical History / Comment(s): Father of a massive [place] at the age of 77yrs. Medications and Allergies Home Medications Medication Instructions Recorded Confirmed Type Atorvastatin [Lipitor] 40 mg PO DAILY@69908/07/21 02/18/22 History Cholecalciferol [Vitamin D3 (125 125 mcg PO DAILY@69908/07/21 02/18/22 History Mcg = 5000 Iu)] Vitamin A [Vitamin A (8,000 Units 2,400 mcg PO DAILY@69908/07/21 02/18/22 History = 2,400 MCG)] Warfarin Sodium 5 mg PO DAILY@0708/07/21 02/18/22 History Omeprazole 20 mg PO BID@0700,1900 10/10/21 02/18/22 History Cyanocobalamin (Vitamin B-12) 1,000 mcg PO DAILY@69910/22/21 02/18/22 History [Vitamin B-12] Magnesium 250 mg PO DAILY@69910/22/21 02/18/22 History Docusate [Colace] 100 mg PO DAILY@0700 10/29/21 02/18/22 History HYDROcodone/APAP 5-325MG [[place] 1 tab PO TID 12/17/21 02/18/22 History 5-325] Ondansetron [Zofran] 4 mg PO QID PRN 12/17/21 02/18/22 History Lactobacillus Rhamnosus GG 1 cap PO BID@0700,1900 02/03/22 02/18/22 History [Culturelle] Sennosides [Senokot] 8.6 mg PO HS@1900 02/03/22 02/18/22 History Furosemide [Lasix] 40 mg PO BID@0900,1600 #60 tab 02/06/22 02/18/22 Rx Metoprolol Succinate (ER) [Toprol 50 mg PO HS #30 tab 02/06/22 02/18/22 Rx XL] Metoprolol Succinate (ER) [Toprol 100 mg PO DAILY #30 tab 02/06/22 02/18/22 Rx XL] Mirtazapine [Remeron] 7.5 mg PO HS #15 tab 02/06/22 02/18/22 Rx Spironolactone [Aldactone] 25 mg PO DAILY #30 tab 02/06/22 02/18/22 Rx lisinopriL [Zestril] 2.5 mg PO DAILY #30 tab 02/06/22 02/18/22 Rx rOPINIRole HCL [Requip] 1 mg PO HS 15 Days #15 tab 02/06/22 02/18/22 Rx Lactulose 10 gm PO TID PRN 02/18/22 02/18/22 History Naloxone HCl [Narcan] 4 mg NASAL DAILY PRN 02/18/22 02/18/22 History Nystatin 100,000 Unit/ml Susp 500,000 unit PO QID 02/18/22 02/18/22 History [Mycostatin Oral Susp] Allergies Allergy/AdvReac Type Severity Reaction Status Date / Time calcitonin [From Miacalcin] AdvReac Nausea & Verified 02/18/22 12:13 Vomiting Physical Exam Vitals: Vital Signs Temp Pulse Pulse Resp BP BP Pulse Ox 02/19/22 04:00 97.4 F L 116 H 20 109/67 98 02/19/22 02:00 113 H 18 02/19/22 00:00 98.0 F 83 18 92/56 94 L 02/18/22 21:00 98.0 F 89 18 108/60 72 L 02/18/22 19:58 97.6 F 112 H 18 108/62 96 02/18/22 19:15 96 18 94/54 93 L 02/18/22 19:00 112 H 20 88/58 93 L 02/18/22 18:45 117 H 18 93/54 93 L 02/18/22 18:30 124 H 18 81/48 93 L 02/18/22 18:15 107 H 18 82/41 93 L 02/18/22 18:00 102 H 18 80/39 93 L 02/18/22 17:45 107 H 20 80/48 93 L 02/18/22 17:30 98 20 115/86 93 L 02/18/22 17:15 107 H 24 106/64 93 L 02/18/22 17:00 111 H 20 92/55 95 02/18/22 16:00 104 H 24 80/51 95 02/18/22 15:00 102 H 20 93/59 95 02/18/22 14:00 113 H 18 80/41 95 02/18/22 13:00 123 H 20 99/39 95 02/18/22 12:30 111 H 20 89/49 95 02/18/22 12:01 101 H 20 89/45 95 02/18/22 11:30 131 H 18 77/62 94 L 02/18/22 11:00 137 H 18 81/57 95 02/18/22 10:54 97.6 F 122 H 24 81/57 85 L Intake and Output 02/18/22 02/19/22 02/19/22 22:59 06:59 14:59 Other: Voiding Method Toilet Toilet # Voids 2 Weight 65.317 kg Results 02/19/22 07:42 02/19/22 07:42 Cardiac Enzymes 02/18/22 02/18/22 Range/Units 11:22 11:22 AST 28 (14-36) U/L Troponin I 0.035 H* (0.000-0.034) ng/mL Coagulation 02/18/22 Range/Units 11: PT 60.5 H (9.0-12.0) sec APTT 32.0 H (22.0-30.0) sec CBC 02/18/22 Range/Units 11: WBC 23.0 H (3.8-10.6) k/uL RBC 4.27 (3.80-5.40) m/uL Hgb 13.4 (11.4-16.0) gm/dL Hct 40.0 (34.0-46.0) % Plt Count 250 (150-450) k/uL Comprehensive Metabolic Panel 02/18/22 Range/Units 11:22 Sodium 134 L (137-145) mmol/L Potassium 4.5 (3.5-5.1) mmol/L Chloride 94 L (98-107) mmol/L Carbon Dioxide 22 (22-30) mmol/L BUN 40 H (7-17) mg/dL Creatinine 2.09 H (0.52-1.04) mg/dL Glucose 114 H (74-99) mg/dL Calcium 9.8 (8.4-10.2) mg/dL AST 28 (14-36) U/L ALT 15 (4-34) U/L Alkaline Phosphatase 153 H (38-126) U/L Total Protein 7.4 (6.3-8.2) g/dL Albumin 4.5 (3.5-5.0) g/dL Current Medications Generic Name Dose Route Start Last Admin Trade Name Freq PRN Reason Stop Dose Admin Atorvastatin Calcium 40 mg 02/19/22 07:00 02/19/22 06:15 Atorvastatin 40 Mg Tab PO 40 mg DAILY@0700 MAURICIO Administration Ceftriaxone Sodium 2 gm/ 50 mls @ 100 mls/hr 02/19/22 02:00 02/19/22 03:02 Sodium Chloride IVPB 100 mls/hr Q24H MAURICIO Administration Protocol Metronidazole 500 mg/ IV 100 mls @ 100 mls/hr 02/19/22 02:00 02/19/22 03:03 Solution IVPB 100 mls/hr Q8H MAURICIO Administration Protocol Lidocaine 1 patch 02/19/22 09:00 Lidocaine 5% Patch TOPICAL DAILY MAURICIO Protocol Metoprolol Succinate 100 mg 02/19/22 09:00 Metoprolol Succinate (Er) 100 Mg Tab.Er.24h PO DAILY MAURICIO Mirtazapine 7.5 mg 02/18/22 21:00 02/18/22 21:58 Mirtazapine 15 Mg Tab PO 7.5 mg HS MAURICIO Administration Miscellaneous Information 1 each 02/18/22 20:17 Warfarin Per Pharmacy MISCELLANE DIRECTED PRN Per Protocol Protocol Pantoprazole Sodium 40 mg 02/19/22 07:00 02/19/22 06:15 Pantoprazole 40 Mg Tablet PO 40 mg BID@0700,1900 MAURICIO Administration Ropinirole HCl 1 mg 02/18/22 21:00 02/18/22 21:59 Ropinirole Hcl 1 Mg Tab PO 1 mg HS MAURICIO Administration Intake and Output 02/18/22 02/19/22 02/19/22 22:59 06:59 14:59 Other: Voiding Method Toilet Toilet # Voids 2 Weight 65.317 kg 02/18/22 11:22 02/18/22 11:22
[2022-02-19] MEDS: LIDOCAINE 5% PATCH TOPICAL SCH (10:16)
--- NOTE | 2022-02-19 11:02 | P.NPCON ---
History of Present Illness - Reason for Consult acute renal failure - History of Present Illness Reason for consultation: Acute kidney injury History of present illness: Patient is a 76-year-old female seen in consultation for acute kidney injury. Patient presented to the hospital on 02/18/2022 due to blurred vision and lightheadedness. States blurry vision was mostly in her left eye which is now resolved. She did see her primary physician and was advised to go to the hospital. Patient states her blood pressure was low in the systolic 80s when she was at her PCPs office. Even this admission her blood pressure has been as low as systolic 77/62. This morning her blood pressure was 108/62. Creatinine was 2.09 on admission and is 0.75 today. She is currently being treated for diverticulitis. She did receive 1.5 L normal saline bolus on admission as well. Currently maintained on normal saline at 50 mL an hour. She is also on amiodarone drip for A. fib with RVR. She does admit to taking Advil daily. Denies family history of renal disease. No diabetes. No hydronephrosis noted on kidney ultrasound. UA benign. Appetite has been less than usual the last few days. She has history of chronic systolic CHF with ejection fraction of 35- 40%. Vital signs are stable. General: Awake. No acute distress. HEENT: Head exam is unremarkable. LUNGS: Breath sounds decreased. HEART: Rate and Rhythm are regular. ABDOMEN: Soft, no distention. EXTREMITITES: No edema. Past Medical History Past Medical History: Atrial Fibrillation, COPD, GERD/Reflux, Hyperlipidemia, Hypertension, Pneumonia Additional Past Medical History / Comment(s): Chronic back pain/vertebral fractures, osteoporosis, bronchitis, gastric ulcers, lower leg edema, constipation. History of Any Multi-Drug Resistant Organisms: None Reported Past Surgical History: Appendectomy, Back Surgery, Hysterectomy Additional Past Surgical History / Comment(s): Kyphoplasties. Past Anesthesia/Blood Transfusion Reactions: No Reported Reaction Past Psychological History: No Psychological Hx Reported Smoking Status: Current every day smoker Past Alcohol Use History: None Reported Past Drug Use History: None Reported - Past Family History Mother Additional Family Medical History / Comment(s): osteoporosis Father Family Medical History: COPD, Myocardial Infarction ([place]) Additional Family Medical History / Comment(s): Father of a massive [place] at the age of 77yrs. Medications and Allergies Home Medications Medication Instructions Recorded Confirmed Type Atorvastatin [Lipitor] 40 mg PO DAILY@0700 08/07/21 02/18/22 History Cholecalciferol [Vitamin D3 (125 125 mcg PO DAILY@69908/07/21 02/18/22 History Mcg = 5000 Iu)] Vitamin A [Vitamin A (8,000 Units 2,400 mcg PO DAILY@69908/07/21 02/18/22 History = 2,400 MCG)] Warfarin Sodium 5 mg PO DAILY@69908/07/21 02/18/22 History Omeprazole 20 mg PO BID@0700,1900 10/10/21 02/18/22 History Cyanocobalamin (Vitamin B-12) 1,000 mcg PO DAILY@69910/22/21 02/18/22 History [Vitamin B-12] Magnesium 250 mg PO DAILY@69910/22/21 02/18/22 History Docusate [Colace] 100 mg PO DAILY@69910/29/21 02/18/22 History HYDROcodone/APAP 5-325MG [[place] 1 tab PO TID 12/17/21 02/18/22 History 5-325] Ondansetron [Zofran] 4 mg PO QID PRN 12/17/21 02/18/22 History Lactobacillus Rhamnosus GG 1 cap PO BID@0700,1900 02/03/22 02/18/22 History [Culturelle] Sennosides [Senokot] 8.6 mg PO HS@1900 02/03/22 02/18/22 History Furosemide [Lasix] 40 mg PO BID@0900,1600 #60 tab 02/06/22 02/18/22 Rx Metoprolol Succinate (ER) [Toprol 50 mg PO HS #30 tab 02/06/22 02/18/22 Rx XL] Metoprolol Succinate (ER) [Toprol 100 mg PO DAILY #30 tab 02/06/22 02/18/22 Rx XL] Mirtazapine [Remeron] 7.5 mg PO HS #15 tab 02/06/22 02/18/22 Rx Spironolactone [Aldactone] 25 mg PO DAILY #30 tab 02/06/22 02/18/22 Rx lisinopriL [Zestril] 2.5 mg PO DAILY #30 tab 02/06/22 02/18/22 Rx rOPINIRole HCL [Requip] 1 mg PO HS 15 Days #15 tab 02/06/22 02/18/22 Rx Lactulose 10 gm PO TID PRN 02/18/22 02/18/22 History Naloxone HCl [Narcan] 4 mg NASAL DAILY PRN 02/18/22 02/18/22 History Nystatin 100,000 Unit/ml Susp 500,000 unit PO QID 02/18/22 02/18/22 History [Mycostatin Oral Susp] Allergies Allergy/AdvReac Type Severity Reaction Status Date / Time calcitonin [From Miacalcin] AdvReac Nausea & Verified 02/18/22 12:13 Vomiting Physical Exam Vitals: Vital Signs Temp Pulse Pulse Resp BP BP Pulse Ox 02/19/22 08:00 98.5 F 76 19 89/55 97 02/19/22 04:00 97.4 F L 116 H 20 109/67 98 02/19/22 02:00 113 H 18 02/19/22 00:00 98.0 F 83 18 92/56 94 L 02/18/22 21:00 98.0 F 89 18 108/60 72 L 02/18/22 19:58 97.6 F 112 H 18 108/62 96 02/18/22 19:15 96 18 94/54 93 L 02/18/22 19:00 112 H 20 88/58 93 L 02/18/22 18:45 117 H 18 93/54 93 L 02/18/22 18:30 124 H 18 81/48 93 L 02/18/22 18:15 107 H 18 82/41 93 L 02/18/22 18:00 102 H 18 80/39 93 L 02/18/22 17:45 107 H 20 80/48 93 L 02/18/22 17:30 98 20 115/86 93 L 02/18/22 17:15 107 H 24 106/64 93 L 02/18/22 17:00 111 H 20 92/55 95 02/18/22 16:00 104 H 24 80/51 95 02/18/22 15:00 102 H 20 93/59 95 02/18/22 14:00 113 H 18 80/41 95 02/18/22 13:00 123 H 20 99/39 95 02/18/22 12:30 111 H 20 89/49 95 02/18/22 12:01 101 H 20 89/45 95 02/18/22 11:30 131 H 18 77/62 94 L 02/18/22 11:00 137 H 18 81/57 95 02/18/22 10:54 97.6 F 122 H 24 81/57 85 L Intake and Output 02/18/22 02/19/22 02/19/22 22:59 06:59 14:59 Other: Voiding Method Toilet Toilet # Voids 2 Weight 65.317 kg Results - Lab Results Most recent lab results Calcium 8.3 mg/dL (8.4-10.2) L 02/19/22 07:42 Magnesium 1.9 mg/dL (1.6-2.3) 02/18/22 11:22 02/19/22 07:42 02/19/22 07:42 Assessment and Plan Plan: Assessment: 1. Acute kidney injury mostly prerenal secondary to hypotension, NSAIDs and diuretics, improved with IV hydration. Creatinine was 2.09 on admission and is 0.75 today. UA benign. No hydronephrosis noted on CAT scan. 2. Diverticulitis on antibiotics. 3. A. fib with RVR on amiodarone. Cardiology following. 4. Chronic systolic CHF with ejection fraction of 35-40%. 5. Hypovolemic hyponatremia improved with IV hydration. Plan: Maintain normal saline at 50 mL an hour. Continue to hold antihypertensives and diuretics. Check a.m. cortisol level. Continue to monitor renal function and urine output. Thank you for the consultation. I will continue to follow patient with you during her hospital stay.
[2022-02-19] MEDS ORDERED: SODIUM CHLORIDE 0.65% NASAL SPRAY 44 ML BTL NASAL PRN (15:59)
--- NOTE | 2022-02-19 16:12 | P.PN ---
Subjective Progress Note Date: 02/19/22 Patient is a 76-year-old female with a known history of atrial fibrillation on anticoagulation with Coumadin, COPD, GERD, hypertension, hyperlipidemia, chronic back pain/vertebral fractures and history of gastric ulcers and currently everyday smoker was sent from her doctor's office due to complaints of feeling dizziness and lightheadedness and blurred vision and shortness of breath. Patient was at doctor's office due to her chronic back pain and started feeling lightheaded. Denies any complaints of chest pain. No palpitations. No leg swelling. No fever no chills. No complaints of abdominal pain. No leg swelling or calf tenderness. She stated that has not been eating well and does have weight loss Patient is a very poor historian otherwise. Patient was holding her abdomen and appears to be in pain in the ER. CT of the abdomen pelvis was done showed acute uncomplicated sigmoid diverticulitis. Worsening L1 anterior wedge compression deformity with the approximately 50% height loss and 4 mm retropulsion compared to CT on 01/09/2022. Nonobstructive left renal calculi. Chest x-ray showed bibasilar atelectasis without evidence of acute cardiopulmonary disease. EKG showed atrial fibrillation with rapid ventricular rate. Admission patient was hypotensive with blood pressure 81/57 pulse 122 respiration 24 and pulse ox 88% on room air. Afebrile. Laboratory data showed WBC 23.0 hemoglobin 13.4 and platelets 250 Sodium 134 potassium 4.5 chloride 94 bicarb is 22 BUN 14 creatinine 2.09 and lactic acid 2.3 AST 28 ALT 15 alk phos 153 and troponin 0.035 and proBNP 9000. Urinalysis is negative for infection. 02/19/2022 Patient is resting in bed. Reports lower abdominal cramping today and states she had large amount of diarrhea. No blood in the stool reported. She will be continued on IV antibiotics overnight. Patient was also started on amiodarone gtt today for atrial fibrillation with heart rate in the 120s. Blood pressure on the lower side today. She continues on 2L of nasal cannula as needed and complains of nasal congestion. She may be weaned off oxygen if tolerated. White count has improved to 10.3, INR today 5.6. Sodium 140, potassium 4.0, chloride 105, BUN 21, creatinine 0.75. Coumadin is on hold. Review of Systems Constitutional: Reports fatigue denied any fever. Cardio vascular: denied any chest pain, palpitations Gastrointestinal: denied any nausea, vomiting. Reports abdominal pain/cramping with diarrhea. Pulmonary: Denied any shortness of breath cough Neurologic denied any new focal deficits All inpatient medications were reviewed and appropriate changes in these medications as dictated in the interval history and assessment and plan. PHYSICAL EXAMINATION: GENERAL: The patient is alert and oriented x3, not in any acute distress. Well developed, well nourished. HEENT: Pupils are round and equally reacting to light. EOMI. No scleral icterus. No conjunctival pallor. Normocephalic, atraumatic. No pharyngeal erythema. No thyromegaly. CARDIOVASCULAR: S1 and S2 present. No murmurs, rubs, or gallops. PULMONARY: Chest is clear to auscultation, no wheezing or crackles. ABDOMEN: Soft, mild left lower quadrant tenderness, nondistended, normoactive bowel sounds. No palpable organomegaly. MUSCULOSKELETAL: No joint swelling or deformity. EXTREMITIES: No cyanosis, clubbing, or pedal edema. NEUROLOGICAL: Gross neurological examination did not reveal any focal deficits. SKIN: No rashes. Assessment and plan Assessment Acute sigmoid diverticulitis SIRS/Sepsis secondary above Dizziness and lightheadedness due to hypotension, with afib RVR on admission Hypovolemic hyponatremia resolved with hydration Acute kidney injury likely prerenal. Baseline creatinine level 0.76 Lactic acidosis improved paroxysmal atrial fibrillation with rapid ventricular rate on admission. Anticoagulation with Coumadin Supratherapeutic INR level Elevated BNP level Troponin leak possibly from acute kidney injury, sepsis Chronic back pain with worsening L1 anterior wedge compression deformity as per CT History of past bowel obstruction DVT prophylaxis patient is on Coumadin already Plan: Decrease IV fluids Continue IV antibiotics overnight will finish course of antibiotics with oral medication tomorrow Continue on IV amiodarone, cardiology following patient closely Continue to hold coumadin, daily PT/INR PT/OT has been consulted The impression and plan of care has been dictated by Alexandra Cotton Nurse Practitioner as directed. Dr. Melissa MD I have performed a history and physical examination and medical decision making of this patient, discussed the same with the dictator, and agree with the dictators assessment and plan as written, documented as a scribe. Based on total visit time, I have performed more than 50% of this visit. Objective - Vital Signs Vital signs: Vital Signs Temp 97.4 F L 09/13/22 04:00 Pulse 116 H 02/19/22 04:00 Resp 20 02/19/22 04:00 BP 109/67 02/19/22 04:00 Pulse Ox 98 02/19/22 04:00 FiO2 Intake & Output 02/18/22 02/19/22 02/19/22 18:59 06:59 18:59 Weight 65.317 kg Other: Voiding Method Toilet # Voids 2 - Labs CBC & Chem 7: 02/19/22 07:42 02/19/22 07:42 Labs: Abnormal Lab Results - Last 24 Hours (Table) 02/18/22 02/18/22 02/18/22 Range/Units 11: 11: 11:22 WBC 23.0 H (3.8-10.6) k/uL Neutrophils # 20.4 H (1.3-7.7) k/uL PT 60.5 H (9.0-12.0) sec INR 6.0 H* (<1.2) APTT 32.0 H (22.0-30.0) sec Sodium 134 L (137-145) mmol/L Chloride 94 L (98-107) mmol/L BUN 40 H (7-17) mg/dL Creatinine 2.09 H (0.52-1.04) mg/dL Glucose 114 H (74-99) mg/dL Plasma Lactic Acid Placido (0.7-2.0) mmol/L Alkaline Phosphatase 153 H (38-126) U/L Troponin I (0.000-0.034) ng/mL Ur Leukocyte Esterase (Negative) Urine Bacteria (None) /hpf Urine Mucus (None) /hpf 02/18/22 02/18/22 02/18/22 Range/Units 11: 11:22 13:19 WBC (3.8-10.6) k/uL Neutrophils # (1.3-7.7) k/uL PT (9.0-12.0) sec INR (<1.2) APTT (22.0-30.0) sec Sodium (137-145) mmol/L Chloride (98-107) mmol/L BUN (7-17) mg/dL Creatinine (0.52-1.04) mg/dL Glucose (74-99) mg/dL Plasma Lactic Acid Placido 2.3 H* (0.7-2.0) mmol/L Alkaline Phosphatase (38-126) U/L Troponin I 0.035 H* (0.000-0.034) ng/mL Ur Leukocyte Esterase Trace H (Negative) Urine Bacteria Rare H (None) /hpf Urine Mucus Rare H (None) /hpf 02/19/22 Range/Units 07:42 WBC (3.8-10.6) k/uL Neutrophils # 8.4 H (1.3-7.7) k/uL PT (9.0-12.0) sec INR (<1.2) APTT (22.0-30.0) sec Sodium (137-145) mmol/L Chloride (98-107) mmol/L BUN (7-17) mg/dL Creatinine (0.52-1.04) mg/dL Glucose (74-99) mg/dL Plasma Lactic Acid Placido (0.7-2.0) mmol/L Alkaline Phosphatase (38-126) U/L Troponin I (0.000-0.034) ng/mL Ur Leukocyte Esterase (Negative) Urine Bacteria (None) /hpf Urine Mucus (None) /hpf Assessment and Plan Time with Patient: Less than 30
[2022-02-19] MEDS: AMIODARONE 450 MG in DEXTROSE 5% IN WATER 250 ML IV SCH ×2 (16:59)
[2022-02-19] MEDS ORDERED: HYDROcodone/APAP 5-325MG 1 EACH TAB PO PRN (17:15)
[2022-02-19] MEDS ORDERED: ONDANSETRON 4 MG TAB PO PRN (17:15)
[2022-02-19] MEDS: HYDROcodone/APAP 5-325MG 1 EACH TAB PO PRN ×2 (17:23→23:40)
[2022-02-19] MEDS: NYSTATIN 100,000 UNIT/ML SUSP 500,000 UNIT/5 ML CUP PO SCH ×2 (18:42→20:09)
[2022-02-19] MEDS: MIRTAZAPINE 15 MG TAB PO SCH (20:08)
[2022-02-19] MEDS ORDERED: WARFARIN 0.5 MG TAB PO ONE (21:00)
[2022-02-20] MEDS: metroNIDAZOLE-NS PMX 500 MG in SALINE 1 100ML.BAG IVPB SCH ×2 (02:26→09:31)
[2022-02-20] MEDS: HYDROcodone/APAP 5-325MG 1 EACH TAB PO PRN ×2 (05:36→11:02)
[2022-02-20] MEDS: SODIUM CHLORIDE 0.9% 1,000 ML IV SCH (06:20)
[2022-02-20] MEDS: PANTOPRAZOLE 40 MG TABLET PO SCH (06:50)
[2022-02-20] MEDS: ATORVASTATIN 40 MG TAB PO SCH (06:50)
[2022-02-20] MEDS ORDERED: CYANOCOBALAMIN 500 MCG TAB PO SCH (07:00)
[2022-02-20] MEDS ORDERED: CHOLECALCIFEROL 125 MCG (5000 IU) TABLET PO SCH (07:00)
[2022-02-20] MEDS ORDERED: MAGNESIUM OXIDE 400 MG TAB PO SCH (07:00)
[2022-02-20 08:38] LABS: Basophils % (A) 0 %; Eosinophils # (A) 0.1 k/uL (0-0.7); Eosinophils % (A) 2 %; HCT 37.1 % (34.0-46.0); HGB 11.8 gm/dL (11.4-16.0); Lymphocytes # (A) 1.3 k/uL (1.0-4.8); Lymphocytes % (A) 17 %; MCH 29.7 pg (25.0-35.0); MCHC 31.7 g/dL (31.0-37.0); MCV 93.7 fL (80.0-100.0); Mean Platelet Volume 10.1; Monocytes # (A) 0.4 k/uL (0-1.0); Monocytes % (A) 5 %; Neutrophils # (A) 5.6 k/uL (1.3-7.7); Neutrophils % (A) 75 %; Platelet Count 189 k/uL (150-450); RBC 3.95 m/uL (3.80-5.40); WBC 7.4 k/uL (3.8-10.6)
[2022-02-20 08:57] LABS: INR 4.1 (<1.2); Prothrombin Time 40.8 sec (9.0-12.0)
[2022-02-20] MEDS ORDERED: METOPROLOL SUCCINATE (ER) 100 MG TAB.ER.24H PO SCH (09:00)
[2022-02-20] MEDS ORDERED: AMIODARONE 200 MG TAB PO SCH (09:00)
[2022-02-20 09:04] LABS: African American GFR (CKD) >90 (>60 ml/min/1.73 sqM); Anion Gap 11 mmol/L; Blood Urea Nitrogen 14 mg/dL (7-17); Calcium 8.8 mg/dL (8.4-10.2); Carbon Dioxide 23 mmol/L (22-30); Chloride 104 mmol/L (98-107); Glucose 138 mg/dL (74-99); Magnesium 1.5 mg/dL (1.6-2.3); Non-African American GFR(CKD) 89 (>60 ml/min/1.73 sqM); Potassium 3.1 mmol/L (3.5-5.1); Sodium 138 mmol/L (137-145)
[2022-02-20] MEDS ORDERED: Magnesium Replacement Protocol 1 EACH MISC MISCELLANE PRN (09:10)
[2022-02-20] MEDS: AMIODARONE 450 MG in DEXTROSE 5% IN WATER 250 ML IV SCH ×2 (09:28)
[2022-02-20] MEDS: LIDOCAINE 5% PATCH TOPICAL SCH (09:30)
[2022-02-20] MEDS: NYSTATIN 100,000 UNIT/ML SUSP 500,000 UNIT/5 ML CUP PO SCH ×2 (09:30→14:39)
[2022-02-20] MEDS: POTASSIUM CHLORIDE ER 20 MEQ TAB.ER PO SCH ×2 (09:31→11:02)
--- NOTE | 2022-02-20 09:57 | P.PN ---
Subjective Patient is seen in follow-up for acute kidney injury. GFR is back to baseline. He has been voiding. No vomiting or diarrhea. Blood pressure stable. Vital signs are stable. General: Awake. No acute distress. HEENT: Head exam is unremarkable. LUNGS: Breath sounds decreased. HEART: Rate and Rhythm are regular. ABDOMEN: Soft, no distention. EXTREMITITES: No edema. Objective - Vital Signs Vital signs: Vital Signs Temp 97.6 F 02/19/22 23:45 Pulse 100 02/20/22 04:00 Resp 22 02/20/22 04:00 BP 116/69 02/20/22 04:00 Pulse Ox 95 02/20/22 04:00 FiO2 Intake & Output 02/19/22 02/20/22 02/20/22 18:59 06:59 18:59 Intake Total 340 118 Balance 340 118 Intake: Intake, IV Titration 100 Amount Sodium Chloride 0.9% 1, 100 000 ml @ 50 mls/hr IV . Q20H MAURICIO Rx#:[id number] Oral 240 118 Other: Voiding Method Toilet Toilet # Voids 5 1 - Labs CBC & Chem 7: 02/20/22 07:41 02/20/22 07:41 Labs: Abnormal Lab Results - Last 24 Hours (Table) 02/20/22 02/20/22 Range/Units 07:41 07:41 PT 40.8 H (9.0-12.0) sec INR 4.1 H (<1.2) Potassium 3.1 L (3.5-5.1) mmol/L Glucose 138 H (74-99) mg/dL Magnesium 1.5 L (1.6-2.3) mg/dL Microbiology - Last 24 Hours (Table) 02/18/22 16:10 Blood Culture - Preliminary Blood No Growth after 24 hours Assessment and Plan Plan: Assessment: 1. Acute kidney injury mostly prerenal secondary to hypotension, NSAIDs and diuretics, improved with IV hydration. Creatinine was 2.09 on admission and is 0.63 today. UA benign. No hydronephrosis noted on CAT scan. 2. Diverticulitis on antibiotics. 3. A. fib with RVR on amiodarone. Cardiology following. 4. Chronic systolic CHF with ejection fraction of 35-40%. 5. Hypovolemic hyponatremia improved with IV hydration. 6. Hypokalemia from poor intake. 7. Hypomagnesemia from poor intake and GI losses. Plan: Maintain normal saline at 50 mL an hour. Continue to hold antihypertensives and diuretics. Cortisol level 13. Potassium and magnesium being replaced.
[2022-02-20] MEDS: MAGNESIUM SULFATE-D5W PMX 1 GM in DEXTROSE/WATER 1 100ML.BAG IVPB SCH ×2 (11:02→11:56)
--- NOTE | 2022-02-20 12:06 | P.PN ---
Subjective This is a pleasant 76-year-old female past medical history significant for Paroxysmal atrial fibrillation on Coumadin, hypertension, carotid disease, history of bowel resection in the past secondary to bowel obstruction, chronic history of tobacco use, T8 kyphoplasty 09/14/2021 secondary to compression fracture, Plan for future T10 kyphoplasty and surgery with Orthopedics, 10/03/21 Colonoscopy and EGD revealed small hiatal hernia, esophagitis, short segment Delaney's esophagus and mild antral gastritis, scattered sigmoid diverticulosis, and rectal polyp s/p biopsy. She follows in the office with Dr. Sim. We have been asked to see in consultation for elevated troponin. Patient presents to the emergency department after being at her doctors appointment yesterday with symptoms of loss/decreased vision in her left eye, feelings of fatigue, l ightheaded and hypotensive. She states she went to the Pain clinic for her scheduled appointment, she was walking back to the exam table, and felt somewhat "funny", she noticed blurry vision, some decreased vision in her left eye seeing spots/shapes. She was not feeling well. She was hypotensive with BP 80s/40s. EMS was called and patient was brought to the ER. She endorses generalized fatigue, weight loss, decreased appetite. SHe denies any syncope, loss of consciousness, palpitations, chest pain, shortness of breath. She denies any fever, cough, chills, headache, focal weakness, incontinence of urine or bowel. On admission, patient was found to have elevated WBC, lactic acidosis, INR supr atherapeutic 6.0, acute kidney injury. Patient recent admitted to the hospital in 01/2022 with A fib with RVR and congestive heart failure. Echocardiogram revealed EF 3540%, apical and septal hypokinesis, mild mitral regurgitation, no pericardial effusion. She was treated medically and stabilized and plan for outpatient follow up with likely cardiac catheterization as an outpatient. 02/20 Patient seen and examined at bedside, she is doing well, no complaints. Her BP improved. She continues to be in atrial fibrillation with better controlled rates. Her renal function has improved. She is on IV amiodarone. INR continues to be supratherapeutic at 4.1. Troponin was negative. PHYSICAL EXAMINATION Vitals reviewed CONSTITUTIONAL: No apparent distress, frail HEENT: Head is normocephalic. Pupils are equal, round. Sclerae anicteric. Mucous membranes of the mouth are dry. CHEST EXAMINATION: Lungs are clear to auscultation. No chest wall tenderness is noted on palpation or with deep breathing. HEART EXAMINATION: Irregular rhythm. S1, S2 heard. No murmurs, gallops or rub. ABDOMEN: Soft, nontender. Positive bowel sounds. EXTREMITIES: 2+ peripheral pulses, no lower extremity edema and no calf tenderness. NEUROLOGIC EXAMINATION: Patient is awake, alert and oriented x3. ASSESSMENT Paroxysmal atrial fibrillation with RVR on Coumadin Acute sigmoid diverticulitis Sepsis Hypotension Generalized fatigue and lightheadedness Acute kidney injury,improved Lactic acidosis Elevated troponin, likely secondary to sepsis and acute kidney, however will trend troponin Recent echo 02/04/2022 nrevealed new cardiomyopathy with EF 3540%, apical and septal hypokinesis. Cardiomyopathy, ischemic vs non-ischemic, currently hypovolemic on exam History of hypertension Carotid artery disease History of bowel resection in the past secondary to bowel obstruction Chronic history of tobacco use History of compression fracture PLAN Patient is improving, renal function is improving, additional troponin negative, HRs are controlled Transition to PO amiodarone Restart metoprolol succinate 100mg daily Coumadin on hold secondary to supratherapeutic INR Daily INR Monitor renal function Monitor on telemetry Further recommendations based on clinical course Nurse practitioner note has been reviewed by physician. Signing provider agrees with the documented findings, assessment, and plan of care. Objective - Vital Signs Vital signs: Vital Signs Temp 97.8 F 02/20/22 09:20 Pulse 130 H 02/20/22 09:20 Resp 20 02/20/22 09:20 BP 122/73 02/20/22 09:20 Pulse Ox 94 L 02/20/22 09:20 FiO2 Intake & Output 02/19/22 02/20/22 02/20/22 18:59 06:59 18:59 Intake Total 340 118 Balance 340 118 Intake: Intake, IV Titration 100 Amount Sodium Chloride 0.9% 1, 100 000 ml @ 50 mls/hr IV . Q20H MAURICIO Rx#:[id number] Oral 240 118 Other: Voiding Method Toilet Toilet Toilet # Voids 5 1 - Labs CBC & Chem 7: 02/20/22 07:41 02/20/22 07:41 Labs: Abnormal Lab Results - Last 24 Hours (Table) 02/20/22 02/20/22 Range/Units 07:41 07:41 PT 40.8 H (9.0-12.0) sec INR 4.1 H (<1.2) Potassium 3.1 L (3.5-5.1) mmol/L Glucose 138 H (74-99) mg/dL Magnesium 1.5 L (1.6-2.3) mg/dL Microbiology - Last 24 Hours (Table) 02/18/22 16:10 Blood Culture - Preliminary Blood No Growth after 24 hours
[2022-02-20 12:12] VITALS: PULSE 75
[2022-02-20 16:24] VITALS: BP 112/68; RESP 20; TEMP 97.8
[2022-02-20] MEDS ORDERED: WARFARIN 0.5 MG TAB PO ONE (18:00)
--- NOTE | 2022-02-20 22:34 | P.DS ---
Providers Date of admission: 02/18/22 15:18 Attending physician: Luis Farrar Consults: 02/19/22 01:53 Consult Physician Routine Consulting Provider: Milton Sim Consult Reason/Comments: elevated troponin, BNP Do you want consulting provider notified?: Yes, Notify in am 02/19/22 09:07 Consult Physician Routine Consulting Provider: Isra Solomon Consult Reason/Comments: PEREZ Do you want consulting provider notified?: Yes Primary care physician: Lashell Kimble Hospital Course: Diagnosis Acute sigmoid diverticulitis SIRS/Sepsis secondary above Dizziness and lightheadedness due to hypotension, with afib RVR on admission Hypovolemic hyponatremia resolved with hydration Acute kidney injury likely prerenal. Baseline creatinine level 0.76 Lactic acidosis improved paroxysmal atrial fibrillation with rapid ventricular rate on admission. Anticoagulation with Coumadin Supratherapeutic INR level Elevated BNP level Troponin leak possibly from acute kidney injury, sepsis Chronic back pain with worsening L1 anterior wedge compression deformity as per CT History of past bowel obstruction History COPD not in acute exacerbation Hypertension history Hyperlipidemia Discharge Disposition Patient is stable for discharge this afternoon, guarded prognosis. Cardiology has recommended oral amiodarone taper and she is also discharged on home toprol dose of 100 mg daily. She has an appointment to see Dr Sim on Friday02/22/2022. Patient will also see her primary care provider Dr Kimble in 1 to 2 days. Nephrology recommending to hold lasix, aldactone and lisinopril on discharge. Patient instructed to resume lasix if she develops swelling. Patients INR today is 4.1 and she has lab slip to repeat in 2 days, instructed to take coumadin 2.5 mg PO tomorrow and check INR on Friday and resume per ysician recommendations. She is also discharged on 3 more days of oral antibiotics with ceftin and flagyl. Hospital Course This is a pleasant 76 year old female of Dr Kimble with medical history of p aroxysmal atrial fibrillation anticoagulated with coumadin, COPD, GERD with gastric ulcers, hypertension, hyperlipidemia, also with chronic back pain with known vertebral fractures, history of bowel obstruction. She presents to the emergency room instructed to come from Dr Davis office where she was being evaluated in follow up. She states she had dizziness and lightheadedness in the office, blurred vision and shortness of breath. Denies fever, chills, no palpitations no chest pain. No leg swelling or calf tenderness. She was found to have be in atrial fibrillation with rapid ventricular rate. Chest xray did show bibasilar atlectasis She was started on amiodarone gtt. Patient also was found to have acute kidney injury with creatinine of 2. proBNP 9000. She had mild lactic acidosis. She does report left lower quadrant abdominal pain and cramping. For this reason CT abdomen pelvis was completed and shows acute uncomplicated sigmoid diverticulitis. For this she was started on IV flagyl and IV ceftriaxone. There is also worsening L1 anterior wedge compression deformity with approximately 50% height loss and 4 mm retropulsion compared to CT from 01/09. Patient does have back brace she wears. She was hypotensive with BP 81/57, pulse 122, respirations 24 and pulse ox 88% room air. Afebrile. She was admitted to the hospital with consults placed to cardiology and nephrology. Patients lisinopril, lasix, and aldactone were placed on hold. She converted to sinus rhythm and was transitioned to oral amiodarone taper. With gentle hydration her creatinine normalized and blood pressure now 120s systolic. Her INR on admission was found to be supratherapuetic at 6.0 and has improved to 4.1. She did have a large amount of stool mostly diarrhea and states her abdominal pain has improved and she is tolerating oral diet. Potassium dropped to 3.1 and magnesium to 1.5 she received oral supplementation and potassium improved to 4.8. Urinalysis negative for infection. Blood culture negative. 02/20/2022 Patient is sitting up in chair with family at bedside. She would like to be discharged today. She is transitioned to oral amiodarone and has a follow up appointment with Dr Sim on Friday. She denies chest pain, no shortness of breath. No nausea vomiting and reports no further episodes of diarrhea. No peripheral edema. Her lungs are clear, S1 S2 auscultated, she has normoactive bowel sounds and no abdominal tenderness. She is alert x3. She has ambulated up in the schilling with PT/OT and cleared for discharge home. No white count most recent level 7.2, sodium 138, potassium 4.8, chloride 104, CO2 23, BUN 14, creatinine 0.63, glucose 138, calcium 8.8, magnesium 1.5, AM cortisol level 13. Vitals today showing temperature of 97.8, heart rate 75 normal sinus rhythm, blood pressure 112/68, 94 to 98% room air. Discharge and recommendations discussed with nephrology and cardiology and patient will be discharged home this afternoon. Please see medication reconciliation for a list of current medication. Thank you for allowing us to participate in the care of this patient. Total time taken in discharge planning greater than 35 minutes. The impression and plan of care has been dictated by Alexandra Cotton, Nurse Practitioner as directed. Dr. Melissa MD I have performed a history and physical examination and medical decision making of this patient, discussed the same with the dictator, and agree with the dictators assessment and plan as written, documented as a scribe. Based on total visit time, I have performed more than 50% of this visit. Patient Condition at Discharge: Fair Plan - Discharge Summary Discharge Rx Participant: Yes New Discharge Prescriptions: New cefUROXime axetiL [Ceftin] 500 mg PO BID 3 Days #6 tab Sodium Chloride 0.65% Nasal [Deep Sea (Saline)] 2 spray NASAL QID PRN ml PRN Reason: Dry Nasal Passages Lidocaine 5% Patch [Lidoderm 5% Patch] 1 patch TOPICAL DAILY patch Famotidine [Pepcid] 20 mg PO BID #60 tablet metroNIDAZOLE [Flagyl] 500 mg PO TID 3 Days #9 tab Amiodarone [Cordarone] 400 mg PO BID #120 tab Continue Vitamin A [Vitamin A (8,000 Units = 2,400 MCG)] 2,400 mcg PO DAILY@0700 Magnesium 250 mg PO DAILY@0700 Ondansetron [Zofran] 4 mg PO QID PRN PRN Reason: Nausea rOPINIRole HCL [Requip] 1 mg PO HS 15 Days #15 tab Lactulose 10 gm PO TID PRN PRN Reason: Constipation Nystatin 100,000 Unit/ml Susp [Mycostatin Oral Susp] 500,000 unit PO QID Cholecalciferol [Vitamin D3 (125 Mcg = 5000 Iu)] 125 mcg PO DAILY@0700 Atorvastatin [Lipitor] 40 mg PO DAILY@0700 Cyanocobalamin (Vitamin B-12) [Vitamin B-12] 1,000 mcg PO DAILY@0700 Docusate [Colace] 100 mg PO DAILY@0700 HYDROcodone/APAP 5-325MG [[place]brook 5-325] 1 tab PO TID Lactobacillus Rhamnosus GG [Culturelle] 1 cap PO BID@0700,1900 Mirtazapine [Remeron] 7.5 mg PO HS #15 tab Metoprolol Succinate (ER) [Toprol XL] 100 mg PO DAILY #30 tab Naloxone HCl [Narcan] 4 mg NASAL DAILY PRN PRN Reason: overdose Discontinued Warfarin Sodium 5 mg PO DAILY@0700 Omeprazole 20 mg PO BID@0700,1900 Metoprolol Succinate (ER) [Toprol XL] 50 mg PO HS #30 tab Sennosides [Senokot] 8.6 mg PO HS@1900 Spironolactone [Aldactone] 25 mg PO DAILY #30 tab Furosemide [Lasix] 40 mg PO BID@0900,1600 #60 tab lisinopriL [Zestril] 2.5 mg PO DAILY #30 tab Discharge Medication List Atorvastatin [Lipitor] 40 mg PO DAILY@0700 08/07/21 [History] Cholecalciferol [Vitamin D3 (125 Mcg = 5000 Iu)] 125 mcg PO DAILY@0708/07/21 [History] Vitamin A [Vitamin A (8,000 Units = 2,400 MCG)] 2,400 mcg PO DAILY@0708/07/21 [History] Cyanocobalamin (Vitamin B-12) [Vitamin B-12] 1,000 mcg PO DAILY@0710/22/21 [History] Magnesium 250 mg PO DAILY@0710/22/21 [History] Docusate [Colace] 100 mg PO DAILY@69910/29/21 [History] HYDROcodone/APAP 5-325MG [[place]brook 5-325] 1 tab PO TID 12/17/21 [History] Ondansetron [Zofran] 4 mg PO QID PRN 12/17/21 [History] Lactobacillus Rhamnosus GG [Culturelle] 1 cap PO BID@0700,1900 02/03/22 [History] Metoprolol Succinate (ER) [Toprol XL] 100 mg PO DAILY #30 tab 02/06/22 [Rx] Mirtazapine [Remeron] 7.5 mg PO HS #15 tab 02/06/22 [Rx] rOPINIRole HCL [Requip] 1 mg PO HS 15 Days #15 tab 02/06/22 [Rx] Lactulose 10 gm PO TID PRN 02/18/22 [History] Naloxone HCl [Narcan] 4 mg NASAL DAILY PRN 02/18/22 [History] Nystatin 100,000 Unit/ml Susp [Mycostatin Oral Susp] 500,000 unit PO QID [History] Amiodarone [Cordarone] 400 mg PO BID #120 tab 02/20/22 [Rx] Famotidine [Pepcid] 20 mg PO BID #60 tablet 02/20/22 [Rx] Lidocaine 5% Patch [Lidoderm 5% Patch] 1 patch TOPICAL DAILY patch 02/20/22 [Rx] Sodium Chloride 0.65% Nasal [Deep Sea (Saline)] 2 spray NASAL QID PRN ml 02/20/22 [Rx] cefUROXime axetiL [Ceftin] 500 mg PO BID 3 Days #6 tab 02/20/22 [Rx] metroNIDAZOLE [Flagyl] 500 mg PO TID 3 Days #9 tab 02/20/22 [Rx] Follow up Appointment(s)/Referral(s): Lashell Kimble MD [Primary Care Provider] - 1 Week Milton Sim MD [STAFF PHYSICIAN] - 02/22/22 (February 22 1:45) Isra Solomon DO [STAFF PHYSICIAN] - As Needed Ambulatory/Diagnostic Orders: Basic Metabolic Panel [LAB.AMB] Time Frame: 2 Days, Location: None Selected Magnesium [LAB.AMB] Time Frame: 2 Days, Location: None Selected Prothrombin Time INR [LAB.AMB] Time Frame: 2 Days, Location: None Selected Patient Instructions/Handouts: A-fib (Atrial Fibrillation) (DC), Diverticulitis (DC) Activity/Diet/Wound Care/Special Instructions: Continue to hold coumadin today 02/20/2022 Tomorrow 02/21/2022 take Warfarin 2.5 mg (1/2 tablet) Follow up with Dr Sim on 02/22/2022 Amiodarone Taper Instructions: Take 400mg Twice a day for 7 days (02/20-02/26) Then take 200mg Twice a day for 7 days (starting 02/27) Then take 200mg daily starting 03/06 Further changes by your ice cream freezer, Dr. Sim Check labs in 2 days including INR, BMP, and magnesium Complete 3 days of oral antibiotics, monitor for increase in diarrhea. Hold laxatives while completing antibiotics Stop omeprazole and begin pepcid twice a day Hold lasix on discharge per nephrology Can resume if develop any swelling post discharge Discharge/Stand Alone Forms: Who Do I Call?, Community Resources, [employer] Discharge Disposition: HOME WITH HOME HEALTH SERVICES
== END 2022-02-20 17:34 | disposition home health service (06) | DRG 872 ==
LOC: EC 10:52 → 3SCARD 15:18
PROVIDERS: ADMIT Hospitalist; ATTEND Hospitalist
DX: A41.9 Sepsis, unspecified organism (principal); E87.2 Acidosis; N17.9 Acute kidney failure, unspecified; D68.8 Other specified coagulation defects; E87.1 Hypo-osmolality and hyponatremia; I48.20 Chronic atrial fibrillation, unspecified; M48.54XA Collapsed vertebra, not elsewhere classified, thoracic region, initial encounter for fracture; I50.22 Chronic systolic (congestive) heart failure; K57.32 Diverticulitis of large intestine without perforation or abscess without bleeding; J98.11 Atelectasis; I11.0 Hypertensive heart disease with heart failure; J44.9 Chronic obstructive pulmonary disease, unspecified; I95.9 Hypotension, unspecified; R54 Age-related physical debility; E78.5 Hyperlipidemia, unspecified; E86.1 Hypovolemia; N20.0 Calculus of kidney; T39.395A Adverse effect of other nonsteroidal anti-inflammatory drugs [NSAID], initial encounter; K44.9 Diaphragmatic hernia without obstruction or gangrene; K22.70 Barrett's esophagus without dysplasia; I25.5 Ischemic cardiomyopathy; R00.0 Tachycardia, unspecified; T50.2X5A Adverse effect of carbonic-anhydrase inhibitors, benzothiadiazides and other diuretics, initial encounter; I34.0 Nonrheumatic mitral (valve) insufficiency; E87.6 Hypokalemia; E83.42 Hypomagnesemia; R79.89 Other specified abnormal findings of blood chemistry; F17.210 Nicotine dependence, cigarettes, uncomplicated; G89.29 Other chronic pain; Z79.899 Other long term (current) drug therapy; Z79.01 Long term (current) use of anticoagulants; Z88.8 Allergy status to other drugs, medicaments and biological substances; Z87.11 Personal history of peptic ulcer disease; Z90.710 Acquired absence of both cervix and uterus; Z82.62 Family history of osteoporosis; Z82.5 Family history of asthma and other chronic lower respiratory diseases; Z82.49 Family history of ischemic heart disease and other diseases of the circulatory system; Z90.49 Acquired absence of other specified parts of digestive tract; Z86.010 Personal history of colon polyps; Z98.890 Other specified postprocedural states; Z87.01 Personal history of pneumonia (recurrent)
CPT/HCPCS: 36415; 71046; 74176; 80048; 80053; 81001; 82533; 83605; 83735; 83880; 84132; 84484; 85025; 85610; 85730; 87040; 93005; 96361; 96365; 96375; 96376; 99285

== ENCOUNTER → 2022-02-26 | Outpatient (CLI) | payer MEDICARE ==
--- NOTE | 2022-02-26 10:36 | MR ---
EXAMINATION TYPE: MR lumbar spine wo con DATE OF EXAM: 02/26/2022 COMPARISON: CT 02/03/2022, 02/18/2022 HISTORY: Low back pain for 2 months. TECHNIQUE: Multiplanar, multisequence images of the lumbar spine were acquired without IV contrast. L1-L2: Posterior extension endplate disc complex causes mild anterior mass effect on the thecal sac. There is likely bilateral foraminal encroachment due to lateral extension endplate disc complex. L2-L3: Minimal posterior disc bulge. No significant foraminal encroachment. Mild facet arthropathy. L3-L4: Facet arthropathy with hypertrophy of ligamentum flavum causes posterior lateral mass effect o n the thecal sac. Circumferential extension endplate disc complex encroaches upon the foramen greater on the right than on the left. There is mild anterior mass effect on the thecal sac due to circumfer ential posterior disc bulge. L4-L5: Circumferential posterior extension of endplate disc complex causes mild anterior mass effect on the thecal sac. Facet arthropathy with hypertrophy ligamentum flavum is noted. Circumferential ext ension of endplate disc complex encroaches upon the foramina greater on the right than on the left. N o significant spinal stenosis. L5-S1: There is some facet arthropathy change. Circumferential extension endplate disc complex encroa ches upon the foramina mildly. Mild posterior disc bulge is present causing only slight anterior mass effect on the thecal sac, there may be contact with the proximal S1 nerve roots. The loss of height of the L1 vertebral body is again seen, there is mixed low and high signal present on T1 and T 2's weighted sequences. There is some mild retropulsion present of the endplates of only approximately 5 to 6 mm, no significant spinal stenosis. Multilevel spondylosis is present, there is endplate discogenic marrow signal change at multiple levels. Loss of disc height signal is present e specially at L4-5, L3-4 greater than L2-3. Some mild expansion of disc space present at T12-L1, L1-2. Superior endplate of L3 shows depression consistent with Schmorl's node. There is a mild spinal curv ature. No paraspinal masses are identified. Conus medullaris has a normal appearance. IMPRESSION: Chronic compression fracture L1, mild retropulsion. Multilevel degenerative disc disease, facet arthr opathy, foraminal encroachment as described. No significant spinal stenosis.
== END | disposition home or self-care (01) ==
LOC: RADMRIMAIN 08:36
PROVIDERS: ATTEND Physical Medicine & Rehabilitation Pain Medicine
DX: S32.010A Wedge compression fracture of first lumbar vertebra, initial encounter for closed fracture (principal); M51.26 Other intervertebral disc displacement, lumbar region
CPT/HCPCS: 72148

== ENCOUNTER 2022-03-01 10:01 | Day surgery (SDC) | payer MEDICARE ==
[~2022-03-01 10:01] MED LIST changes: -LACTATED RINGERS 1,000 ML IV SCH; +SODIUM CHLORIDE 0.9% 1,000 ML IV SCH
[2022-03-01] MEDS ORDERED: SODIUM CHLORIDE 0.9% 500 ML 500 ML IV ONE (10:45)
[2022-03-01 10:53] VITALS: BP 136/84; PULSE 84; RESP 16; TEMP 97.1
[2022-03-01 10:58] LABS: INR 4.6 (<1.2); Prothrombin Time 46.2 sec (9.0-12.0)
== END 2022-03-01 12:08 | disposition home or self-care (01) ==
LOC: CATHCVL 10:01
PROVIDERS: ATTEND Internal Medicine Interventional Cardiology
DX: I48.0 Paroxysmal atrial fibrillation (principal); Z53.9 Procedure and treatment not carried out, unspecified reason; I10 Essential (primary) hypertension; E78.5 Hyperlipidemia, unspecified; Z79.01 Long term (current) use of anticoagulants; Z72.0 Tobacco use; I65.23 Occlusion and stenosis of bilateral carotid arteries; I42.9 Cardiomyopathy, unspecified; Z79.899 Other long term (current) drug therapy; Z20.822 Contact with and (suspected) exposure to COVID-19
CPT/HCPCS: 85610; 87635

== ENCOUNTER → 2023-01-20 | Outpatient (CLI) | payer MEDICARE ==
[2023-01-20 14:30] LABS: Blood Urea Nitrogen 26.7 mg/dL (9.0-27.0); Carbon Dioxide 27.9 mmol/L (21.6-31.8); Chloride 104 mmol/L (96-109); Glucose 108 mg/dL (70-110); Potassium 5.9 mmol/L (3.5-5.5); Sodium 143 mmol/L (135-145)
[2023-01-20 14:55] LABS: HGB 14.7 d/dL (12.0-15.0); MCH 32.6 pg (27.0-32.0); Mean Platelet Volume 12.7 FL (9.5-12.2); NRBC Per 100 WBC 0 X 10*3/uL (0.00-0.01); Platelet Count 186 X 10*3/uL (140-440); RBC 4.51 X 10*6/uL (4.10-5.20); RDW 12.8 % (11.5-14.5); WBC 7.62 X 10*3/uL (4.50-10.00)
== END | disposition home or self-care (01) ==
LOC: LABWHC1 08:53
PROVIDERS: ATTEND Internal Medicine Interventional Cardiology
DX: N18.9 Chronic kidney disease, unspecified (principal)
CPT/HCPCS: 36415; 80048; 85027

== ENCOUNTER → 2023-01-31 | Outpatient (CLI) | payer MEDICARE ==
--- NOTE | 2023-01-31 12:31 | CTL ---
EXAMINATION TYPE: CT Low Dose Lung DATE OF EXAM ORDERED: 01/31/2023 HISTORY: . Lung cancer screening CT DLP: [address] CTDI: 1.95 mGy Automated exposure control for dose reduction was used. SCREENING VISIT: COMPARISON: 820 TECHNIQUE: Low dose computed tomography scan was performed through the chest at 1 mm thick sections a nd reconstructed images in multiple planes at 1 mm and [address] DIAGNOSTIC QUALITY: Satisfactory FINDINGS: There is bilateral apical pleural thickening. Diffuse emphysematous changes are seen. Pleural based c alcification right upper lobe laterally. There are areas of subsegmental consolidation likely in the basis of scarring or atelectasis bilatera lly. No evidence of focal pneumonia. No evidence of overt heart failure. There is no pleural effusion . There is no pneumothorax. Atherosclerotic change of the aorta. Dense coronary artery calcification and mild cardiomegaly. No si zable pericardial effusion. There is a left hepatic lobe lesion measuring 5 Hounsfield units and 1.6 cm compatible with simple cy st. Multiple additional hypodensities are seen stable. Compression fractures are seen with vertebral plasty in the mid thoracic spine. There is a severe com pression fracture with complete loss of vertebral body height at the thoracolumbar junction. Mild sup erior endplate compression fracture of the lower thoracic spine. Multilevel degenerative disc disease . There is a right breast nodule measuring 1.6 cm There is skin thickening. The thyroid has a normal appearance. There is no sizable pulmonary nodules seen. IMPRESSION: 1. No suspicious pulmonary nodules. Diffuse emphysema. 2. There is a suspicion of a right breast mass measuring 1.6 cm. Adjacent skin thickening. Report jesse led to referring clinician 12:23 at 13:24 PM 01/31/2023. 3. Cardiomegaly with dense coronary artery calcification. CT LUNG RAD AND CT CHEST RECOMMENDATION: Lung-Rad 2 Benign Appearance or Behavior: Continue annual sc reening with LDCT in 12 months. S Modifier (other clinically significant findings):
== END | disposition home or self-care (01) ==
LOC: RADCTMAIN 11:31
PROVIDERS: ATTEND Family Medicine
DX: Z12.2 Encounter for screening for malignant neoplasm of respiratory organs (principal); I51.7 Cardiomegaly; J43.9 Emphysema, unspecified; I25.10 Atherosclerotic heart disease of native coronary artery without angina pectoris; F17.210 Nicotine dependence, cigarettes, uncomplicated
CPT/HCPCS: 71271

== ENCOUNTER → 2023-02-07 | Outpatient (CLI) | payer MEDICARE ==
--- NOTE | 2023-02-07 10:10 | MM ---
Reason for Exam: Additional evaluation requested from prior study. Last mammogram was performed 2 year(s) and 2 month(s) ago. Patient History: Menarche at age 15. First Full-Term at age 23. Left ovary removed at age 31. Right ovary removed at age 31. Hysterectomy at age 31. Postmenopausal. Mother had breast cancer, age 70. Risk Values: Sujatha 5 year model risk: 3.4%. NCI Lifetime model risk: 7.2%. Prior Study Comparison: 03/04/2016 Screening Mammogram, [place]. 10/08/2017 Screening Mammogram, [place]. 12/22/2019 Bilateral Screening Mammogram, [facility]. 01/17/2020 Right Diagnostic Mammogram, [facility]. 12/22/2020 Bilateral Diagnostic Mammogram, [facility]. Tissue Density: The breast tissue is heterogeneously dense. This may lower the sensitivity of mammography. Findings: Analyzed By CAD. Increasing group of coarse heterogenous calcifications within the upper outer left breast at posterior depth this measures in the region of 7 mm. New right breast mass with circumscribed margins and high density and anterior and middle depth approximately 3 cm from the nipple measuring up to 2.2 cm. Benign calcifications within both breasts. Stable chronic nodularity within the right breast. No new suspicious mass within the left breast. Overall Assessment: Suspicious, BI-RAD 4 Management: Stereotactic Core Biopsy of the left breast. Diagnostic Breast Ultrasound of the right breast. A clinical breast exam by your physician is recommended on an annual basis and results should be correlated with mammographic findings. This exam should not preclude additional follow-up of suspicious palpable abnormalities. Results were given to the patient verbally at the time of exam. Note on Sujatha scores and lifetime risk: 1. A Sujatha score greater than 3% is considered moderate risk. If this is the case, consider specialist referral to assess eligibility for a risk reducing agent. If overall lifetime risk for the development of breast cancer is 20% or higher, the patient may qualify for future screening with alternating mammogram and breast MRI. Electronically signed and approved by: Michael Moreno D.O.
--- NOTE | 2023-02-07 10:35 | USB ---
Reason for Exam: Additional evaluation requested from prior study. Patient History: Menarche at age 15. First Full-Term at age 23. Left ovary removed at age 31. Right ovary removed at age 31. Hysterectomy at age 31. Postmenopausal. Mother had breast cancer, age 70. Risk Values: Sujatha 5 year model risk: 3.4%. NCI Lifetime model risk: 7.2%. Technique: Method: Targeted. Prior Study Comparison: 12/22/2019 Bilateral Screening Mammogram, [facility]. 01/17/2020 Right Diagnostic Mammogram, [facility]. 12/22/2020 Bilateral Diagnostic Mammogram, [facility]. Findings: The lower inner quadrant of the right breast, the axilla of the right breast and the retroareolar of the right breast were scanned. Targeted ultrasound the right breast from 3-7 o'clock was performed with additional evaluation of the nipple and axilla. Marginal increase in size of complex cystic lesion with debris in the right breast at 4:00 12 cm from the nipple measuring 1.2 x 1.3 x 0.6 cm, previously measured up to 1.1 cm. No internal color flow identified. Reported as a sebaceous cyst. Stable hypoechoic circumscribed ovoid lesion within the right breast 7:00 5 cm the nipple. No internal color flow. No posterior acoustic features. Parallel orientation. Stability from 2020 indicates benign process. Increased size of simple thin-walled cyst within the right nipple region measuring 1.5 x 1.1 x 1.8 cm, previously measured up to 0.7 cm. Overall Assessment: Benign, BI-RAD 2 Management: Screening Mammogram of both breasts in 1 year. The cysts are amenable to ultrasound-guided aspiration as clinically indicated. A clinical breast exam by your physician is recommended on an annual basis and results should be correlated with mammographic findings. This exam should not preclude additional follow-up of suspicious palpable abnormalities. Results were given to the patient verbally at the time of exam. Electronically signed and approved by: Michael Moreno D.O.
== END | disposition home or self-care (01) ==
LOC: RADMAMWWP 09:03
PROVIDERS: ATTEND Family Medicine
DX: R92.8 Other abnormal and inconclusive findings on diagnostic imaging of breast (principal); Z78.0 Asymptomatic menopausal state; Z80.3 Family history of malignant neoplasm of breast
CPT/HCPCS: 77066; 76642; G0279; 77062

== ENCOUNTER → 2023-02-21 | Outpatient (CLI) | payer MEDICARE ==
--- NOTE | 2023-02-21 13:39 | BD ---
EXAMINATION TYPE: Axial Bone Density DATE OF EXAM: 02/21/2023 CLINICAL HISTORY: 77 years old Female. ICD-10 CODE: M81.0 AGE-RELATED OSTEOPOROSIS W/O CURRENT PATHO LO Height: 64 Weight: 152.8no FRAX RISK QUESTIONS: Alcohol (3 or more units per day): no Family History (Parent hip fracture): no Glucocorticoids (More than 3mos): no History of Fracture in Adulthood: yes Secondary Osteoporosis: 1. Type 1 Diabetes: no 2. Hyperthyroidism: no 3. Menopause before 45: yes 4. Malnutrition: no 5. Chronic liver disease: no Rheumatoid Arthritis: no Current Tobacco Use: yes RISK FACTORS HISTORY OF: Hip Fracture (Right/Left): no Spine Fracture: 4 spine fx's When: 2021 History of Wrist Fracture: no Surgery to Spine/Hip(right/left)/Wrist (right/left): Spine When: 2019 Family History of Osteoporosis: mother Active: no Diet low in dairy products/other sources of calcium: no Postmenopausal woman: yes Take estrogen and/or progesterone medications: no Lost more than 2 inches in height since high school: no Frequent falls: no Poor Health: no Hyperparathyroidism: no Adrenal Insufficiency: no MEDICATIONS: Prednisone or other steroids: no Thyroid Medications: no Osteoporosis Medications: no Additional Medications: Cholesterol Meds, Vit d, Additional History: EXAM MEASUREMENTS: Bone mineral density about the R hip (g/cm2): 0.753 Bone mineral density about the L hip (g/cm2): 0.720 T Score values are as follows: -----R Neck: -2.1 -----L Neck: -2.1 -----R Total: -2.0 -----L Total: -2.3 Z Score values are as follows: -----R Neck: -0..3 -----L Neck: -0.2 -----R Total: -0.4 -----L Total: -0.6 Bone mineral density has: decreased -12.7 % since study of: 02/14/2021 Bone mineral density about the L Wrist (g/cm2): 0.504 T Score values are as follows: -----Dist. R+U: -3.7 -----Prox. R+U: -1.8 -----Radius total: -2.8 Z Score values are as follows: -----Dist. R+U: -1.4 -----Prox. R+U: 0.5 -----Radius total: -0.5 BASELINE WRIST FRAX%s: The graph provided illustrates a 22.8% chance for a major osteoporotic fx and a 9.0% chance f or the hips probability for fx in 10 years time. IMPRESSION: Osteoporosis (T Score less than -2.5). There is increased fracture risk and therapy is usually indicated based on age. Re-Screen 1-2 years. NOTE: T-SCORE=SD OF THE YOUNG ADULT MEAN.
== END | disposition home or self-care (01) ==
LOC: RADBDWWP 12:53
PROVIDERS: ATTEND Family Medicine
DX: M81.0 Age-related osteoporosis without current pathological fracture (principal); M85.851 Other specified disorders of bone density and structure, right thigh; Z78.0 Asymptomatic menopausal state
CPT/HCPCS: 77080

== ENCOUNTER 2023-02-24 05:09 | Emergency (ER) | payer MEDICARE ==
[2023-02-24 05:18] VITALS: BP 125/77; PULSE 63; RESP 16; TEMP 98
[2023-02-24] MEDS ORDERED: KETOROLAC 15 MG/ML 1 ML VIAL IM STA (05:24)
[2023-02-24] MEDS ORDERED: ORPHENADRINE 30 MG/ML 2 ML VIAL IM STA (05:24)
--- NOTE | 2023-02-24 05:42 | ED ---
General Adult HPI - General Chief complaint: Extremity Injury, Lower Stated complaint: LEG PAIN Time Seen by Provider: 02/24/23 05:14 Source: patient, EMS Mode of arrival: EMS Limitations: no limitations - History of Present Illness Initial comments: This is a 77-year-old female came to the emergency department via EMS for left posterior buttock and left leg pain. It was reported the patient has had this pain for over 4 weeks and is seen 2 other physicians for this. The patient had received an injection of medications into her left leg on Friday and stated that she continued pain. The patient was also started on new medications but she stated that she had continued pain so she was told by her family of "multiple nurses" to come to the emergency department. The patient stated that she came in to get an MRI. When I told the patient is would not be occurring, the patient became upset and stated that she just wanted to leave. The patient did not have any new symptoms and denied any trauma to the area. The patient was otherwise resting in bed comfortably. - Related Data Home Medications Medication Instructions Recorded Confirmed Atorvastatin [Lipitor] 40 mg PO DAILY@0700 08/07/21 02/07/23 Cholecalciferol [Vitamin D3 (125 125 mcg PO DAILY@0700 08/07/21 02/07/23 Mcg = 5000 Iu)] Warfarin [Coumadin] 10 mg PO DAILY 02/28/22 02/07/23 Gabapentin [Neurontin] 100 mg PO HS 02/07/23 02/07/23 Sulfamethoxazole/Trimethoprim 1 each PO DAILY 02/07/23 02/07/23 [Sulfamethoxazole-Tmp Ds Tablet] Previous Rx's Medication Instructions Recorded Metoprolol Succinate (ER) [Toprol 100 mg PO DAILY #30 tab 02/06/22 XL] rOPINIRole HCL [Requip] 1 mg PO HS 15 Days #15 tab 02/06/22 methocarbamoL [Robaxin-750] 750 mg PO TID #30 tab 02/24/23 Allergies Allergy/AdvReac Type Severity Reaction Status Date / Time calcitonin [From Miacalcin] AdvReac Nausea & Verified 02/07/23 12:52 Vomiting Review of Systems ROS Statement: Those systems with pertinent positive or pertinent negative responses have been documented in the HPI. ROS Other: All systems not noted in ROS Statement are negative. Past Medical History Past Medical History: Atrial Fibrillation, COPD, GERD/Reflux, Hyperlipidemia, Hypertension, Pneumonia Additional Past Medical History / Comment(s): Chronic back pain/vertebral fractures, osteoporosis, bronchitis, hx of gastric ulcers, lower leg edema, constipation. History of Any Multi-Drug Resistant Organisms: None Reported Past Surgical History: Appendectomy, Back Surgery, Hysterectomy Additional Past Surgical History / Comment(s): Kyphoplasties. Past Anesthesia/Blood Transfusion Reactions: No Reported Reaction Past Psychological History: No Psychological Hx Reported Smoking Status: Current every day smoker Past Alcohol Use History: None Reported Past Drug Use History: Marijuana - Past Family History Mother Additional Family Medical History / Comment(s): osteoporosis Father Family Medical History: COPD, Myocardial Infarction (AK) Additional Family Medical History / Comment(s): Father of a massive AK at the age of 77yrs. General Exam Limitations: no limitations General appearance: alert, in no apparent distress Head exam: Present: atraumatic, normocephalic, normal inspection Eye exam: Present: normal appearance, PERRL Pupils: Present: normal accommodation ENT exam: Present: normal exam, normal oropharynx, mucous membranes moist Neck exam: Present: normal inspection, full ROM Respiratory exam: Present: normal lung sounds bilaterally Cardiovascular Exam: Present: regular rate, normal rhythm, normal heart sounds GI/Abdominal exam: Present: soft, normal bowel sounds Extremities exam: Present: normal inspection, tenderness (TTP over the posterior left buttock down the posterior left leg) Back exam: Present: normal inspection, full ROM Neurological exam: Present: alert, oriented X3, CN II-XII intact Psychiatric exam: Present: normal affect, normal mood Skin exam: Present: warm, dry Course Vital Signs 02/24/23 05:12 Temperature 98.0 F Pulse Rate 63 Respiratory 16 Rate Blood Pressure 125/77 O2 Sat by Pulse 97 Oximetry Medical Decision Making - Medical Decision Making Was pt. sent in by a medical professional or institution (, PA, SIDE SHOW ENTERTAINER, urgent care, hospital, or fci...) When possible be specific @ -No Did you speak to anyone other than the patient for history (EMS, parent, family, police, friend...)? What history was obtained from this source @ -No Did you review nursing and triage notes (agree or disagree)? Why? @ -I reviewed and agree with nursing and triage notes Were old charts reviewed (outside hosp., previous admission, EMS record, old EKG, old radiological studies, urgent care reports/EKG's, fci records)? Report findings @ -No old charts were reviewed Differential Diagnosis (chest pain, altered mental status, abdominal pain women, abdominal pain men, vaginal bleeding, weakness, fever, dyspnea, syncope, h eadache, dizziness, GI bleed, back pain, seizure, CVA, palpatations, mental health)? @ -Sciatica, arthritis, contusion EKG interpreted by me (3pts min.). @ -None X-rays interpreted by me (1pt min.). @ -None done CT interpreted by me (1pt min.). @ -None done U/S interpreted by me (1pt. min.). @ -None done What testing was considered but not performed or refused? (CT, X-rays, U/S, labs)? Why? @ -X-ray and CT were considered however the patient had reproducible sciatic nerve pain and had arty seen 2 physicians for this pain as well as x-rays were performed at the outside facilities. There was also no trauma to the area therefore no further imaging was needed What meds were considered but not given or refused? Why? @ -None Did you discuss the management of the patient with other professionals (professionals i.e. , PA, SIDE SHOW ENTERTAINER, lab, RT, psych nurse, social media marketing specialist, train attendant, teacher, fisheries technical officer, major case detective)? Give summary @ -No Was smoking cessation discussed for >3mins.? @ -No Was critical care preformed (if so, how long)? @ -No Were there social determinants of health that impacted care today? How? (Homelessness, low income, unemployed, alcoholism, drug addiction, transportation, low edu. Level, literacy, decrease access to med. care, [facility], rehab)? @ -No Was there de-escalation of care discussed even if they declined (Discuss DNR or withdrawal of care, Hospice)? DNR status @ -No What co-morbidities impacted this encounter? (DM, HTN, Smoking, COPD, CAD, Cancer, CVA, ARF, Chemo, Hep., AIDS, mental health diagnosis, sleep apnea, morbid obesity)? @ -Atrial fibrillation Was patient admitted / discharged? Hospital course, mention meds given and route, prescriptions, significant lab abnormalities, going to OR and other pertinent info. @ -The patient was seen and evaluated in emergency department. Physical exam, the patient was resting in bed without any acute distress. Vital signs admission were stable. After informed the patient that she would not be receiving MRI in the emergency department today, the patient became upset but I was able to convince the patient to receive medications for her likely sciatic nerve pain. The patient did receive Toradol and Norflex and did have mild improvement. The patient was discharged home with a prescription for Robaxin and told to follow-up with her primary care physician for a MRI if needed of the left leg for sciatic nerve pain. The patient was also advised to follow-up with the to physician she has arty seen for this pain. The patient was agreeable to this and all her questions were answered. The patient was discharged home in stable condition Undiagnosed new problem with uncertain prognosis? @ -No Drug Therapy requiring intensive monitoring for toxicity (Heparin, Nitro, Insulin, Cardizem)? @ -No Were any procedures done? @ -No Diagnosis/symptom? @ -Left sciatica Acute, or Chronic, or Acute on Chronic? @ -Acute on chronic Uncomplicated (without systemic symptoms) or Complicated (systemic symptoms)? @ -Uncomplicated Side effects of treatment? @ -No Exacerbation, Progression, or Severe Exacerbation? @ -No Poses a threat to life or bodily function? How? (Chest pain, [place], AK, pneumonia, PE, COPD, DKA, ARF, appy, cholecystitis, CVA, Diverticulitis, Homicidal, Suicidal, threat to staff... and all critical care pts) @ -No Disposition Clinical Impression: Sciatica Disposition: HOME SELF-CARE Condition: Stable Instructions (If sedation given, give patient instructions): Sciatica (ED) Prescriptions: methocarbamoL [Robaxin-750] 750 mg PO TID #30 tab Is patient prescribed a controlled substance at d/c from ED?: No Referrals: Lashell Kimble MD [Primary Care Provider] - 1-2 days Time of Disposition: 05:30
== END 2023-02-24 06:30 | disposition home or self-care (01) ==
LOC: EC 05:09
DX: M54.32 Sciatica, left side (principal); I48.91 Unspecified atrial fibrillation; I10 Essential (primary) hypertension; J44.9 Chronic obstructive pulmonary disease, unspecified; E78.5 Hyperlipidemia, unspecified; K21.9 Gastro-esophageal reflux disease without esophagitis; M81.0 Age-related osteoporosis without current pathological fracture; F17.200 Nicotine dependence, unspecified, uncomplicated; F12.90 Cannabis use, unspecified, uncomplicated; Z88.8 Allergy status to other drugs, medicaments and biological substances; Z79.01 Long term (current) use of anticoagulants; Z79.899 Other long term (current) drug therapy
CPT/HCPCS: 99283; 96372 ×2; J2360; J1885; 99284

== ENCOUNTER → 2023-03-13 | Outpatient (CLI) | payer MEDICARE ==
[2023-03-13 17:08] LABS: % Iron Saturation 14.69 (12.00-45.00); ALT 22 U/L (8-44); AST 19 U/L (13-35); Albumin 4.4 d/dL (3.8-4.9); Albumin/Globulin Ratio 1.83 Ratio (1.60-3.17); Alkaline Phosphatase 156 U/L (41-126); BUN/Creat Ratio 19.67 Ratio (12.00-20.00); Blood Urea Nitrogen 29.5 mg/dL (9.0-27.0); Calcium 9.5 mg/dL (8.7-10.3); Carbon Dioxide 26.1 mmol/L (21.6-31.8); Chloride 98 mmol/L (96-109); Chol/HDL Ratio 3.19 Ratio; Globulin 2.4 d/dL (1.6-3.3); Glucose 114 mg/dL (70-110); Iron 57 UG/DL (50-170); LDL Cholesterol,Calculated 117.1 mg/dL (0.0-131.0); Magnesium 2.6 mg/dL (1.5-2.4); Potassium 5.2 mmol/L (3.5-5.5); Sodium 139 mmol/L (135-145); T4, Free (Free Thyroxine) 2.03 ng/dL (0.80-1.80); Total Bilirubin 0.2 mg/dL (0.3-1.2); Total Iron Binding Capacity 388 UG/DL (228-460); Total Protein 6.8 d/dL (6.2-8.2); VLDL Calculation 16.08 mg/dL (5.00-40.00)
[2023-03-13 17:12] LABS: Basophils # (A) 0.08 X 10*3/uL (0.00-0.10); Basophils % (A) 0.8 %; Eosinophils # (A) 0.09 X 10*3/uL (0.04-0.35); Eosinophils % (A) 0.9 %; Lymphocytes % (A) 14.3 %; MCH 32.2 pg (27.0-32.0); MCHC 31.9 d/dL (32.0-37.0); MCV 100.9 FL (80.0-97.0); Mean Platelet Volume 11.8 FL (9.5-12.2); Monocytes # (A) 0.87 X 10*3/uL (0.20-1.00); Monocytes % (A) 8.9 %; NRBC Per 100 WBC 0 X 10*3/uL (0.00-0.01); Neutrophils # (A) 7.32 X 10*3/uL (1.80-7.70); Neutrophils % (A) 74.6 %; Platelet Count 256 X 10*3/uL (140-440); RBC 4.66 X 10*6/uL (4.10-5.20); RDW 12.6 % (11.5-14.5); WBC 9.81 X 10*3/uL (4.50-10.00)
[2023-03-13 17:37] LABS: Vitamin B12 >3600.0 pg/mL (200.0-944.0)
== END | disposition home or self-care (01) ==
LOC: LABWHC1 11:26
PROVIDERS: ATTEND Family Medicine
DX: I48.0 Paroxysmal atrial fibrillation (principal); I65.23 Occlusion and stenosis of bilateral carotid arteries; N17.9 Acute kidney failure, unspecified; D50.9 Iron deficiency anemia, unspecified; G25.81 Restless legs syndrome; D55.9 Anemia due to enzyme disorder, unspecified
CPT/HCPCS: 36415; 80053; 80061; 82306; 82607; 83540; 83550; 83735; 84439; 84443; 85025

== ENCOUNTER → 2023-03-27 | Day surgery (SDC) | payer MEDICARE ==
[2023-03-27 10:35] VITALS: RESP 16
[2023-03-27 10:38] LABS: INR 0.9 (<1.2); Partial Thromboplastin Time 22.2 sec (22.0-30.0); Prothrombin Time 9.8 sec (10.0-12.5)
[2023-03-27 12:21] VITALS: BP 147/77; PULSE 60; TEMP 97.4
--- NOTE | 2023-04-01 15:15 | MM ---
Risk Values: Sujatha 5 year model risk: 3.4%. NCI Lifetime model risk: 7.2%. Prior Study Comparison: 01/17/2020 Right Diagnostic Mammogram, [facility]. 12/22/2020 Bilateral Diagnostic Mammogram, [facility]. 02/07/2023 Bilateral MG 3D diag mammo w/cad JESSICA, [facility]. Pathology Description: Location: upper outer quadrant, posterior. Marker Left Behind. Specimen Radiograph. Calcium Found: Yes Approach: Lateral to Medial Needle Type: Eviva Cores: 7 Skin Nicks: 1 Gauge: 9 The procedure of stereotactic guided core biopsy was explained to the patient. Benefits, alternatives, and risks were discussed. An informed consent was then obtained. The shortness pathway for biopsy was chosen. Shortness pathway was lateral approach to the calcifications. A vacuum assisted biopsy gun was used to obtain multiple core samples. The patient tolerated the procedure well without any immediate complication. The patient was kept in the radiology department for short stay after the procedure and then discharged home in stable condition. Targeted calcifications are identified in specimen mammogram. Post biopsy mammogram shows the clip to appear in satisfactory position relative to the targeted area of concern on the preprocedure images. Impression: SUCCESSFUL, UNCOMPLICATED STEREOTACTIC GUIDED CORE BIOPSY OF AREA OF CONCERN IN THE left BREAST. Pathology Results: Result: Benign, Fibroadenomatoid hyperplasia. LEFT BREAST, STEREOTACTIC NEEDLE CORE BIOPSY: Fibroadenomatoid hyperplasia with calcifications in a background of fibrocystic changes. Overall Assessment: Benign Management: Diagnostic Mammogram of the left breast in 6 months. Electronically signed and approved by: Sean Leija DO
== END ==
LOC: RADMAMWWP 09:28
PROVIDERS: ATTEND Family Medicine
DX: N62 Hypertrophy of breast (principal); N60.12 Diffuse cystic mastopathy of left breast
CPT/HCPCS: 88305; 85610; 85730; 19081; A4648; J2001

== ENCOUNTER 2023-05-31 19:10 | Emergency (ER) | payer MEDICARE ==
--- NOTE | 2023-05-31 19:52 | ED ---
General Adult HPI - General Source: patient Mode of arrival: EMS Limitations: no limitations <Kd Colby - Last Filed: 05/31/23 23:29> <John Harry - Last Filed: 06/06/23 07:42> - General Chief complaint: Abdominal Pain Stated complaint: right side rib pain Time Seen by Provider: 05/31/23 19:27 - History of Present Illness Initial comments: Dictation was produced using Táxim[employer] dictation software. please excuse any grammatical, word or spelling errors. Chief Complaint: 77-year-old female presents with abdominal pain History of Present Illness: Patient is 77-year-old female presents with acute abdominal pain. Symptoms began approximately 3 days ago she thought it was gas pain. She ignored it until today started to get very severe. She states that a sharp constant and worse when she tries to stretch. Denies any history of abdominal surgery. Denies any fevers. She does complain of nausea. No vomiting. He is nonradiating. Pain is reportedly severe The ROS documented in this emergency department record has been reviewed and confirmed by me. Those systems with pertinent positive or negative responses have been documented in the HPI. All other systems are other negative and/or noncontributory. (Kd Colby) - Related Data Home Medications Medication Instructions Recorded Confirmed Atorvastatin [Lipitor] 40 mg PO DAILY@0700 08/07/21 03/27/23 Cholecalciferol [Vitamin D3 (125 125 mcg PO DAILY@0700 08/07/21 03/27/23 Mcg = 5000 Iu)] Warfarin [Coumadin] 10 mg PO DAILY 02/28/22 03/27/23 Gabapentin [Neurontin] 100 mg PO HS 02/07/23 03/27/23 oxyCODONE HCL [oxyCODONE HCL (IR)] 5 mg PO QID 03/27/23 03/27/23 Previous Rx's Medication Instructions Recorded Metoprolol Succinate (ER) [Toprol 100 mg PO DAILY #30 tab 02/06/22 XL] rOPINIRole HCL [Requip] 1 mg PO HS 15 Days #15 tab 02/06/22 Allergies Allergy/AdvReac Type Severity Reaction Status Date / Time calcitonin [From Miacalcin] AdvReac Nausea & Verified 05/31/23 19:21 Vomiting Review of Systems ROS Other: All systems not noted in ROS Statement are negative. <Kd Colby - Last Filed: 05/31/23 23:29> ROS Other: All systems not noted in ROS Statement are negative. <John Harry - Last Filed: 06/06/23 07:42> ROS Statement: Those systems with pertinent positive or pertinent negative responses have been documented in the HPI. Past Medical History Past Medical History: Atrial Fibrillation, COPD, GERD/Reflux, Hyperlipidemia, Hypertension, Pneumonia Additional Past Medical History / Comment(s): Chronic back pain/vertebral fractures, osteoporosis, bronchitis, hx of gastric ulcers, lower leg edema, constipation. History of Any Multi-Drug Resistant Organisms: None Reported Past Surgical History: Appendectomy, Back Surgery, Hysterectomy Additional Past Surgical History / Comment(s): Kyphoplasties. Past Anesthesia/Blood Transfusion Reactions: No Reported Reaction Past Psychological History: No Psychological Hx Reported Smoking Status: Current every day smoker Past Alcohol Use History: None Reported Past Drug Use History: Marijuana - Past Family History Mother Additional Family Medical History / Comment(s): osteoporosis Father Family Medical History: COPD, Myocardial Infarction (LA) Additional Family Medical History / Comment(s): Father of a massive LA at the age of 77yrs. <Kd Colby - Last Filed: 05/31/23 23:29> General Exam Limitations: no limitations <Kd Colby - Last Filed: 05/31/23 23:29> - General Exam Comments Initial Comments: PHYSICAL EXAM: General Impression: Alert and oriented x3, distress secondary to pain HEENT: Normocephalic atraumatic, extra-ocular movements intact, pupils equal and reactive to light bilaterally, mucous membranes moist. Cardiovascular: Heart regular rate and rhythm Chest: Able to complete full sentences, no retractions, no tachypnea Abdomen: Severe tenderness in the right upper quadrant Musculoskeletal: Pulses present and equal in all extremities, no peripheral edema Motor: no focal deficits noted Neurological: CN II-XII grossly intact, no focal motor or sensory deficits noted Skin: Intact with no visualized rashes Psych: Normal affect and mood (Kd Colby) Course Vital Signs 05/31/23 05/31/23 19:22 19:25 Temperature 98.3 F 98.3 F Pulse Rate 86 86 Respiratory 18 18 Rate Blood Pressure 139/74 139/74 O2 Sat by Pulse 98 98 Oximetry Medical Decision Making - Lab Data Result diagrams: 05/31/23 20:01 05/31/23 20:01 <Kd Colby - Last Filed: 05/31/23 23:29> - Lab Data Result diagrams: 05/31/23 20:01 05/31/23 20:01 <John Harry - Last Filed: 06/06/23 07:42> - Medical Decision Making Was pt. sent in by a medical professional or institution (, PA, [employer], urgent care, hospital, or long-term...) When possible be specific @ -No Did you speak to anyone other than the patient for history (EMS, parent, family, police, friend...)? What history was obtained from this source @ -No Did you review nursing and triage notes (agree or disagree)? Why? @ -I reviewed and agree with nursing and triage notes Were old charts reviewed (outside hosp., previous admission, EMS record, old EKG, old radiological studies, urgent care reports/EKG's, long-term records)? Report findings @ -No old charts were reviewed Differential Diagnosis (chest pain, altered mental status, abdominal pain women, abdominal pain men, vaginal bleeding, musculoskeletal, weakness, fever, dyspnea, syncope, headache, dizziness, GI bleed, back pain, seizure, CVA, palpatations, mental health)? @ -Differential Abdominal Pain Women: Appendicitis, Cholecystitis, diverticulosis, ischemic bowel, pancreatitis, hepatitis, UTI, gastroenteritis, AAA, incarcerated hernia, bowel obstruction, constipation, inflammatory bowel, hepatitis, peptic ulcer disease, splenic infarction, perforated viscus, vulvitis, ovarian torsion, PID, kidney stone, p lacenta abruption, this is not meant to be an all-inclusive list EKG interpreted by me (3pts min.). @ -None done X-rays interpreted by me (1pt min.). @ -KUB x-ray shows no acute processes and chest x-ray shows mild patchy o pacities in the lower lungs. CT interpreted by me (1pt min.). @ -Large stool burden U/S interpreted by me (1pt. min.). @ -None done What testing was considered but not performed or refused? (CT, X-rays, U/S, labs)? Why? @ -None What meds were considered but not given or refused? Why? @ -None Did you discuss the management of the patient with other professionals (professionals i.e. , PA, [employer], lab, RT, psych nurse, social service assistant, water engineer, teacher, project control officer, case sealer)? Give summary @ -No Was smoking cessation discussed for >3mins.? @ -No Was critical care preformed (if so, how long)? @ -No Were there social determinants of health that impacted care today? How? (Homelessness, low income, unemployed, alcoholism, drug addiction, transportation, low edu. Level, literacy, decrease access to med. care, [place] [facility], rehab)? @ -No Was there de-escalation of care discussed even if they declined (Discuss DNR or withdrawal of care, Hospice)? DNR status @ -No What co-morbidities impacted this encounter? (DM, HTN, Smoking, COPD, CAD, Ca ncer, CVA, ARF, Chemo, Hep., AIDS, mental health diagnosis, sleep apnea, morbid obesity)? @ -None Was patient admitted / discharged? Hospital course, mention meds given and route, prescriptions, significant lab abnormalities, going to OR and other pertinent info. @ -77-year-old female presents emergency department for right upper quadrant a bdominal pain. Vital signs are stable. Patient acute distress at the bedside. She does have positive Mcconnell sign. Laboratory evaluation shows mild leukocytosis 12.2. Rest of CBC and metabolic panel is within acceptable limits. X-ray shows no acute processes. There is questionable infiltrates on the x-ray however patient not having respiratory symptoms. Her upper quadrant ultrasound shows normal gallbladder without any acute findings or signs of acute cholecystitis. Final CT radiology reading pending. Patient's signout to Dr. Augustin at 11:30 PM Undiagnosed new problem with uncertain prognosis? @ -No Drug Therapy requiring intensive monitoring for toxicity (Heparin, Nitro, Insulin, Cardizem)? @ -No Were any procedures done? @ -No Diagnosis/symptom? Acute, or Chronic, or Acute on Chronic? Uncomplicated (without systemic symptoms) or Complicated (systemic symptoms)? @ -Abdominal Pain Side effects of treatment? @ -No Exacerbation, Progression, or Severe Exacerbation? @ -No Poses a threat to life or bodily function? How? (Chest pain, USA, LA, pneumonia, PE, COPD, DKA, ARF, appy, cholecystitis, CVA, Diverticulitis, Homicidal, Suicid al, threat to staff... and all critical care pts) @ - (Kd Colby) - Lab Data Lab Results 05/31/23 05/31/23 05/31/23 Range/Units 20:01 20:01 20:01 WBC 12.2 H (3.8-10.6) k/uL RBC 4.22 (3.80-5.40) m/uL Hgb 14.0 (11.4-16.0) gm/dL Hct 41.6 (34.0-46.0) % MCV 98.5 (80.0-100.0) fL MCH 33.1 (25.0-35.0) pg MCHC 33.6 (31.0-37.0) g/dL RDW 13.2 (11.5-15.5) % Plt Count 189 (150-450) k/uL MPV 12.4 Neutrophils % 79 % Lymphocytes % 10 % Monocytes % 6 % Eosinophils % 3 % Basophils % 0 % Neutrophils # 9.7 H (1.3-7.7) k/uL Lymphocytes # 1.3 (1.0-4.8) k/uL Monocytes # 0.8 (0-1.0) k/uL Eosinophils # 0.3 (0-0.7) k/uL Basophils # 0.1 (0-0.2) k/uL Manual Slide Review Performed Large Platelets Present Sodium 138 (137-145) mmol/L Potassium 3.9 (3.5-5.1) mmol/L Chloride 107 (98-107) mmol/L Carbon Dioxide 22 (22-30) mmol/L Anion Gap 9 mmol/L BUN 27 H (7-17) mg/dL Creatinine 0.85 (0.52-1.04) mg/dL Est GFR (CKD-EPI)AfAm 78 (>60 ml/min/1.73 sqM) Est GFR (CKD-EPI)NonAf 68 (>60 ml/min/1.73 sqM) Glucose 96 (74-99) mg/dL Plasma Lactic Acid Placido 1.6 (0.7-2.0) mmol/L Calcium 8.2 L (8.4-10.2) mg/dL Total Bilirubin 0.6 (0.2-1.3) mg/dL Conjugated Bilirubin 0.0 (0.0-0.3) mg/dL Unconjugated Bilirubin 0.3 (0.0-1.1) mg/dL Delta Bilirubin 0.3 H (0.0-0.2) mg/dL AST 31 (14-36) U/L ALT 20 (4-34) U/L Alkaline Phosphatase 101 (38-126) U/L Total Protein 6.0 L (6.3-8.2) g/dL Albumin 3.4 L (3.5-5.0) g/dL Lipase 47 (23-300) U/L Disposition Is patient prescribed a controlled substance at d/c from ED?: No Time of Disposition: 23:24 <Kd Colby - Last Filed: 05/31/23 23:29> Is patient prescribed a controlled substance at d/c from ED?: No <John Harry - Last Filed: 06/06/23 07:42> Clinical Impression: Abdominal pain Disposition: HOME SELF-CARE Condition: Fair Instructions (If sedation given, give patient instructions): Abdominal Pain (ED) Referrals: Lashell Kimble MD [Primary Care Provider] - 1-2 days
[2023-05-31 19:57] VITALS: BP 139/74; PULSE 86; RESP 18; TEMP 98.3
[2023-05-31] MEDS ORDERED: MORPHINE SULFATE 4 MG/ML SYRINGE IV STA (20:11)
[2023-05-31] MEDS ORDERED: SODIUM CHLORIDE 0.9% 1,000 ML IV STA (20:11)
[2023-05-31 20:41] LABS: ALT 20 U/L (4-34); AST 31 U/L (14-36); African American GFR (CKD) 78 (>60 ml/min/1.73 sqM); Albumin 3.4 g/dL (3.5-5.0); Alkaline Phosphatase 101 U/L (38-126); Anion Gap 9 mmol/L; Bilirubin, Delta 0.3 mg/dL (0.0-0.2); Bilirubin,Unconjugated 0.3 mg/dL (0.0-1.1); Blood Urea Nitrogen 27 mg/dL (7-17); Calcium 8.2 mg/dL (8.4-10.2); Carbon Dioxide 22 mmol/L (22-30); Chloride 107 mmol/L (98-107); Glucose 96 mg/dL (74-99); Lipase 47 U/L (23-300); Non-African American GFR(CKD) 68 (>60 ml/min/1.73 sqM); Sodium 138 mmol/L (137-145); Total Bilirubin 0.6 mg/dL (0.2-1.3)
[2023-05-31 20:42] LABS: Potassium 3.9 mmol/L (3.5-5.1)
--- NOTE | 2023-05-31 21:08 | XR ---
EXAMINATION TYPE: XR chest 1V DATE OF EXAM: 05/31/2023 COMPARISON: 02/18/2022 HISTORY: 77-year-old female abdominal pain TECHNIQUE: Single frontal view of the chest is obtained. FINDINGS: Heart normal size. Interstitial prominence. Mild patchy interstitial densities in the lowe r lungs. Hyperinflation. Vertebroplasty change mid thoracic spine. No pleural effusion. IMPRESSION: COPD. Mild patchy opacities in the lower lungs could represent atelectasis or early inter stitial infiltrate such as from pneumonia or COVID. Clinically correlate.
--- NOTE | 2023-05-31 21:12 | XR ---
EXAMINATION TYPE: XR KUB DATE OF EXAM: 05/31/2023 Comparison: 10/29/2021 Clinical History: 77-year-old female ABDOMINAL PAIN Findings: There is large stool burden. No dilated small bowel or air-fluid levels. No evidence for free intrape ritoneal air. Osteopenia limits the evaluation. Coronary fractures of the obturator rings. Impression: 1. Large stool burden. Correlate for constipation. Nonobstructive bowel gas pattern. 2. Limited assessment of the bones due to osteopenia. Query interval fractures of the bilateral obtur ator rings of the pelvis.
--- NOTE | 2023-05-31 21:40 | US ---
EXAMINATION TYPE: US abdomen limited DATE OF EXAM: 05/31/2023 COMPARISON: CT: 10/29/21 CLINICAL INDICATION: Female, 77 years old with history of epigastric pain; epigastric pain TECHNIQUE: Multiple sonographic images of the right upper quadrant are obtained. FINDINGS: EXAM MEASUREMENTS: Liver Length: 12.7 cm Gallbladder Wall: Grossly unremarkable CBD: 5.6 mm Right Kidney: 9.0 cm Cooker Cleaner notes:Limited due to pt sitting upright and unable to lay back Pancreas: Limited due to bowel gas. Duct measuring 1.7mm which is within normal limits Liver: 2 cystic areas seen. Largest is in left lobe measuring 4.7 x 3.7 x 4.8cm Gallbladder: Appears wnl, fundus not well visualized Evidence for sonographic Mcconnell's sign: No CBD: wnl Right Kidney: Inf pole not well visualized due to gas. Otherwise appears wnl . No hydronephrosis. IMPRESSION: No gallstones or biliary ductal dilatation. Exam limitations as above. A couple hepatic cysts measuri ng up to 4.8 cm.
[2023-05-31 21:48] LABS: Basophils # (A) 0.1 k/uL (0-0.2); Basophils % (A) 0 %; Eosinophils # (A) 0.3 k/uL (0-0.7); Eosinophils % (A) 3 %; HCT 41.6 % (34.0-46.0); Lymphocytes # (A) 1.3 k/uL (1.0-4.8); Lymphocytes % (A) 10 %; MCH 33.1 pg (25.0-35.0); MCHC 33.6 g/dL (31.0-37.0); MCV 98.5 fL (80.0-100.0); Mean Platelet Volume 12.4; Monocytes # (A) 0.8 k/uL (0-1.0); Monocytes % (A) 6 %; Neutrophils # (A) 9.7 k/uL (1.3-7.7); Neutrophils % (A) 79 %; Platelet Count 189 k/uL (150-450); RBC 4.22 m/uL (3.80-5.40); RDW 13.2 % (11.5-15.5); WBC 12.2 k/uL (3.8-10.6)
[2023-05-31] MEDS ORDERED: LACTULOSE 20 GM/30 ML CUP PO ONE (23:24)
[2023-05-31 23:59] LABS: Large Platelets Present
[2023-06-01] MEDS ORDERED: MORPHINE SULFATE 4 MG/ML SYRINGE IV STA (00:58)
--- NOTE | 2023-06-01 01:47 | CT ---
EXAM: CT Abdomen and Pelvis With Intravenous Contrast CLINICAL HISTORY: ITS.REASON CT Reason: severe abdominal pain TECHNIQUE: Axial computed tomography images of the abdomen and pelvis with intravenous contrast. CTDI is 24.87 mGy and DLP is 1120.9 mGy-cm. This CT exam was performed using one or more of the following dose reduction techniques: automated exposure control, adjustment of the mA and/or kV according to patient size, and/or use of iterative reconstruction technique. COMPARISON: No relevant prior studies available. FINDINGS: Lung bases: Unremarkable. No mass. No consolidation. ABDOMEN: Liver: Multiple hepatic cysts. Gallbladder and bile ducts: Contracted gallbladder. No calcified stones. No ductal dilation. Pancreas: Unremarkable. No mass. No ductal dilation. Spleen: Unremarkable. No splenomegaly. Adrenals: Unremarkable. No mass. Kidneys and ureters: Unremarkable. No solid mass. No hydronephrosis. Stomach and bowel: Diverticulosis, without acute diverticulitis. No small bowel obstruction. No free intraperitoneal air. PELVIS: Appendix: No findings to suggest acute appendicitis. Bladder: Decompressed urinary bladder. Reproductive: Unremarkable as visualized. ABDOMEN and PELVIS: Intraperitoneal space: Unremarkable. No free air. No significant fluid collection. Bones/joints: Subacute fractures of the bilateral superior and inferior pubic rami. Subacute fractures of the bilateral sacral ala. Degenerative changes of the spine. No dislocation. Soft tissues: Unremarkable. Vasculature: Atherosclerotic changes of the aorta. No abdominal aortic aneurysm. Lymph nodes: Unremarkable. No enlarged lymph nodes. IMPRESSION: 1. Subacute fractures of the bilateral superior and inferior pubic rami. Subacute fractures of the bilateral sacral ala. 2. Diverticulosis, without acute diverticulitis. No small bowel obstruction. No free intraperitoneal air.
[2023-06-01] MEDS ORDERED: PEG 3350 (236 GM/BTL) + LYTES 4,000 ML BOTTLE PO ONE (02:15)
== END 2023-06-01 02:24 | disposition home or self-care (01) ==
LOC: EC 19:10
DX: S32.592A Other specified fracture of left pubis, initial encounter for closed fracture (principal); I44.4 Left anterior fascicular block; I48.91 Unspecified atrial fibrillation; F17.200 Nicotine dependence, unspecified, uncomplicated; F12.90 Cannabis use, unspecified, uncomplicated; J44.9 Chronic obstructive pulmonary disease, unspecified; I10 Essential (primary) hypertension; E78.5 Hyperlipidemia, unspecified; Z79.899 Other long term (current) drug therapy; Z79.01 Long term (current) use of anticoagulants; Z88.8 Allergy status to other drugs, medicaments and biological substances; X58.XXXA Exposure to other specified factors, initial encounter
CPT/HCPCS: 36415; 93005; 80053; 82248; 83605; 83690; 85025; 71045; 74018; 76705; 74177; 99285; 96374; 96361; 96376; J2270 ×2; Q9967

== ENCOUNTER → 2023-07-04 | Outpatient (CLI) | payer MEDICARE ==
[2023-07-04 15:45] LABS: INR 3.1 (<1.2); Partial Thromboplastin Time 34.8 sec (22.0-30.0); Prothrombin Time 30.7 sec (10.0-12.5)
[2023-07-04 18:36] LABS: Basophils # (A) 0.05 X 10*3/uL (0.00-0.10); Basophils % (A) 0.5 %; Eosinophils # (A) 0.13 X 10*3/uL (0.04-0.35); Eosinophils % (A) 1.3 %; HCT 45.6 % (37.2-46.3); HGB 14.5 g/dL (12.0-15.0); Lymphocytes # (A) 1.47 X 10*3/uL (0.90-5.00); Lymphocytes % (A) 14.3 %; MCH 31.7 pg (27.0-32.0); MCHC 31.8 g/dL (32.0-37.0); MCV 99.8 FL (80.0-97.0); Mean Platelet Volume 12.7 FL (9.5-12.2); Monocytes % (A) 6.8 %; NRBC Per 100 WBC 0 X 10*3/uL (0.00-0.01); Neutrophils # (A) 7.91 X 10*3/uL (1.80-7.70); Neutrophils % (A) 76.7 %; Platelet Count 183 X 10*3/uL (140-440); RBC 4.57 X 10*6/uL (4.10-5.20); RDW 13.2 % (11.5-14.5)
[2023-07-04 18:51] LABS: Albumin 4.2 g/dL (3.8-4.9); Phosphorus 3.5 mg/dL (2.4-5.1); Protein, Total 6.7 g/dL (6.2-8.2)
[2023-07-04 18:53] LABS: ALT 21 U/L (8-44); AST 27 U/L (13-35); Albumin 4.3 g/dL (3.8-4.9); Albumin/Globulin Ratio 1.79 Ratio (1.60-3.17); Alkaline Phosphatase 181 U/L (41-126); Bilirubin, Conjugated <0.20 mg/dL (0.20-0.40); Bilirubin,Unconjugated >0.10 mg/dL (0.20-1.00); Calcium 9.5 mg/dL (8.7-10.3); Globulin 2.4 g/dL (1.6-3.3); Total Bilirubin 0.3 mg/dL (0.3-1.2); Total Protein 6.7 g/dL (6.2-8.2)
[2023-07-07 17:18] LABS: Gamma Globulin 0.7 g/dL (0.70-1.50)
== END | disposition home or self-care (01) ==
LOC: LABWHC1 15:01
PROVIDERS: ATTEND Orthopaedic Surgery
DX: M25.9 Joint disorder, unspecified (principal)
CPT/HCPCS: 36415; 80076; 82310; 84100; 84165; 85025; 85610; 85730

== ENCOUNTER → 2023-07-04 | Outpatient (CLI) | payer MEDICARE ==
[2023-07-04 15:34] LABS: African American GFR (CKD) 59 (>60 ml/min/1.73 sqM); Blood Urea Nitrogen 20 mg/dL (7-17); Non-African American GFR(CKD) 51 (>60 ml/min/1.73 sqM)
--- NOTE | 2023-07-06 18:46 | CT ---
EXAMINATION TYPE: CT pelvis wo/w con DATE OF EXAM: 07/04/2023 COMPARISON: None HISTORY: Patient sent for nontraumatic pelvic fractures, history of osteoporosis CT DLP: 1119 mGycm Automated exposure control for dose reduction was used. Contrast: None Technique: Axial images 5 mm thick sections. Reconstructed images in coronal plane. FINDINGS: Fractures are evident through the bilateral lateral ischio rami. Bilateral medial pubic rami fracture s are evident symphysis pubis appears intact. Femoral heads articulate with the acetabulum. There is a vertical sacral fracture on the right. Partial fracture may be present on the left. Urinary bladder appears unremarkable. Contrast-filled loops of bowel are normal. Fecal debris is with in the distal colon. Vascular calcification is within the aorta. Uterus and ovaries are not identifie d. IMPRESSION: 1. BILATERAL PUBIC SYMPHYSIS AND ISCHIAL RAMI FRACTURES. 2. VERTICAL SACRAL ALAR FRACTURE ON THE RIGHT LIKELY ON THE LEFT.
== END | disposition home or self-care (01) ==
LOC: RADCTMAIN 14:24
PROVIDERS: ATTEND Orthopaedic Surgery
DX: S32.810A Multiple fractures of pelvis with stable disruption of pelvic ring, initial encounter for closed fracture (principal); M81.0 Age-related osteoporosis without current pathological fracture
CPT/HCPCS: 82565; 84520; 72194; 36415; Q9967

== ENCOUNTER → 2023-07-08 | Outpatient (CLI) | payer MEDICARE ==
[~2023-07-08] MED LIST changes: +DENOSUMAB 60 MG/ML 1 ML SYRINGE SQ NR; -SODIUM CHLORIDE 0.9% 1,000 ML IV SCH
[2023-07-08 13:09] VITALS: BP 151/83; PULSE 66; RESP 16; TEMP 97.4
== END ==
LOC: PROCWHC3 12:10
PROVIDERS: ATTEND Family Medicine
DX: M81.0 Age-related osteoporosis without current pathological fracture (principal)
CPT/HCPCS: 96372; J0897

== ENCOUNTER → 2023-07-09 | Outpatient (CLI) | payer MEDICARE | END | disposition home or self-care (01) | LOC: LABWHC1 11:15 | PROVIDERS: ATTEND Family Medicine | DX: E21.3 Hyperparathyroidism, unspecified (principal) | CPT/HCPCS: 36415; 83970 ==

== ENCOUNTER → 2023-08-05 | Outpatient (CLI) | payer MEDICARE ==
--- NOTE | 2023-08-05 20:52 | US ---
EXAMINATION TYPE: US abdomen complete DATE OF EXAM: 08/05/2023 COMPARISON: CT and ultrasound 05/31/2023. CLINICAL INDICATION: Female, 78 years old with history of N18.31 CHRONIC KIDNEY DISEASE, STAGE 3A; CK D TECHNIQUE: Multiple sonographic images of the abdomen are obtained. FINDINGS: EXAM MEASUREMENTS: Liver Length: 14.3 cm Gallbladder Wall: 0.2 cm CBD: 0.5 cm Spleen: 9.3 cm Right Kidney: 10.1 x 4.1 x 4.9 cm Left Kidney: 10.4 x 5.1 x 4.3 cm Pancreas: wnl Liver: A few scattered cysts are present as visualized on priors- largest cystic lesion left lateral lobe with septation= 3.3 x 3.4 x 5.2 cm (versus 4.8 cm, previously). Renal some reverberation artifa ct along the anterior wall. Gallbladder: wnl Evidence for sonographic Mcconnell's sign: No CBD: wnl Spleen: Difficult to visualize due to ribs and lung Right Kidney: No evidence of hydro Left Kidney: No evidence of hydro, Small, hypoechoic cortical lesion upper pole= 0.8 x 0.7 x 0.8 cm corresponding to a small cortical cyst seen on 05/31/2023 CT. Internal echoes are felt to be artif actual or could represent debris. Upper IVC: wnl Abd Aorta: No evidence for AAA. IMPRESSION: 1. A few scattered hepatic cysts, largest in the left liver lobe shows mild complexity and measures u p to 5.2 cm (versus 4.8 cm on 05/31/2023). Additional six-month follow-up recommended. 2. No gallstones or biliary ductal dilatation.
== END | disposition home or self-care (01) ==
LOC: RADUSWWP 08:09
PROVIDERS: ATTEND Family Medicine
DX: N18.31 Chronic kidney disease, stage 3a (principal); K76.89 Other specified diseases of liver
CPT/HCPCS: 76700

== ENCOUNTER → 2023-12-01 | Outpatient (CLI) | payer MEDICARE ==
--- NOTE | 2023-12-01 21:44 | CT ---
EXAMINATION TYPE: CT pelvis wo con DATE OF EXAM: 12/01/2023 COMPARISON: 07/04/2023 HISTORY: 78-year-old female S32.511A FRACTURE OF SUPERIOR RIM OF RIGHT PUBIS, multiple pelvic fx's, o steoporosis, no injury TECHNIQUE: Contiguous axial scanning of the pelvis without IV contrast. Coronal and sagittal reconstr uctions performed. CT DLP: 299 mGycm Automated exposure control for dose reduction was used. FINDINGS: Bilateral chronic insufficiency fractures of the sacral alar. Subarticular sclerosis left SI joint strong ggesting underlying degenerative change. Moderate degenerative change in both hips. Generalized osteopenia. Redemonstrated fractures of the bilateral superior and inferior pubic rami. There are hyperostotic ch anges here with progressive periosteal callus. Displacement and areas of nonbridging and bony remodel ing are demonstrated suggesting continued movement at the fracture sites. Prominent erosion from the bony remodeling involving the right superior pubic ramus demonstrates punc moncada foci of air, axial image 63. There is a new linear lucency along the superior left acetabulum extending to the articular surface. No significant step-off. Refer to sagittal image 76 and 85 as well as axial image 49. Sigmoid diverticulosis. Moderate stool burden. Moderate degenerative disc disease L4-L5 and L5-S1 wit h severe hypertrophic facet arthropathy lower lumbar spine especially towards the left. IMPRESSION: 1. FINDINGS SUGGEST DELAYED UNION ALONG THE BILATERAL SUPERIOR AND INFERIOR PUBIC RAMI FRACTURES WITH PROMINENT BONY REMODELING PROBABLY DUE TO CONTINUED MOTION AT THE FRACTURES. 2. EROSION AT THE RIGHT SUPERIOR PUBIC RAMUS RELATED TO REMODELING DEMONSTRATES PUNCTATE FOCI OF AIR. CORRELATE TO EXCLUDE THE POSSIBILITY OF AVASCULAR NECROSIS AND SUPERINFECTION. 3. NEW LINEAR LUCENCY ALONG THE SUPERIOR LEFT ACETABULUM EXTENDING TO THE ARTICULAR SURFACE. NO ARTIC ULAR SURFACE STEP-OFF. INCOMPLETE INSUFFICIENCY FRACTURE IS SUSPECTED. 4. UNDERLYING MODERATE BILATERAL HIP OA. 5. CHRONIC BILATERAL SACRAL ALAR INSUFFICIENCY FRACTURES.
== END | disposition home or self-care (01) ==
LOC: RADCTMAIN 14:36
PROVIDERS: ATTEND Orthopaedic Surgery
DX: S32.810A Multiple fractures of pelvis with stable disruption of pelvic ring, initial encounter for closed fracture (principal); S32.511A Fracture of superior rim of right pubis, initial encounter for closed fracture; M16.0 Bilateral primary osteoarthritis of hip; M80.08XA Age-related osteoporosis with current pathological fracture, vertebra(e), initial encounter for fracture
CPT/HCPCS: 72192

== ENCOUNTER → 2024-02-25 | Outpatient (CLI) | payer MEDICARE ==
--- NOTE | 2024-03-02 02:36 | CTL ---
EXAMINATION TYPE: CT Low Dose Lung DATE OF EXAM ORDERED: 02/25/2024 HISTORY: 78-year-old female Z1 2.2, F17.210, current smoker with 31 pack-year history. Lung cancer sc reening Automated exposure control for dose reduction was used. SCREENING VISIT: Annual follow-up COMPARISON: 01/31/2023 TECHNIQUE: Low dose computed tomography scan was performed through the chest at 1 mm thick sections a nd reconstructed images in multiple planes at 1 mm and [address] DIAGNOSTIC QUALITY: Satisfactory FINDINGS: Heart is normal size without pericardial effusion. Extensive LAD and RCA coronary calcifications are present. Mild to moderate atherosclerotic arch calcifications with conventional arch vessel branching anatomy. Additional mild discogenic calcifications in the descending thoracic aorta. No thoracic lymphadenopathy by CT size criteria. Prominent strandy scarring and atelectasis of the lower lungs. Moderate emphysematous changes with bi apical pleural parenchymal scarring. Mild to moderate diffuse bronchial wall thickening. No reinaldo con solidation or pleural effusion. Visualized upper abdomen shows partially visualized cyst of the left liver lobe measuring up to 4.3 c m and moderate atherosclerotic calcifications in the abdominal aorta. Bones: T8 and T9 vertebroplasty change. Mild anterior wedging T10 is unchanged. L1 vertebral compress ion deformity also unchanged. Old bilateral rib fracture deformities. IMPRESSION: 1. Lung RADS 2, benign. Stable parenchymal changes. No suspicious nodules seen. 2. COPD with moderate emphysema and scattered pleural parenchymal scarring. Recommend smoking cessati on. 3. Prominent LAD and RCA coronary artery calcifications. CT LUNG RAD AND CT CHEST RECOMMENDATION: Lung-Rad 2 Benign Appearance or Behavior: Continue annual sc reening with LDCT in 12 months. S Modifier (other clinically significant findings): None [facility], , 03/02/2024 2:33 AM
== END | disposition home or self-care (01) ==
LOC: RADCTMAIN 14:55
PROVIDERS: ATTEND Family Medicine
DX: Z12.2 Encounter for screening for malignant neoplasm of respiratory organs (principal); I25.10 Atherosclerotic heart disease of native coronary artery without angina pectoris; J43.9 Emphysema, unspecified; J44.9 Chronic obstructive pulmonary disease, unspecified; F17.210 Nicotine dependence, cigarettes, uncomplicated
CPT/HCPCS: 71271

== ENCOUNTER → 2024-02-25 | Outpatient (CLI) | payer MEDICARE ==
[2024-02-25 15:57] LABS: Ionized Calcium 5.3 mg/dL (4.5-5.3)
[2024-02-25 16:31] LABS: ALT 33 U/L (4-34); AST 25 U/L (14-36); African American GFR (CKD) 51 (>60 ml/min/1.73 sqM); Albumin 4.4 g/dL (3.5-5.0); Albumin/Globulin Ratio 1.8; Alkaline Phosphatase 87 U/L (38-126); Anion Gap 3 mmol/L; Blood Urea Nitrogen 32 mg/dL (7-17); Calcium 9.9 mg/dL (8.4-10.2); Carbon Dioxide 29 mmol/L (22-30); Chloride 104 mmol/L (98-107); Globulin 2.5 g/dL; Glucose 100 mg/dL (74-99); NT-Pro-B-Type Natriuretic Pept 564 pg/mL; Non-African American GFR(CKD) 44 (>60 ml/min/1.73 sqM); Phosphorus 3.7 mg/dL (2.5-4.5); Potassium 4.7 mmol/L (3.5-5.1); Sodium 136 mmol/L (137-145); T4, Free (Free Thyroxine) 1.82 ng/dL (0.78-2.19); Total Bilirubin 0.7 mg/dL (0.2-1.3); Total Protein 6.9 g/dL (6.3-8.2)
[2024-02-25 18:21] LABS: Basophils # (A) 0.06 X 10*3/uL (0.00-0.10); Basophils % (A) 0.5 %; Eosinophils % (A) 0.8 %; HCT 48.3 % (37.2-46.3); HGB 15.4 g/dL (12.0-15.0); Lymphocytes # (A) 1.44 X 10*3/uL (0.90-5.00); Lymphocytes % (A) 11.6 %; MCH 30.5 pg (27.0-32.0); MCHC 31.9 g/dL (32.0-37.0); MCV 95.6 FL (80.0-97.0); Mean Platelet Volume 11.3 FL (9.5-12.2); Monocytes # (A) 0.77 X 10*3/uL (0.20-1.00); Monocytes % (A) 6.2 %; NRBC Per 100 WBC 0 X 10*3/uL (0.00-0.01); Neutrophils # (A) 9.93 X 10*3/uL (1.80-7.70); Platelet Count 232 X 10*3/uL (140-440); RBC 5.05 X 10*6/uL (4.10-5.20); WBC 12.41 X 10*3/uL (4.50-10.00)
[2024-02-26 12:43] LABS: Free Kappa Lt Chain Qnt, Serum 3.39 mg/dL (0.33-1.94); Free Lambda Lt Chain Qnt, Seru 1.26 mg/dL (0.57-2.63)
[2024-03-05 19:37] LABS: Creatinine Urine Random 159 mg/dL (20-275); N-Telopeptides/Creat Ratio, Ur 58
== END | disposition home or self-care (01) ==
LOC: LABWHC1 15:24
PROVIDERS: ATTEND Internal Medicine Interventional Cardiology
DX: N18.31 Chronic kidney disease, stage 3a (principal); E21.3 Hyperparathyroidism, unspecified; M80.08XS Age-related osteoporosis with current pathological fracture, vertebra(e), sequela; R60.9 Edema, unspecified; R74.8 Abnormal levels of other serum enzymes
CPT/HCPCS: 36415; 80053; 82330; 82523; 83880; 83883; 84075; 84100; 84439; 84443; 85025; 86334

== ENCOUNTER → 2024-02-25 | Outpatient (CLI) | payer MEDICARE ==
--- NOTE | 2024-02-25 14:55 | USB ---
Patient History: Menarche at age 15. First Full-Term at age 23. Left ovary removed at age 31. Right ovary removed at age 31. Hysterectomy at age 31. Postmenopausal. Previous Hyperplasia w/o Atypia at age 77. Unspecified Hormone for 2 years from age 31 until age 33. 03/27/2023, Benign MG stereo VAD BX LT on the left side. Maternal cousin had breast cancer, age 40. Mother had breast cancer, age 70. Risk Values: Sujatha 5 year model risk: 4.0%. NCI Lifetime model risk: 8.0%. Technique: Method: Targeted. Prior Study Comparison: 01/17/2020 Right Diagnostic Mammogram, [facility]. 12/22/2020 Bilateral Diagnostic Mammogram, [facility]. 02/07/2023 Bilateral MG 3D diag mammo w/cad JESSICA, [facility]. Findings: The periareolar of the right breast, the axilla of the right breast and the retroareolar of the right breast were scanned. At the 12:00 region posterior to the nipple there is a 2.0 x 1.5 x 2.6 cm cyst with good through transmission posterior wall enhancement. Minimal partial septation is not excluded. This area is larger than the prior exam. Continued monitoring is recommended. Overall Assessment: Probably benign, BI-RAD 3 Management: Diagnostic Mammogram of the right breast in 6 months. Diagnostic Breast Ultrasound of the right breast in 6 months. A clinical breast exam by your physician is recommended on an annual basis and results should be correlated with mammographic findings. This exam should not preclude additional follow-up of suspicious palpable abnormalities. Results were given to the patient verbally at the time of exam. [facility], , 02/25/2024 2:49 PM. Electronically signed and approved by: Daniel Aden D.O. Radiologis
--- NOTE | 2024-02-25 14:56 | MM ---
Reason for Exam: Clinical finding. Last screening mammogram was performed 12 month(s) ago. Patient History: Menarche at age 15. First Full-Term at age 23. Left ovary removed at age 31. Right ovary removed at age 31. Hysterectomy at age 31. Postmenopausal. Previous Hyperplasia w/o Atypia at age 77. Unspecified Hormone for 2 years from age 31 until age 33. 03/27/2023, Benign MG stereo VAD BX LT on the left side. Maternal cousin had breast cancer, age 40. Mother had breast cancer, age 70. Risk Values: Sujatha 5 year model risk: 4.0%. NCI Lifetime model risk: 8.0%. Tissue Density: There are scattered areas of fibroglandular density. Findings: Analyzed By CAD. The pattern is symmetrical. There is a 2.0 x 2.8 cm oval density with partially obscured margins 12:00 position 2.6 cm nipple. Additional evaluation with ultrasound is recommended. There is a 1.1 cm rounded density with circumscribed margins 12 cm from the nipple medial left breast. This appears to be on the skin surface. As correlates with a density marked with mole marker on the cleavage view. Benign calcifications are present bilaterally. Vascular calcifications are present bilaterally. Left breast:No suspicious groups of microcalcifications, spiculated or lobular masses, architectural distortion or other secondary signs of malignancy are mammographically apparent. Overall Assessment: Incomplete: need additional imaging evaluation, BI-RAD 0 Management: Diagnostic Breast Ultrasound of the right breast. A negative mammogram report should not preclude additional follow up of suspicious palpable abnormalities. Patient should continue monthly self breast exam. A clinical breast exam by your physician is recommended on an annual basis and results should be correlated with mammographic findings. Note on Sujatha scores and lifetime risk: 1. A Sujatha score greater than 3% is considered moderate risk. If this is the case, consider specialist referral to assess eligibility for a risk reducing agent. 2. If overall lifetime risk for the development of breast cancer is 20% or higher, the patient may qualify for future screening with alternating mammogram and breast MRI. [facility], , 02/25/2024 2:54 PM. Electronically signed and approved by: Daniel Aden D.O. Radiologis
== END | disposition home or self-care (01) ==
LOC: RADMAMWWP 13:01
PROVIDERS: ATTEND Family Medicine
CPT/HCPCS: 77062; 77066

== ENCOUNTER → 2024-06-04 | Outpatient (CLI) | payer MEDICARE ==
--- NOTE | 2024-06-04 11:20 | FL ---
EXAMINATION TYPE: FL barium swallow w video DATE OF EXAM: 06/04/2024 11:06 AM COMPARISON: None. CLINICAL INDICATION: Female, 78 years old with history of R05.3 CHRONIC COUGH; A number of thin and thick substances were ingested under the care of the department of speech pathol ogy. There is no evidence of aspiration or penetration. There is no evidence of obstruction. DAP are not provided. IMPRESSION: 1. No evidence of aspiration or penetration. [facility], , 06/04/2024 11:18 AM
== END | disposition home or self-care (01) ==
LOC: RADFLMAIN 10:40
PROVIDERS: ATTEND Family Medicine
DX: J69.0 Pneumonitis due to inhalation of food and vomit (principal); R05.3 Chronic cough
CPT/HCPCS: 74230

== ENCOUNTER → 2024-10-15 | Outpatient (CLI) | payer MEDICARE ==
[2024-10-15 15:53] LABS: HCT 49.4 % (37.2-46.3); HGB 15.9 g/dL (12.0-15.0); MCH 32.2 pg (27.0-32.0); MCHC 32.2 g/dL (32.0-37.0); Mean Platelet Volume 11.9 FL (9.5-12.2); NRBC Per 100 WBC 0 X 10*3/uL (0.00-0.01); Platelet Count 226 X 10*3/uL (140-440); RBC 4.94 X 10*6/uL (4.10-5.20); RDW 11.9 % (11.5-14.5); WBC 9.84 X 10*3/uL (4.50-10.00)
[2024-10-15 15:54] LABS: Basophils # (A) 0.07 X 10*3/uL (0.00-0.10); Basophils % (A) 0.7 %; Lymphocytes # (A) 1.63 X 10*3/uL (0.90-5.00); Lymphocytes % (A) 16.6 %; Monocytes # (A) 0.81 X 10*3/uL (0.20-1.00); Monocytes % (A) 8.2 %; Neutrophils # (A) 7.18 X 10*3/uL (1.80-7.70)
[2024-10-15 17:03] LABS: % Iron Saturation 15.68 (12.00-45.00); Chol/HDL Ratio 2.52 Ratio; Creatine Kinase 58 U/L (26-186); Iron 61 UG/DL (50-170); LDL Cholesterol,Calculated 62.4 mg/dL (0.0-131.0); Magnesium 2.1 mg/dL (1.5-2.4); Total Iron Binding Capacity 389 UG/DL (228-460); VLDL Calculation 16.68 mg/dL (5.00-40.00)
[2024-10-15 17:04] LABS: ALT 23 U/L (8-44); AST 22 U/L (13-35); Albumin 4.2 g/dL (3.8-4.9); Albumin/Globulin Ratio 1.68 Ratio (1.60-3.17); Alkaline Phosphatase 108 U/L (41-126); Calcium 10.3 mg/dL (8.7-10.3); Carbon Dioxide 27.9 mmol/L (21.6-31.8); Chloride 101 mmol/L (96-109); Globulin 2.5 g/dL (1.6-3.3); Glucose 97 mg/dL (70-110); Potassium 5.4 mmol/L (3.5-5.5); Sodium 141 mmol/L (135-145); T4, Free (Free Thyroxine) 2.24 ng/dL (0.80-1.80); Total Bilirubin 0.3 mg/dL (0.3-1.2); Total Protein 6.7 g/dL (6.2-8.2)
== END | disposition home or self-care (01) ==
LOC: LABWHC1 09:06
PROVIDERS: ATTEND Family Medicine
DX: I48.0 Paroxysmal atrial fibrillation (principal); E78.2 Mixed hyperlipidemia; G89.4 Chronic pain syndrome; G25.81 Restless legs syndrome
CPT/HCPCS: 36415; 80053; 80061; 82550; 83540; 83550; 83735; 84439; 84443; 85025

== ENCOUNTER → 2024-10-15 | Outpatient (CLI) | payer MEDICARE ==
--- NOTE | 2024-10-15 08:55 | MM ---
Reason for Exam: Follow-up at short interval from prior study. Last screening mammogram was performed 8 month(s) ago. Patient History: Menarche at age 15. First Full-Term at age 23. Left ovary removed at age 31. Right ovary removed at age 31. Hysterectomy at age 31. Postmenopausal. Previous Hyperplasia w/o Atypia at age 77. Unspecified Hormone for 2 years from age 31 until age 33. 03/27/2023, Benign MG stereo VAD BX LT on the left side. Maternal cousin had breast cancer, age 40. Mother had breast cancer, age 70. Risk Values: Sujatha 5 year model risk: 3.9%. NCI Lifetime model risk: 7.4%. Prior Study Comparison: 12/22/2020 Bilateral Diagnostic Mammogram, [facility]. 02/07/2023 Bilateral MG 3D diag mammo w/cad JESSICA, [facility]. 02/25/2024 Bilateral MG 3D diag mammo w/cad JESSICA, [facility]. Tissue Density: Right: There are scattered areas of fibroglandular density. Findings: Analyzed By CAD. Stable benign appearing consultations throughout the right breast. Stable benign mass in the right breast. No new suspicious masses, calcifications or distortions. Overall Assessment: Benign, BI-RAD 2 Management: Screening Mammogram of both breasts in 1 year. Results were given to the patient verbally at the time of exam. Patient should continue monthly self-breast exams. A clinical breast exam by your physician is recommended on an annual basis. This exam should not preclude additional follow-up of suspicious palpable abnormalities. Note on Sujatha scores and lifetime risk: 1. A Sujatha score greater than 3% is considered moderate risk. If this is the case, consider specialist referral to assess eligibility for a risk reducing agent. 2. If overall lifetime risk for the development of breast cancer is 20% or higher, the patient may qualify for future screening with alternating mammogram and breast MRI. [facility], , 10/15/2024 8:53 AM. Electronically signed and approved by: Sean Leija DO
== END | disposition home or self-care (01) ==
LOC: RADMAMWWP 08:25
PROVIDERS: ATTEND Family Medicine
DX: R92.8 Other abnormal and inconclusive findings on diagnostic imaging of breast (principal); R92.321 Mammographic fibroglandular density, right breast; N63.10 Unspecified lump in the right breast, unspecified quadrant; Z78.0 Asymptomatic menopausal state; Z80.3 Family history of malignant neoplasm of breast
CPT/HCPCS: 77065; G0279; 77061

== ENCOUNTER → 2024-12-27 | Outpatient (CLI) | payer MEDICARE ==
[2024-12-27 14:13] LABS: African American GFR (CKD) 84 (>60 ml/min/1.73 sqM); Anion Gap 10 mmol/L; Blood Urea Nitrogen 20 mg/dL (7-17); Calcium 9.9 mg/dL (8.4-10.2); Carbon Dioxide 28 mmol/L (22-30); Chloride 98 mmol/L (98-107); Glucose 106 mg/dL (74-99); Non-African American GFR(CKD) 73 (>60 ml/min/1.73 sqM); Potassium 3.6 mmol/L (3.5-5.1); Sodium 136 mmol/L (137-145)
--- NOTE | 2024-12-28 08:47 | CT ---
EXAMINATION TYPE: CT angio lower extremity BILAT DATE OF EXAM: 12/27/2024 3:57 PM COMPARISON: None. CLINICAL INDICATION: Female, 79 years old with history of I73.9 CLAUDICATION, I73.9 PERIPHERAL ARTERY DISEASE; [facility], Pt states her arteries are 80% blocked per physician TECHNIQUE: Postcontrast CT of the lower abdomen, pelvis, and bilateral lower extremities following administratio n of 100 mL Isovue 370 IV contrast. A delayed scan through the legs as well as coronal and sagittal r econstructions. 3-D reconstructions generated on a dedicated independent workstation CT DLP: 1150 mGycm, Automated exposure control for dose reduction was used. FINDINGS: Partially visualized left hepatic lobe cyst measuring at least 4.9 cm. Scattered moderate stool. Left -sided colonic diverticulosis greatest in the sigmoid colon. No dilated small bowel. No pericolonic i nflammatory change. There is pelvic floor relaxation. Old fractures of the bilateral pubic rami. Mode rate degenerative change with axial joint space loss at both hips. Irregularity and sclerosis at the right greater than left suggesting old healed insufficiency fracture. Uterus surgically absent. No abnormal fluid collection in the pelvis or pelvic lymphadenopathy. Moderate atherosclerotic calcifications visualized lower abdominal aorta and common iliac arteries. Right: Scattered [id number] atherosclerotic calcifications throughout. No significant narrowing of the iliac arteries, CRIMINALIST or PSA. Mild focal stenosis distal SFA at the adductor hiatus. No significant narrowing of the popliteal artery. Normal takeoff of the anterior tibial artery. Tibial peroneal trunk is patent. The peroneal artery seen to the distal third leg level. Initial loss of enhancement within the posterior tibial artery just above the ankle but with enhancem ent seen on delayed scan. Additional runoff via the anterior tibial artery. Moderate size 6.1 cm Victoria's cyst behind the right knee. Left: Oqfg-hj-[id number] atherosclerotic changes are present throughout. No significant stenosis in the common or external iliac arteries. No significant stenosis CRIMINALIST. Mild to moderate atherosclerotic narrowing origin of the PFA. Hbhk-hu-fmabhhek stenosis distal SFA at the adductor hiatus. No significant stenosis popliteal artery. Normal take off anterior tibial artery. Suspect moderate focal stenosis tibial peroneal trunk. Both anterior tibial and peroneal arteries become diminutive at the mid leg level. Peroneal artery no longer seen at the distal third leg level. There is runoff via the posterior tibial artery and additional runoff via the diminutive anterior tib ial artery. IMPRESSION: 1. Mild to moderate atherosclerotic changes throughout. 2. Sigmoid diverticulosis without acute diverticulitis. Pelvic floor relaxation. Right: 2. Peroneal artery seen to the distal third leg level. 3. There is initial loss of enhancement of the posterior tibial artery just above the ankle. Runoff via the anterior tibial artery and delayed runoff via the posterior tibial artery as well. Left: 4. Mild to moderate stenosis at the origin of the PSA. Also within the distal SFA at the adductor hia tus. 5. Suspect moderate focal stenosis tibial peroneal trunk. 6. Both anterior tibial and peroneal arteries become diminutive at the mid leg level. Peroneal artery no longer seen at the distal third leg level. 7. Runoff via the posterior tibial artery and a diminutive anterior tibial artery. [facility], , 12/28/2024 8:45 AM
== END | disposition home or self-care (01) ==
LOC: RADCTMAIN 13:30
PROVIDERS: ATTEND Nuclear Medicine Nuclear Cardiology
DX: Z01.810 Encounter for preprocedural cardiovascular examination (principal); I73.9 Peripheral vascular disease, unspecified; K57.30 Diverticulosis of large intestine without perforation or abscess without bleeding
CPT/HCPCS: 80048; 36415; 73706; Q9967